=== PATIENT | female | born 1990 | race Caucasian/White ===

== ENCOUNTER 2016-10-11 09:25 | Emergency (ER) | payer OTHER ==
[2016-10-11 10:33] LABS: BASO % 0.6 % (0.0-1.0); EOS # 0.4 K/mm3 (0.0-0.50); EOS % 5.6 % (0.0-3.0); LARGE UNSTAINED CELL # 0.1 K/mm3 (0.0-0.4); LARGE UNSTAINED CELL % 1.5 % (0.0-4.0); LYMPH # 2.1 K/mm3 (1.5-6.5); LYMPH % 27.2 % (24.0-44.0); MEAN CORPUSCULAR HEMOGLOBIN 30.7 pg (27.0-33.0); MEAN CORPUSCULAR HGB CONC 33.4 g/dl (32.0-36.5); MEAN CORPUSCULAR VOLUME 91.8 fl (80.0-96.0); MONO # 0.3 K/mm3 (0.0-0.8); MONO % 4.3 % (0.0-5.0); NEUTROPHILS # 4.8 K/mm3 (1.8-7.7); NEUTROPHILS % 60.8 % (36.0-66.0); PLATELET COUNT, AUTOMATED 325 k/mm3 (150-450); RED CELL DISTRIBUTION WIDTH 12.5 % (11.5-14.5); WHITE BLOOD COUNT 7.9 K/mm3 (4.0-10.0)
[2016-10-11 10:52] LABS: ALBUMIN 3.9 GM/DL (3.2-5.2); ALBUMIN/GLOBULIN RATIO 1.15 (1.00-1.93); ALKALINE PHOSPHATASE 68 U/L (45-117); ALT/SGPT 22 U/L (12-78); ANION GAP 5 MEQ/L (8-16); AST/SGOT 10 U/L (15-37); BILIRUBIN,DIRECT 0.1 MG/DL (0.0-0.2); BILIRUBIN,TOTAL 0.5 MG/DL (0.2-1.0); BLOOD UREA NITROGEN 8 MG/DL (7-18); CALCIUM LEVEL 9.1 MG/DL (8.5-10.1); CARBON DIOXIDE LEVEL 28 MEQ/L (21-32); CHLORIDE LEVEL 106 MEQ/L (98-107); CREATININE FOR GFR 0.91 MG/DL (0.55-1.02); GLOMERULAR FILTRATION RATE > 60.0 (>60); GLUCOSE, FASTING 104 MG/DL (70-105); POTASSIUM SERUM 4.1 MEQ/L (3.5-5.1); SODIUM LEVEL 139 MEQ/L (136-145); TOTAL PROTEIN 7.3 GM/DL (6.4-8.2)
--- NOTE | 2016-10-11 11:40 | REP ---
Pelvic sonogram: History: Adnexal pain, question torsion. Findings: Transabdominal and transvaginal scanning are performed. Uterine dimensions are borderline at 9.1 x 4.4 x 5.6 cm. Endometrial echo is 0.7 cm thick. Uterine texture is somewhat heterogeneous. No focal uterine mass is seen. Trace of endometrial fluid is seen. Nabothian cyst is seen in the cervix. No free fluid is noted. Normal ovaries are seen bilaterally. Right ovary measures 3.3 x 1.8 x 3.7 cm. Left ovary measures 3.6 x 1.8 x 1.8 cm. Resistive indices is normal on the left ovary at 0.55 and on the right ovary at 0.50. Impression: Normal size ovaries with normal Doppler flow. Negative pelvic sonography. Signed by Phillip De La Rosa MD 10/11/2016 06:34 P
--- NOTE | 2016-10-11 12:23 | EDDOCDS ---
Nurse's Notes [facility] Name: Madhu Singh Age: 26 yrs Sex: Female : 1990 Arrival Date: 10/11/2016 Time: : Bed TR2 Private MD: Vipul Zayas Diagnosis: Pelvic and perineal pain Presentation: 10/11 09:40 Presenting complaint: Patient states: RLQ pain began this am denies N/V/D. Risk mlb1 factors: the patient reports no vaginal bleeding. Adult Sepsis Screening: The patient does not have new or worsening altered mentation. Patient's respiratory rate is less than 22. Systolic blood pressure is greater than 100. Patient has a qSOFA score of 0- Negative Sepsis Screen. Suicide/Homicide risk assessment- the patient denies having any suicidal and/or homicidal ideations and does not present with any other emotional, behavioral or mental health complaints. Status: Patient is not a director of maternity services or dependent. Transition of care: patient was not received from another setting of care. 09:40 Acuity: GABRIELLE Level 3 mlb1 09:40 Method Of Arrival: Walkin/Carried/Asstd mlb1 Triage Assessment: 09:43 General: Appears in no apparent distress, Behavior is anxious, cooperative. Pain: mlb1 Location: suprapubic area and right lower quadrant Pain currently is 8 out of 10 on a pain scale. HIV screening NA for this visit Offered previously. 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 Lamictal 325 mg Oral once daily 2. Adderall XR 30 mg Oral cp24 1 cap once daily 3. Adderall XR 10 mg Oral cp24 1 cap Q pm 4. [place] Carbonate 800 mg Oral nightly - PMHx: Bipolar disorder; Cancer, Cervix; - PSHx: Cesearean Section (January 09, 2011); Hemorrhoidectomy; - Social history: Smoking status: Patient uses tobacco products, light tobacco smoker. No barriers to communication noted, The patient speaks fluent Albanian, Speaks appropriately for age. - Family history: Not pertinent. - : The pt / caregiver states he / she is not on anticoagulants. Home medication list is obtained from the patient. - Exposure Risk Screening:: None identified. Screenin:19 Screening information is obtained from the patient. Fall risk: No risks identified. ttb Assistance ADL's: requires no assistance with activities of daily living. Abuse/DV Screen: The patient / caregiver reports he/she is: not in a situation that causes fear, pain or injury. Nutritional screening: No deficits noted. Advance Directives: Currently, there is no health care proxy. home support is adequate. Assessment: 12:19 General: Appears in no apparent distress, well nourished, well groomed, Behavior is ttb appropriate for age, cooperative, pleasant. Pain: Location: lower abd. Neurological: Level of Consciousness is awake, alert. Cardiovascular: Chest pain is denied. Respiratory: No deficits noted. Airway is patent Respiratory effort is even, unlabored, Denies cough, shortness of breath. GI: Abdomen is non- distended Bowel sounds present X 4 quads. Abd is soft Denies nausea, vomiting. Derm: Skin is normal. Vital Signs: 09:27 BP 161 / 86; Pulse 94; Resp 18; Temp 96.5; Pulse Ox 100% ; Weight 95.25 kg; Height 5 elp ft. 3 in. (160.02 cm); Pain 9/10; 12:13 BP 128 / 68; Pulse 77; Resp 16; Temp 97.9; Pulse Ox 99% ; Pain 5/10; cmb 09:27 Body Mass Index 37.20 (95.25 kg, 160.02 cm) [facility] Vitals: 09:27 Log In Time: October 11, 2016 at 09:14. [facility] ED Course: 09:26 Patient visited by Cass Jamison PCA. elp 09:26 Patient moved to Waiting elp 09:27 Vipul Zayas is Private Physician. elp 09:27 Patient visited by Cass Jamison PCA. elp 09:28 Patient moved to Pre RCE elp 09:40 Patient visited by Marino Washington, LUIS. mlb1 09:41 Triage Initiated mlb1 09:44 Patient visited by Marino Washington, LUIS. mlb1 09:55 Patient moved to Triage 2 mcp 10:06 [facility] Gl[facility]. btw 10:06 Felipa Metcalf MD is Attending Physician. btw 10:06 Patient visited by Doug Glover PA. btw 10:19 Patient moved to TR1 kc3 10:19 Basic Metabolic Profile Sent. kc3 10:19 CBC with Diff Sent. kc3 10:19 Liver Profile Sent. kc3 10:19 Urinalysis Sent. kc3 10:19 Urine Culture Sent. kc3 10:42 Patient moved to Ultrasound hgl 10:55 Patient name changed from Madhu\S\Amanda\S\Francisco\S\ to Madhu\S\A\S\Francisco. EDMS 10:55 [facility] Payment Agreement was scanned into [email or web address] and attached to record. lg 11:52 -US Pelvic Non-Ob Complete Returned. EDMS 11:59 Patient visited by Mariela Royal. cmb 11:59 Patient moved to PR / cmb 12:10 Vipul Zayas is Referral Physician. btw 12:14 Patient visited by Mariela Royal. cmb 12:19 Patient moved to TR2 ttb 12:19 The patient / caregiver is instructed regarding the plan of care and ED course. ttb Accompanied by Significant Other, Patient has correct armband on for positive identification. 12:19 No IV's were initiated during this patient's visit. No procedures done that require ttb assistance. Labs drawn. (by ED staff). Urine collected. Clean catch specimen. Point of Care Testing: Urine : 10:26 hCG Reading: Negative; Control Reading: Positive; kc3 Ranges: Order Results: Lab Order: Basic Metabolic Profile; SPEC'M 10/11/16 10:15 Test: GLUCOSE, FASTING; Value: 104; Range: 70-105; Units: MG/DL; Status: F Test: BLOOD UREA NITROGEN; Value: 8; Range: 7-18; Units: MG/DL; Status: F Test: CREATININE FOR GFR; Value: 0.91; Range: 0.55-1.02; Units: MG/DL; Status: F Test: GLOMERULAR FILTRATION RATE; Value: > 60.0; Range: >60; Status: F Test: SODIUM LEVEL; Value: 139; Range: 136-145; Units: MEQ/L; Status: F Test: POTASSIUM SERUM; Value: 4.1; Range: 3.5-5.1; Units: MEQ/L; Status: F Test: CHLORIDE LEVEL; Value: 106; Range: 98-107; Units: MEQ/L; Status: F Test: CARBON DIOXIDE LEVEL; Value: 28; Range: 21-32; Units: MEQ/L; Status: F Test: ANION GAP; Value: 5; Range: 8-16; Abnormal: Below low normal; Units: MEQ/L; Status: F Test: CALCIUM LEVEL; Value: 9.1; Range: 8.5-10.1; Units: MG/DL; Status: F Test Note: ; Units are mL/min/1.73 m2 Chronic Kidney Disease Staging per NKF: Stage I & II GFR >=60 Normal to Mildly Decreased Stage III GFR 30-59 Moderately Decreased Stage IV GFR 15-29 Severely Decreased Stage V GFR <15 Very Little GFR Left ESRD GFR <15 on FUR OPERATOR Lab Order: CBC with Diff; SPEC'M 10/11/16 10:15 Test: WHITE BLOOD COUNT; Value: 7.9; Range: 4.0-10.0; Units: K/mm3; Status: F Test: RED BLOOD COUNT; Value: 4.27; Range: 4.00-5.40; Units: M/mm3; Status: F Test: HEMOGLOBIN; Value: 13.1; Range: 12.0-16.0; Units: g/dl; Status: F Test: HEMATOCRIT; Value: 39.2; Range: 36.0-47.0; Units: %; Status: F Test: MEAN CORPUSCULAR VOLUME; Value: 91.8; Range: 80.0-96.0; Units: fl; Status: F Test: MEAN CORPUSCULAR HEMOGLOBIN; Value: 30.7; Range: 27.0-33.0; Units: pg; Status: F Test: MEAN CORPUSCULAR HGB CONC; Value: 33.4; Range: 32.0-36.5; Units: g/dl; Status: F Test: RED CELL DISTRIBUTION WIDTH; Value: 12.5; Range: 11.5-14.5; Units: %; Status: F Test: PLATELET COUNT, AUTOMATED; Value: 325; Range: 150-450; Units: k/mm3; Status: F Test: NEUTROPHILS %; Value: 60.8; Range: 36.0-66.0; Units: %; Status: F Test: LYMPH %; Value: 27.2; Range: 24.0-44.0; Units: %; Status: F Test: MONO %; Value: 4.3; Range: 0.0-5.0; Units: %; Status: F Test: EOS %; Value: 5.6; Range: 0.0-3.0; Abnormal: Above high normal; Units: %; Status: F Test: BASO %; Value: 0.6; Range: 0.0-1.0; Units: %; Status: F Test: LARGE UNSTAINED CELL %; Value: 1.5; Range: 0.0-4.0; Units: %; Status: F Test: NEUTROPHILS #; Value: 4.8; Range: 1.8-7.7; Units: K/mm3; Status: F Test: LYMPH #; Value: 2.1; Range: 1.5-6.5; Units: K/mm3; Status: F Test: MONO #; Value: 0.3; Range: 0.0-0.8; Units: K/mm3; Status: F Test: EOS #; Value: 0.4; Range: 0.0-0.50; Units: K/mm3; Status: F Test: BASO #; Value: 0.0; Range: 0.0-0.2; Units: K/mm3; Status: F Test: LARGE UNSTAINED CELL #; Value: 0.1; Range: 0.0-0.4; Units: K/mm3; Status: F Lab Order: Liver Profile; SPEC'M 10/11/16 10:15 Test: AST/SGOT; Value: 10; Range: 15-37; Abnormal: Below low normal; Units: U/L; Status: F Test: ALT/SGPT; Value: 22; Range: 12-78; Units: U/L; Status: F Test: ALKALINE PHOSPHATASE; Value: 68; Range: 45-117; Units: U/L; Status: F Test: BILIRUBIN,TOTAL; Value: 0.5; Range: 0.2-1.0; Units: MG/DL; Status: F Test: BILIRUBIN,DIRECT; Value: 0.1; Range: 0.0-0.2; Units: MG/DL; Status: F Test: TOTAL PROTEIN; Value: 7.3; Range: 6.4-8.2; Units: GM/DL; Status: F Test: ALBUMIN; Value: 3.9; Range: 3.2-5.2; Units: GM/DL; Status: F Test: ALBUMIN/GLOBULIN RATIO; Value: 1.15; Range: 1.00-1.93; Status: F Lab Order: Urinalysis; SPEC'M 10/11/16 10:16 Test: APPEARANCE, URINE; Value: CLEAR; Range: CLEAR; Status: F Test: COLOR, URINE; Value: YELLOW; Range: YELLOW; Status: F Test: PH,URINE; Value: 8.0; Range: 5.0-9.0; Units: UNITS; Status: F Test: SPECIFIC GRAVITY URINE AUTO; Value: 1.009; Range: 1.002-1.035; Status: F Test: PROTEIN, URINE AUTO; Value: NEGATIVE; Range: NEGATIVE; Units: mg/dL; Status: F Test: GLUCOSE, URINE (UA) AUTO; Value: NEGATIVE; Range: NEGATIVE; Units: mg/dL; Status: F Test: KETONE, URINE AUTO; Value: NEGATIVE; Range: NEGATIVE; Units: mg/dL; Status: F Test: UROBILINOGEN, URINE AUTO; Value: 0.2; Range: 0.0-2.0; Units: mg/dL; Status: F Test: BILIRUBIN, URINE AUTO; Value: NEGATIVE; Range: NEGATIVE; Status: F Test: NITRITE, URINE AUTO; Value: NEGATIVE; Range: NEGATIVE; Status: F Test: LEUKOCYTE ESTERASE, URINE AUTO; Value: NEGATIVE; Range: NEGATIVE; Status: F Test: BLOOD, URINE BLOOD; Value: NEGATIVE; Range: NEGATIVE; Status: F Test: WBC, URINE AUTO; Value: 1; Range: 0-3; Units: /HPF; Status: F Test: RBC, URINE AUTO; Value: 1; Range: 0-3; Units: /HPF; Status: F Test: BACTERIA, URINE AUTO; Value: NEGATIVE; Range: NEGATIVE; Status: F Test: SQUAMOUS EPITHELIAL CELL UR AU; Value: 1; Range: 0-6; Units: /HPF; Status: F Test: HYALINE CAST, URINE AUTO; Value: 0; Range: 0-1; Units: /LPF; Status: F Test: AMORPHOUS SEDIMENT; Value: SMALL; Range: NEGATIVE; Abnormal: Above high normal; Status: F Radiology Order: -US Pelvic Non-Ob Complete Test: -US Pelvic Non-Ob Complete REASON FOR EXAMINATION: Adnexal Pain r/o Torsion; Pelvic sonogram:; ; History: Adnexal pain, question torsion.; ; Findings: Transabdominal and transvaginal scanning are performed. Uterine; dimensions are borderline at 9.1 x 4.4 x 5.6 cm. Endometrial echo is 0.7 cm; thick. Uterine texture is somewhat heterogeneous. No focal uterine mass is; seen. Trace of endometrial fluid is seen. Nabothian cyst is seen in the cervix.; No free fluid is noted. Normal ovaries are seen bilaterally. Right ovary; measures 3.3 x 1.8 x 3.7 cm. Left ovary measures 3.6 x 1.8 x 1.8 cm. Resistive; indices is normal on the left ovary at 0.55 and on the right ovary at 0.50.; ; Impression:; ; Normal size ovaries with normal Doppler flow. Negative pelvic sonography.; ; ; ; ; Unreviewed; Outcome: 12:11 Discharge ordered by Provider. btw 12:19 Discharge Assessment: Patient awake, alert and oriented x 3. No cognitive and/or ttb functional deficits noted. Patient verbalized understanding of disposition instructions. Patient patient administered narcotics - no. The following High Risk Discharge criteria are identified: None. Discharged to home ambulatory, with significant other. Condition: good Condition: stable Condition: improved. Discharge instructions given to patient, significant other, Instructed on discharge instructions, follow up and referral plans. medication usage, Demonstrated understanding of instructions, medications, Pt was receptive of discharge instructions/ teaching. Ultrasound Study completed. Property :Personal belongings accompany Pt. 12:21 Patient left the ED. ttb Signatures: Dispatcher [employer] EDGA Prachi Thakur, RN RN Tina Hensley, Clark Reg Marino Li RN RN mlb1 Doug Glover PA PA btw Ly, Mariela Corona Teresa RN RN ttb Cass Jamison, TYREE BIOSTATIST[employer] PROFESSOR Josy Meade,RN RN kc3 MTDD
--- NOTE | 2016-10-11 12:23 | EDDOCDS ---
Physician Documentation [facility] Name: Madhu Singh Age: 26 yrs Sex: Female : 1990 Arrival Date: 10/11/2016 Time: : Bed TR2 Private MD: Vipul Zayas Disposition: 10/11/16 12:11 Discharged to Home/Self Care. Impression: Pelvic and perineal pain. - Condition is Stable. - Discharge Instructions: Pelvic Pain, Female. - Medication Reconciliation, Local Pharmacy Hours, Work Release Form - 1 day form. - Follow up: Vipul Zayas; When: Call to arrange an appointment; Reason: Further diagnostic work-up, Recheck today's complaints, Continuance of care. - Problem is new. - Symptoms have improved. - Notes: ALTHOUGH YOUR WORK UP IN THE ER TODAY WAS NEGATIVE, IT IS ESSENTIAL THAT YOU MONITOR YOUR PAIN AND FOR ANY SIGNIFICANT CHANGES. IF YOU BECOME WORSE, PLEASE RETURN TO THE ER IMMEDIATELY. OTHERWISE, PLEASE CONTACT YOUR DRAFTER TOPOGRAPHICAL OR PRIMARY MD FOR FOLLOW UP. Historical: - Allergies: no known allergies; - Home Meds: 1. Lamictal 325 mg Oral once daily 2. Adderall XR 30 mg Oral cp24 1 cap once daily 3. Adderall XR 10 mg Oral cp24 1 cap Q pm 4. [place] Carbonate 800 mg Oral nightly - PMHx: Bipolar disorder; Cancer, Cervix; - PSHx: Cesearean Section (January 09, 2011); Hemorrhoidectomy; - Social history: Smoking status: Patient uses tobacco products, light tobacco smoker. No barriers to communication noted, The patient speaks fluent Portuguese, Speaks appropriately for age. - Family history: Not pertinent. - : The pt / caregiver states he / she is not on anticoagulants. Home medication list is obtained from the patient. - Exposure Risk Screening:: None identified. 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 3 in. (160.02 cm); Pain 9/10; 12:13 BP 128 / 68; Pulse 77; Resp 16; Temp 97.9; Pulse Ox 99% ; Pain 5/10; cmb 09:27 Body Mass Index 37.20 (95.25 kg, 160.02 cm) elp MDM: 10:13 Basic Metabolic Profile Ordered. EDMS 10:13 CBC with Diff Ordered. EDMS 10:13 Liver Profile Ordered. EDMS 10:13 Urinalysis Ordered. EDMS 10:13 Urine Culture Ordered. EDMS 10:13 -US Pelvic Non-Ob Complete Ordered. EDMS 10:13 DUPLEX SCAN LIMITED (DOPPLER)+US Ordered. EDMS 10:13 NOTHING BY MOUTH+DIET ordered. EDMS 10:17 UCG by Nursing ordered. btw 10:21 Financial registration complete. lg 10:46 Transvaginal NON- US Ordered. EDMS 10:55 [facility] Payment Agreement was scanned into [employer] and attached to record. lg 10:56 Basic Metabolic Profile Reviewed. btw 10:56 CBC with Diff Reviewed. btw 10:56 Liver Profile Reviewed. btw 10:56 Urinalysis Reviewed. btw Point of Care Testing: Urine : 10:26 hCG Reading: Negative; Control Reading: Positive; kc3 Ranges: Signatures: Dispatcher [employer] EDMS Tina Schilling, Clark Reg lg Marino Washington, RN RN mlb1 Doug Glover PA PA btw Ashley Adame, RN RN ttb The chart was reviewed and I authenticate all verbal orders and agree with the evaluation and treatment provided.Attachments: 10:55 [facility] Payment Agreement lg MTDD
--- NOTE | 2016-10-13 13:22 | EDDOCDS ---
Nurse's Notes [facility] Name: Madhu Singh Age: 26 yrs Sex: Female : 1990 Arrival Date: 10/11/2016 Time: : Bed TR2 Private MD: Vipul Zayas Diagnosis: Pelvic and perineal pain Presentation: 10/11 09:40 Presenting complaint: Patient states: RLQ pain began this am denies N/V/D. Risk mlb1 factors: the patient reports no vaginal bleeding. Adult Sepsis Screening: The patient does not have new or worsening altered mentation. Patient's respiratory rate is less than 22. Systolic blood pressure is greater than 100. Patient has a qSOFA score of 0- Negative Sepsis Screen. Suicide/Homicide risk assessment- the patient denies having any suicidal and/or homicidal ideations and does not present with any other emotional, behavioral or mental health complaints. Status: Patient is not a foreign exchange services manager or dependent. Transition of care: patient was not received from another setting of care. 09:40 Acuity: GABRIELLE Level 3 mlb1 09:40 Method Of Arrival: Walkin/Carried/Asstd mlb1 Triage Assessment: 09:43 General: Appears in no apparent distress, Behavior is anxious, cooperative. Pain: mlb1 Location: suprapubic area and right lower quadrant Pain currently is 8 out of 10 on a pain scale. HIV screening NA for this visit Offered previously. 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 Lamictal 325 mg Oral once daily 2. Adderall XR 30 mg Oral cp24 1 cap once daily 3. Adderall XR 10 mg Oral cp24 1 cap Q pm 4. [place] Carbonate 800 mg Oral nightly - PMHx: Bipolar disorder; Cancer, Cervix; - PSHx: Cesearean Section (January 09, 2011); Hemorrhoidectomy; - Social history: Smoking status: Patient uses tobacco products, light tobacco smoker. No barriers to communication noted, The patient speaks fluent Slovenian, Speaks appropriately for age. - Family history: Not pertinent. - : The pt / caregiver states he / she is not on anticoagulants. Home medication list is obtained from the patient. - Exposure Risk Screening:: None identified. Screenin:19 Screening information is obtained from the patient. Fall risk: No risks identified. ttb Assistance ADL's: requires no assistance with activities of daily living. Abuse/DV Screen: The patient / caregiver reports he/she is: not in a situation that causes fear, pain or injury. Nutritional screening: No deficits noted. Advance Directives: Currently, there is no health care proxy. home support is adequate. Assessment: 12:19 General: Appears in no apparent distress, well nourished, well groomed, Behavior is ttb appropriate for age, cooperative, pleasant. Pain: Location: lower abd. Neurological: Level of Consciousness is awake, alert. Cardiovascular: Chest pain is denied. Respiratory: No deficits noted. Airway is patent Respiratory effort is even, unlabored, Denies cough, shortness of breath. GI: Abdomen is non- distended Bowel sounds present X 4 quads. Abd is soft Denies nausea, vomiting. Derm: Skin is normal. Vital Signs: 09:27 BP 161 / 86; Pulse 94; Resp 18; Temp 96.5; Pulse Ox 100% ; Weight 95.25 kg; Height 5 elp ft. 3 in. (160.02 cm); Pain 9/10; 12:13 BP 128 / 68; Pulse 77; Resp 16; Temp 97.9; Pulse Ox 99% ; Pain 5/10; cmb 09:27 Body Mass Index 37.20 (95.25 kg, 160.02 cm) [facility] Vitals: 09:27 Log In Time: October 11, 2016 at 09:14. [facility] ED Course: 09:26 Patient visited by Cass Jamison PCA. elp 09:26 Patient moved to Waiting elp 09:27 Vipul Zayas is Private Physician. elp 09:27 Patient visited by Cass Jamison PCA. elp 09:28 Patient moved to Pre RCE elp 09:40 Patient visited by Marino Washington, LUIS. mlb1 09:41 Triage Initiated mlb1 09:44 Patient visited by Marino Washington, LUIS. mlb1 09:55 Patient moved to Triage 2 mcp 10:06 [facility] btw 10:06 Felipa Metcalf MD is Attending Physician. btw 10:06 Patient visited by Doug Glover PA. btw 10:19 Patient moved to TR1 kc3 10:19 Basic Metabolic Profile Sent. kc3 10:19 CBC with Diff Sent. kc3 10:19 Liver Profile Sent. kc3 10:19 Urinalysis Sent. kc3 10:19 Urine Culture Sent. kc3 10:42 Patient moved to Ultrasound hgl 10:55 Patient name changed from Madhu\S\Amanda\S\Francisco\S\ to Madhu\S\A\S\Francisco. EDMS 10:55 PA-EM Payment Agreement was scanned into [facility] and attached to record. lg 11:52 -US Pelvic Non-Ob Complete Returned. EDMS 11:59 Patient visited by Mariela Royal. cmb 11:59 Patient moved to PR / 25 cmb 12:10 Vipul Zayas is Referral Physician. btw 12:14 Patient visited by Mariela Royal. cmb 12:19 Patient moved to TR2 ttb 12:19 The patient / caregiver is instructed regarding the plan of care and ED course. ttb Accompanied by Significant Other, Patient has correct armband on for positive identification. 12:19 No IV's were initiated during this patient's visit. No procedures done that require ttb assistance. Labs drawn. (by ED staff). Urine collected. Clean catch specimen. 14:00 T-Sheet-- Draft Copy was scanned into [facility] and attached to record. gb Point of Care Testing: Urine : 10:26 hCG Reading: Negative; Control Reading: Positive; kc3 Ranges: Order Results: Lab Order: Basic Metabolic Profile; SPEC'M 10/11/16 10:15 Test: GLUCOSE, FASTING; Value: 104; Range: 70-105; Units: MG/DL; Status: F Test: BLOOD UREA NITROGEN; Value: 8; Range: 7-18; Units: MG/DL; Status: F Test: CREATININE FOR GFR; Value: 0.91; Range: 0.55-1.02; Units: MG/DL; Status: F Test: GLOMERULAR FILTRATION RATE; Value: > 60.0; Range: >60; Status: F Test: SODIUM LEVEL; Value: 139; Range: 136-145; Units: MEQ/L; Status: F Test: POTASSIUM SERUM; Value: 4.1; Range: 3.5-5.1; Units: MEQ/L; Status: F Test: CHLORIDE LEVEL; Value: 106; Range: 98-107; Units: MEQ/L; Status: F Test: CARBON DIOXIDE LEVEL; Value: 28; Range: 21-32; Units: MEQ/L; Status: F Test: ANION GAP; Value: 5; Range: 8-16; Abnormal: Below low normal; Units: MEQ/L; Status: F Test: CALCIUM LEVEL; Value: 9.1; Range: 8.5-10.1; Units: MG/DL; Status: F Test Note: ; Units are mL/min/1.73 m2 Chronic Kidney Disease Staging per NKF: Stage I & II GFR >=60 Normal to Mildly Decreased Stage III GFR 30-59 Moderately Decreased Stage IV GFR 15-29 Severely Decreased Stage V GFR <15 Very Little GFR Left ESRD GFR <15 on TRANSFER CAR OPERATOR DRIER Lab Order: CBC with Diff; SPEC'M 10/11/16 10:15 Test: WHITE BLOOD COUNT; Value: 7.9; Range: 4.0-10.0; Units: K/mm3; Status: F Test: RED BLOOD COUNT; Value: 4.27; Range: 4.00-5.40; Units: M/mm3; Status: F Test: HEMOGLOBIN; Value: 13.1; Range: 12.0-16.0; Units: g/dl; Status: F Test: HEMATOCRIT; Value: 39.2; Range: 36.0-47.0; Units: %; Status: F Test: MEAN CORPUSCULAR VOLUME; Value: 91.8; Range: 80.0-96.0; Units: fl; Status: F Test: MEAN CORPUSCULAR HEMOGLOBIN; Value: 30.7; Range: 27.0-33.0; Units: pg; Status: F Test: MEAN CORPUSCULAR HGB CONC; Value: 33.4; Range: 32.0-36.5; Units: g/dl; Status: F Test: RED CELL DISTRIBUTION WIDTH; Value: 12.5; Range: 11.5-14.5; Units: %; Status: F Test: PLATELET COUNT, AUTOMATED; Value: 325; Range: 150-450; Units: k/mm3; Status: F Test: NEUTROPHILS %; Value: 60.8; Range: 36.0-66.0; Units: %; Status: F Test: LYMPH %; Value: 27.2; Range: 24.0-44.0; Units: %; Status: F Test: MONO %; Value: 4.3; Range: 0.0-5.0; Units: %; Status: F Test: EOS %; Value: 5.6; Range: 0.0-3.0; Abnormal: Above high normal; Units: %; Status: F Test: BASO %; Value: 0.6; Range: 0.0-1.0; Units: %; Status: F Test: LARGE UNSTAINED CELL %; Value: 1.5; Range: 0.0-4.0; Units: %; Status: F Test: NEUTROPHILS #; Value: 4.8; Range: 1.8-7.7; Units: K/mm3; Status: F Test: LYMPH #; Value: 2.1; Range: 1.5-6.5; Units: K/mm3; Status: F Test: MONO #; Value: 0.3; Range: 0.0-0.8; Units: K/mm3; Status: F Test: EOS #; Value: 0.4; Range: 0.0-0.50; Units: K/mm3; Status: F Test: BASO #; Value: 0.0; Range: 0.0-0.2; Units: K/mm3; Status: F Test: LARGE UNSTAINED CELL #; Value: 0.1; Range: 0.0-0.4; Units: K/mm3; Status: F Lab Order: Liver Profile; SPEC'M 10/11/16 10:15 Test: AST/SGOT; Value: 10; Range: 15-37; Abnormal: Below low normal; Units: U/L; Status: F Test: ALT/SGPT; Value: 22; Range: 12-78; Units: U/L; Status: F Test: ALKALINE PHOSPHATASE; Value: 68; Range: 45-117; Units: U/L; Status: F Test: BILIRUBIN,TOTAL; Value: 0.5; Range: 0.2-1.0; Units: MG/DL; Status: F Test: BILIRUBIN,DIRECT; Value: 0.1; Range: 0.0-0.2; Units: MG/DL; Status: F Test: TOTAL PROTEIN; Value: 7.3; Range: 6.4-8.2; Units: GM/DL; Status: F Test: ALBUMIN; Value: 3.9; Range: 3.2-5.2; Units: GM/DL; Status: F Test: ALBUMIN/GLOBULIN RATIO; Value: 1.15; Range: 1.00-1.93; Status: F Lab Order: Urinalysis; SPEC'M 10/11/16 10:16 Test: APPEARANCE, URINE; Value: CLEAR; Range: CLEAR; Status: F Test: COLOR, URINE; Value: YELLOW; Range: YELLOW; Status: F Test: PH,URINE; Value: 8.0; Range: 5.0-9.0; Units: UNITS; Status: F Test: SPECIFIC GRAVITY URINE AUTO; Value: 1.009; Range: 1.002-1.035; Status: F Test: PROTEIN, URINE AUTO; Value: NEGATIVE; Range: NEGATIVE; Units: mg/dL; Status: F Test: GLUCOSE, URINE (UA) AUTO; Value: NEGATIVE; Range: NEGATIVE; Units: mg/dL; Status: F Test: KETONE, URINE AUTO; Value: NEGATIVE; Range: NEGATIVE; Units: mg/dL; Status: F Test: UROBILINOGEN, URINE AUTO; Value: 0.2; Range: 0.0-2.0; Units: mg/dL; Status: F Test: BILIRUBIN, URINE AUTO; Value: NEGATIVE; Range: NEGATIVE; Status: F Test: NITRITE, URINE AUTO; Value: NEGATIVE; Range: NEGATIVE; Status: F Test: LEUKOCYTE ESTERASE, URINE AUTO; Value: NEGATIVE; Range: NEGATIVE; Status: F Test: BLOOD, URINE BLOOD; Value: NEGATIVE; Range: NEGATIVE; Status: F Test: WBC, URINE AUTO; Value: 1; Range: 0-3; Units: /HPF; Status: F Test: RBC, URINE AUTO; Value: 1; Range: 0-3; Units: /HPF; Status: F Test: BACTERIA, URINE AUTO; Value: NEGATIVE; Range: NEGATIVE; Status: F Test: SQUAMOUS EPITHELIAL CELL UR AU; Value: 1; Range: 0-6; Units: /HPF; Status: F Test: HYALINE CAST, URINE AUTO; Value: 0; Range: 0-1; Units: /LPF; Status: F Test: AMORPHOUS SEDIMENT; Value: SMALL; Range: NEGATIVE; Abnormal: Above high normal; Status: F Lab Order: Urine Culture; SPEC'M 10/11/16 10:16 Test: URINE CULTURE; Value: <EXTERNAL COMMENT eCWMed> FULL REPORT IN LAB NOTES (eCW and Medent).; Status: F Test: URINE CULTURE; Value: URINE CULTURE RESULT; Status: F Test: URINE CULTURE; Value: NO GROWTH CLINICAL SIGNIFICANCE 2 OR MORE ORGANISMS; Status: F Radiology Order: -US Pelvic Non-Ob Complete Test: -US Pelvic Non-Ob Complete REASON FOR EXAMINATION: Adnexal Pain r/o Torsion; Pelvic sonogram:; ; History: Adnexal pain, question torsion.; ; Findings: Transabdominal and transvaginal scanning are performed. Uterine; dimensions are borderline at 9.1 x 4.4 x 5.6 cm. Endometrial echo is 0.7 cm; thick. Uterine texture is somewhat heterogeneous. No focal uterine mass is; seen. Trace of endometrial fluid is seen. Nabothian cyst is seen in the cervix.; No free fluid is noted. Normal ovaries are seen bilaterally. Right ovary; measures 3.3 x 1.8 x 3.7 cm. Left ovary measures 3.6 x 1.8 x 1.8 cm. Resistive; indices is normal on the left ovary at 0.55 and on the right ovary at 0.50.; ; Impression:; ; Normal size ovaries with normal Doppler flow. Negative pelvic sonography.; ; ; Signed by; Phillip De La Rosa MD 10/11/2016 06:34 P; Outcome: 12:11 Discharge ordered by Provider. btw 12:19 Discharge Assessment: Patient awake, alert and oriented x 3. No cognitive and/or ttb functional deficits noted. Patient verbalized understanding of disposition instructions. Patient patient administered narcotics - no. The following High Risk Discharge criteria are identified: None. Discharged to home ambulatory, with significant other. Condition: good Condition: stable Condition: improved. Discharge instructions given to patient, significant other, Instructed on discharge instructions, follow up and referral plans. medication usage, Demonstrated understanding of instructions, medications, Pt was receptive of discharge instructions/ teaching. Ultrasound Study completed. Property :Personal belongings accompany Pt. 12:21 Patient left the ED. ttb Signatures: Dispatcher [facility] Prachi Jorge RN RN Florence Caldwell, Reg Reg Tina Waldron, Reg Reg lg Marino Washington, RN RN mlb1 Doug Glover PA PA btw Ly, Link hgl Mariela Royal Teresa, RN RN ttb Cass Jamison, T[employer]REE PUBLIC ADMINISTRATION PROFESSOR elp Josy Parikh,RN RN kc3 Chart Complete MTDD
--- NOTE | 2016-10-13 13:22 | EDDOCDS ---
Physician Documentation [facility] Name: Madhu Singh Age: 26 yrs Sex: Female : 1990 Arrival Date: 10/11/2016 Time: : Bed TR2 Private MD: Vipul Zayas Disposition: 10/11/16 12:11 Discharged to Home/Self Care. Impression: Pelvic and perineal pain. - Condition is Stable. - Discharge Instructions: Pelvic Pain, Female. - Medication Reconciliation, Local Pharmacy Hours, Work Release Form - 1 day form. - Follow up: Vipul Zayas; When: Call to arrange an appointment; Reason: Further diagnostic work-up, Recheck today's complaints, Continuance of care. - Problem is new. - Symptoms have improved. - Notes: ALTHOUGH YOUR WORK UP IN THE ER TODAY WAS NEGATIVE, IT IS ESSENTIAL THAT YOU MONITOR YOUR PAIN AND FOR ANY SIGNIFICANT CHANGES. IF YOU BECOME WORSE, PLEASE RETURN TO THE ER IMMEDIATELY. OTHERWISE, PLEASE CONTACT YOUR TOY ASSEMBLER WOOD OR PRIMARY MD FOR FOLLOW UP. Historical: - Allergies: no known allergies; - Home Meds: 1. Lamictal 325 mg Oral once daily 2. Adderall XR 30 mg Oral cp24 1 cap once daily 3. Adderall XR 10 mg Oral cp24 1 cap Q pm 4. [place] Carbonate 800 mg Oral nightly - PMHx: Bipolar disorder; Cancer, Cervix; - PSHx: Cesearean Section (January 09, 2011); Hemorrhoidectomy; - Social history: Smoking status: Patient uses tobacco products, light tobacco smoker. No barriers to communication noted, The patient speaks fluent Kyrgyz, Speaks appropriately for age. - Family history: Not pertinent. - : The pt / caregiver states he / she is not on anticoagulants. Home medication list is obtained from the patient. - Exposure Risk Screening:: None identified. TOY ASSEMBLER WOOD: 10/11 09:43 LMP 10/04/2016 mlb1 Vital Signs: 09:27 BP 161 / 86; Pulse 94; Resp 18; Temp 96.5; Pulse Ox 100% ; Weight 95.25 kg / 209.99 elp lbs; Height 5 ft. 3 in. (160.02 cm); Pain 9/10; 12:13 BP 128 / 68; Pulse 77; Resp 16; Temp 97.9; Pulse Ox 99% ; Pain 5/10; cmb 09:27 Body Mass Index 37.20 (95.25 kg, 160.02 cm) elp MDM: 10:13 Basic Metabolic Profile Ordered. EDMS 10:13 CBC with Diff Ordered. EDMS 10:13 Liver Profile Ordered. EDMS 10:13 Urinalysis Ordered. EDMS 10:13 Urine Culture Ordered. EDMS 10:13 -US Pelvic Non-Ob Complete Ordered. EDMS 10:13 DUPLEX SCAN LIMITED (DOPPLER)+US Ordered. EDMS 10:13 NOTHING BY MOUTH+DIET ordered. EDMS 10:17 UCG by Nursing ordered. btw 10:21 Financial registration complete. lg 10:46 Transvaginal NON- US Ordered. EDMS 10:55 [facility] [place] Payment Agreement was scanned into [employer] and attached to record. lg 10:56 Basic Metabolic Profile Reviewed. btw 10:56 CBC with Diff Reviewed. btw 10:56 Liver Profile Reviewed. btw 10:56 Urinalysis Reviewed. btw 14:00 T-Sheet-- Draft Copy was scanned into [employer] and attached to record. gb Point of Care Testing: Urine : 10:26 hCG Reading: Negative; Control Reading: Positive; kc3 Ranges: Signatures: Dispatcher [employer] EDMS Florence Schreiber, Reg Reg gb Tina Schilling, Reg Reg lg Marino Washington, RN RN mlb1 Doug Glover PA PA btw Ashley Adame, RN RN ttb The chart was reviewed and I authenticate all verbal orders and agree with the evaluation and treatment provided.Attachments: 10:55 [facility] Payment Agreement lg 14:00 T-Sheet-- Draft Copy gb Chart Complete MTDD
--- NOTE | 2016-10-13 13:22 | EDDOCDS ---
Physician Documentation [facility] Name: Madhu Singh Age: 26 yrs Sex: Female : 1990 Arrival Date: 10/11/2016 Time: : Bed TR2 Private MD: Vipul Zayas Disposition: 10/11/16 12:11 Discharged to Home/Self Care. Impression: Pelvic and perineal pain. - Condition is Stable. - Discharge Instructions: Pelvic Pain, Female. - Medication Reconciliation, Local Pharmacy Hours, Work Release Form - 1 day form. - Follow up: Vipul Zayas; When: Call to arrange an appointment; Reason: Further diagnostic work-up, Recheck today's complaints, Continuance of care. - Problem is new. - Symptoms have improved. - Notes: ALTHOUGH YOUR WORK UP IN THE ER TODAY WAS NEGATIVE, IT IS ESSENTIAL THAT YOU MONITOR YOUR PAIN AND FOR ANY SIGNIFICANT CHANGES. IF YOU BECOME WORSE, PLEASE RETURN TO THE ER IMMEDIATELY. OTHERWISE, PLEASE CONTACT YOUR INTERNATIONAL ACCOUNT MANAGER OR PRIMARY MD FOR FOLLOW UP. Historical: - Allergies: no known allergies; - Home Meds: 1. Lamictal 325 mg Oral once daily 2. Adderall XR 30 mg Oral cp24 1 cap once daily 3. Adderall XR 10 mg Oral cp24 1 cap Q pm 4. [place] Carbonate 800 mg Oral nightly - PMHx: Bipolar disorder; Cancer, Cervix; - PSHx: Cesearean Section (January 09, 2011); Hemorrhoidectomy; - Social history: Smoking status: Patient uses tobacco products, light tobacco smoker. No barriers to communication noted, The patient speaks fluent Kiswahili, Speaks appropriately for age. - Family history: Not pertinent. - : The pt / caregiver states he / she is not on anticoagulants. Home medication list is obtained from the patient. - Exposure Risk Screening:: None identified. INTERNATIONAL ACCOUNT MANAGER: 10/11 09:43 LMP 10/04/2016 mlb1 Vital Signs: 09:27 BP 161 / 86; Pulse 94; Resp 18; Temp 96.5; Pulse Ox 100% ; Weight 95.25 kg / 209.99 elp lbs; Height 5 ft. 3 in. (160.02 cm); Pain 9/10; 12:13 BP 128 / 68; Pulse 77; Resp 16; Temp 97.9; Pulse Ox 99% ; Pain 5/10; cmb 09:27 Body Mass Index 37.20 (95.25 kg, 160.02 cm) elp MDM: 10:13 Basic Metabolic Profile Ordered. EDMS 10:13 CBC with Diff Ordered. EDMS 10:13 Liver Profile Ordered. EDMS 10:13 Urinalysis Ordered. EDMS 10:13 Urine Culture Ordered. EDMS 10:13 -US Pelvic Non-Ob Complete Ordered. EDMS 10:13 DUPLEX SCAN LIMITED (DOPPLER)+US Ordered. EDMS 10:13 NOTHING BY MOUTH+DIET ordered. EDMS 10:17 UCG by Nursing ordered. btw 10:21 Financial registration complete. lg 10:46 Transvaginal NON- US Ordered. EDMS 10:55 [facility] [place] Payment Agreement was scanned into [employer] and attached to record. lg 10:56 Basic Metabolic Profile Reviewed. btw 10:56 CBC with Diff Reviewed. btw 10:56 Liver Profile Reviewed. btw 10:56 Urinalysis Reviewed. btw 14:00 T-Sheet-- Draft Copy was scanned into [employer] and attached to record. gb Point of Care Testing: Urine : 10:26 hCG Reading: Negative; Control Reading: Positive; kc3 Ranges: Signatures: Dispatcher [employer] EDMS Florence Schreiber, Reg Reg gb Tina Schilling, Reg Reg lg Marino Washington, RN RN mlb1 Doug Glover PA PA btw Ashley Adame, RN RN ttb The chart was reviewed and I authenticate all verbal orders and agree with the evaluation and treatment provided.Attachments: 10:55 [facility] [place] Payment Agreement lg 14:00 T-Sheet-- Draft Copy gb Chart Complete MTDD
== END 2016-10-11 12:21 | disposition home or self-care (01) ==
LOC: M ED 09:25
DX: R10.31 Right lower quadrant pain (principal); F31.9 Bipolar disorder, unspecified; Z85.41 Personal history of malignant neoplasm of cervix uteri; Z79.899 Other long term (current) drug therapy; F17.210 Nicotine dependence, cigarettes, uncomplicated

== ENCOUNTER 2016-10-12 08:41 | Emergency (ER) | payer OTHER ==
[2016-10-12] MEDS ORDERED: diphenhydrAMINE INJ 50MG/ML VIAL (J1200) As Ordered ONE (09:06)
[2016-10-12] MEDS ORDERED: METOCLOPRAMIDE INJ 10MG/2ML VIAL (J2765) As Ordered ONE (09:06)
[2016-10-12 09:16] LABS: BASO % 0.4 % (0.0-1.0); EOS # 0.2 K/mm3 (0.0-0.50); EOS % 2.3 % (0.0-3.0); LARGE UNSTAINED CELL # 0.1 K/mm3 (0.0-0.4); LARGE UNSTAINED CELL % 0.5 % (0.0-4.0); LYMPH # 0.8 K/mm3 (1.5-6.5); LYMPH % 7.6 % (24.0-44.0); MEAN CORPUSCULAR HEMOGLOBIN 29.7 pg (27.0-33.0); MEAN CORPUSCULAR HGB CONC 32.2 g/dl (32.0-36.5); MEAN CORPUSCULAR VOLUME 92.2 fl (80.0-96.0); MONO # 0.4 K/mm3 (0.0-0.8); MONO % 3.8 % (0.0-5.0); NEUTROPHILS # 9.3 K/mm3 (1.8-7.7); NEUTROPHILS % 85.5 % (36.0-66.0); PLATELET COUNT, AUTOMATED 340 k/mm3 (150-450); RED CELL DISTRIBUTION WIDTH 12.6 % (11.5-14.5); WHITE BLOOD COUNT 10.8 K/mm3 (4.0-10.0)
[2016-10-12] MEDS ORDERED: ISOVUE-370 76% 100ML VIAL (Q9967) As Ordered ONE (09:17)
[2016-10-12 09:40] LABS: ALBUMIN 3.8 GM/DL (3.2-5.2); ALBUMIN/GLOBULIN RATIO 1.06 (1.00-1.93); ALKALINE PHOSPHATASE 72 U/L (45-117); ALT/SGPT 21 U/L (12-78); AMYLASE 48 U/L (25-115); ANION GAP 8 MEQ/L (8-16); AST/SGOT 9 U/L (15-37); BILIRUBIN,DIRECT 0.1 MG/DL (0.0-0.2); BILIRUBIN,TOTAL 0.6 MG/DL (0.2-1.0); BLOOD UREA NITROGEN 9 MG/DL (7-18); CALCIUM LEVEL 9.1 MG/DL (8.5-10.1); CARBON DIOXIDE LEVEL 25 MEQ/L (21-32); CHLORIDE LEVEL 107 MEQ/L (98-107); CREATININE FOR GFR 0.82 MG/DL (0.55-1.02); GLOMERULAR FILTRATION RATE > 60.0 (>60); GLUCOSE, FASTING 106 MG/DL (70-105); POTASSIUM SERUM 4.1 MEQ/L (3.5-5.1); SODIUM LEVEL 140 MEQ/L (136-145); TOTAL PROTEIN 7.4 GM/DL (6.4-8.2)
--- NOTE | 2016-10-12 09:55 | REP ---
CT ABDOMEN PELVIS WITH IV BUT WITHOUT ORAL CONTRAST: HISTORY: Appendicitis. Right-sided pain. Comparison CT study August 07, 2012. CT contrast dose: 100 mL of Isovue [address] FINDINGS: Digital preliminary mule spinner radiograph shows an unremarkable bowel gas pattern. The lung bases are clear. There is no evidence of pleural effusion. The liver and the spleen are normal in size and homogeneous in texture. The gallbladder and the pancreas are unremarkable. No adrenal lesion is seen on either side. The kidneys enhance symmetrically are morphologically intact bilaterally. No retroperitoneal mass or adenopathy is seen. Normal caliber aorta is noted. Small and large intestinal bowel loops are normal in the upper abdomen. A normal retrocecal appendix is seen ascending from the cecal tip in the right flank and terminating just adjacent to the inferior tip of the liver. There is no CT evidence of diverticulitis. Uterus is tipped somewhat to the right and is unremarkable. No ovarian mass or pelvic mass or adenopathy is seen. Urinary bladder is unremarkable. Small and large intestinal bowel loops are unremarkable. No abdominal wall defect is seen. Bone window settings show no bony destructive lesion. There are bilateral L5 spondylosis defects with a subtle 2 mm grade 1, L5-S1 spondylolisthesis. No other significant bony abnormality is seen. IMPRESSION: No acute intra-abdominal abnormality. Normal appendix seen. L5 spondylolysis noted bilaterally with 2 mm grade 1, L5-S1 spondylolisthesis. This is an interval finding when compared with the [address] study. Signed by Phillip De La Rosa MD 10/12/2016 10:38 A
--- NOTE | 2016-10-12 10:39 | EDDOCDS ---
Physician Documentation [facility] Name: Madhu Singh Age: 26 yrs Sex: Female : 1990 Arrival Date: 10/12/2016 Time: 08:41 Bed I3 / M3 Private MD: Vipul Zayas MD Disposition: 10/12/16 10:33 Discharged to Home/Self Care. Impression: Right lower quadrant abdominal tenderness, Nausea and vomiting. - Condition is Stable. - Discharge Instructions: Nausea and Vomiting, [id number], Abdominal Pain, Adult, [id number]. - Prescriptions for Bentyl 20 mg Oral Tablet - take 1 tablet by ORAL route every 6 hours As needed; 20 tablet. ZOFRAN ODT 4 mg - dissolve 1 tablet by ORAL route 4 times per day As needed do not chew, do not swallow whole; 10 tablet. - Medication Reconciliation, Local Pharmacy Hours form. - Follow up: Vipul Zayas; When: Call to arrange an appointment; Reason: Further diagnostic work-up, Recheck today's complaints, Continuance of care. - Problem is new. - Symptoms are unchanged. Historical: - Allergies: no known allergies; - Home Meds: 1. Adderall XR 30 mg Oral cp24 1 cap once daily 2. Adderall XR 10 mg Oral cp24 1 cap q pm 3. Lamictal 325 mg Oral once daily 4. [place] Carbonate 800 mg Oral nightly - PMHx: Bipolar disorder; Cancer, Cervix; - PSHx: Cesearean Section (January 09, 2011); Hemorrhoidectomy; - Social history: Smoking status: Patient uses tobacco products, current every day smoker. No barriers to communication noted, The patient speaks fluent Japanese, Speaks appropriately for age. - Family history: Not pertinent. - : The pt / caregiver states he / she is not on anticoagulants. Home medication list is obtained from the patient. - Exposure Risk Screening:: None identified. 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 3 in. (160.02 cm); Pain 8/10; 10:05 BP 132 / 71; Pulse 70; Resp 18; Temp 99.3(TE); Pulse Ox 100% on R/A; srm 08:49 Body Mass Index 37.20 (95.25 kg, 160.02 cm) dem1 MDM: 08:47 NS 0.9% 1000 ml IV at bolus once ordered. btw 08:47 IV Saline Lock ordered. btw 08:47 Undress patient appropriately for examination ordered. btw 08:47 Metoclopramide 20 mg IV at 80 mg/hr once over 15 mins ordered. btw 08:47 diphenhydrAMINE 50 mg IVP once ordered. btw 08:47 Amylase Ordered. EDMS 08:47 Basic Metabolic Profile Ordered. EDMS 08:47 CBC with Diff Ordered. EDMS 08:47 Lipase Ordered. EDMS 08:47 Liver Profile Ordered. EDMS 08:48 NOTHING BY MOUTH+DIET ordered. EDMS 08:53 CT ABD & PELVIS: IV Contrast Only Ordered. EDMS 09:19 Financial registration complete. lg 09:20 [facility] Payment Agreement was scanned into [employer] and attached to record. lg 09:41 Basic Metabolic Profile Reviewed. btw 09:41 CBC with Diff Reviewed. btw 09:41 Liver Profile Reviewed. btw 09:41 Amylase Reviewed. btw 09:41 Lipase Reviewed. btw Administered Medications: 09:11 Drug: NS 0.9% 1000 ml [sodium chloride 0.9 % intravenous solution] Route: IV; Rate: srm bolus; Site: right antecubital; 10:38 Follow up: IV Status: Completed infusion; IV Intake: 1000ml srm 09:11 Drug: diphenhydrAMINE 50 mg [diphenhydramine 50 mg/mL injection solution (1 mL)] Route: srm IVP; Site: right antecubital; 09:13 Drug: Metoclopramide 20 mg [metoclopramide 5 mg/mL injection solution] Route: IV; Rate: srm 80 mg/hr; Infused Over: 15 mins; Site: right antecubital; 09:46 Follow up: IV Status: Completed infusion srm Signatures: Dispatcher [employer] EDMS Katia Stephen, LUIS RN srm Tina Schilling, Clark Rodas lg Doug Glover PA PA btw The chart was reviewed and I authenticate all verbal orders and agree with the evaluation and treatment provided.Corrections: (The following items were deleted from the chart) 08:57 08:48 CT ABD & PELVIS WITH CONTRAST+CT ordered. EDMS EDMS Attachments: 09:20 [facility] Payment Agreement lg MTDD
--- NOTE | 2016-10-12 10:40 | EDDOCDS ---
Nurse's Notes [facility] Name: Madhu Singh Age: 26 yrs Sex: Female : 1990 Arrival Date: 10/12/2016 Time: 08:41 Bed I3 / M3 Private MD: Vipul Zayas MD Diagnosis: Right lower quadrant abdominal tenderness;Nausea and vomiting Presentation: 10/12 08:49 Presenting complaint: Patient states: RLQ pain since yesterday am. seen here had labs srm and U/S. worse throughout the night with vomiting "looks like cow manuere". has had vag bleeding for 8 days. Risk factors: the patient reports moderate vaginal bleeding. Adult Sepsis Screening: The patient does not have new or worsening altered mentation. Patient's respiratory rate is less than 22. Systolic blood pressure is greater than 100. Patient has a qSOFA score of 0- Negative Sepsis Screen. Suicide/Homicide risk assessment- the patient denies having any suicidal and/or homicidal ideations and does not present with any other emotional, behavioral or mental health complaints. Transition of care: patient was not received from another setting of care. 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 srm Triage Assessment: 08:49 General: Appears uncomfortable, Behavior is appropriate for age, cooperative, crying. srm Pain: Pain currently is 8 out of 10 on a pain scale. HIV screening NA for this visit Offered previously. GI: Reports lower abdominal pain, vomiting. 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 Adderall XR 30 mg Oral cp24 1 cap once daily 2. Adderall XR 10 mg Oral cp24 1 cap q pm 3. Lamictal 325 mg Oral once daily 4. Cesar Chavez Carbonate 800 mg Oral nightly - PMHx: Bipolar disorder; Cancer, Cervix; - PSHx: Cesearean Section (January 09, 2011); Hemorrhoidectomy; - Social history: Smoking status: Patient uses tobacco products, current every day smoker. No barriers to communication noted, The patient speaks fluent Croatian, Speaks appropriately for age. - Family history: Not pertinent. - : The pt / caregiver states he / she is not on anticoagulants. Home medication list is obtained from the patient. - Exposure Risk Screening:: None identified. Screenin:15 Screening information is obtained from the patient. Fall risk: No risks identified. srm Assistance ADL's: requires no assistance with activities of daily living. Abuse/DV Screen: The patient / caregiver reports he/she is: not in a situation that causes fear, pain or injury. Nutritional screening: No deficits noted. Advance Directives: There is no active DNR order. home support is adequate. Assessment: 09:15 General: Appears in no apparent distress, Behavior is appropriate for age, cooperative. srm Neurological: No deficits noted. Cardiovascular: Capillary refill < 3 seconds in bilateral fingers. Respiratory: Airway is patent Respiratory effort is even, unlabored, Breath sounds are clear bilaterally. GI: Abdomen is non- distended Bowel sounds present X 4 quads. Abd is soft and non tender X 4 quads. Derm: No deficits noted. 10:05 General: Appears in no apparent distress, Behavior is appropriate for age, cooperative, srm drowsy. Pain: Denies pain. GI: Abdomen is non- distended Bowel sounds present X 4 quads. 10:38 Reassessment: Patient appears in no apparent distress at this time. Patient states srm feeling better. Patient states symptoms have improved. Vital Signs: 08:49 BP 144 / 79; Pulse 88; Resp 18; Temp 97.4(TE); Pulse Ox 100% on R/A; Weight 95.25 kg; dem1 Height 5 ft. 3 in. (160.02 cm); Pain 8/10; 10:05 BP 132 / 71; Pulse 70; Resp 18; Temp 99.3(TE); Pulse Ox 100% on R/A; srm 08:49 Body Mass Index 37.20 (95.25 kg, 160.02 cm) dem1 Vitals: 08:49 Log In Time: October 12, 2016 at 08:40. [facility] ED Course: 08:43 Patient visited by Tina Schilling Reg. lg 08:43 Vipul Zayas is Private Physician. lg 08:43 Patient moved to Waiting lg 08:45 Doug Glover PA is PHCP. btw 08:45 Nhung Lee MD is Attending Physician. btw 08:45 Patient visited by Doug Glover PA. btw 08:45 Patient moved to I3 / M3 srm 08:50 Patient visited by Sandy Cowart. dem1 08:50 Triage Initiated srm 09:00 Missed attempts: 20 gauge in left antecubital area. srm 09:02 Inserted saline lock: 20 gauge in right antecubital area and blood collected. srm 09:04 Amylase Sent. srm 09:04 Basic Metabolic Profile Sent. srm 09:04 CBC with Diff Sent. srm 09:04 Liver Profile Sent. srm 09:04 Lipase Sent. srm 09:15 The patient / caregiver is instructed regarding the plan of care and ED course. Patient srm has correct armband on for positive identification. Placed in gown. Bed in low position. Call light in reach. Side rails up X 1. 09:16 Patient visited by Katia Stephen RN. srm 09:20 [facility] Payment Agreement was scanned into [employer] and attached to record. lg 09:[address] dem1 09:28 Patient moved to I3 / M3 dem1 10:06 Patient visited by Katia Stephen RN. srm 10:30 Vipul Zayas is Referral Physician. btw 10:34 CT ABD & PELVIS: IV Contrast Only Returned. EDMS 10:38 Discontinued lock intact, bleeding controlled, pressure dressing applied, No srm redness/swelling at site. No procedures done that require assistance. Administered Medications: 09:11 Drug: NS 0.9% 1000 ml [sodium chloride 0.9 % intravenous solution] Route: IV; Rate: srm bolus; Site: right antecubital; 10:38 Follow up: IV Status: Completed infusion; IV Intake: 1000ml srm 09:11 Drug: diphenhydrAMINE 50 mg [diphenhydramine 50 mg/mL injection solution (1 mL)] Route: srm IVP; Site: right antecubital; 09:13 Drug: Metoclopramide 20 mg [metoclopramide 5 mg/mL injection solution] Route: IV; Rate: srm 80 mg/hr; Infused Over: 15 mins; Site: right antecubital; 09:46 Follow up: IV Status: Completed infusion srm Intake: 10:38 IV: 1000.00ml (NS); Total: 1000.00ml. srm 10:38 IV: 1000.00ml; Total: 2000.00ml. srm Order Results: Lab Order: Amylase; SPEC'M 10/12/16 09:03 Test: AMYLASE; Value: 48; Range: 25-115; Units: U/L; Status: F Lab Order: Basic Metabolic Profile; SPEC'M 10/12/16 09:03 Test: GLUCOSE, FASTING; Value: 106; Range: 70-105; Abnormal: Above high normal; Units: MG/DL; Status: F Test: BLOOD UREA NITROGEN; Value: 9; Range: 7-18; Units: MG/DL; Status: F Test: CREATININE FOR GFR; Value: 0.82; Range: 0.55-1.02; Units: MG/DL; Status: F Test: GLOMERULAR FILTRATION RATE; Value: > 60.0; Range: >60; Status: F Test: SODIUM LEVEL; Value: 140; Range: 136-145; Units: MEQ/L; Status: F Test: POTASSIUM SERUM; Value: 4.1; Range: 3.5-5.1; Units: MEQ/L; Status: F Test: CHLORIDE LEVEL; Value: 107; Range: 98-107; Units: MEQ/L; Status: F Test: CARBON DIOXIDE LEVEL; Value: 25; Range: 21-32; Units: MEQ/L; Status: F Test: ANION GAP; Value: 8; Range: 8-16; Units: MEQ/L; Status: F Test: CALCIUM LEVEL; Value: 9.1; Range: 8.5-10.1; Units: MG/DL; Status: F Test Note: ; Units are mL/min/1.73 m2 Chronic Kidney Disease Staging per NKF: Stage I & II GFR >=60 Normal to Mildly Decreased Stage III GFR 30-59 Moderately Decreased Stage IV GFR 15-29 Severely Decreased Stage V GFR <15 Very Little GFR Left ESRD GFR <15 on COURTROOM DEPUTY OR CALENDAR CLERK Lab Order: CBC with Diff; SPEC'M 10/12/16 09:03 Test: WHITE BLOOD COUNT; Value: 10.8; Range: 4.0-10.0; Abnormal: Above high normal; Units: K/mm3; Status: F Test: RED BLOOD COUNT; Value: 4.46; Range: 4.00-5.40; Units: M/mm3; Status: F Test: HEMOGLOBIN; Value: 13.2; Range: 12.0-16.0; Units: g/dl; Status: F Test: HEMATOCRIT; Value: 41.1; Range: 36.0-47.0; Units: %; Status: F Test: MEAN CORPUSCULAR VOLUME; Value: 92.2; Range: 80.0-96.0; Units: fl; Status: F Test: MEAN CORPUSCULAR HEMOGLOBIN; Value: 29.7; Range: 27.0-33.0; Units: pg; Status: F Test: MEAN CORPUSCULAR HGB CONC; Value: 32.2; Range: 32.0-36.5; Units: g/dl; Status: F Test: RED CELL DISTRIBUTION WIDTH; Value: 12.6; Range: 11.5-14.5; Units: %; Status: F Test: PLATELET COUNT, AUTOMATED; Value: 340; Range: 150-450; Units: k/mm3; Status: F Test: NEUTROPHILS %; Value: 85.5; Range: 36.0-66.0; Abnormal: Above high normal; Units: %; Status: F Test: LYMPH %; Value: 7.6; Range: 24.0-44.0; Abnormal: Below low normal; Units: %; Status: F Test: MONO %; Value: 3.8; Range: 0.0-5.0; Units: %; Status: F Test: EOS %; Value: 2.3; Range: 0.0-3.0; Units: %; Status: F Test: BASO %; Value: 0.4; Range: 0.0-1.0; Units: %; Status: F Test: LARGE UNSTAINED CELL %; Value: 0.5; Range: 0.0-4.0; Units: %; Status: F Test: NEUTROPHILS #; Value: 9.3; Range: 1.8-7.7; Abnormal: Above high normal; Units: K/mm3; Status: F Test: LYMPH #; Value: 0.8; Range: 1.5-6.5; Abnormal: Below low normal; Units: K/mm3; Status: F Test: MONO #; Value: 0.4; Range: 0.0-0.8; Units: K/mm3; Status: F Test: EOS #; Value: 0.2; Range: 0.0-0.50; Units: K/mm3; Status: F Test: BASO #; Value: 0.0; Range: 0.0-0.2; Units: K/mm3; Status: F Test: LARGE UNSTAINED CELL #; Value: 0.1; Range: 0.0-0.4; Units: K/mm3; Status: F Lab Order: Lipase; SPEC'M 10/12/16 09:03 Test: LIPASE; Value: 138; Range: 73-393; Units: U/L; Status: F Lab Order: Liver Profile; SPEC'M 10/12/16 09:03 Test: AST/SGOT; Value: 9; Range: 15-37; Abnormal: Below low normal; Units: U/L; Status: F Test: ALT/SGPT; Value: 21; Range: 12-78; Units: U/L; Status: F Test: ALKALINE PHOSPHATASE; Value: 72; Range: 45-117; Units: U/L; Status: F Test: BILIRUBIN,TOTAL; Value: 0.6; Range: 0.2-1.0; Units: MG/DL; Status: F Test: BILIRUBIN,DIRECT; Value: 0.1; Range: 0.0-0.2; Units: MG/DL; Status: F Test: TOTAL PROTEIN; Value: 7.4; Range: 6.4-8.2; Units: GM/DL; Status: F Test: ALBUMIN; Value: 3.8; Range: 3.2-5.2; Units: GM/DL; Status: F Test: ALBUMIN/GLOBULIN RATIO; Value: 1.06; Range: 1.00-1.93; Status: F Radiology Order: CT ABD & PELVIS: IV Contrast Only Test: CT ABD & PELVIS: IV Contrast Only REASON FOR EXAMINATION: Appendicitis; CT ABDOMEN PELVIS WITH IV BUT WITHOUT ORAL CONTRAST:; ; HISTORY: Appendicitis. Right-sided pain.; ; Comparison CT study August 07, 2012.; ; CT contrast dose: 100 mL of Isovue 370 is administered.; ; CT FINDINGS: Digital preliminary invoice control clerk radiograph shows an unremarkable bowel; gas pattern. The lung bases are clear. There is no evidence of pleural; effusion. The liver and the spleen are normal in size and homogeneous in; texture. The gallbladder and the pancreas are unremarkable. No adrenal lesion; is seen on either side. The kidneys enhance symmetrically are morphologically; intact bilaterally. No retroperitoneal mass or adenopathy is seen. Normal; caliber aorta is noted. Small and large intestinal bowel loops are normal in the; upper abdomen. A normal retrocecal appendix is seen ascending from the cecal tip; in the right flank and terminating just adjacent to the inferior tip of the; liver. There is no CT evidence of diverticulitis. Uterus is tipped somewhat to; the right and is unremarkable. No ovarian mass or pelvic mass or adenopathy is; seen. Urinary bladder is unremarkable. Small and large intestinal bowel loops; are unremarkable. No abdominal wall defect is seen. Bone window settings show; no bony destructive lesion. There are bilateral L5 spondylosis defects with a; subtle 2 mm grade 1, L5-S1 spondylolisthesis. No other significant bony; abnormality is seen.; ; IMPRESSION:; No acute intra-abdominal abnormality. Normal appendix seen. L5 spondylolysis; noted bilaterally with 2 mm grade 1, L5-S1 spondylolisthesis. This is an; interval finding when compared with the [address] study.; ; ; ; Unreviewed; Outcome: 10:33 Discharge ordered by Provider. btw 10:38 Discharge Assessment: Patient awake, alert and oriented x 3. No cognitive and/or srm functional deficits noted. Patient verbalized understanding of disposition instructions. patient administered narcotics - no. The following High Risk Discharge criteria are identified: None. Discharged to home ambulatory, with family. Condition: stable Condition: improved. Discharge instructions given to patient, Instructed on discharge instructions, follow up and referral plans. medication usage, Demonstrated understanding of instructions, medications, Pt was receptive of discharge instructions/ teaching. Prescriptions given X 2. CT Study completed. Property sent home with patient. 10:39 Work note provided to patient. srm 10:39 Patient left the ED. srm Signatures: Dispatcher [employer] EDMS Katia Stephen RN RN srm Tina Schilling, Doug Francis lg, PA PA btw Sandy Cowart1 Corrections: (The following items were deleted from the chart) 08:50 08:49 BP 144 / 79; Pulse 88bpm; Resp 18bpm; Pulse Ox 100% RA; Temp 97.4F Temporal; Pain dem1 04/26; dem1 MTDD
--- NOTE | 2016-10-14 11:40 | EDDOCDS ---
Physician Documentation [facility] Name: Madhu Singh Age: 26 yrs Sex: Female : 1990 Arrival Date: 10/12/2016 Time: 08:41 Bed I3 / M3 Private MD: Vipul Zayas MD Disposition: 10/12/16 10:33 Discharged to Home/Self Care. Impression: Right lower quadrant abdominal tenderness, Nausea and vomiting. - Condition is Stable. - Discharge Instructions: Nausea and Vomiting, [id number], Abdominal Pain, Adult, [id number]. - Prescriptions for Bentyl 20 mg Oral Tablet - take 1 tablet by ORAL route every 6 hours As needed; 20 tablet. ZOFRAN ODT 4 mg - dissolve 1 tablet by ORAL route 4 times per day As needed do not chew, do not swallow whole; 10 tablet. - Medication Reconciliation, Local Pharmacy Hours form. - Follow up: Vipul Zayas; When: Call to arrange an appointment; Reason: Further diagnostic work-up, Recheck today's complaints, Continuance of care. - Problem is new. - Symptoms are unchanged. Historical: - Allergies: no known allergies; - Home Meds: 1. Adderall XR 30 mg Oral cp24 1 cap once daily 2. Adderall XR 10 mg Oral cp24 1 cap q pm 3. Lamictal 325 mg Oral once daily 4. [place] Carbonate 800 mg Oral nightly - PMHx: Bipolar disorder; Cancer, Cervix; - PSHx: Cesearean Section (January 09, 2011); Hemorrhoidectomy; - Social history: Smoking status: Patient uses tobacco products, current every day smoker. No barriers to communication noted, The patient speaks fluent Macedonian, Speaks appropriately for age. - Family history: Not pertinent. - : The pt / caregiver states he / she is not on anticoagulants. Home medication list is obtained from the patient. - Exposure Risk Screening:: None identified. NEWS PRODUCTION ASSISTANT: 10/12 08:49 LMP 10/04/2016 srm Vital Signs: 08:49 BP 144 / 79; Pulse 88; Resp 18; Temp 97.4(TE); Pulse Ox 100% on R/A; Weight 95.25 kg / dem1 209.99 lbs; Height 5 ft. 3 in. (160.02 cm); Pain 8/10; 10:05 BP 132 / 71; Pulse 70; Resp 18; Temp 99.3(TE); Pulse Ox 100% on R/A; srm 08:49 Body Mass Index 37.20 (95.25 kg, 160.02 cm) dem1 MDM: 08:47 NS 0.9% 1000 ml IV at bolus once ordered. btw 08:47 IV Saline Lock ordered. btw 08:47 Undress patient appropriately for examination ordered. btw 08:47 Metoclopramide 20 mg IV at 80 mg/hr once over 15 mins ordered. btw 08:47 diphenhydrAMINE 50 mg IVP once ordered. btw 08:47 Amylase Ordered. EDMS 08:47 Basic Metabolic Profile Ordered. EDMS 08:47 CBC with Diff Ordered. EDMS 08:47 Lipase Ordered. EDMS 08:47 Liver Profile Ordered. EDMS 08:48 NOTHING BY MOUTH+DIET ordered. EDMS 08:53 CT ABD & PELVIS: IV Contrast Only Ordered. EDMS 09:19 Financial registration complete. lg 09:20 [place] [place] was scanned into [employer] and attached to record. lg 09:41 Basic Metabolic Profile Reviewed. btw 09:41 CBC with Diff Reviewed. btw 09:41 Liver Profile Reviewed. btw 09:41 Amylase Reviewed. btw 09:41 Lipase Reviewed. btw 14:35 T-Sheet-- Draft Copy was scanned into [employer] and attached to record. gb Administered Medications: 09:11 Drug: NS 0.9% 1000 ml [sodium chloride 0.9 % intravenous solution] Route: IV; Rate: srm bolus; Site: right antecubital; 10:38 Follow up: IV Status: Completed infusion; IV Intake: 1000ml srm 09:11 Drug: diphenhydrAMINE 50 mg [diphenhydramine 50 mg/mL injection solution (1 mL)] Route: srm IVP; Site: right antecubital; 09:13 Drug: Metoclopramide 20 mg [metoclopramide 5 mg/mL injection solution] Route: IV; Rate: srm 80 mg/hr; Infused Over: 15 mins; Site: right antecubital; 09:46 Follow up: IV Status: Completed infusion srm Signatures: Dispatcher [employer] EDMS Katia Stephen, RN RN srm Florence Schreiber, Reg Reg Tina Waldron, Reg Reg lg Doug Glover PA PA btw The chart was reviewed and I authenticate all verbal orders and agree with the evaluation and treatment provided.Corrections: (The following items were deleted from the chart) 08:57 08:48 CT ABD & PELVIS WITH CONTRAST+CT ordered. EDMS EDMS Attachments: 09:20 [facility] Payment Agreement lg 14:35 T-Sheet-- Draft Copy gb Chart Complete MTDD
--- NOTE | 2016-10-14 11:40 | EDDOCDS ---
[facility] Name: Madhu Singh Age: 26 yrs Sex: Female : 1990 Arrival Date: 10/12/2016 Time: 08:41 Bed I3 / M3 Private MD: Vipul Zayas MD Diagnosis: Right lower quadrant abdominal tenderness;Nausea and vomiting Presentation: 10/12 08:49 Presenting complaint: Patient states: RLQ pain since yesterday am. seen here had labs srm and U/S. worse throughout the night with vomiting "looks like cow manuere". has had vag bleeding for 8 days. Risk factors: the patient reports moderate vaginal bleeding. Adult Sepsis Screening: The patient does not have new or worsening altered mentation. Patient's respiratory rate is less than 22. Systolic blood pressure is greater than 100. Patient has a qSOFA score of 0- Negative Sepsis Screen. Suicide/Homicide risk assessment- the patient denies having any suicidal and/or homicidal ideations and does not present with any other emotional, behavioral or mental health complaints. Transition of care: patient was not received from another setting of care. 08:49 Acuity: GABRIELLE Level 3 srm 08:49 Method Of Arrival: Walkin/Carried/Asstd srm 08:55 Status: Patient is not a chief optometry service or dependent. srm Triage Assessment: 08:49 General: Appears uncomfortable, Behavior is appropriate for age, cooperative, crying. srm Pain: Pain currently is 8 out of 10 on a pain scale. HIV screening NA for this visit Offered previously. GI: Reports lower abdominal pain, vomiting. 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 Adderall XR 30 mg Oral cp24 1 cap once daily 2. Adderall XR 10 mg Oral cp24 1 cap q pm 3. Lamictal 325 mg Oral once daily 4. [place] Carbonate 800 mg Oral nightly - PMHx: Bipolar disorder; Cancer, Cervix; - PSHx: Cesearean Section (January 09, 2011); Hemorrhoidectomy; - Social history: Smoking status: Patient uses tobacco products, current every day smoker. No barriers to communication noted, The patient speaks fluent Upper Sorbian, Speaks appropriately for age. - Family history: Not pertinent. - : The pt / caregiver states he / she is not on anticoagulants. Home medication list is obtained from the patient. - Exposure Risk Screening:: None identified. Screenin:15 Screening information is obtained from the patient. Fall risk: No risks identified. srm Assistance ADL's: requires no assistance with activities of daily living. Abuse/DV Screen: The patient / caregiver reports he/she is: not in a situation that causes fear, pain or injury. Nutritional screening: No deficits noted. Advance Directives: There is no active DNR order. home support is adequate. Assessment: 09:15 General: Appears in no apparent distress, Behavior is appropriate for age, cooperative. srm Neurological: No deficits noted. Cardiovascular: Capillary refill < 3 seconds in bilateral fingers. Respiratory: Airway is patent Respiratory effort is even, unlabored, Breath sounds are clear bilaterally. GI: Abdomen is non- distended Bowel sounds present X 4 quads. Abd is soft and non tender X 4 quads. Derm: No deficits noted. 10:05 General: Appears in no apparent distress, Behavior is appropriate for age, cooperative, srm drowsy. Pain: Denies pain. GI: Abdomen is non- distended Bowel sounds present X 4 quads. 10:38 Reassessment: Patient appears in no apparent distress at this time. Patient states srm feeling better. Patient states symptoms have improved. Vital Signs: 08:49 BP 144 / 79; Pulse 88; Resp 18; Temp 97.4(TE); Pulse Ox 100% on R/A; Weight 95.25 kg; dem1 Height 5 ft. 3 in. (160.02 cm); Pain 8/10; 10:05 BP 132 / 71; Pulse 70; Resp 18; Temp 99.3(TE); Pulse Ox 100% on R/A; srm 08:49 Body Mass Index 37.20 (95.25 kg, 160.02 cm) dem1 Vitals: 08:49 Log In Time: October 12, 2016 at 08:40. [facility] ED Course: 08:43 Patient visited by Tina Schilling Reg. lg 08:43 Vipul Zayas is Private Physician. lg 08:43 Patient moved to Waiting lg 08:45 Doug Glover PA is PHCP. btw 08:45 Nhung Lee MD is Attending Physician. btw 08:45 Patient visited by Doug Glover PA. btw 08:45 Patient moved to I3 / M3 srm 08:50 Patient visited by Sandy Cowart. dem1 08:50 Triage Initiated srm 09:00 Missed attempts: 20 gauge in left antecubital area. srm 09:02 Inserted saline lock: 20 gauge in right antecubital area and blood collected. srm 09:04 Amylase Sent. srm 09:04 Basic Metabolic Profile Sent. srm 09:04 CBC with Diff Sent. srm 09:04 Liver Profile Sent. srm 09:04 Lipase Sent. srm 09:15 The patient / caregiver is instructed regarding the plan of care and ED course. Patient srm has correct armband on for positive identification. Placed in gown. Bed in low position. Call light in reach. Side rails up X 1. 09:16 Patient visited by Katia Stephen RN. srm 09:20 [facility] Payment Agreement was scanned into [employer] and attached to record. lg 09:[address] dem1 09:28 Patient moved to I3 / M3 dem1 10:06 Patient visited by Katia Stephen RN. srm 10:30 Vipul Zayas is Referral Physician. btw 10:34 CT ABD & PELVIS: IV Contrast Only Returned. EDMS 10:38 Discontinued lock intact, bleeding controlled, pressure dressing applied, No srm redness/swelling at site. No procedures done that require assistance. 14:35 T-Sheet-- Draft Copy was scanned into [employer] and attached to record. gb Administered Medications: 09:11 Drug: NS 0.9% 1000 ml [sodium chloride 0.9 % intravenous solution] Route: IV; Rate: srm bolus; Site: right antecubital; 10:38 Follow up: IV Status: Completed infusion; IV Intake: 1000ml srm 09:11 Drug: diphenhydrAMINE 50 mg [diphenhydramine 50 mg/mL injection solution (1 mL)] Route: srm IVP; Site: right antecubital; 09:13 Drug: Metoclopramide 20 mg [metoclopramide 5 mg/mL injection solution] Route: IV; Rate: srm 80 mg/hr; Infused Over: 15 mins; Site: right antecubital; 09:46 Follow up: IV Status: Completed infusion srm Intake: 10:38 IV: 1000.00ml (NS); Total: 1000.00ml. srm 10:38 IV: 1000.00ml; Total: 2000.00ml. srm Order Results: Lab Order: Amylase; SPEC'M 10/12/16 09:03 Test: AMYLASE; Value: 48; Range: 25-115; Units: U/L; Status: F Lab Order: Basic Metabolic Profile; SPEC'M 10/12/16 09:03 Test: GLUCOSE, FASTING; Value: 106; Range: 70-105; Abnormal: Above high normal; Units: MG/DL; Status: F Test: BLOOD UREA NITROGEN; Value: 9; Range: 7-18; Units: MG/DL; Status: F Test: CREATININE FOR GFR; Value: 0.82; Range: 0.55-1.02; Units: MG/DL; Status: F Test: GLOMERULAR FILTRATION RATE; Value: > 60.0; Range: >60; Status: F Test: SODIUM LEVEL; Value: 140; Range: 136-145; Units: MEQ/L; Status: F Test: POTASSIUM SERUM; Value: 4.1; Range: 3.5-5.1; Units: MEQ/L; Status: F Test: CHLORIDE LEVEL; Value: 107; Range: 98-107; Units: MEQ/L; Status: F Test: CARBON DIOXIDE LEVEL; Value: 25; Range: 21-32; Units: MEQ/L; Status: F Test: ANION GAP; Value: 8; Range: 8-16; Units: MEQ/L; Status: F Test: CALCIUM LEVEL; Value: 9.1; Range: 8.5-10.1; Units: MG/DL; Status: F Test Note: ; Units are mL/min/1.73 m2 Chronic Kidney Disease Staging per NKF: Stage I & II GFR >=60 Normal to Mildly Decreased Stage III GFR 30-59 Moderately Decreased Stage IV GFR 15-29 Severely Decreased Stage V GFR <15 Very Little GFR Left ESRD GFR <15 on INTERACTIVE MULTIMEDIA DESIGNER Lab Order: CBC with Diff; SPEC'M 10/12/16 09:03 Test: WHITE BLOOD COUNT; Value: 10.8; Range: 4.0-10.0; Abnormal: Above high normal; Units: K/mm3; Status: F Test: RED BLOOD COUNT; Value: 4.46; Range: 4.00-5.40; Units: M/mm3; Status: F Test: HEMOGLOBIN; Value: 13.2; Range: 12.0-16.0; Units: g/dl; Status: F Test: HEMATOCRIT; Value: 41.1; Range: 36.0-47.0; Units: %; Status: F Test: MEAN CORPUSCULAR VOLUME; Value: 92.2; Range: 80.0-96.0; Units: fl; Status: F Test: MEAN CORPUSCULAR HEMOGLOBIN; Value: 29.7; Range: 27.0-33.0; Units: pg; Status: F Test: MEAN CORPUSCULAR HGB CONC; Value: 32.2; Range: 32.0-36.5; Units: g/dl; Status: F Test: RED CELL DISTRIBUTION WIDTH; Value: 12.6; Range: 11.5-14.5; Units: %; Status: F Test: PLATELET COUNT, AUTOMATED; Value: 340; Range: 150-450; Units: k/mm3; Status: F Test: NEUTROPHILS %; Value: 85.5; Range: 36.0-66.0; Abnormal: Above high normal; Units: %; Status: F Test: LYMPH %; Value: 7.6; Range: 24.0-44.0; Abnormal: Below low normal; Units: %; Status: F Test: MONO %; Value: 3.8; Range: 0.0-5.0; Units: %; Status: F Test: EOS %; Value: 2.3; Range: 0.0-3.0; Units: %; Status: F Test: BASO %; Value: 0.4; Range: 0.0-1.0; Units: %; Status: F Test: LARGE UNSTAINED CELL %; Value: 0.5; Range: 0.0-4.0; Units: %; Status: F Test: NEUTROPHILS #; Value: 9.3; Range: 1.8-7.7; Abnormal: Above high normal; Units: K/mm3; Status: F Test: LYMPH #; Value: 0.8; Range: 1.5-6.5; Abnormal: Below low normal; Units: K/mm3; Status: F Test: MONO #; Value: 0.4; Range: 0.0-0.8; Units: K/mm3; Status: F Test: EOS #; Value: 0.2; Range: 0.0-0.50; Units: K/mm3; Status: F Test: BASO #; Value: 0.0; Range: 0.0-0.2; Units: K/mm3; Status: F Test: LARGE UNSTAINED CELL #; Value: 0.1; Range: 0.0-0.4; Units: K/mm3; Status: F Lab Order: Lipase; SPEC'M 10/12/16 09:03 Test: LIPASE; Value: 138; Range: 73-393; Units: U/L; Status: F Lab Order: Liver Profile; SPEC'M 10/12/16 09:03 Test: AST/SGOT; Value: 9; Range: 15-37; Abnormal: Below low normal; Units: U/L; Status: F Test: ALT/SGPT; Value: 21; Range: 12-78; Units: U/L; Status: F Test: ALKALINE PHOSPHATASE; Value: 72; Range: 45-117; Units: U/L; Status: F Test: BILIRUBIN,TOTAL; Value: 0.6; Range: 0.2-1.0; Units: MG/DL; Status: F Test: BILIRUBIN,DIRECT; Value: 0.1; Range: 0.0-0.2; Units: MG/DL; Status: F Test: TOTAL PROTEIN; Value: 7.4; Range: 6.4-8.2; Units: GM/DL; Status: F Test: ALBUMIN; Value: 3.8; Range: 3.2-5.2; Units: GM/DL; Status: F Test: ALBUMIN/GLOBULIN RATIO; Value: 1.06; Range: 1.00-1.93; Status: F Radiology Order: CT ABD & PELVIS: IV Contrast Only Test: CT ABD & PELVIS: IV Contrast Only REASON FOR EXAMINATION: Appendicitis; CT ABDOMEN PELVIS WITH IV BUT WITHOUT ORAL CONTRAST:; ; HISTORY: Appendicitis. Right-sided pain.; ; Comparison CT study August 07, 2012.; ; CT contrast dose: 100 mL of Isovue 370 is administered.; ; CT FINDINGS: Digital preliminary sack sewer radiograph shows an unremarkable bowel; gas pattern. The lung bases are clear. There is no evidence of pleural; effusion. The liver and the spleen are normal in size and homogeneous in; texture. The gallbladder and the pancreas are unremarkable. No adrenal lesion; is seen on either side. The kidneys enhance symmetrically are morphologically; intact bilaterally. No retroperitoneal mass or adenopathy is seen. Normal; caliber aorta is noted. Small and large intestinal bowel loops are normal in the; upper abdomen. A normal retrocecal appendix is seen ascending from the cecal tip; in the right flank and terminating just adjacent to the inferior tip of the; liver. There is no CT evidence of diverticulitis. Uterus is tipped somewhat to; the right and is unremarkable. No ovarian mass or pelvic mass or adenopathy is; seen. Urinary bladder is unremarkable. Small and large intestinal bowel loops; are unremarkable. No abdominal wall defect is seen. Bone window settings show; no bony destructive lesion. There are bilateral L5 spondylosis defects with a; subtle 2 mm grade 1, L5-S1 spondylolisthesis. No other significant bony; abnormality is seen.; ; IMPRESSION: No acute intra-abdominal abnormality. Normal appendix seen. L5; spondylolysis noted bilaterally with 2 mm grade 1, L5-S1 spondylolisthesis. This; is an interval finding when compared with the [address] study.; ; ; Signed by; Phillip De La Rosa MD 10/12/2016 10:38 A; Outcome: 10:33 Discharge ordered by Provider. btw 10:38 Discharge Assessment: Patient awake, alert and oriented x 3. No cognitive and/or srm functional deficits noted. Patient verbalized understanding of disposition instructions. patient administered narcotics - no. The following High Risk Discharge criteria are identified: None. Discharged to home ambulatory, with family. Condition: stable Condition: improved. Discharge instructions given to patient, Instructed on discharge instructions, follow up and referral plans. medication usage, Demonstrated understanding of instructions, medications, Pt was receptive of discharge instructions/ teaching. Prescriptions given X 2. CT Study completed. Property sent home with patient. 10:39 Work note provided to patient. srm 10:39 Patient left the ED. srm Signatures: Dispatcher [employer] EDMS Katia Stephen, RN RN srm Florence Schreiber, Reg Reg gb Tina Schilling, Reg Reg lg Doug Glover PA PA btw Sandy Cowart Corrections: (The following items were deleted from the chart) 08:50 08:49 BP 144 / 79; Pulse 88bpm; Resp 18bpm; Pulse Ox 100% RA; Temp 97.4F Temporal; Pain dem1 04/26; dem1 Chart Complete MTDD
--- NOTE | 2016-10-14 11:40 | EDDOCDS ---
Physician Documentation [facility] Name: Madhu Singh Age: 26 yrs Sex: Female : 1990 Arrival Date: 10/12/2016 Time: 08:41 Bed I3 / M3 Private MD: Vipul Zayas MD Disposition: 10/12/16 10:33 Discharged to Home/Self Care. Impression: Right lower quadrant abdominal tenderness, Nausea and vomiting. - Condition is Stable. - Discharge Instructions: Nausea and Vomiting, [id number], Abdominal Pain, Adult, [id number]. - Prescriptions for Bentyl 20 mg Oral Tablet - take 1 tablet by ORAL route every 6 hours As needed; 20 tablet. ZOFRAN ODT 4 mg - dissolve 1 tablet by ORAL route 4 times per day As needed do not chew, do not swallow whole; 10 tablet. - Medication Reconciliation, Local Pharmacy Hours form. - Follow up: Vipul Zayas; When: Call to arrange an appointment; Reason: Further diagnostic work-up, Recheck today's complaints, Continuance of care. - Problem is new. - Symptoms are unchanged. Historical: - Allergies: no known allergies; - Home Meds: 1. Adderall XR 30 mg Oral cp24 1 cap once daily 2. Adderall XR 10 mg Oral cp24 1 cap q pm 3. Lamictal 325 mg Oral once daily 4. [facility] Carbonate 800 mg Oral nightly - PMHx: Bipolar disorder; Cancer, Cervix; - PSHx: Cesearean Section (January 09, 2011); Hemorrhoidectomy; - Social history: Smoking status: Patient uses tobacco products, current every day smoker. No barriers to communication noted, The patient speaks fluent Romansh, Speaks appropriately for age. - Family history: Not pertinent. - : The pt / caregiver states he / she is not on anticoagulants. Home medication list is obtained from the patient. - Exposure Risk Screening:: None identified. 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 3 in. (160.02 cm); Pain 8/10; 10:05 BP 132 / 71; Pulse 70; Resp 18; Temp 99.3(TE); Pulse Ox 100% on R/A; srm 08:49 Body Mass Index 37.20 (95.25 kg, 160.02 cm) dem1 MDM: 08:47 NS 0.9% 1000 ml IV at bolus once ordered. btw 08:47 IV Saline Lock ordered. btw 08:47 Undress patient appropriately for examination ordered. btw 08:47 Metoclopramide 20 mg IV at 80 mg/hr once over 15 mins ordered. btw 08:47 diphenhydrAMINE 50 mg IVP once ordered. btw 08:47 Amylase Ordered. EDMS 08:47 Basic Metabolic Profile Ordered. EDMS 08:47 CBC with Diff Ordered. EDMS 08:47 Lipase Ordered. EDMS 08:47 Liver Profile Ordered. EDMS 08:48 NOTHING BY MOUTH+DIET ordered. EDMS 08:53 CT ABD & PELVIS: IV Contrast Only Ordered. EDMS 09:19 Financial registration complete. lg 09:20 [facility] Payment Agreement was scanned into [employer] and attached to record. lg 09:41 Basic Metabolic Profile Reviewed. btw 09:41 CBC with Diff Reviewed. btw 09:41 Liver Profile Reviewed. btw 09:41 Amylase Reviewed. btw 09:41 Lipase Reviewed. btw 14:35 T-Sheet-- Draft Copy was scanned into [employer] and attached to record. gb Administered Medications: 09:11 Drug: NS 0.9% 1000 ml [sodium chloride 0.9 % intravenous solution] Route: IV; Rate: srm bolus; Site: right antecubital; 10:38 Follow up: IV Status: Completed infusion; IV Intake: 1000ml srm 09:11 Drug: diphenhydrAMINE 50 mg [diphenhydramine 50 mg/mL injection solution (1 mL)] Route: srm IVP; Site: right antecubital; 09:13 Drug: Metoclopramide 20 mg [metoclopramide 5 mg/mL injection solution] Route: IV; Rate: srm 80 mg/hr; Infused Over: 15 mins; Site: right antecubital; 09:46 Follow up: IV Status: Completed infusion srm Signatures: Dispatcher [employer] EDMS Katia Stephen, RN RN srm Florence Schreiber, Reg Reg Tina Waldron, Reg Reg lg Doug Glover PA PA btw The chart was reviewed and I authenticate all verbal orders and agree with the evaluation and treatment provided.Corrections: (The following items were deleted from the chart) 08:57 08:48 CT ABD & PELVIS WITH CONTRAST+CT ordered. EDMS EDMS Attachments: 09:20 [facility] Payment Agreement lg 14:35 T-Sheet-- Draft Copy gb Chart Complete MTDD
== END 2016-10-12 10:39 | disposition home or self-care (01) ==
LOC: M ED 08:41
DX: R10.31 Right lower quadrant pain (principal); R11.2 Nausea with vomiting, unspecified; F31.9 Bipolar disorder, unspecified; Z85.41 Personal history of malignant neoplasm of cervix uteri; Z79.899 Other long term (current) drug therapy; F17.210 Nicotine dependence, cigarettes, uncomplicated
CPT/HCPCS: 36415; 74177; 80048; 80076; 82150; 83690; 85025; 96361; 96365; 96375; 99284; J1200; J2765; Q9967

== ENCOUNTER → 2018-01-08 | Outpatient (CLI) | payer OTHER ==
[2018-01-08 12:24] LABS: ALBUMIN 3.4 GM/DL (3.2-5.2); ALBUMIN/GLOBULIN RATIO 1.06 (1.00-1.93); ALKALINE PHOSPHATASE 71 U/L (45-117); ALT/SGPT 16 U/L (12-78); ANION GAP 6 MEQ/L (8-16); AST/SGOT 8 U/L (7-37); BILIRUBIN,TOTAL 0.2 MG/DL (0.2-1.0); BLOOD UREA NITROGEN 8 MG/DL (7-18); CALCIUM LEVEL 8.7 MG/DL (8.5-10.1); CARBON DIOXIDE LEVEL 24 MEQ/L (21-32); CHLORIDE LEVEL 113 MEQ/L (98-107); CHOLESTEROL LEVEL 151 MG/DL (<200); CHOLESTEROL RISK RATIO 2.903 (<5); CREATININE FOR GFR 0.81 MG/DL (0.55-1.30); GLOMERULAR FILTRATION RATE > 60.0 (>60); GLUCOSE, FASTING 96 MG/DL (70-100); HDL CHOLESTEROL 52 MG/DL (>40); LDL CHOLESTEROL 82.6 MG/DL (<100); NON-HDL-C 99 MG/DL; POTASSIUM SERUM 4.4 MEQ/L (3.5-5.1); SODIUM LEVEL 143 MEQ/L (136-145); TOTAL PROTEIN 6.6 GM/DL (6.4-8.2); TRIGLYCERIDES LEVEL 82 MG/DL (<150)
[2018-01-08 12:32] LABS: LITHIUM LEVEL < 0.20 MEQ/L (0.60-1.20)
[2018-01-08 13:45] LABS: ESTIMATED AVERAGE GLUCOSE 111 MG/DL (60-110); HEMOGLOBIN A1c 5.5 %
[2018-01-10 10:16] LABS: LAMOTRIGINE (LAMICTAL) 3.6 ug/mL (2.0-20.0)
== END ==
LOC: M LAB 10:41
DX: Z79.899 Other long term (current) drug therapy (principal)
CPT/HCPCS: 80178

== ENCOUNTER 2018-02-05 14:43 | Emergency (ER) | payer OTHER ==
[2018-02-05 15:36] LABS: CONTROL LINE UCG INT CTR LINE PRESENT; URINE PREG TEST POSITIVE (NEGATIVE)
[2018-02-05 15:40] LABS: KETONE, URINE AUTO RFX 1+ mg/dL (NEGATIVE); LEUKOCYTE ESTERASE UR AUTO RFX TRACE (NEGATIVE); MUCUS, URINE RFX SMALL (NEGATIVE); NITRITE, URINE AUTO RFX NEGATIVE (NEGATIVE); RBC, URINE AUTO RFX 2 /HPF (0-3); SPECIFIC GRAVITY UR AUTO RFX 1.015 (1.002-1.035); SQUAM EPITHELIAL CELL UR AURFX 2 /HPF (0-6); WBC, URINE AUTO RFX 7 /HPF (0-3)
== END 2018-02-05 17:47 | disposition left against medical advice (07) ==
LOC: M ED 14:43
DX: R42 Dizziness and giddiness (principal); Z53.21 Procedure and treatment not carried out due to patient leaving prior to being seen by health care provider

== ENCOUNTER 2018-02-22 14:34 | Emergency (ER) | payer OTHER ==
[2018-02-22 15:48] LABS: CONTROL LINE UCG INT CTR LINE PRESENT; URINE PREG TEST POSITIVE (NEGATIVE)
[2018-02-22 15:57] LABS: AMORPHOUS SEDIMENT RFX SMALL (NEGATIVE); KETONE, URINE AUTO RFX TRACE mg/dL (NEGATIVE); MUCUS, URINE RFX LARGE (NEGATIVE); NITRITE, URINE AUTO RFX NEGATIVE (NEGATIVE); RBC, URINE AUTO RFX 56 /HPF (0-3); SPECIFIC GRAVITY UR AUTO RFX 1.036 (1.002-1.035); SQUAM EPITHELIAL CELL UR AURFX 89 /HPF (0-6)
[2018-02-22 16:00] LABS: LEUKOCYTE ESTERASE UR AUTO RFX 3+ (NEGATIVE); WBC, URINE AUTO RFX TNTC /HPF (0-3)
== END 2018-02-22 16:21 | disposition home or self-care (01) ==
LOC: M ED 14:34
DX: N39.0 Urinary tract infection, site not specified (principal); Z72.0 Tobacco use; Z79.899 Other long term (current) drug therapy
CPT/HCPCS: 84703

== ENCOUNTER → 2018-05-09 | Outpatient (REF) | payer OTHER ==
[2018-05-09 16:03] LABS: CHLAMYDIA DNA AMPLIFICATION NEGATIVE (NEGATIVE); GC DNA AMPLIFICATION NEGATIVE (NEGATIVE)
== END ==
LOC: M LAB REF 13:40
DX: Z34.80 Encounter for supervision of other normal pregnancy, unspecified trimester (principal)

== ENCOUNTER → 2018-06-06 | Outpatient (CLI) | payer OTHER ==
[2018-06-06 13:41] LABS: HEMATOCRIT 33.9 % (36.0-47.0); MEAN CORPUSCULAR HEMOGLOBIN 28.4 pg (27.0-33.0); MEAN CORPUSCULAR HGB CONC 32.4 g/dl (32.0-36.5); MEAN CORPUSCULAR VOLUME 87.6 fl (80.0-96.0); PLATELET COUNT, AUTOMATED 264 10^3/uL (150-450); RED BLOOD COUNT 3.87 10^6/uL (4.00-5.40); RED CELL DISTRIBUTION WIDTH 15.4 % (11.5-14.5); WHITE BLOOD COUNT 9.2 10^3/uL (4.0-10.0)
== END ==
LOC: M LAB 12:56
DX: O28.5 Abnormal chromosomal and genetic finding on antenatal screening of mother (principal); O99.332 Smoking (tobacco) complicating pregnancy, second trimester; Z3A.21 21 weeks gestation of pregnancy
CPT/HCPCS: 85027

== ENCOUNTER → 2018-06-07 | Outpatient (CLI) | payer OTHER | LOC: M RAD 11:08 | DX: Z34.82 Encounter for supervision of other normal pregnancy, second trimester (principal) | CPT/HCPCS: 76816 ==

== ENCOUNTER 2018-08-17 21:17 | Emergency (ER) | payer OTHER ==
[2018-08-17 21:45] LABS: KETONE, URINE AUTO RFX NEGATIVE (NEGATIVE); LEUKOCYTE ESTERASE UR AUTO RFX 3+ (NEGATIVE); MUCUS, URINE RFX SMALL (NEGATIVE); NITRITE, URINE AUTO RFX NEGATIVE (NEGATIVE); RBC, URINE AUTO RFX 14 /HPF (0-3); SPECIFIC GRAVITY UR AUTO RFX 1.005 (1.002-1.035); SQUAM EPITHELIAL CELL UR AURFX 2 /HPF (0-6); WBC, URINE AUTO RFX 24 /HPF (0-3)
[2018-08-17] MEDS: CEPHALEXIN 500 MG CAP PO (22:10)
[2018-08-17] MEDS: PHENAZOPYRIDINE 100 MG TAB PO (22:11)
== END 2018-08-17 22:13 | disposition home or self-care (01) ==
LOC: M ED 21:17
DX: O23.10 Infections of bladder in pregnancy, unspecified trimester (principal); O99.343 Other mental disorders complicating pregnancy, third trimester; F31.9 Bipolar disorder, unspecified; F90.9 Attention-deficit hyperactivity disorder, unspecified type; Z79.899 Other long term (current) drug therapy; Z3A.32 32 weeks gestation of pregnancy
CPT/HCPCS: 81001

== ENCOUNTER → 2018-08-21 | Outpatient (CLI) | payer OTHER | LOC: M RAD 11:04 | DX: Z34.82 Encounter for supervision of other normal pregnancy, second trimester (principal); Z36.89 Encounter for other specified antenatal screening; Z3A.31 31 weeks gestation of pregnancy | CPT/HCPCS: 76816 ==

== ENCOUNTER → 2018-09-20 | Outpatient (CLI) | payer OTHER ==
[~2018-09-20] MED LIST: ABIL1TAB11 PO; KEFL500C17 PO; LAMO10TA PO; LATU1TAB PO; MACR100C43 PO; PYRI1TAB5 PO; VYVA70CA3 PO; ZOFR4TAB14 PO; prenatal PO
[2018-09-20 18:25] LABS: HEMOGLOBIN 11.3 g/dl (12.0-15.5); MEAN CORPUSCULAR HGB CONC 32.3 g/dl (32.0-36.5); MEAN CORPUSCULAR VOLUME 89.7 fl (80.0-96.0); PLATELET COUNT, AUTOMATED 350 10^3/uL (150-450); WHITE BLOOD COUNT 13.8 10^3/uL (4.0-10.0)
[2018-09-20 19:13] LABS: ALT/SGPT 18 U/L (12-78); BILIRUBIN,TOTAL 0.5 MG/DL (0.2-1.0); CREATININE FOR GFR 0.66 MG/DL (0.55-1.30); GLOMERULAR FILTRATION RATE > 60.0 (>60); LDH LACTATE DEHYDROGENASE 169 U/L (84-246); URIC ACID 3.5 MG/DL (2.6-6.0)
[2018-09-23 14:08] LABS: CREATININE,RANDOM URINE 97.7 MG/DL; TOTAL PROTEIN,RANDOM URINE 13.4 MG/DL (0.0-12.0)
== END ==
LOC: M SMT 15:01
PROVIDERS: ATTEND Advanced Practice Midwife
DX: Z34.83 Encounter for supervision of other normal pregnancy, third trimester (principal); R03.0 Elevated blood-pressure reading, without diagnosis of hypertension

== ENCOUNTER 2018-10-04 05:24 | Inpatient (IN) | payer OTHER ==
[~2018-10-04] VITALS: Ht 160 cm; Wt 100.7 kg
[2018-10-04] VITALS (8 sets, daily range): BP systolic 105–123; BP diastolic 59–72
[2018-10-04] MEDS ORDERED: LR 1,000 ML IV SCH (06:00)
[2018-10-04] MEDS ORDERED: BICITRA 30ML SOLN UDC PO ONE (06:00)
[2018-10-04] MEDS ORDERED: LR 1,000 ML IV ONE (06:00)
[2018-10-04 06:25] LABS: HEMATOCRIT 32.8 % (36.0-47.0); HEMOGLOBIN 10.8 g/dl (12.0-15.5); MEAN CORPUSCULAR HGB CONC 32.9 g/dl (32.0-36.5); MEAN CORPUSCULAR VOLUME 88.2 fl (80.0-96.0); PLATELET COUNT, AUTOMATED 346 10^3/uL (150-450); RED BLOOD COUNT 3.72 10^6/uL (4.00-5.40); WHITE BLOOD COUNT 12.6 10^3/uL (4.0-10.0)
[2018-10-04] MEDS ORDERED: MORPHINE PRES-FREE INJ 10 MG/10 ML VIAL (J2274) As Ordered ONE (07:06)
[2018-10-04] MEDS ORDERED: ONDANSETRON 4MG/2ML VIAL (J2405) As Ordered ONE (07:06)
[2018-10-04] MEDS ORDERED: KETOROLAC 60 MG/2 ML VIAL (J1885) As Ordered ONE (07:06)
[2018-10-04] MEDS ORDERED: dexameTHASONE 4 MG/ML 1ML VIAL (J1100) As Ordered ONE (07:06)
[2018-10-04] MEDS ORDERED: OXYTOCIN INJ 10 UNITS/ML VIAL (J2590) As Ordered ONE (07:07)
[2018-10-04] MEDS ORDERED: ONDANSETRON 4MG/2ML VIAL (J2405) IV PRN ×3 (07:48→10:15)
[2018-10-04] MEDS ORDERED: NALOXONE INJ 0.4 MG/1 ML VIAL (J2310) IV PRN ×2 (07:48)
[2018-10-04] MEDS ORDERED: diphenhydrAMINE INJ 50MG/ML VIAL (J1200) IV PRN (07:48)
[2018-10-04] MEDS ORDERED: NALBUPHINE HCL 10 MG/ML AMP (J2300) IV PRN ×2 (07:48→10:15)
[2018-10-04] MEDS ORDERED: METOCLOPRAMIDE INJ 10MG/2ML VIAL (J2765) IV PRN (07:48)
[2018-10-04] MEDS ORDERED: ePHEDrine SULFATE 25 MG/5 ML(5MG/ML) SYRINGE As Ordered ONE (07:59)
[2018-10-04] MEDS: PRENATAL VITAMINS CHEWABLE TABLET PO SCH (09:00)
[2018-10-04] MEDS: LR 1,000 ML IV SCH ×2 (09:09→19:00)
[2018-10-04] MEDS ORDERED: OXYTOCIN DRIP 30 UNITS in APPROPRIATE DILUENT 1 EA IV SCH (09:09)
[2018-10-04] MEDS ORDERED: MOM 30ML SUSPENSION UDC PO PRN (09:15)
[2018-10-04] MEDS ORDERED: MEASLES,MUMPS,RUBELLA VACCINE INJ (MMR-II) (90707) SC SCH (09:15)
[2018-10-04] MEDS ORDERED: RHOGAM 300 MCG (1500 IU) INJ (J2790) IM SCH (09:15)
[2018-10-04] MEDS ORDERED: ANUSOL HC CREAM 30GM TOP PRN (09:15)
[2018-10-04] MEDS ORDERED: PERCOCET 5MG/325MG TAB PO PRN (09:15)
[2018-10-04] MEDS ORDERED: IBUP1TAB7 PO (09:17)
[2018-10-04] MEDS ORDERED: PERCOCET PO (09:21)
--- NOTE | 2018-10-04 09:43 | RO ---
DATE OF PROCEDURE: 10/04/2018 PREOPERATIVE DIAGNOSES: 1. Intrauterine at 39 weeks. 2. History of two prior sections for repeat section. POSTOPERATIVE DIAGNOSES: 1. Intrauterine at 39 weeks. 2. History of two prior sections for repeat section. PROCEDURE PERFORMED: Repeat section. SURGEON: Nanette Sarah MD GEOMORPHOLOGIST: Tima Guerrero MD ANESTHESIA: Spinal. ESTIMATED BLOOD LOSS: 500 mL. INTRAVENOUS FLUIDS: 1700 mL of Lactated Ringer's solution. URINE OUTPUT: 400 mL. OPERATIVE FINDINGS: Liveborn female with scores of 9 and 9. Weight was 5 pounds 10 ounces, or 2560 grams. SPECIMENS: None. PREOPERATIVE ANTIBIOTICS: 2 grams of Ancef. DESCRIPTION OF OPERATION: After informed consent was obtained and written consent was reviewed, the patient as brought to the operating room where spinal anesthesia was placed. She was then placed in a supine position with a left lateral tilt. A Shaikh catheter was placed and set to gravity. She was then prepped and draped in a normal sterile fashion. A time out in the operating room was then performed identifying the patient, procedure to be performed, as well as drug allergies. Anesthesia was tested and deemed to be adequate. A Pfannenstiel skin incision was then made along the previous skin incision and this was carried down to the underlying rectus fascia. The fascia was scored and this incision was extended bilaterally. The fascia was then dissected off the underlying rectus muscles both superiorly and inferiorly. The rectus muscles were then in the midline. The peritoneum was then entered sharply. The vesicouterine peritoneum was then identified, it was tented and excised to create a bladder flap. The bladder blade was then placed to retract back the bladder. A curvilinear incision was then made in the lower uterine segment. Amniotomy was then performed productive of clear fluid. The head was brought to the level of the incision along with shoulders and corpus, atraumatically. The cord was clamped times two and was cut and the infant was taken over to the warmer with a good cry. Placenta was then drained and delivered grossly intact. The uterus was then exteriorized and cleared of all clots and debris. The uterine incision was then closed in two layers using #0 Vicryl, first layer in a running locking fashion followed by a second layer for imbrication in a running, nonlocking fashion. Several figure-of-8 sutures were placed for hemostasis. The abdomen was then suctioned. The uterus was returned to the patient's abdomen, was reinspected and noted to be hemostatic. The anterior peritoneum was reapproximated with #3-0 Vicryl. The fascia was then closed with #0 Vicryl in a running nonlocking fashion. The subcutaneous tissue was then irrigated and suctioned. The subcutaneous tissue was then closed with #3-0 Vicryl. Several subdermal stitches were placed with #3-0 Vicryl and the skin was closed with #4-0 Monocryl in a subcuticular fashion. The incision was then cleaned, dried and dressed. The patient was then taken to recovery in stable condition. Counts were correct. Dr. Guerrero, my assembler surgical garment, played and essential role during the operation. He assisted with tissue identification and retraction, delivery of as well as wound closure.
[2018-10-04] MEDS ORDERED: fentaNYL 100 MCG/2 ML INJECTION (J3010) IV PRN (10:15)
[2018-10-04] MEDS: KETOROLAC 30 MG/ML VIAL (J1885) IV SCH ×2 (13:36→18:47)
[2018-10-04] MEDS: DOCUSATE SODIUM 100 MG CAP PO SCH (20:48)
[2018-10-05] MEDS: KETOROLAC 30 MG/ML VIAL (J1885) IV SCH (00:39)
[2018-10-05 02:08] VITALS: BP 107/55
[2018-10-05 06:33] VITALS: BP 123/56
[2018-10-05] MEDS: PERCOCET 5MG/325MG TAB PO PRN ×3 (06:33→21:29)
--- NOTE | 2018-10-05 07:17 | IPNPDOC ---
Text Note Date of Service The patient was seen on 10/05/18. NOTE PO #1 Reports appropriate pain management. Rec around the clock ibuprofen supplement with percocet. Bottle feeding. Voiding. VSS, afebrile, normotensive CBC pending Fundus firm Dressing intact with old drainage Lochia rubra scant without odor Legs negative. Enc OOB activity. Expect D/C in am VS,Fishbone, I+O VS, Fishbone, I+O Vital Signs Date Time Temp Pulse Resp B/P (MAP) Pulse Ox O2 Delivery O2 Flow Rate FiO2 10/05/18 06:33 98.2 75 18 123/56 (78) 10/04/18 22:37 100 Room Air I&O- Last 24 Hours up to 6 AM 10/05/18 06:00 Intake Total 800 ml Output Total 2000 ml Balance -1200 ml Lucie Angeles CNM Oct 05, 2018 07:17
[2018-10-05 07:18] LABS: HEMATOCRIT 26.2 % (36.0-47.0); MEAN CORPUSCULAR HEMOGLOBIN 28.9 pg (27.0-33.0); MEAN CORPUSCULAR HGB CONC 32.4 g/dl (32.0-36.5); MEAN CORPUSCULAR VOLUME 89.1 fl (80.0-96.0); PLATELET COUNT, AUTOMATED 302 10^3/uL (150-450); RED BLOOD COUNT 2.94 10^6/uL (4.00-5.40); WHITE BLOOD COUNT 14.7 10^3/uL (4.0-10.0)
[2018-10-05 07:29] LABS: HEMOGLOBIN 8.5 g/dl (12.0-15.5)
[2018-10-05] MEDS: DOCUSATE SODIUM 100 MG CAP PO SCH ×2 (07:52→21:29)
[2018-10-05] MEDS: PRENATAL VITAMINS CHEWABLE TABLET PO SCH (07:52)
[2018-10-05] MEDS: IBUPROFEN 800 MG TAB PO SCH ×2 (07:52→17:37)
[2018-10-05 10:19] VITALS: BP 110/59
[2018-10-05 14:30] VITALS: BP 125/58
[2018-10-05] MEDS: NICOTINE 14 MG/24 HR TRANSDERMAL TD SCH (14:45)
[2018-10-05 18:00] VITALS: BP 127/59
[2018-10-05] MEDS ORDERED: LURASIDONE 20 MG TAB (LATUDA) PO SCH (18:00)
[2018-10-05] MEDS ORDERED: LURASIDONE HCL 40 MG TAB (LATUDA) PO SCH (18:00)
[2018-10-05 21:31] VITALS: BP 124/68
[2018-10-06] MEDS: IBUPROFEN 800 MG TAB PO SCH ×2 (01:13→08:04)
[2018-10-06 01:33] VITALS: BP 113/64
[2018-10-06] MEDS: PERCOCET 5MG/325MG TAB PO PRN ×2 (04:46→10:04)
[2018-10-06 05:52] VITALS: BP 119/66
[2018-10-06] MEDS: DOCUSATE SODIUM 100 MG CAP PO SCH (08:04)
[2018-10-06] MEDS: PRENATAL VITAMINS CHEWABLE TABLET PO SCH (08:04)
[2018-10-06] MEDS: NICOTINE 14 MG/24 HR TRANSDERMAL TD SCH (08:05)
--- NOTE | 2018-10-07 18:02 | DSES ---
DATE OF ADMISSION: 10/04/2018 DATE OF DISCHARGE: 10/06/2018 A 28-year-old G6, P2 female at 39 weeks gestation presents for elective repeat section. She has a history of two prior sections. HOSPITAL COURSE: On 10/04/2018 the patient underwent repeat low transverse section without complication. She had a viable who did well. Her postoperative course was unremarkable. She had adequate return of bladder and bowel function. Her postoperative hemoglobin was 8.5 grams per deciliter. She was deemed stable for discharge on postoperative day #2. ADMISSION DIAGNOSES: 1. at 39 weeks. 2. Prior section times two. DISCHARGE DIAGNOSIS: Delivered. PROCEDURE: Repeat low transverse section. DISPOSITION: Patient will followup with Dr. Sarah in 2 weeks. Instructions were reviewed.
== END 2018-10-06 11:30 | disposition home or self-care (01) | DRG 540 ==
LOC: M LDI 05:24 → M OBS 10:46
PROVIDERS: ADMIT Obstetrics & Gynecology; ATTEND Obstetrics & Gynecology
PROC: 10D00Z1 Extraction of Products of Conception, Low, Open Approach (ICD-10-PCS; principal; 2018-10-04 07:30)
DX: O34.211 Maternal care for low transverse scar from previous cesarean delivery (principal); Z3A.39 39 weeks gestation of pregnancy; Z37.0 Single live birth; O99.334 Smoking (tobacco) complicating childbirth; F17.210 Nicotine dependence, cigarettes, uncomplicated

== ENCOUNTER 2018-11-06 19:41 | Emergency (ER) | payer OTHER ==
[~2018-11-06] VITALS: Ht 160 cm; Wt 100.0 kg
[2018-11-06 19:41] VITALS: BP 124/71
[~2018-11-06 19:41] MED LIST changes: +IBUP1TAB7 PO; +PERCOCET PO
[2018-11-06] MEDS ORDERED: NYST1POW9 TOP (22:27)
[2018-11-06] MEDS ORDERED: NYSTATIN 100,000 UNITS/GM TOPICAL PWD 15 GM TOP ONE (22:30)
== END 2018-11-06 22:38 | disposition home or self-care (01) ==
LOC: M ED 19:41
DX: B35.4 Tinea corporis (principal); I10 Essential (primary) hypertension; F33.9 Major depressive disorder, recurrent, unspecified; F41.9 Anxiety disorder, unspecified; F17.210 Nicotine dependence, cigarettes, uncomplicated

== ENCOUNTER 2019-11-27 18:33 | Emergency (ER) | payer OTHER, SELFPAY ==
[~2019-11-27] VITALS: Ht 160 cm; Wt 110.2 kg
[~2019-11-27 18:33] MED LIST changes: +LAMO100T80 PO; -LAMO10TA PO; +NYST1POW9 TOP
[2019-11-27] MEDS ORDERED: ABIL1TAB11 PO (18:53)
[2019-11-27] MEDS ORDERED: LAMI1TAB8 PO (18:53)
[2019-11-27] MEDS ORDERED: ADDE1TAB14 PO (18:53)
[2019-11-27 20:26] LABS: INFLUENZA A AMPLIFICATION NEGATIVE (NEGATIVE); INFLUENZA B AMPLIFICATION NEGATIVE (NEGATIVE)
[2019-11-27] MEDS ORDERED: KETOROLAC TROMETHAMINE 10 MG TAB PO ONE (20:45)
[2019-11-27] MEDS ORDERED: diphenhydrAMINE 50 MG CAP PO ONE (20:45)
[2019-11-27] MEDS ORDERED: METOCLOPRAMIDE 10 MG TAB PO ONE (20:45)
[2019-11-27] MEDS ORDERED: ALBUTEROL SULFATE 2.5 MG/0.5 ML INH NEB SOLN NEB ONE (20:45)
[2019-11-27 21:54] LABS: HEMATOCRIT 42.3 % (36.0-47.0); HEMOGLOBIN 13.8 g/dl (12.0-15.5); MEAN CORPUSCULAR HEMOGLOBIN 30.8 pg (27.0-33.0); MEAN CORPUSCULAR HGB CONC 32.6 g/dl (32.0-36.5); MEAN CORPUSCULAR VOLUME 94.4 fl (80.0-96.0); PLATELET COUNT, AUTOMATED 336 10^3/uL (150-450); RED BLOOD COUNT 4.48 10^6/uL (4.00-5.40)
[2019-11-27 22:15] LABS: BLOOD UREA NITROGEN 7 MG/DL (7-18); CARBON DIOXIDE LEVEL 28 MEQ/L (21-32); CHLORIDE LEVEL 105 MEQ/L (98-107); CREATININE FOR GFR 0.89 MG/DL (0.55-1.30); GLOMERULAR FILTRATION RATE > 60.0 (>60); GLUCOSE, FASTING 93 MG/DL (70-100); POTASSIUM SERUM 4.4 MEQ/L (3.5-5.1); SODIUM LEVEL 138 MEQ/L (136-145)
[2019-11-27] MEDS ORDERED: AZIT-12 PO (23:58)
[2019-11-27] MEDS ORDERED: TESS100C PO (23:58)
[2019-11-27] MEDS ORDERED: PROAAER10 INH (23:58)
[2019-11-28] MEDS ORDERED: AZITHROMYCIN 250 MG TAB PO ONE
[2019-11-28 00:02] VITALS: BP 131/69
--- NOTE | 2019-11-28 03:06 | REP ---
Clinical: Coughing and wheezing . Comparison: 08/07/2012 . Technique: PA and lateral. Findings: The mediastinum and cardiac silhouette are normal. No discrete focal consolidation, effusion, or pneumothorax. Subtle early atelectasis involving the medial right base cannot be excluded and should be correlated with auscultation. Skeletal structures intact. Impression: 1. Cannot exclude very subtle medial right basilar atelectasis. Electronically Signed by Rip Kearns MD 11/28/2019 02:58 A
== END 2019-11-28 00:07 | disposition home or self-care (01) ==
LOC: M ED 18:33
DX: J18.9 Pneumonia, unspecified organism (principal); R05 Cough; R19.7 Diarrhea, unspecified; R51 Headache; F17.200 Nicotine dependence, unspecified, uncomplicated; Z79.899 Other long term (current) drug therapy

== ENCOUNTER 2019-12-01 13:56 | Emergency (ER) | payer SELFPAY ==
[~2019-12-01] VITALS: Ht 165.1 cm; Wt 110.3 kg
[~2019-12-01 13:56] MED LIST changes: +ADDE1TAB14 PO; +AZIT-12 PO; +LAMI1TAB8 PO; +PROAAER10 INH; +TESS100C PO
--- NOTE | 2019-12-01 15:57 | REP ---
CHEST, TWO VIEWS: There is no evidence of acute infiltrate. No pleural effusion is seen. The heart is normal in size. The mediastinal silhouette is unremarkable. The visualized osseous structures are intact. IMPRESSION: No acute pulmonary disease. Electronically Signed by Raimundo Reyes MD 12/01/2019 06:24 P
[2019-12-01 16:56] VITALS: BP 147/75
== END 2019-12-01 17:00 | disposition home or self-care (01) ==
LOC: M ED 13:56
DX: R05 Cough (principal); R06.02 Shortness of breath; Z79.899 Other long term (current) drug therapy; F17.210 Nicotine dependence, cigarettes, uncomplicated

== ENCOUNTER → 2020-09-22 | Outpatient (REF) | payer SELFPAY | LOC: M LABSMTC 08:57 → EDSTATUS 13:35 → M LABSMTC 13:49 | PROVIDERS: ATTEND Pediatrics | DX: Z20.822 Contact with and (suspected) exposure to COVID-19 (principal) ==

== ENCOUNTER → 2020-10-13 | Outpatient (REF) | payer OTHER ==
[2020-10-13 18:28] LABS: TOTAL PROTEIN,RANDOM URINE 7.3 MG/DL (0.0-12.0)
[2020-10-13 20:53] LABS: CHLAMYDIA DNA AMPLIFICATION NEGATIVE (NEGATIVE); GC DNA AMPLIFICATION NEGATIVE (NEGATIVE)
== END ==
LOC: M SFHCWAGY 17:00
PROVIDERS: ATTEND Advanced Practice Midwife
DX: O34.211 Maternal care for low transverse scar from previous cesarean delivery (principal)

== ENCOUNTER 2020-11-05 18:10 | Emergency (ER) | payer OTHER ==
[~2020-11-05] VITALS: Ht 160 cm; Wt 109.1 kg
--- OUTSIDE RECORDS SUMMARY | 2020-11-05 18:14 | CCD ---
Author Author Juan Madhu Lisa Organization Unknown Address [address] [address] Phone Care Team Providers Care Force Dispatcher Name Role Phone [place] hinojos[place] PCP Allergies, Adverse Reactions, Alerts No Data in Section Problem List Concept Problem Description Status Start Date Created Date Resolv ed Date Snomed Code F25.1 Schizoaffective Disorder, Depressive type Active 04/26/20 18 04/26/2018 F90.9 Unspecified Attention-Deficit/Hyperactivity Disorder A ctive 04/10/2016 04/10/2016 F43.9 Unspecified Trauma- and Stressor-Related Disorder Active 10/06/2020 Medications Rx Norm Medication Route Route Concept Start Date Stop Date Dosage Bradford quency Duration Formula Strength Dosage Form Dosage Form Code Dosage Description Medication Id Account Npid Author First Name Author Last Name Taxonomy Code Taxonomy Desc Phone Number [phone] lamotrigine 04/13/2020 150 mg tablet 13004 [phone] [phone] Lisa Juan [id number] Psychiatric/Mental Health [phone] 563738 buspirone by mouth B21684 06/02/2020 three times a day 15 mg tablet 17033 137336 [phone] Lisadenisa Martinez [id number] Psychiatr ic/Mental Health [phone] 212443 lithium carbonate by mouth F86667 07/21/2020 every night 300 mg capsule 89145 711049 [phone] Lisadenisa Martinez [id number] Psychiatric/Mental Health [phone] Social History Social History Element Description Concept Effective Date Smoking Status Unknown if ever smoked [id number] Immunizations No Data in Section Vital Signs Encounter Date Height Ins Weight Lbs Bmi Bp Systolic Bp Diastoli c Oxygen Saturation Respiration Rate Pulse Rate Body Temp Head Circumference Heigh t Lying 10/06/2020 0.00 0.00 0.00 0 0 0.00 0 0 0.00 0.0 0.0 0 Procedures Date Concept Id Description Targeted Site Concept Targeted Site Concept Type 10/06/2020 84064-81 MHC Telemed E/M Lvl 3--Est pt CPT 10/06/2020 48707-49 Telemed A/O 30" CPT Patient has no history of implantable de vices Encounters Encounter Start Date End Date Encounter Type Description Diagnosis Di agnosis Desc Location Author First Name Author Last Name Npid Taxonomy Cod e Taxonomy Desc Phone Number Location Addr1 Location Addr2 Location [facility] Location Sta te Location [facility] [id number] 10/06/2020 10/06/2020 39749-26 MHC Telemed E/M Lvl 3--Est p t F25.1 Schizoaffective disorder, depressive type [facility] [id number] Psychiatric/Mental Health [id number] [address] [address] Plan of Treatment No Data in Section Lab Results No Data in Section Instructions No Data in Section Functional Cognitive Status No Data in Section Insurance Providers Insurance Id Policy Effective Date Policy Thru Date [employer] N meagan [id number] 2020 [employer] Managed Ene benedict
--- OUTSIDE RECORDS SUMMARY | 2020-11-05 18:14 | CCD ---
Author Author Madhu Rhodes Organization Unknown Address [address] [address] Phone Care Team Providers Care Computer Terminal Operator Name Role Phone Dasha Rhodes PCP Allergies, Adverse Reactions, Alerts No Data in Section Problem List Concept Problem Description Status Start Date Created Date Resolv ed Date Snomed Code F25.1 Schizoaffective Disorder, Depressive type Active 04/26/20 18 04/26/2018 F90.9 Unspecified Attention-Deficit/Hyperactivity Disorder A ctive 04/10/2016 04/10/2016 F43.9 Unspecified Trauma- and Stressor-Related Disorder Active 10/20/2020 Medications Rx Norm Medication Route Route Concept Start Date Stop Date Dosage Bradford quency Duration Formula Strength Dosage Form Dosage Form Code Dosage Description Medication Id Account Npid Author First Name Author Last Name Taxonomy Code Taxonomy Desc Phone Number [id number] lithium carbonate by mouth [id number] 07/21/2020 every night 300 mg capsule 32254 878625 [id number] Lisa Subiaco [id number] Psychiatric/Mental Health [phone] 155221 lamotrigine 04/13/2020 150 mg tablet 54944 [phone] Lisa Juan [id number] Psychiatric/Mental Health [phone] 131019 buspirone by mouth Y12796 06/02/2020 three times a day 15 mg tablet 00478 531501 [phone] Lisa [place] [id number] Psychiatr ic/Mental Health [phone] Social History Social History Element Description Concept Effective Date Smoking Status Unknown if ever smoked [id number] Immunizations No Data in Section Vital Signs No Data in Section Procedures Date Concept Id Description Targeted Site Concept Targeted Site Concept Type 10/18/2020 20587-04 [id number]"Psychotherapy CPT Patient has no history of implantable de vices Encounters Encounter Start Date End Date Encounter Type Description Diagnosis Di agnosis Desc Location Author First Name Author Last Name Npid Taxonomy Cod e Taxonomy Desc Phone Number Location Addr1 Location Addr2 Location City Location [facility] Location Zip [id number] 10/18/2020 10/18/2020 21427-68 [id number]"Psychothera py F25.1 Schizoaffective disorder, depressive type [facility] Meagan Lou [id number] Electrical Intern [id number] [address] [address] Plan of Treatment No Data in Section Lab Results No Data in Section Instructions No Data in Section Insurance Providers Insurance Id Policy Effective Date Policy Thru Date Company N meagan [id number] 2020 [employer] Eric benedict
--- OUTSIDE RECORDS SUMMARY | 2020-11-05 18:14 | CCD ---
Author Author JuanMadhu Lisa Organization Unknown Address [address] [address] Phone Care Team Providers Care Ecommerce Marketing Manager Name Role Phone Lisa Martinez PCP Allergies, Adverse Reactions, Alerts No Data in Section Problem List Concept Problem Description Status Start Date Created Date Resolv ed Date Snomed Code F25.1 Schizoaffective Disorder, Depressive type Active 04/26/20 18 04/26/2018 F90.9 Unspecified Attention-Deficit/Hyperactivity Disorder A ctive 04/10/2016 04/10/2016 F43.9 Unspecified Trauma- and Stressor-Related Disorder Active 08/26/2020 Medications Rx Norm Medication Route Route Concept Start Date Stop Date Dosage Bradford quency Duration Formula Strength Dosage Form Dosage Form Code Dosage Description Medication Id Account Npid Author First Name Author Last Name Taxonomy Code Taxonomy Desc Phone Number [phone] lithium carbonate by mouth E32191 07/21/2020 every night 300 mg capsule 41234 187427 [phone] Lisa Martinez [id number] Psychiatric/Mental Health [phone] 275304 dextroamphetamine-amphetamine by mouth C23888 08/05/2020 09/04/2020 twice a day 30 20 mg tablet 76044 040466 [phone] Lisa Martinez [id number] Psychiatric/Mental Health [phone] 098744 buspirone by mouth R52486 06/02/2020 three times a day 15 mg tablet 36965 870661 [phone] Lisa Martinez [id number] Psychiatr ic/Mental Health [phone] 436361 lamotrigine 04/13/2020 150 mg tablet 48843 498076 [phone] Lisa Martinez [id number] Psychiatric/Mental Health 31 [phone] Social History Social History Element Description Concept Effective Date Smoking Status Unknown if ever smoked [id number] Immunizations No Data in Section Vital Signs Encounter Date Height Ins Weight Lbs Bmi Bp Systolic Bp Diastoli c Oxygen Saturation Respiration Rate Pulse Rate Body Temp Head Circumference Heigh t Lying 08/26/2020 0.00 0.00 0.00 0 0 0.00 0 0 0.00 0.0 0.0 0 Procedures Date Concept Id Description Targeted Site Concept Targeted Site Concept Type 08/26/2020 30664 E/M Level 3 - Established Patient CPT 08/26/2020 61864 Psychotherapy ADD ON - 30 Minutes CPT Patient has no history of implantable de vices Encounters Encounter Start Date End Date Encounter Type Description Diagnosis Di agnosis Desc Location Author First Name Author Last Name Npid Taxonomy Cod e Taxonomy Desc Phone Number Location Addr1 Location Addr2 Location [facility] Location Sta te Location Zip [id number] 08/26/2020 08/26/2020 90411 E/M Level 3 - Established Pa davis F25.1 Schizoaffective disorder, depressive type [facility] [id number] Psychiatric/Mental Health [id number] [address] [address] Plan of Treatment No Data in Section Lab Results No Data in Section Instructions No Data in Section Functional Cognitive Status No Data in Section Insurance Providers Insurance Id Policy Effective Date Policy Thru Date [employer] N meagan [id number] 2020 [employer] Managed Ene benedict
--- OUTSIDE RECORDS SUMMARY | 2020-11-05 18:14 | CCD ---
Author Author Juan Madhu Lisa Organization Unknown Address [address] [address] Phone Care Team Providers Care Receivable Clerk Name Role Phone [place] hinojosaney PCP Allergies, Adverse Reactions, Alerts No Data in Section Problem List Concept Problem Description Status Start Date Created Date Resolv ed Date Snomed Code F25.1 Schizoaffective Disorder, Depressive type Active 04/26/20 18 04/26/2018 F90.9 Unspecified Attention-Deficit/Hyperactivity Disorder A ctive 04/10/2016 04/10/2016 F43.9 Unspecified Trauma- and Stressor-Related Disorder Active 10/19/2020 Medications Rx Norm Medication Route Route Concept Start Date Stop Date Dosage Bradford quency Duration Formula Strength Dosage Form Dosage Form Code Dosage Description Medication Id Account Npid Author First Name Author Last Name Taxonomy Code Taxonomy Desc Phone Number [id number] lamotrigine 04/13/2020 150 mg tablet 39004 [phone] Lisa Juan [id number] Psychiatric/Mental Health [phone] 613797 buspirone by mouth A06581 06/02/2020 three times a day 15 mg tablet 15960 118782 [phone] Lisadenisa Martinez [id number] Psychiatr ic/Mental Health [phone] 323981 lithium carbonate by mouth M48007 07/21/2020 every night 300 mg capsule 86288 903420 [phone] Lisa Juan [id number] Psychiatric/Mental Health [phone] Social History Social History Element Description Concept Effective Date Smoking Status Unknown if ever smoked [id number] Immunizations No Data in Section Vital Signs Encounter Date Height Ins Weight Lbs Bmi Bp Systolic Bp Diastoli c Oxygen Saturation Respiration Rate Pulse Rate Body Temp Head Circumference Heigh t Lying 10/19/2020 0.00 0.00 0.00 0 0 0.00 0 0 0.00 0.0 0.0 0 Procedures Date Concept Id Description Targeted Site Concept Targeted Site Concept Type 10/19/2020 49168-61 MHC Telemed E/M Lvl 3--Est pt CPT 10/19/2020 26967-42 Telemed A/O 30" CPT Patient has no history of implantable de vices Encounters Encounter Start Date End Date Encounter Type Description Diagnosis Di agnosis Desc Location Author First Name Author Last Name Npid Taxonomy Cod e Taxonomy Desc Phone Number Location Addr1 Location Addr2 Location [facility] Location [facility] te Location [facility] [id number] 10/19/2020 10/19/2020 93338-84 MHC Telemed E/M Lvl 3--Est p t F25.1 Schizoaffective disorder, depressive type [facility] [id number] Psychiatric/Mental Health [id number] [address] [address] Plan of Treatment No Data in Section Lab Results No Data in Section Instructions No Data in Section Functional Cognitive Status No Data in Section Insurance Providers Insurance Id Policy Effective Date Policy Thru Date [employer] N meagan [id number] 2020 [employer] Managed Ene benedict
--- OUTSIDE RECORDS SUMMARY | 2020-11-05 18:14 | CCD ---
Author Author Juan Madhu Lisa Organization Unknown Address [address] [address] Phone Care Team Providers Care Maintenance Department Technician Name Role Phone [place] hinojosaney PCP Allergies, Adverse Reactions, Alerts No Data in Section Problem List Concept Problem Description Status Start Date Created Date Resolv ed Date Snomed Code F25.1 Schizoaffective Disorder, Depressive type Active 04/26/20 18 04/26/2018 F90.9 Unspecified Attention-Deficit/Hyperactivity Disorder A ctive 04/10/2016 04/10/2016 F43.9 Unspecified Trauma- and Stressor-Related Disorder Active 10/28/2020 Medications Rx Norm Medication Route Route Concept Start Date Stop Date Dosage Bradford quency Duration Formula Strength Dosage Form Dosage Form Code Dosage Description Medication Id Account Npid Author First Name Author Last Name Taxonomy Code Taxonomy Desc Phone Number [phone] lamotrigine 04/13/2020 150 mg tablet 75653 [phone] Lisa Juan [id number] Psychiatric/Mental Health 31 [phone] 397136 buspirone by mouth P68642 06/02/2020 three times a day 15 mg tablet 72425 645599 [phone] Lisadenisa Martinez [id number] Psychiatr ic/Mental Health [phone] 053580 lithium carbonate by mouth D74878 07/21/2020 every night 300 mg capsule 02521 021609 [phone] Lisadenisa Martinez [id number] Psychiatric/Mental Health [phone] Social History Social History Element Description Concept Effective Date Smoking Status Unknown if ever smoked [id number] Immunizations No Data in Section Vital Signs Encounter Date Height Ins Weight Lbs Bmi Bp Systolic Bp Diastoli c Oxygen Saturation Respiration Rate Pulse Rate Body Temp Head Circumference Heigh t Lying 10/28/2020 0.00 0.00 0.00 0 0 0.00 0 0 0.00 0.0 0.0 0 Procedures Date Concept Id Description Targeted Site Concept Targeted Site Concept Type 10/28/2020 20235-02 MHC Telemed E/M Lvl 3--Est pt CPT 10/28/2020 18078-04 Telemed A/O 30" CPT Patient has no history of implantable de vices Encounters Encounter Start Date End Date Encounter Type Description Diagnosis Di agnosis Desc Location Author First Name Author Last Name Npid Taxonomy Cod e Taxonomy Desc Phone Number Location Addr1 Location Addr2 Location [facility] Location Sta te Location [facility] [id number] 10/28/2020 10/28/2020 66963-58 MHC Telemed E/M Lvl 3--Est p t F25.1 Schizoaffective disorder, depressive type [facility] [id number] Psychiatric/Mental Health [id number] [address] [address] Plan of Treatment No Data in Section Lab Results No Data in Section Instructions No Data in Section Functional Cognitive Status No Data in Section Insurance Providers Insurance Id Policy Effective Date Policy Thru Date [employer] N meagan [id number] 2020 [employer] Managed Ene benedict
--- OUTSIDE RECORDS SUMMARY | 2020-11-05 18:14 | CCD ---
Author Author Meagan Madhu Dasha Organization Unknown Address [address] [place] [address] Phone Care Team Providers Care Device Sales Consultant Name Role Phone MeaganDasha PCP Allergies, Adverse Reactions, Alerts No Data in Section Problem List Concept Problem Description Status Start Date Created Date Resolv ed Date Snomed Code F25.1 Schizoaffective Disorder, Depressive type Active 04/26/20 18 04/26/2018 F90.9 Unspecified Attention-Deficit/Hyperactivity Disorder A ctive 04/10/2016 04/10/2016 Medications Rx Norm Medication Route Route Concept Start Date Stop Date Dosage Bradford quency Duration Formula Strength Dosage Form Dosage Form Code Dosage Description Medication Id Account Npid Author First Name Author Last Name Taxonomy Code Taxonomy Desc Phone Number [phone] buspirone by mouth Q36336 06/02/2020 three times a day 15 mg tablet 56614 180388 [phone] Lisa [place] [id number] Psychiatr ic/Mental Health [phone] 936751 dextroamphetamine-amphetamine by mouth N46721 08/05/2020 09/04/2020 twice a day 30 20 mg tablet 84332 949462 [phone] Lisa Juan [id number] Psychiatric/Mental Health [phone] 794741 lithium carbonate by mouth V68296 07/21/2020 every night 300 mg capsule 99430 225704 [phone] Lisa Juan [id number] Psychiatric/Mental Health [phone] 079249 lamotrigine 04/13/2020 150 mg tablet 51204 786706 [id number] Lisa [place] [id number] Psychiatric/Mental Health 31 [phone] Social History Social History Element Description Concept Effective Date Smoking Status Unknown if ever smoked [id number] Immunizations No Data in Section Vital Signs No Data in Section Procedures Date Concept Id Description Targeted Site Concept Targeted Site Concept Type 08/16/2020 72349 Extended Individual Psychotherapy - 45 min CPT Patient has no history of implantable de vices Encounters Encounter Start Date End Date Encounter Type Description Diagnosis Di agnosis Desc Location Author First Name Author Last Name Npid Taxonomy Cod e Taxonomy Desc Phone Number Location Addr1 Location Addr2 Location [facility] Location Sta te Location [facility] [id number] 08/16/2020 08/16/2020 39638 Extended Individual Psych otherapy - 45 min F25.1 Schizoaffective disorder, depressive type [facility] Meagan Lou 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
--- OUTSIDE RECORDS SUMMARY | 2020-11-05 18:14 | CCD ---
Author Author Madhu Rhodes Organization Unknown Address [address] [address] Phone Care Team Providers Care Follow Up Manager Name Role Phone Dasha Rhodes PCP Allergies, Adverse Reactions, Alerts No Data in Section Problem List Concept Problem Description Status Start Date Created Date Resolv ed Date Snomed Code F25.1 Schizoaffective Disorder, Depressive type Active 04/26/20 18 04/26/2018 F90.9 Unspecified Attention-Deficit/Hyperactivity Disorder A ctive 04/10/2016 04/10/2016 F43.9 Unspecified Trauma- and Stressor-Related Disorder Active 09/03/2020 Medications Rx Norm Medication Route Route Concept Start Date Stop Date Dosage Bradford quency Duration Formula Strength Dosage Form Dosage Form Code Dosage Description Medication Id Account Npid Author First Name Author Last Name Taxonomy Code Taxonomy Desc Phone Number [phone] lamotrigine 04/13/2020 150 mg tablet 45462 [phone] Lisa Dryden [id number] Psychiatric/Mental Health 31 [phone] 130056 buspirone by mouth L22781 06/02/2020 three times a day 15 mg tablet 95857 101155 [phone] Lisa [place]den [id number] Psychiatr ic/Mental Health 1885375181 283153 lithium carbonate by mouth M73100 07/21/2020 every night 300 mg capsule 91357 630957 [phone] Lisa Juan [id number] Psychiatric/Mental Health [phone] 533188 dextroamphetamine-amphetamine by mouth Z43324 08/05/2020 10/04/2020 twice a day 30 20 mg tablet 59517 661928 [id number] Lisa Juan [id number] Psychiatric/Mental Health [phone] Social History Social History Element Description Concept Effective Date Smoking Status Unknown if ever smoked [id number] Immunizations No Data in Section Vital Signs No Data in Section Procedures Date Concept Id Description Targeted Site Concept Targeted Site Concept Type 09/02/2020 33954-62 TEMPMHCTelemed 30" Psychotherapy CPT Patient has no history of implantable de vices Encounters Encounter Start Date End Date Encounter Type Description Diagnosis Di agnosis Desc Location Author First Name Author Last Name Npid Taxonomy Cod e Taxonomy Desc Phone Number Location Addr1 Location Addr2 Location 

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
--- OUTSIDE RECORDS SUMMARY | 2020-11-05 18:14 | CCD ---
Author Author Madhu Rhodes Organization Unknown Address [address] [address] Phone Care Team Providers Care Psychologist Counseling Name Role Phone Dasha Rhodes PCP Allergies, Adverse Reactions, Alerts No Data in Section Problem List Concept Problem Description Status Start Date Created Date Resolv ed Date Snomed Code F25.1 Schizoaffective Disorder, Depressive type Active 04/26/20 18 04/26/2018 F90.9 Unspecified Attention-Deficit/Hyperactivity Disorder A ctive 04/10/2016 04/10/2016 F43.9 Unspecified Trauma- and Stressor-Related Disorder Active 09/20/2020 Medications Rx Norm Medication Route Route Concept Start Date Stop Date Dosage Bradford quency Duration Formula Strength Dosage Form Dosage Form Code Dosage Description Medication Id Account Npid Author First Name Author Last Name Taxonomy Code Taxonomy Desc Phone Number [id number] lamotrigine 04/13/2020 150 mg tablet 35273 [phone] Lisa Payson [id number] Psychiatric/Mental Health [phone] buspirone by mouth [id number] 06/02/2020 three times a day 15 mg tablet 86390 [id number] [phone] Lisa Payson [id number] Psychiatr ic/Mental Health [phone] [id number] lithium carbonate by mouth [id number] 07/21/2020 every night 300 mg capsule 98367 [id number] [phone] Lisa Juan [id number] Psychiatric/Mental Health [phone] [id number] dextroamphetamine-amphetamine by mouth [id number] 08/05/2020 10/04/2020 twice a day 30 20 mg tablet 25060 [id number] Lisa Juan [id number] Psychiatric/Mental Health [id number] Social History Social History Element Description Concept Effective Date Smoking Status Unknown if ever smoked [id number] Immunizations No Data in Section Vital Signs No Data in Section Procedures Date Concept Id Description Targeted Site Concept Targeted Site Concept Type 09/20/2020 [id number]"Psychotherapy CPT Patient has no history of implantable de vices Encounters Encounter Start Date End Date Encounter Type Description Diagnosis Di agnosis Desc Location Author First Name Author Last Name Npid Taxonomy Cod e Taxonomy Desc Phone Number Location Addr1 Location Addr2 Location [facility] Location [facility] te Location Zip [id number] 09/20/2020 09/20/2020 [id number]"Psychothera py F25.1 Schizoaffective disorder, depressive type [facility] Meagan Lou [id number] [id number] 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
--- OUTSIDE RECORDS SUMMARY | 2020-11-05 18:14 | CCD ---
Author Author Madhu Rhodes Organization Unknown Address [address] [address] Phone Care Team Providers Care Sales Support Specialist Name Role Phone Dasha Rhodes PCP Allergies, Adverse Reactions, Alerts No Data in Section Problem List Concept Problem Description Status Start Date Created Date Resolv ed Date Snomed Code F25.1 Schizoaffective Disorder, Depressive type Active 04/26/20 18 04/26/2018 F90.9 Unspecified Attention-Deficit/Hyperactivity Disorder A ctive 04/10/2016 04/10/2016 F43.9 Unspecified Trauma- and Stressor-Related Disorder Active 09/14/2020 Medications Rx Norm Medication Route Route Concept Start Date Stop Date Dosage Bradford quency Duration Formula Strength Dosage Form Dosage Form Code Dosage Description Medication Id Account Npid Author First Name Author Last Name Taxonomy Code Taxonomy Desc Phone Number [id number] lamotrigine 04/13/2020 150 mg tablet 62305 [phone] Lisa Aubrey [id number] Psychiatric/Mental Health [phone] buspirone by mouth [id number] 06/02/2020 three times a day 15 mg tablet 02329 [id number] [phone] Lisa Aubrey [id number] Psychiatr ic/Mental Health [phone] [id number] lithium carbonate by mouth [id number] 07/21/2020 every night 300 mg capsule 44435 [phone] Lisa Juan [id number] Psychiatric/Mental Health [phone] 315323 dextroamphetamine-amphetamine by mouth [id number] 08/05/2020 10/04/2020 twice a day 30 20 mg tablet 63529 [id number] [phone] Lisa Juan [id number] Psychiatric/Mental Health [phone] Social History Social History Element Description Concept Effective Date Smoking Status Unknown if ever smoked [id number] Immunizations No Data in Section Vital Signs No Data in Section Procedures Date Concept Id Description Targeted Site Concept Targeted Site Concept Type 09/13/2020 93223-73 TEMPMHCTelemed 30" Psychotherapy CPT Patient has no history of implantable de vices Encounters Encounter Start Date End Date Encounter Type Description Diagnosis Di agnosis Desc Location Author First Name Author Last Name Npid Taxonomy Cod e Taxonomy Desc Phone Number Location Addr1 Location Addr2 Location [facility] Location [place] [id number] 09/13/2020 09/13/2020 21015-33 TEMPMHCTelemed 30" Psychothe rapy F25.1 Schizoaffective disorder, depressive type [facility] Meagan Lou [phone] [id number] 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
--- OUTSIDE RECORDS SUMMARY | 2020-11-05 18:15 | CCD ---
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 Name Role Phone Dasha Mo Unavailable BRUNILDA, L JARED PA Unavailable Unavailable BRUNILDA, L JARED PA Unavailable Unavailable BRUNILDA, L JARED PA Unavailable Unavailable BRUNILDA, L JARED PA Unavailable Unavailable BRUNILDA, L JARED PA Unavailable Unavailable BRUNILDA, L JARED PA Unavailable Unavailable BRUNILDA, L JARED PA Unavailable Unavailable BRUNILDA, L JARED PA Unavailable Unavailable BRUNILDA, L JARED PA Unavailable Unavailable BRUNILDA, L JARED PA Unavailable Unavailable BRUNILDA, L JARED PA Unavailable Unavailable BRUNILDA, L JARED PA Unavailable Unavailable BRUNILDA, L JARED PA Unavailable Unavailable BRUNILDA, L JARED PA Unavailable Unavailable BRUNILDA, L JARED PA Unavailable Unavailable BRUNILDA, L JARED PA Unavailable Unavailable BRUNILDA, L JARED PA Unavailable Unavailable BRUNILDA, L JARED PA Unavailable Unavailable BRUNILDA, L JARED PA Unavailable Unavailable ANTECOL, Ashwin YOUNG MD Unavailable Unavailable ANTECOL, Ashwin YOUNG MD Unavailable Unavailable ANTECOL, Ashwin YOUNG MD Unavailable Unavailable ANTECOL, Ashwin YOUNG MD Unavailable Unavailable ANTECOL, Ashwin YOUNG MD Unavailable Unavailable ANTECOL, Ashwin YOUNG MD Unavailable Unavailable ANTECOL, Ashwin YOUNG MD Unavailable Unavailable ANTECOL, Ashwin YOUNG MD Unavailable Unavailable ANTECOL, Ashwin YOUNG MD Unavailable Unavailable ANTECOL, Ashwin YOUNG MD Unavailable Unavailable ANTECOL, Ashwin YOUNG MD Unavailable Unavailable ANTECOL, Ashwin YOUNG MD Unavailable Unavailable ANTECOL, Ashwin YOUNG MD Unavailable Unavailable ANTECOL, Ashwin YOUNG MD Unavailable Unavailable ANTECOL, Ashwin YOUNG MD Unavailable Unavailable ANTECOL, Ashwin YOUNG MD Unavailable Unavailable ANTECOL, Ashwin YOUNG MD Unavailable Unavailable ANTECOL, Ashwin YOUNG MD Unavailable Unavailable ANTECOL, Ashwin YOUNG MD Unavailable Unavailable ANTECOL, Ashwin YOUNG MD Unavailable Unavailable ANTECOL, Ashwin YOUNG MD Unavailable Unavailable ANTECOL, Ashwin YOUNG MD Unavailable Unavailable ANTECOL, Ashwin YOUNG MD Unavailable Unavailable ANTECOL, Ashwin YOUNG MD Unavailable Unavailable ANTECOL, Ashwin YOUNG MD Unavailable Unavailable ANTECOL, Ashwin YOUNG MD Unavailable Unavailable ANTECOL, Ashwin YOUNG MD Unavailable Unavailable ANTECOL, Ashwin YOUNG MD Unavailable Unavailable ANTECOL, Ashwin YOUNG MD Unavailable Unavailable ANTECOL, Ashwin YOUNG MD Unavailable Unavailable ANTECOL, Ashwin YOUNG MD Unavailable Unavailable ANTECOL, Ashwin YOUNG MD Unavailable Unavailable ANTECOL, Ashwin YOUNG MD Unavailable Unavailable ANTECOL, Ashwin YOUNG MD Unavailable Unavailable ANTECOL, Ashwin YOUNG MD Unavailable Unavailable ANTECOL, Ashwin YOUNG MD Unavailable Unavailable ANTECOL, Ashwin YOUNG MD Unavailable Unavailable ANTECOL, Ashwin YOUNG MD Unavailable Unavailable ANTECOL, Ashwin YOUNG MD Unavailable Unavailable ANTECOL, Ashwin YOUNG MD Unavailable Unavailable ANTECOL, Ashwin YOUNG MD Unavailable Unavailable ANTECOL, Ashwin YOUNG MD Unavailable Unavailable ANTECOL, Ashwin YOUNG MD Unavailable Unavailable ANTECOL, Ashwin YOUNG MD Unavailable Unavailable ANTECOLAshwin MD Unavailable Unavailable ANTECOL, Ashwin YOUNG MD Unavailable Unavailable ANTECOL, Ashwin YOUNG MD Unavailable Unavailable ANTECOL, Ashwin YOUNG MD Unavailable Unavailable ANTECOL, Ashwin YOUNG MD Unavailable Unavailable ANTECOL, Ashwin YOUNG MD Unavailable Unavailable ANTECOL, Ashwin YOUNG MD Unavailable Unavailable ANTECOLAshwin MD Unavailable Unavailable ANTECOL, Ashwin YOUNG MD Unavailable Unavailable ANTECOL, Ashwin YOUNG MD Unavailable Unavailable ANTECOL, Ashwin YOUNG MD Unavailable Unavailable JOSE, MAQBOOL TU MD Unavailable Unavailable JOSE, MAQBOOL TU MD Unavailable Unavailable JOSE, MAQBOOL TU MD Unavailable Unavailable JOSE, MAQBOOL TU MD Unavailable Unavailable JOSE, MAQBOOL TU MD Unavailable Unavailable JOSE, MAQBOOL TU MD Unavailable Unavailable JOSE, MAQBOOL TU MD Unavailable Unavailable JOSE, MAQBOOL TU MD Unavailable Unavailable JOSE, MAQBOOL TU MD Unavailable Unavailable JOSE, MAQBOOL TU MD Unavailable Unavailable JOSE, MAQBOOL TU MD Unavailable Unavailable JOSE, MAQBOOL TU MD Unavailable Unavailable JOSE, MAQBOOL TU MD Unavailable Unavailable JOSE, MAQBOOL TU MD Unavailable Unavailable JOSE, MAQBOOL TU MD Unavailable Unavailable JOSE, MAQBOOL TU MD Unavailable Unavailable JOSE, MAQBOOL TU MD Unavailable Unavailable JOSE, MAQBOOL TU MD Unavailable Unavailable JOSE, MAQBOOL TU MD Unavailable Unavailable JOSE, MAQBOOL TU MD Unavailable Unavailable JOSE, MAQBOOL TU MD Unavailable Unavailable JOSE, MAQBOOL TU MD Unavailable Unavailable JOSE, MAQBOOL TU MD Unavailable Unavailable JOSE, MAQBOOL TU MD Unavailable Unavailable JOSE, MAQBOOL TU MD Unavailable Unavailable JOSE, MAQBOOL TU MD Unavailable Unavailable JOSE, MAQBOOL TU MD Unavailable Unavailable JOSE, MAQBOOL TU MD Unavailable Unavailable JOSE, MAQBOOL TU MD Unavailable Unavailable JOSE, MAQBOOL TU MD Unavailable Unavailable JOSE, MAQBOOL TU MD Unavailable Unavailable JOSE, MAQBOOL TU MD Unavailable Unavailable JOSE, MAQBOOL TU MD Unavailable Unavailable JOSE, MAQBOOL TU MD Unavailable Unavailable JOSE, MAQBOOL TU MD Unavailable Unavailable JOSE, MAQBOOL TU MD Unavailable Unavailable JOSE, MAQBOOL TU MD Unavailable Unavailable JOSE, MAQBOOL TU MD Unavailable Unavailable JOSE, MAQBOOL TU MD Unavailable Unavailable JOSE, MAQBOOL TU MD Unavailable Unavailable JOSE, MAQBOOL TU MD Unavailable Unavailable JOSE, MAQBOOL TU MD Unavailable Unavailable JOSE, MAQBOOL TU MD Unavailable Unavailable JOSE, MAQBOOL TU MD Unavailable Unavailable JOSE, MAQBOOL TU MD Unavailable Unavailable JOSE, MAQBOOL TU MD Unavailable Unavailable JOSE, MAQBOOL TU MD Unavailable Unavailable JOSE, MAQBOOL TU MD Unavailable Unavailable JOSE, MAQBOOL TU MD Unavailable Unavailable JOSE, MAQBOOL TU MD Unavailable Unavailable JOSE, MAQBOOL UT MD Unavailable Unavailable JOSE, MAQBOOL TU MD Unavailable Unavailable JOSE, MAQBOOL TU MD Unavailable Unavailable JOSE, MAQBOOL TU MD Unavailable Unavailable JOSE, MAQBOOL TU MD Unavailable Unavailable JOSE, MAQBOOL TU MD Unavailable Unavailable JOSE, MAQBOOL TU MD Unavailable Unavailable JOSE, MAQBOOL TU MD Unavailable Unavailable JOSE, MAQBOOL TU MD Unavailable Unavailable JOSE, MAQBOOL TU MD Unavailable Unavailable JOSE, MAQBOOL TU MD Unavailable Unavailable JOSE, MAQBOOL TU MD Unavailable Unavailable JOSE, MAQBOOL TU MD Unavailable Unavailable JOSE, MAQBOOL TU MD Unavailable Unavailable JOSE, MAQBOOL TU MD Unavailable Unavailable JOSE, MAQBOOL TU MD Unavailable Unavailable JOSE, MAQBOOL TU MD Unavailable Unavailable JOSE, MAQBOOL TU MD Unavailable Unavailable OJSE, MAQBOOL TU MD Unavailable Unavailable JOSE, MAQBOOL TU MD Unavailable Unavailable JOSE, MAQBOOL TU MD Unavailable Unavailable JOSE, MAQBOOL TU MD Unavailable Unavailable JOSE, MAQBOOL TU MD Unavailable Unavailable JOSE, MAQBOOL TU MD Unavailable Unavailable [place], C Jose Martin Unavailable Unavailable [place], C Jose Martin Unavailable Unavailable Elliott, C Jose Martin Unavailable Unavailable Elliott, C Jose Martin Unavailable Unavailable Elliott, C Jose Martin Unavailable Unavailable Elliott, C Jose Martin Unavailable Unavailable Elliott, C Jose Martin Unavailable Unavailable Orlando, K Lisa PMH-BALANCE AND HAIRSPRING ASSEMBLER Unavailable Unavailable Juan, K Lisa PMH-BALANCE AND HAIRSPRING ASSEMBLER Unavailable Unavailable Orlando, K Lisa PMH-BALANCE AND HAIRSPRING ASSEMBLER Unavailable Unavailable Juan, K Lisa PMH-BALANCE AND HAIRSPRING ASSEMBLER Unavailable Unavailable Orlando, K Lisa PMH-BALANCE AND HAIRSPRING ASSEMBLER Unavailable Unavailable Orlando, K Lisa PMH-BALANCE AND HAIRSPRING ASSEMBLER Unavailable Unavailable BRUNILDA, L JARED PA Unavailable Unavailable BRUNILDA, L JARED PA Unavailable Unavailable BRUNILDA, L JARED PA Unavailable Unavailable BRUNILDA, L JARED PA Unavailable Unavailable BRUNILDA, L JARED PA Unavailable Unavailable BRUNILDA, L JARED PA Unavailable Unavailable BRUNILDA, L JARED PA Unavailable Unavailable BRUNILDA, L JARED PA Unavailable Unavailable BRUNILDA, L JARED PA Unavailable Unavailable BRUNILDA, L JARED PA Unavailable Unavailable BRUNILDA, L JARED PA Unavailable Unavailable BRUNILDA, L JARED PA Unavailable Unavailable BRUNILDA, L JARED PA Unavailable Unavailable BRUNILDA, L JARED PA Unavailable Unavailable BRUNILDA, L JARED PA Unavailable Unavailable BRUNILDA, L JARED PA Unavailable Unavailable BRUNILDA, L JARED PA Unavailable Unavailable BRUNILDA, L JARED PA Unavailable Unavailable BRUNILDA, L JARED PA Unavailable Unavailable Doremus, E Wilma PA Unavailable Unavailable Doremus, E Wilma PA Unavailable Unavailable Doremus, E Wilma PA Unavailable Unavailable Doremus, E Wilma PA Unavailable Unavailable Doremus, E Wilma PA Unavailable Unavailable Doremus, E Wilma PA Unavailable Unavailable Doremus, E Wilma PA Unavailable Unavailable Doremus, E Wilma PA Unavailable Unavailable Doremus, E Wilma PA Unavailable Unavailable Doremus, E Wilma PA Unavailable Unavailable Doremus, E Wilma PA Unavailable Unavailable Doremus, E Wilma PA Unavailable Unavailable Doremus, E Wilma PA Unavailable Unavailable Doremus, E Wilma PA Unavailable Unavailable Doremus, E Wilma PA Unavailable Unavailable Doremus, E Wilma PA Unavailable Unavailable Doremus, E Wilma PA Unavailable Unavailable Doremus, E Wilma PA Unavailable Unavailable Doremus, E Wilma PA Unavailable [facility]available [facility] Unavailable Unavailable Starks, Kathe BALANCE AND HAIRSPRING ASSEMBLER Unavailable Unavailable Starks, Kathe BALANCE AND HAIRSPRING ASSEMBLER Unavailable Unavailable Starks, Kathe BALANCE AND HAIRSPRING ASSEMBLER Unavailable Unavailable Starks, Kathe BALANCE AND HAIRSPRING ASSEMBLER Unavailable Unavailable Starks, Kathe BALANCE AND HAIRSPRING ASSEMBLER Unavailable Unavailable Starks, Kathe BALANCE AND HAIRSPRING ASSEMBLER Unavailable Unavailable Starks, Kathe BALANCE AND HAIRSPRING ASSEMBLER Unavailable Unavailable Starks, Kathe BALANCE AND HAIRSPRING ASSEMBLER Unavailable Unavailable Starks, Kathe BALANCE AND HAIRSPRING ASSEMBLER Unavailable Unavailable Starks, Kathe BALANCE AND HAIRSPRING ASSEMBLER Unavailable Unavailable Starks, Kathe BALANCE AND HAIRSPRING ASSEMBLER Unavailable Unavailable Re-disclosure Warning The records that you are about to access may contain information from federally-assisted alcohol or drug abuse programs. If such information is present, then the following federally mandated warning applies: This information has been disclosed to you from records protected by federal confidentiality rules (42 CFR part 2). The federal rules prohibit you from making any further disclosure of this information unless further disclosure is expressly permitted by the written consent of the person to whom it pertains or as otherwise permitted by 42 CFR part 2. A general authorization for the release of medical or other information is NOT sufficient for this purpose. The Federal rules restrict any use of the information to criminally investigate or prosecute any alcohol or drug abuse patient.The records that you are about to access may contain highly sensitive health information, the redisclosure of which is protected by Article 27-F of the [facility] Public Health law. If you continue you may have access to information: Regarding HIV / AIDS; Provided by facilities licensed or operated by the [facility] Office of Mental Health; or Provided by the [facility] Office for People With Developmental Disabilities. If such information is present, then the following [facility] mandated warning applies: This information has been disclosed to you from confidential records which are protected by state law. State law prohibits you from making any further disclosure of this information without the specific written consent of the person to whom it pertains, or as otherwise permitted by law. Any unauthorized further disclosure in violation of state law may result in a fine or group home sentence or both. A general authorization for the release of medical or other information is NOT sufficient authorization for further disc losure. Family History Family Member Name Family Member Gender Family Member Status Date o f Status Description Data Source(s) Unknown Male Problem [facility] ([facility]) Unknown Male Problem [facility] ([facility]) () Encounters Encounter Providers Location Date Indications Data Source(s ) Outpatient Attender: HECTOR HOWARD MD Main Office 11/05/2020 09:45:00 AM EST [facility] ([facility]) Outpatient Attender: Lisa SMITHETIENNE [facility] 10/28/2020 11:30:00 AM EST - 10/28/2020 11:30:00 AM EST [facility] ([facility]) Attender: Lisa SMITHETIENNE 10/28/2020 12: 00:00 AM EST [facility] ([facility]) Outpatient Attender: Lisa [facility] 10/19/2020 09:00:00 AM EST - 10/19/2020 09:00:00 AM EST [facility] ([facility]) Attender: Lisa ROYAL 10/19/2020 12: 00:00 AM EST [facility] ([facility]) [id number]"Psych[facility]18[facility] 09:30:00 AM EST - 10/18/2020 09:30:00 AM EST [facility] ([facility]) Attender: Dasha Mo 10/18/2020 12:00:00 A M EST [facility] ([facility]) ( ESTOB) [facility] Est OB [address] [place] [address] 10/13/2020 12:00:00 AM EST [email or web address] ([facility]) Outpatient Attender: Lisa SMITHETIENNE [facility] 10/06/2020 10:00:00 AM EST - 10/06/2020 10:00:00 AM EST [facility] ([facility]) Attender: Lisa ROYAL 10/06/2020 12: 00:00 AM EST [facility] ([facility]) [id number]"Psychotherapy Attender: Dasha Mo [facility] 09/20/2020 09:45:00 AM EST - 09/20/2020 09:45:00 AM EST [facility] ([facility]) Attender: Dasha Mo 09/20/2020 12:00:00 A M EST [facility] ([facility]) Attender: Dasha Mo 09/14/2020 12:00:00 A M EST [facility] ([facility]) TEMPMHCTelemed 30" Psychotherapy Attender: Dasha Mo [facility] 09/13/2020 03:30:00 AM EST - 09/13/2020 03:30:00 AM EST [facility] ([facility]) Attender: Dasha Mo 09/03/2020 12:00:00 A M EST [facility] ([facility]) TEMPMHCTelemed 30" Psychotherapy Attender: Dasha Mo [facility] 09/02/2020 04:15:00 AM EST - 09/02/2020 04:15:00 AM EST [facility] ([facility]) Outpatient Attender: Lisa ROYAL [facility] 08/26/2020 10:30:00 AM EST - 08/26/2020 10:30:00 AM EST [facility] ([facility]) Attender: Lisa ROYAL 08/26/2020 12: 00:00 AM EST [facility] ([facility]) Attender: Dasha Mo 08/17/2020 12:00:00 A M EST [facility] ([facility]) Extended Individual Psychotherapy - 45 min [facility]16/2020 10:45:00 AM EST - 08/16/2020 10:45:00 AM EST [facility] ([facility]) Extended Individual Psychotherapy - 45 min [facility] 07/26/2020 09:00:00 AM EST - 07/26/2020 09:00:00 AM EST [facility] ([facility]) Attender: Dasha Mo 07/26/2020 12:00:00 A M EST [facility] ([facility]) Outpatient Attender: Lisa SMITH-QUENTIN [facility] 07/21/2020 11:00:00 AM EST - 07/21/2020 11:00:00 AM EST [facility] ([facility]) Attender: Lisa SMITHETIENNE 07/21/2020 12: 00:00 AM EST [facility] ([facility]) Extended Individual Psychotherapy - 45 [facility] 08:00:00 AM EDT - 07/16/2020 08:00:00 AM EDT [facility] ([facility]) Attender: Dasha Mo 07/16/2020 12:00:00 A M EDT [facility] ([facility]) Extended Individual Psychotherapy - 45 min [facility] 07/01/2020 09:00:00 AM EDT - 07/01/2020 09:00:00 AM EDT [facility] ([facility]) Attender: Dasha Mo 07/01/2020 12:00:00 A M EDT [facility] ([facility]) Extended Individual Psychotherapy - 45 min [facility]17/2020 10:15:00 AM EDT - 06/17/2020 10:15:00 AM EDT [facility] ([facility]) Attender: Dasha Mo 06/17/2020 12:00:00 A M EDT [facility] ([facility]) [facility] 06/02/2020 11:30:00 AM EDT - 06/02/2020 11:30:00 AM EDT [facility] ([facility]) Attender: Lisa ROYAL 06/02/2020 12: 00:00 AM EDT [facility] ([facility]) [facility] [place] no med Attender: Dasha Mo [facility] 03/05/2020 01:30:00 AM EDT - 03/05/2020 01:30:00 AM EDT [facility] ([facility]) Attender: Dasha Brumfieldestephania 03/05/2020 12:00:00 A M EDT [facility] ([facility]) [facility] [place] no med Attender: Dasha [facility] 02/27/2020 03:15:00 AM EDT - 02/27/2020 03:15:00 AM EDT [facility] ([facility]) Attender: Dasha Brumfieldestephania 02/27/2020 12:00:00 A M EDT [facility] ([facility]) Outpatient Attender: [facility] 02/13/2020 04:00:00 AM EDT - 02/13/2020 04:00:00 AM EDT [facility] ([facility]) Attender: Lisa ROYAL 02/13/2020 12: 00:00 AM EDT [facility] ([facility]) Outpatient Attender: Kathe rivas 02/06/2020 10:00:00 AM EDT [facility] ([facility]) Outpatient Attender: [facility] 01/09/2020 03:45:00 AM EDT - 01/09/2020 03:45:00 AM EDT [facility] ([facility]) Attender: Lisa ROYAL 01/09/2020 12: 00:00 AM EDT [facility] ([facility]) Outpatient Attender: JARED WORLEY PAConsultant: Khanh lopes [id number] 12/29/2019 10:39:00 AM EDT [facility] Emergency Attender: JARED Vigilerrer: TU Julian MD 12/29/2019 10:20:00 AM EDT - 12/29/2019 10:55:00 AM EDT [facility] Patient discharged. Outpatient Referrer: Wilma MONTAÑO 12/18/2019 05:54:0 0 AM EDT [facility] Outpatient Attender: Jose Martin Gallagher [facility] 0 11/26/2019 10:30:00 AM EDT - 11/26/2019 10:30:00 AM EDT [facility] ([facility]) Attender: Jose Martin Elliott 11/26/2019 12:00:00 AM EDT [facility] ([facility]) Outpatient Attender: Jose Martin Gallagher [facility] 0 10/15/2019 10:30:00 AM EST - 10/15/2019 10:30:00 AM EST [facility] ([facility]) Attender: Jose Martin Gallagher 10/15/2019 12:00:00 AM EST [facility] ([facility]) Emergency Attender: JARED MONTAÑO EMERGENCY ROOM-ER 10:24:00 PM EDT - 05/31/2019 01:05:00 AM EDT [facility] Patient discharged. Functional Status Medications Medication Brand Name Start Date Product Form Dose Route Admi nistrative Instructions Pharmacy Instructions Status Indications Reaction Description Data Source(s) lamotrigine 150 MG Oral Tablet [Lamictal] Lamictal 11/04/2020 1 2:00:00 AM EST ORAL active [facility] ([facility]) Amphetamine aspartate 5 MG / Amphetamine Sulfate 5 MG / Dextroamphetamine saccharate 5 MG / Dextroamphetamine Sulfate 5 MG Oral Tablet dextroamphetamine-amphetamine 08/05/2020 12:00:00 AM EST 20 mg by mouth completed [id number] dextroamphetamine-amphetamine by mouth [id number] 08/05/2020 10/04/2020 twice a day 30 20 mg tablet 16433 [id number] Abdirahman denisa Martinez [id number] Psychiatric/Mental Health [facility] ([facility]) Amphetamine aspartate 5 MG / Amphetamine Sulfate 5 MG / Dextroamphetamine saccharate 5 MG / Dextroamphetamine Sulfate 5 MG Oral Tablet dextroamphetamine-amphetamine 08/05/2020 12:00:00 AM EST 20 mg by mouth completed [id number] dextroamphetamine-amphetamine by mouth [id number] 08/05/2020 09/04/2020 twice a day 30 20 mg tablet [id number] Abdirahman Calzadarow [id number] Psychiatric[facility]Mental Health [facility] ([facility]) [place] Carbonate 300 MG Oral Capsule lithium carbonate 12:00:00 AM EST 300 mg by mouth completed [id number] lithium car bonate by mouth [id number] 07/21/2020 every night 300 mg capsule 22114 [id number] Lisa Calzadarow [id number] Psych[facility]Mental Health [facility] ([facility]) [place] Carbonate 300 MG Oral Capsule lithium carbonate 12:00:00 AM EST 300 mg by mouth completed [id number] lithium car bonate by mouth [id number] 07/21/2020 every night 300 mg capsule 77424 [id number] [phone] [id number] Lisa Calzadarow [id number] Psychiatric[facility]Mental Health [facility] ([facility]) buspirone hydrochloride 15 MG Oral Tablet buspirone 2019 12:00:00 AM EDT 15 mg by mouth completed [id number] buspirone by mouth [id number] 88 06/02/2020 three times a day 15 mg tablet 80197 [id number] Pelon jessicaarlinayanna Juan [id number] Psychiatric/Mental Health [facility] ([facility]) buspirone hydrochloride 15 MG Oral Tablet buspirone 2019 12:00:00 AM EDT 15 mg by mouth completed [id number] buspirone by mouth C382 88 06/02/2020 three times a day 15 mg tablet 79407 284101 [id number] Pelon Calzadarow [id number] Psychiatric/Mental Health [facility] ([facility]) buspirone hydrochloride 15 MG Oral Tablet buspirone 2019 12:00:00 AM EDT 15 mg by mouth completed [id number] buspirone by mouth C382 88 06/02/2020 three times a day 15 mg tablet 71379 [id number] K scottayanna Martinez [id number] Psychiatric/Mental Health [facility] ([facility]) lamotrigine 150 MG Oral Tablet lamotrigine 04/13/2020 12:00:00 AM EDT 150 mg completed [id number] lamotrigine 04/13/2020 150 mg tablet 60175 [id number] Lisa Orlando [id number] Psychiatric/Mental Health [facility] ([facility]) lamotrigine 150 MG Oral Tablet lamotrigine 04/13/2020 12:00:00 AM EDT 150 mg completed [id number] lamotrigine 04/13/2020 150 mg tablet [id number] Lisa Calzadarow [id number] Psychiatric[facility]Mental Health [facility] ([facility]) lamotrigine 150 MG Oral Tablet lamotrigine 04/13/2020 12:00:00 AM EDT 150 mg completed [id number] lamotrigine 04/13/2020 150 mg tablet 14425 [id number] Lisa Juan [id number] Psychiatric/Mental Health [facility] ([facility]) 24 HR Amphetamine aspartate 5 MG / Amphe tamine Sulfate 5 MG / Dextroamphetamine saccharate 5 MG / Dextroamphetamine Sulfate 5 MG Extended Release Oral Capsule dextroamphetamine-amphetamine 03/08/2020 12:00:00 AM EDT 20 mg by mouth completed [id number] dextroamphetamine-amphetamine by mouth [id number] 03/08/2020 08/05/2020 twice a day 30 20 mg capsule,extended release 24hr 42705 [id number] Latricia Dominguez [id number] Nurse Practitioner [facility] ([facility]) lamotrigine 150 MG Oral Tablet lamotrigine 02/12/2020 12:00:00 AM EDT 150 mg completed [id number] lamotrigine 02/12/202004/13 30 150 mg tablet 28824 [id number] Lisa Martinez [id number] P sychiatric/Mental Health [facility] ([facility]) Amphetamine aspartate 5 MG / Amphetamine Sulfate 5 MG / Dextroamphetamine saccharate 5 MG / Dextroamphetamine Sulfate 5 MG Oral Tablet dextroamphetamine-amphetamine 01/06/2020 12:00:00 AM EDT 20 mg completed [id number] dextroamphetamine-amphetamine 01/06/2020 20 mg tablet 21205 [id number] Lisa Martinez [id number] [facility]) Amphetamine aspartate 5 MG / Amphetamine Sulfate 5 MG / Dextroamphetamine saccharate 5 MG / Dextroamphetamine Sulfate 5 MG Oral Tablet [Adderall] Adderall 10/15/2019 12:00:00 AM EST 20 mg completed [id number] Adderall 10/15/2019 11/12/2019 once a day 28 20 mg tablet as directed 14592 [id number] Jose Martin Gallagher [id number] [facility] ([facility]) lisdexamfetamine dimesylate 70 MG Oral Capsule [Vyvanse] Vyv anse 10/15/2019 12:00:00 AM EST 70 mg completed [id number] Vyvanse 10/15/2019 11/14/2019 every morning 30 70 mg capsule 74163 [id number] Jose Martin Gallagher [id number] [facility] ([facility]) lamotrigine 150 MG Oral Tablet [Lamictal] Lamictal 10/15/2019 1 2:00:00 AM EST 150 mg completed Lamictal 10/15/2019 0 01/13/2020 twice a day 30 150 mg tablet 63302 [id number] Jose Martin Gallagher [id number] [facility] ([facility]) lamotrigine 150 MG Oral Tablet [Lamictal] Lamictal 10/15/2019 1 2:00:00 AM EST 150 mg by mouth completed Lamictal by mouth [id number] twice a day 30 150 mg tablet 48523 [id number] Jose Martin steven [id number] [facility] ([facility]) lamotrigine 150 MG Oral Tablet [Lamictal] Lamictal 10/15/2019 1 2:00:00 AM EST 150 mg completed Lamictal 10/15/2019 0 01/13/2020 twice a day 30 150 mg tablet 08692 [id number] Jose Martin Gallagher [id number] [facility] ([facility]) aripiprazole 5 MG Oral Tablet [Abilify] Abilify 04/25/2019 12: 00:00 AM EDT 5 mg by mouth completed [id number] Abilify by mouth [id number] 04/25/2019 10/15/2019 every morning 30 5 mg tablet 47094 439164 [id number] Jose Martin Gallagher [id number] [facility] ([facility]) aripiprazole 5 MG Oral Tablet [Abilify] Abilify 04/25/2019 12: 00:00 AM EDT 5 mg by mouth completed [id number] Abilify by mouth [id number] 04/25/2019 12/02/2019 every morning 30 5 mg tablet 53949 [id number] Jose Martin Gallagher [id number] [facility] ([facility]) aripiprazole 5 MG Oral Tablet [Abilify] Abilify 04/25/2019 12: 00:00 AM EDT 5 mg by mouth completed [id number] Abilify by mouth [id number] 04/25/2019 12/02/2019 every morning 30 5 mg tablet 95677 530876 [id number] Jose Martin Gallagher [id number] [facility] ([facility]) lamotrigine 200 MG Oral Tablet [Lamictal] Lamictal 04/25/2019 1 2:00:00 AM EDT 200 mg completed [id number] Lamictal 04/25/2019 0 10/15/2019 once a day 200 mg tablet 20220 [id number] Jose Martin Gallagher [id number] [facility] ([facility]) Insurance Providers Payer name Policy type / Coverage type Policy ID Covered alliance party ID Covered alliance party's relationship to johnson Policy Johnson Plan Information [facility] [id number] SP [id number] SELF PAY ONLY [id number] SP [id number] SELF PAY [id number] S [id number] [facility] MEDICAID [id number] S [id number] [facility](MCAID) O [id number] S [id number] [employer] COMMUNITY PLAN MCDHMO [id number] SP [id number] [facility] I [id number] Self [id number] [employer] COMMUNITY PLAN MCDHMO [id number] SP [id number] MEDICAID M [id number] Self [id number] [employer] COMMUNITY PLAN MCDHMO [id number] SP [id number] [facility] Communty Plan Medicaid [id number] Self [id number] UNHC AMERICHOICE XIX -HMO [id number] 18 [id number] [facility] Communty Plan Medicaid [id number] Self [id number] [facility] COMMUNTY PLAN MC [id number] 18 [id number] [employer] COMMUNITY PLAN XIX MC [id number] 18 [id number] [facility] Community Plan Medigap Part B [id number] Self [id number] [facility] Plus Commercial [id number] Self [id number] EXCELLUS C [id number] Self [id number] Unhc Community Plan Medicaid [id number] Self [id number] [employer] COMMUNITY PLAN [id number] 18 [id number] MEMIC SSV W/C [id number] SP [id number] MEMIC SSV W/C UNAVAILABLE SP UNAV AILABLE OTHER WORKERS COMPENSATION DOI - 14 SP DOI - 14 HMO BLUE [id number] SP [id number] [employer]BS [place] PPO [id number] SP [id number] BLUE [employer] BLUE SHIELD-CLINIC [id number] 18 [id number] BLUE [employer]OSS BLUE SHIELD-PHYSICIAN [id number] 18 [id number] BLUE [employer]OSS BLUE SHIELD-O/P [id number] Problems, Conditions, and Diagnoses Code Display Name Description Problem Type Effective Dates Data Source(s) F43.9 Reaction to severe stress, unspecified 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 10/28/2020 12:00:00 AM EST [facility] ( [facility] F90.9 Attention-deficit hyperactivity disorder , unspecified type Unspecified Attention-Deficit/Hyperactivity Disorder Condition 10/28/2020 12:00:00 AM EST [facility] ([facility]) F25.1 Schizoaffective disorder, depressive typ e Schizoaffective Disorder, Depressive type Condition 10/28/2020 12:00:00 AM EST [facility] ([facility]) Z34.80 care Supervision of other normal P jemallem 10/13/2020 12:00:00 AM EST eCW1 ([facility]) O99.211 Obesity complicating , first tr imester Obesity complicating in first trimester Problem 10/13/2020 12:00:00 AM EST eCW1 ([facility]) F42.2 Mixed obsessional thoughts and acts Obsessive-Co mpulsive Disorder Condition 01/09/2020 12:00:00 AM EDT [facility] ([facility]) F31.9 Bipolar disorder, unspecified Unspecified Bipola r and Related Disorder Condition 01/09/2020 12:00:00 AM EDT [facility] ([facility]) L02.212 Cutaneous abscess of back [any part, exc ept buttock] CUTANEOUS ABSCESS OF BACK [ANY PART, EXCEPT BUTTOC Diagnosis 12/29/2019 10:20:00 AM [facility] L02.222 Furuncle of back [any part, except butto ck] FURUNCLE OF BACK [ANY PART, EXCEPT BUTTOCK] Diagnosis 12/29/2019 10:20:00 AM [facility] Surgeries/Procedures Procedure Description Date Indications Data Source(s) ECG ROUTINE ECG W/LEAST 12 LDS W/I&R 11/05/2020 12:00: 00 AM EST [facility] ([facility]) MHC Telemed E/M Lvl 3--Est pt 10/28/2020 12:00:00 AM EST - 10/28/2020 12:00:00 AM EST [facility] ([facility]) Telemed A/O 30" 10/28/2020 12:00:00 AM EST [facility] ([facility]) [facility] [place] E/M Lvl 3--Est pt 10/28/2020 12:00:[address] [facility] ([facility]) MHC Telemed E/M Lvl 3--Est pt 10/19/2020 12:00:00 AM EST - 10/19/2020 12:00:00 AM EST [facility] ([facility]) Telemed A/O 30" 10/19/2020 12:00:00 AM EST [facility] ([facility]) MHC Telemed E/M Lvl 3--Est pt 10/19/2020 12:00:[address] [facility] ([facility]) [id number]"Psychotherapy 12:00:00 AM EST - 10/18/2020 12:00:00 AM EST [facility] ([facility]) [id number]"Psychotherapy 10/18/2020 12:00:00 AM EST [facility] ([facility]) MHC Telemed E/M Lvl 3--Est pt 10/06/2020 12:00:00 AM EST - 10/06/2020 12:00:00 AM EST [facility] ([facility]) Telemed A/O 30" 10/06/2020 12:00:00 AM EST [facility] ([facility]) [facility] [place]med E/M Lvl 3--Est pt 10/06/2020 12:00:[address] [facility] ([facility]) [id number]"Psychotherapy 12:00:00 AM EST - 09/20/2020 12:00:00 AM EST [facility] ([facility]) [id number]"Psychotherapy 09/20/2020 12:00:00 AM EST [facility] ([facility]) TEMPMHCTelemed 30" Psychotherapy 020 12:00:00 AM EST - 09/14/2020 12:00:00 AM EST [facility] ([facility]) TEMPMHCTelemed 30" Psychotherapy 09/13/2020 12:00:00 A M EST [facility] ([facility]) TEMPMHCTelemed 30" Psychotherapy 020 12:00:00 AM EST - 09/03/2020 12:00:00 AM EST [facility] ([facility]) TEMPMHCTelemed 30" Psychotherapy 09/02/2020 12:00:00 A M EST [facility] ([facility]) OFFICE OUTPATIENT VISIT 15 MINUTES 08/26 12:00:00 AM EST - 08/26/2020 12:00:00 AM EST [facility] ([facility]) Psychotherapy ADD ON - 30 Minutes 08/26/2020 12:00:00 AM EST [facility] ([facility]) OFFICE OUTPATIENT VISIT 15 MINUTES 08/26/2020 12:00:00 AM EST [facility] ([facility]) Extended Individual Psychotherapy - 45 min 08/17/2020 12:00:00 AM EST - 08/17/2020 12:00:00 AM EST [facility] ([facility]) Extended Individual Psychotherapy - 45 min 0 12:00:00 AM EST [facility] ([facility]) Extended Individual Psychotherapy - 45 min 07/26/2020 12:00:00 AM EST - 07/26/2020 12:00:00 AM EST [facility] ([facility]) Extended Individual Psychotherapy - 45 min 0 12:00:00 AM EST [facility] ([facility]) MHC Telemed E/M Lvl 3--Est pt 07/21/2020 12:00:00 AM EST - 07/21/2020 12:00:00 AM EST [facility] ([facility]) Telemed A/O 30" 07/21/2020 12:00:00 AM EST [facility] ([facility]) MHC Telemed E/M Lvl 3--Est pt 07/21/2020 12:00:[address] [facility] ([facility]) Extended Individual Psychotherapy - 45 min 07/16/2020 12:00:00 AM EDT - 07/16/2020 12:00:00 AM EDT [facility] ([facility]) Extended Individual Psychotherapy - 45 min 0 12:00:00 AM EDT [facility] ([facility]) Extended Individual Psychotherapy - 45 min 07/01/2020 12:00:00 AM EDT - 07/01/2020 12:00:00 AM EDT [facility] ([facility]) Extended Individual Psychotherapy - 45 min 0 12:00:00 AM EDT [facility] ([facility]) Extended Individual Psychotherapy - 45 min 06/17/2020 12:00:00 AM EDT - 06/17/2020 12:00:00 AM EDT [facility] ([facility]) Extended Individual Psychotherapy - 45 min 0 12:00:00 AM EDT [facility] ([facility]) OFFICE OUTPATIENT VISIT 15 MINUTES 06/02 12:00:00 AM EDT - 06/02/2020 12:00:00 AM EDT [facility] ([facility]) Telemed A/O 30" 06/02/2020 12:00:00 AM EDT [facility] ([facility]) OFFICE OUTPATIENT VISIT 15 MINUTES 06/02/2020 12:00:00 AM EDT [facility] ([facility]) MHC Telemed Diag Eval no med 03/05/2020 12:00:00 AM EDT - 03/05/2020 12:00:00 AM EDT [facility] ([facility]) MHC Telemed Diag Eval no med 03/05/2020 12:00:00 AM ED T [facility] ([facility]) MHC Telemed Diag Eval no med 02/27/2020 12:00:00 AM EDT - 02/27/2020 12:00:00 AM EDT [facility] ([facility]) MHC Telemed Diag Eval no med 02/27/2020 12:00:00 AM ED T [facility] ([facility]) [facility] [place]med E/M Lvl 3--Est pt 02/13/2020 12:00:00 AM EDT - 02/13/2020 12:00:00 AM EDT [facility] ([facility]) Telemed A/O 30" 02/13/2020 12:00:00 AM EDT [facility] ([facility]) [facility] [place]med E/M Lvl 3--Est pt 02/13/2020 12:00:00 AM E DT [facility] ([facility]) MHC Telemed E/M Lvl 3--Est pt 01/09/2020 12:00:00 AM EDT - 01/09/2020 12:00:00 AM EDT [facility] ([facility]) Telemed A/O 45" 01/09/2020 12:00:00 AM EDT [facility] ([facility]) [facility] [place]med E/M Lvl 3--Est pt 01/09/2020 12:00:00 AM E DT [facility] ([facility]) OFFICE OUTPATIENT VISIT 10 MINUTES 11/25 12:00:00 AM EDT - 11/26/2019 12:00:00 AM EDT [facility] ([facility]) OFFICE OUTPATIENT VISIT 10 MINUTES 11/26/2019 12:00:00 AM EDT [facility] ([facility]) OFFICE OUTPATIENT VISIT 10 MINUTES 10/15 12:00:00 AM EST - 10/15/2019 12:00:00 AM EST [facility] ([facility]) OFFICE OUTPATIENT VISIT 10 MINUTES 10/15/2019 12:00:00 AM EST [facility] ([facility]) Results ID Date Data Source [id number] 10/25/2020 12:00:00 AM EST [facility] Name Value Range Interpretation Code Description Data Afua rce(s) Supporting Document(s) SARS coronavirus 2 Ag Not Detected [facility] This lab was ordered by [facility] and reported by [facility]. ID Date Data Source [id number] 10/18/2020 12:00:00 AM EST [facility] Name Value Range Interpretation Code Description Data Afua rce(s) Supporting Document(s) SARS coronavirus 2 Ag Not Detected [facility] This lab was ordered by [facility] and reported by [facility]. ID Date Data Source URINE CULTURE 10/13/2020 12:00:00 AM EST eCW1 ([facility]) Name Value Range Interpretation Code Description Data Afua rce(s) Supporting Document(s) eCW1 ([facility]) ID Date Data Source TOTAL PROTEIN,RANDOM URINE 10/13/2020 12:00:00 AM EST eCW1 ( [facility]) Name Value Range Interpretation Code Description Data Afua rce(s) Supporting Document(s) 7.3 0.0-12.0 eCW1 ([facility]) ID Date Data Source CREATININE,RANDOM URINE 10/13/2020 12:00:00 AM EST eCW1 ([facility]) Name Value Range Interpretation Code Description Data Afua rce(s) Supporting Document(s) 115.0 eCW1 ([facility]) ID Date Data Source CHLAMYDIA & GC DNA AMPLIFICAT 10/13/2020 12:00:00 AM EST eCW 1 ([facility]) Name Value Range Interpretation Code Description Data Afua rce(s) Supporting Document(s) Chlamydia trachomatis rRNA [Presence] in Unspecified specimen by Probe and target amplification method NEGATIVE NEGATIVE [facility] ([facility]) ID Date Data Source [id number] 09/22/2020 02:00:00 PM EST [facility] Name Value Range Interpretation Code Description Data Afua rce(s) Supporting Document(s) SARS coronavirus 2 RNA Not Detected [facility] This lab was ordered by [facility] and reported by [facility]. ID Date Data Source [id number] 08/23/2020 12:00:00 AM EST [facility] Name Value Range Interpretation Code Description Data Afua rce(s) Supporting Document(s) SARS coronavirus 2 Ag [facility] This lab was ordered by [facility] and reported by [facility]. ID Date Data Source [id number] 08/17/2020 12:00:00 AM EST [facility] Name Value Range Interpretation Code Description Data Afua rce(s) Supporting Document(s) SARS coronavirus 2 Ag [facility] This lab was ordered by [facility] and reported by [facility]. ID Date Data Source [id number] 08/09/2020 12:00:00 AM EST [facility] Name Value Range Interpretation Code Description Data Afua rce(s) Supporting Document(s) SARS coronavirus 2 Ag [facility] This lab was ordered by [facility] and reported by [facility]. ID Date Data Source [id number] 05/31/2020 12:00:00 AM EDT [facility] Name Value Range Interpretation Code Description Data Afua rce(s) Supporting Document(s) SARS coronavirus 2 RNA [Presence] in Res piratory specimen by BLAS with probe detection [facility] This lab was ordered by [facility] and reported by [facility]. ID Date Data Source [id number] 05/25/2020 12:00:00 AM EDT [facility] Name Value Range Interpretation Code Description Data Afua rce(s) Supporting Document(s) SARS coronavirus 2 RNA [Presence] in Res piratory specimen by BLAS with probe detection [facility] This lab was ordered by [facility] and reported by [facility]. ID Date Data Source [id number] 05/17/2020 12:00:00 AM EDT [facility] Name Value Range Interpretation Code Description Data Afua rce(s) Supporting Document(s) SARS coronavirus 2 RNA [Presence] in Res piratory specimen by BLAS with probe detection [facility] This lab was ordered by [facility] and reported by [facility]. ID Date Data Source [id number] 05/10/2020 12:00:00 AM EDT [facility] Name Value Range Interpretation Code Description Data Afua rce(s) Supporting Document(s) SARS coronavirus 2 RNA [Presence] in Res piratory specimen by BLAS with probe detection [facility] This lab was ordered by [facility] and reported by [facility]. ID Date Data Source [id number] 05/03/2020 12:00:00 AM EDT [facility] Name Value Range Interpretation Code Description Data Afua rce(s) Supporting Document(s) SARS coronavirus 2 RNA [Presence] in Res piratory specimen by BLAS with probe detection [facility] This lab was ordered by [facility] and reported by [employer]. ID Date Data Source [id number] 04/26/2020 12:00:00 AM EDT [facility] Name Value Range Interpretation Code Description Data Afua rce(s) Supporting Document(s) SARS coronavirus 2 RNA [Presence] in Res piratory specimen by BLAS with probe detection [facility] This lab was ordered by [facility] and reported by [employer]. ID Date Data Source [id number] 04/19/2020 12:00:00 AM EDT [facility] Name Value Range Interpretation Code Description Data Afua rce(s) Supporting Document(s) SARS coronavirus 2 RNA [Presence] in Res piratory specimen by BLAS with probe detection [facility] This lab was ordered by [facility] and reported by [employer]. ID Date Data Source [id number] 04/08/2020 12:00:00 AM EDT [facility] Name Value Range Interpretation Code Description Data Afua rce(s) Supporting Document(s) SARS coronavirus 2 RNA [facility] This lab was ordered by [facility] and reported by [facility]. ID Date Data Source [id number] 04/01/2020 12:00:00 AM EDT [facility] Name Value Range Interpretation Code Description Data Afua rce(s) Supporting Document(s) SARS coronavirus 2 RNA [facility] This lab was ordered by [facility] and reported by [facility]. ID Date Data Source [id number] 03/25/2020 12:00:00 AM EDT [facility] Name Value Range Interpretation Code Description Data Afua rce(s) Supporting Document(s) SARS coronavirus 2 RNA [facility] This lab was ordered by [facility] and reported by [facility]. ID Date Data Source [id number] 03/18/2020 02:40:00 PM EDT [facility] Name Value Range Interpretation Code Description Data Afua rce(s) Supporting Document(s) SARS coronavirus 2 RNA [facility] This lab was ordered by [facility] and reported by [facility]. ID Date Data Source [id number] 03/11/2020 02:50:00 PM EDT [facility] Name Value Range Interpretation Code Description Data Afua rce(s) Supporting Document(s) SARS CORONAVIRUS 2 RNA [facility] This lab was ordered by [facility] and reported by [facility]. ID Date Data Source [id number] 03/04/2020 02:35:00 PM EDT [facility] Name Value Range Interpretation Code Description Data Afua rce(s) Supporting Document(s) SARS CORONAVIRUS 2 RNA [facility] This lab was ordered by [facility] and reported by [facility]. ID Date Data Source [id number] 02/26/2020 02:50:00 PM EDT [facility] Name Value Range Interpretation Code Description Data Afua rce(s) Supporting Document(s) SARS CORONAVIRUS 2 RNA [facility] This lab was ordered by [facility] and reported by [facility]. ID Date Data Source [id number] 02/23/2020 03:00:00 PM EDT [facility] Name Value Range Interpretation Code Description Data Afua rce(s) Supporting Document(s) SARS CORONAVIRUS 2 RNA [facility] This lab was ordered by [facility] and reported by [facility]. ID Date Data Source [id number] 02/19/2020 02:35:00 PM EDT [facility] Name Value Range Interpretation Code Description Data Afua rce(s) Supporting Document(s) SARS CORONAVIRUS 2 RNA [facility] This lab was ordered by [facility] and reported by [facility]. ID Date Data Source [id number] 02/16/2020 02:40:00 PM EDT [facility] Name Value Range Interpretation Code Description Data Afua rce(s) Supporting Document(s) SARS CORONAVIRUS 2 RNA [facility] This lab was ordered by [facility] and reported by [facility]. ID Date Data Source [id number] 02/12/2020 02:30:00 PM EDT [facility] Name Value Range Interpretation Code Description Data Afua rce(s) Supporting Document(s) SARS CORONAVIRUS 2 RNA [facility] This lab was ordered by [facility] and reported by [facility]. ID Date Data Source [id number] 02/10/2020 01:15:00 PM EDT [facility] Name Value Range Interpretation Code Description Data Afua rce(s) Supporting Document(s) SARS CORONAVIRUS 2 RNA [facility] This lab was ordered by [facility] and reported by [facility]. ID Date Data Source [id number] 02/05/2020 12:00:00 AM EDT [facility] Name Value Range Interpretation Code Description Data [facility](s) Supporting Document(s) SARS CORONAVIRUS 2 RNA [facility] This lab was ordered by [facility] and reported by [facility]. ID Date Data Source [id number] 12/29/2019 12:07:00 PM EDT [facility] Patient: ALBINO SINGH [facility].VisitID: [id number] [place] [address] [phone], FRegistration Date/Time: 12/29/2019 09:55 Weight:113.3 kg (S). Height/Length:63 inches (S). BMI:44.3 PAST HISTORYProblems:Anxiety Reaction [Chronic].ADHD - Attention Deficit Hyperactivity Disorder [Chronic].Bipolar Disorder [Chronic]. Additional Surgeries:C- Section.Dilatation & Curettage.Hemorrhoidectomy. Medications:Abilify Oral (Tablet 5 mg) 1 tablet, daily every AM, last dose 12/28/2019.Adderall Oral (Tablet 30 mg), 2x a day, last dose 12/28/2019.LaMICtal Oral 200mg , daily, last dose 12/28/2019. Allergies:No Known Drug Allergy. FAMILY HISTORYNegative. No significant family medical history. (Electronically signed by Braulio Damon 12/29/2019 12:04) Name Value Range Interpretation Code Description [facility] Document(s) ID Date Data Source [id number] 01/01/2020 01:57:00 PM EDT [facility] LEFT SHOULDERMIXED SKIN JARAD GROWN.NO P ATHOGENS ISOLATED. Name Value Range Interpretation Code Description Data [facility] Supporting Document(s) Procedure Social History Code Duration Value Status Description Data Source(s ) Smoking 10/28/2020 12:00:00 AM EST Unknown if ever smoked comp leted Unknown if ever smoked [facility] ([facility]) Smoking 10/19/2020 12:00:00 AM EST Unknown if ever smoked comp leted Unknown if ever smoked [facility] ([facility]) Smoking 10/18/2020 12:00:00 AM EST Unknown if ever smoked comp leted Unknown if ever smoked [facility] ([facility]) Smoking 10/13/2020 12:00:00 AM EST Current Smoker completed Melinae nt Smoker eCW1 ([facility]) Smoking 10/06/2020 12:00:00 AM EST Unknown if ever smoked comp leted Unknown if ever smoked [facility] ([facility]) Smoking 09/20/2020 12:00:00 AM EST Unknown if ever smoked comp leted Unknown if ever smoked [facility] ([facility]) Smoking 09/14/2020 12:00:00 AM EST Unknown if ever smoked comp leted Unknown if ever smoked [facility] ([facility]) Smoking 09/03/2020 12:00:00 AM EST Unknown if ever smoked comp leted Unknown if ever smoked [facility] ([facility]) Smoking 08/26/2020 12:00:00 AM EST Unknown if ever smoked comp leted Unknown if ever smoked [facility] ([facility]) Smoking 08/17/2020 12:00:00 AM EST Unknown if ever smoked comp leted Unknown if ever smoked [facility] ([facility]) Smoking 07/26/2020 12:00:00 AM EST Unknown if ever smoked comp leted Unknown if ever smoked [facility] ([facility]) Smoking 07/21/2020 12:00:00 AM EST Unknown if ever smoked comp leted Unknown if ever smoked [facility] ([facility]) Smoking 07/16/2020 12:00:00 AM EDT Unknown if ever smoked comp leted Unknown if ever smoked [facility] ([facility]) Smoking 07/01/2020 12:00:00 AM EDT Unknown if ever smoked comp leted Unknown if ever smoked [facility] ([facility]) Smoking 06/17/2020 12:00:00 AM EDT Unknown if ever smoked comp leted Unknown if ever smoked [facility] ([facility] [place] [facility] [place] Smoking 06/02/2020 12:00:00 AM EDT Unknown if ever smoked comp leted Unknown if ever smoked [facility] ([facility]) Smoking 03/05/2020 12:00:00 AM EDT Unknown if ever smoked comp leted Unknown if ever smoked [facility] ([facility]) Smoking 02/27/2020 12:00:00 AM EDT Unknown if ever smoked comp leted Unknown if ever smoked [facility] ([facility]) Smoking 02/13/2020 12:00:00 AM EDT Unknown if ever smoked comp leted Unknown if ever smoked [facility] ([facility]) Smoking 01/09/2020 12:00:00 AM EDT Unknown if ever smoked comp leted Unknown if ever smoked [facility] ([facility]) Smoking 11/26/2019 12:00:00 AM EDT Unknown if ever smoked comp leted Unknown if ever smoked [facility] ([facility]) Smoking 10/15/2019 12:00:00 AM EST Unknown if ever smoked comp leted Unknown if ever smoked [facility] ([facility]) Vital Signs ID Date Data Source UNK Name Value Range Interpretation Code Description Data Source(s) Diastolic blood pressure--sitting 72 mm[Hg] 72 mm[Hg] MED[facility] ([facility]) [place], large cuff/LA Systolic blood pressure--sitting 117 mm[Hg] 117 mm[Hg] [facility] ([facility]) [place], large cuff/LA Heart rate 80 /min 80 /min [facility] ([facility]) Body mass index (BMI) [Ratio] 43.9 kg/m2 43.9 k g/m2 [facility] ([facility]) Body height 63 [in_i] 63 [in_i] [facility]ENT ([facility]) 5'3" Body weight 248.00 [lb_av] 248.00 [lb_av] MEDEN T ([facility]) Body height 0.00 in Normal (applies to non-numeric resu lts) 0.00 in [facility] ([facility]) Diastolic blood pressure 0 mm[Hg] Normal (applies to non-numeric results) 0 mm[Hg] [facility] ([facility]) Systolic blood pressure 0 mm[Hg] Normal (applies t o non-numeric results) 0 mm[Hg] [facility] ([facility]) Body mass index (BMI) [Ratio] 0.00 kg/m2 No rmal (applies to non-numeric results) 0.00 kg/m2 [facility] ([facility]) Body weight Measured 0.00 lbs Normal (applies to n on-numeric results) 0.00 lbs [facility] ([facility]) Diastolic blood pressure 0 mm[Hg] Normal (applies to non-numeric results) 0 mm[Hg] [facility] ([facility]) Systolic blood pressure 0 mm[Hg] Normal (applies t o non-numeric results) 0 mm[Hg] [facility] ([facility]) Body mass index (BMI) [Ratio] 0.00 kg/m2 No rmal (applies to non-numeric results) 0.00 kg/m2 [facility] ([facility]) Body weight Measured 0.00 lbs Normal (applies to n on-numeric results) 0.00 lbs [facility] ([facility]) Body height 0.00 in Normal (applies to non-numeric resu lts) 0.00 in [facility] ([facility]) Diastolic blood pressure 80 mm[Hg] 80 mm[Hg] eCW1 ([facility]) Systolic blood pressure 128 mm[Hg] 128 mm[Hg] e CW1 ([facility]) Body mass index (BMI) [Ratio] 44.817 kg/m2 44.8 17 kg/m2 W1 ([facility]) Body height 63 [in_i] 63 [in_i] eCW1 ([facility]) Body weight 253 [lb_av] 253 [lb_av] eCW1 ([facility]) Diastolic blood pressure 0 mm[Hg] Normal (applies to non-numeric results) 0 mm[Hg] [facility] ([facility]) Systolic blood pressure 0 mm[Hg] Normal (applies t o non-numeric results) 0 mm[Hg] [facility] ([facility]) Body mass index (BMI) [Ratio] 0.00 kg/m2 No rmal (applies to non-numeric results) 0.00 kg/m2 [facility] ([facility]) Body weight Measured 0.00 lbs Normal (applies to n on-numeric results) 0.00 lbs [facility] ([facility]) Body height 0.00 in Normal (applies to non-numeric resu lts) 0.00 in [facility] ([facility]) Diastolic blood pressure 0 mm[Hg] Normal (applies to non-numeric results) 0 mm[Hg] [facility] ([facility]) Systolic blood pressure 0 mm[Hg] Normal (applies t o non-numeric results) 0 mm[Hg] [facility] ([facility]) Body mass index (BMI) [Ratio] 0.00 kg/m2 No rmal (applies to non-numeric results) 0.00 kg/m2 [facility] ([facility]) Body weight Measured 0.00 lbs Normal (applies to n on-numeric results) 0.00 lbs [facility] ([facility]) Body height 0.00 in Normal (applies to non-numeric resu lts) 0.00 in [facility] ([facility]) Diastolic blood pressure 0 mm[Hg] Normal (applies to non-numeric results) 0 mm[Hg] [facility] ([facility]) Systolic blood pressure 0 mm[Hg] Normal (applies t o non-numeric results) 0 mm[Hg] [facility] ([facility]) Body mass index (BMI) [Ratio] 0.00 kg/m2 No rmal (applies to non-numeric results) 0.00 kg/m2 [facility] ([facility]) Body weight Measured 0.00 lbs Normal (applies to n on-numeric results) 0.00 lbs [facility] ([facility]) Body height 0.00 in Normal (applies to non-numeric resu lts) [facility].[address] [facility] ([facility]) Diastolic blood pressure 0 mm[Hg] Normal (applies to non-numeric results) 0 mm[Hg] [facility] ([facility]) Systolic blood pressure 0 mm[Hg] Normal (applies t o non-numeric results) 0 mm[Hg] [facility] ([facility]) Body mass index (BMI) [Ratio] 0.00 kg/m2 No rmal (applies to non-numeric results) 0.00 kg/m2 [facility] ([facility]) Body weight Measured 0.00 lbs Normal (applies to n on-numeric results) 0.00 lbs [facility] ([facility]) Body height 0.00 in Normal (applies to non-numeric resu lts) 0.00 in [facility] ([facility]) Diastolic blood pressure 0 mm[Hg] Normal (applies to non-numeric results) 0 mm[Hg] [facility] ([facility]) Systolic blood pressure 0 mm[Hg] Normal (applies t o non-numeric results) 0 mm[Hg] [facility] ([facility]) Body mass index (BMI) [Ratio] 0.00 kg/m2 No rmal (applies to non-numeric results) 0.00 kg/m2 [facility] ([facility]) Body weight Measured 0.00 lbs Normal (applies to n on-numeric results) 0.00 lbs [facility] ([facility]) Body height 0.00 in Normal (applies to non-numeric resu lts) 0.00 in [facility] ([facility]) Body mass index (BMI) [Ratio] 39.5 kg/m2 39.5 k g/m2 MEDENT ([facility]) Body height 64 [in_i] 64 [in_i] MEDENT ([facility]) 5'4" Body weight 230.00 [lb_av] 230.00 [lb_av] MEDEN T ([facility]) Body temperature 98.3 [degF] 98.3 [degF] MEDENT ([facility], [facility]) Oxygen saturation in Arterial blood by Pulse oximetry 98 % 98 % MED[facility] ([facility], [facility]) Respiratory rate 17 /min 17 /min MED[facility] ( [facility], [facility]) Heart rate 88 /min 88 /min MEDENT ([facility], [facility]) Diastolic blood pressure 76 mm[Hg] 76 mm[Hg] MEDENT ([facility], [facility]) Systolic blood pressure 118 mm[Hg] 118 mm[Hg] M EDENT ([facility], [facility]) Diastolic blood pressure 0 mm[Hg] Normal (applies to non-numeric results) 0 mm[Hg] [facility] ([facility]) Systolic blood pressure 0 mm[Hg] Normal (applies t o non-numeric results) 0 mm[Hg] [facility] ([facility]) Body mass index (BMI) [Ratio] 0.00 kg/m2 No rmal (applies to non-numeric results) 0.00 kg/m2 [facility] ([facility]) Body weight Measured 0.00 lbs Normal (applies to n on-numeric results) 0.00 lbs [facility] ([facility]) Body height 0.00 in Normal (applies to non-numeric resu lts) 0.00 in [facility] ([facility]) Diastolic blood pressure 0 mm[Hg] Normal (applies to non-numeric results) 0 mm[Hg] [facility] ([facility]) Systolic blood pressure 0 mm[Hg] Normal (applies t o non-numeric results) 0 mm[Hg] [facility] ([facility]) Body mass index (BMI) [Ratio] 0.00 kg/m2 No rmal (applies to non-numeric results) 0.00 kg/m2 [facility] ([facility]) Body weight Measured 0.00 lbs Normal (applies to n on-numeric results) 0.00 lbs [facility] ([facility]) Body height 0.00 in Normal (applies to non-numeric resu lts) 0.00 in [facility] ([facility]) Diastolic blood pressure 0 mm[Hg] Normal (applies to non-numeric results) 0 mm[Hg] [facility] ([facility]) Systolic blood pressure 0 mm[Hg] Normal (applies t o non-numeric results) 0 mm[Hg] [facility] ([facility]) Body mass index (BMI) [Ratio] 0.00 kg/m2 No rmal (applies to non-numeric results) 0.00 kg/m2 [facility] ([facility]) Body weight Measured 0.00 lbs Normal (applies to n on-numeric results) 0.00 lbs [facility] ([facility]) Body height 0.00 in Normal (applies to non-numeric resu lts) 0.00 in [facility] ([facility])
[2020-11-05 18:58] LABS: BASO % 0.2 % (0.0-1.0); EOS # 0.2 10^3/uL (0.0-0.5); EOS % 1.5 % (0.0-3.0); HEMATOCRIT 38.8 % (36.0-47.0); HEMOGLOBIN 12.4 g/dl (12.0-15.5); LYMPH # 2.8 10^3/uL (1.5-5.0); LYMPH % 25.1 % (24.0-44.0); MEAN CORPUSCULAR HEMOGLOBIN 29.2 pg (27.0-33.0); MEAN CORPUSCULAR VOLUME 91.3 fl (80.0-96.0); MONO # 0.6 10^3/uL (0.0-0.8); MONO % 5.2 % (2.0-8.0); NEUTROPHILS # 7.5 10^3/uL (1.5-8.5); NEUTROPHILS % 67.7 % (36.0-66.0); PLATELET COUNT, AUTOMATED 306 10^3/uL (150-450); RED BLOOD COUNT 4.25 10^6/uL (4.00-5.40); WHITE BLOOD COUNT 11.1 10^3/uL (4.0-10.0)
--- NOTE | 2020-11-05 19:15 | REPVR ---
PROCEDURE INFORMATION: Exam: US First Trimester, Transabdominal Exam date and time: 11/05/2020 6:51 PM Age: 30 years old Clinical indication: Lmp or gestational age (in weeks): 11wks; Other: Vag bleeding; ; Additional info: Vaginal bleeding, 12 weeks TECHNIQUE: Imaging protocol: Real-time transabdominal obstetrical ultrasound of the maternal pelvis and a first trimester , less than 14 weeks 0 days, with image documentation. COMPARISON: No relevant prior studies available. FINDINGS: Gestation: Single gestational sac demonstrated within the uterus. Embryonic/ heart rate: heart rate is 152 bpm. Placenta: Small subchorionic bleed demonstrated on the left measuring 1.9 x 1.4 x 2.5 cm. Amniotic fluid: Amniotic fluid is normal for gestational age. BIOMETRY: Gestational age (AUA): Gestational age based on crown-rump length is 11 weeks 4 days which corresponds to dates predicted by LMP of 08/20/2020 of 11 weeks 0 days. Estimated due date (AUA): [place] based on ultrasound is 05/24/2021. [place]-Rump length: Single fetus with a crown-rump length of 46.3 mm demonstrated. MATERNAL: Uterus: Unremarkable. Cervix: Unremarkable. Right adnexa: Incidental corpus luteal cyst in the right ovary 1.8 x 1.7 x 1.9 cm. Left adnexa: Unremarkable. Intraperitoneal space: No intraperitoneal free fluid. IMPRESSION: Small subchorionic hemorrhage. Otherwise unremarkable scan at 11 weeks 4 days. Detailed structural survey can be performed between 19-20 weeks if clinically desired. Electronically signed by: Cabrera Laureano On 11/05/2020 19:15:41 PM
[2020-11-05 19:33] LABS: BLOOD UREA NITROGEN 8 MG/DL (7-18); CARBON DIOXIDE LEVEL 26 MEQ/L (21-32); CHLORIDE LEVEL 106 MEQ/L (98-107); CREATININE FOR GFR 0.58 MG/DL (0.55-1.30); GLOMERULAR FILTRATION RATE > 60.0 (>60); GLUCOSE, FASTING 93 MG/DL (70-100); HCG, SERUM QUANTITATIVE 36442 MIU/ML; POTASSIUM SERUM 4.6 MEQ/L (3.5-5.1); SODIUM LEVEL 138 MEQ/L (136-145)
--- OUTSIDE RECORDS SUMMARY | 2020-11-05 19:57 | CCD ---
Author Author [facility] Organization [facility] Address Unknown Phone Unavailable Care Team Providers Care Adhesive Bandage Making Operator Name Role Phone Dasha Mo Unavailable BRUNILDA, [...] Unavailable JOSE, MAQBOOL TU MD Unavailable Unavailable Benwood, C Jose Martin Unavailable Unavailable Benwood, C Jose Martin Unavailable Unavailable Elliott, C Jose Martin Unavailable Unavailable Benwood, C Jose Martin Unavailable Unavailable Elliott, C Jose Martin Unavailable Unavailable Elliott, C Jose Martin Unavailable Unavailable [place]wood, C Jose Martin Unavailable Unavailable Juan, K Lisa PMH-NUTRITIONALIST Unavailable Unavailable Juan, K Lisa PMH-NUTRITIONALIST Unavailable Unavailable Juan, K Lisa PMH-NUTRITIONALIST Unavailable Unavailable [place], K Lisa PMH-NUTRITIONALIST Unavailable Unavailable Juan, K Lisa PMH-NUTRITIONALIST Unavailable Unavailable Juan, K Lisa PMH-NUTRITIONALIST Unavailable Unavailable BRUNILDA, L JARED PA Unavailable [...] E Wilma PA Unavailable Unavailable Doremus, E Iwlma PA Unavailable Unavailable Doremus, E Wilma PA [...] Unavailable [facility] Unavailable Unavailable Starks, Kathe NUTRITIONALIST Unavailable Unavailable Starks, Kathe NUTRITIONALIST Unavailable Unavailable Starks, Kathe NUTRITIONALIST Unavailable Unavailable Starks, Kathe NUTRITIONALIST Unavailable Unavailable Starks, Kathe NUTRITIONALIST Unavailable Unavailable Starks, Kathe NUTRITIONALIST Unavailable Unavailable Starks, Kathe NUTRITIONALIST Unavailable Unavailable Starks, Kathe NUTRITIONALIST Unavailable Unavailable Starks, Kathe NUTRITIONALIST Unavailable Unavailable Starks, Kathe NUTRITIONALIST Unavailable Unavailable Starks, Kathe NUTRITIONALIST Unavailable Unavailable Re-disclosure Warning The records that [...] is protected by Article 27-F of the [facility] Public Health law. If you continue you may have access to information: Regarding HIV / AIDS; Provided by facilities licensed or operated by the [facility] Office of Mental Health; or Provided by the [facility] Office for People With Developmental Disabilities. If such information is present, then the following [facility] mandated warning applies: This information has been [...] law may result in a fine or senior care sentence or both. A general authorization for the release of medical or other information is NOT sufficient authorization for further disc losure. Family History Family Member Name Family Member Gender Family Member Status Date o f Status Description Data Source(s) Unknown Male Problem MEDENT ([facility]) Unknown Male Problem MEDENT ([facility]) () Encounters Encounter Providers Location Date Indications Data Source(s ) Outpatient Attender: HECTOR HOWARD MD Main Office 11/05/2020 09:45:00 AM EST MEDENT ([facility]) [facility]: [facility] 10/28/2020 11:30:00 AM EST - 10/28/2020 11:30:00 AM EST [facility] ([facility]) Attender: Lisa SMITHETIENNE 10/28/2020 12: 00:00 AM EST [facility] ([facility]) Outpatient Attender: Lisa SMITHETIENNE [facility] 10/19/2020 09:00:00 AM EST - 10/19/2020 09:00:00 AM EST [facility] ([facility]) Attender: Lisa SMITHETIENNE 10/19/2020 12: 00:00 AM EST [facility] ([facility]) [id number]"Psychotherapy [facility]/18/2020 09:30:00 AM EST - 10/18/2020 09:30:00 AM EST [facility] ([facility]) Attender: Dasha Mo 10/18/2020 12:00:00 A M EST [facility] ([facility]) ( ESTOB) [facility] Est OB [address] [place] [address] 10/13/2020 12:00:00 AM EST eCW1 ([facility]) Outpatient Attender: Lisa SMITHETIENNE [facility] 10/06/2020 10:00:00 AM EST - 10/06/2020 10:00:00 AM EST [facility] ([facility]) Attender: Lisa SMITH-NUTRITIONALIST 10/06/2020 12: 00:00 AM EST [facility] ([facility]) [id number]"Psychotherapy Attender: [facility]asha [facility] 09/20/2020 09:45:00 AM EST - 09/20/2020 09:45:00 AM EST [facility] ([facility]) Attender: Dasha Mo 09/20/2020 12:00:00 A M EST [facility] ([facility]) Attender: Dasha Mo 09/14/2020 12:00:00 A M EST [facility] ([facility]) TEMPMHCTelemed 30" Psychotherapy Attender: Dasha Mo [facility] 09/13/2020 03:30:00 AM EST - 09/13/2020 03:30:00 AM EST [facility] ([facility]) Attender: Dasha Mo 09/03/2020 12:00:00 A M EST [facility] ([facility]) TEMPMHCTelemed 30" Psychotherapy Attender: Dasha Mo [facility] 09/02/2020 04:15:00 AM EST - 09/02/2020 04:15:00 AM EST [facility] ([facility]) Outpatient Attender: Lisa [facility] 08/26/2020 10:30:00 AM EST - 08/26/2020 10:30:00 AM EST [facility] ([facility]) Attender: Lisa SMITH-NUTRITIONALIST 08/26/2020 12: 00:00 AM EST [facility] ([facility]) Attender: Dasha Mo 08/17/2020 12:00:00 A M EST [facility] ([facility]) Extended Individual Psychotherapy - 45 min Attender: Lazaro Mo [facility] 08/16/2020 10:45:00 AM EST - 08/16/2020 10:45:00 AM EST [facility] ([facility]) Extended Individual Psychotherapy - 45 min Attender: [facility] 07/26/2020 09:00:00 AM EST - 07/26/2020 09:00:00 AM EST [facility] ([facility]) Attender: Dasha Mo 07/26/2020 12:00:00 A M EST [facility] ([facility]) Outpatient Attender: Lisa SMITHETIENNE [facility] 07/21/2020 11:00:00 AM EST - 07/21/2020 11:00:00 AM EST [facility] ([facility]) Attender: Lisa ROYAL 07/21/2020 12: 00:00 AM EST [facility] ([facility]) Extended Individual Psychotherapy - 45 min [facility] 07/16/2020 08:00:00 AM EDT - 07/16/2020 08:00:00 AM EDT [facility] ([facility]) Attender: Dasha Mo 07/16/2020 12:00:00 A M EDT [facility] ([facility]) Extended Individual Psychotherapy - 45 min [facility] 07/01/2020 09:00:00 AM EDT - 07/01/2020 09:00:00 AM EDT [facility] ([facility]) Attender: Dasha Mo 07/01/2020 12:00:00 A M EDT [facility] ([facility]) Extended Individual Psychotherapy - 45 min Att[facility]: [facility] 06/17/2020 10:15:00 AM EDT - 06/17/2020 10:15:00 AM EDT [facility] ([facility]) Attender: Dasha Mo 06/17/2020 12:00:00 A M EDT [facility] ([facility]) Outpatient Attender: Lisa SMITHETIENNE WisemanAnthony [facility] 06/02/2020 11:30:00 AM EDT - 06/02/2020 11:30:00 AM EDT [facility] ([facility]) Attender: Lisa ROYAL 06/02/2020 12: 00:00 AM EDT [facility] ([facility]) [place] Telemed Diag Eval no med [facility]: [facility] 03/05/2020 01:30:00 AM EDT - 03/05/2020 01:30:00 AM EDT [facility] ([facility]) Attender: Dasha Brumfieldbecca 03/05/2020 12:00:00 A M EDT [facility] ([facility]) [place] Telemed Diag Eval no med [facility] 03:15:00 AM EDT - 02/27/2020 03:15:00 AM EDT [facility] ([facility]) Attender: Dasha Octavianobecca 02/27/2020 12:00:00 A M EDT [facility] ([facility]) Outpatient Attender: Lisa ROYAL [facility] 02/13/2020 04:00:00 AM EDT - 02/13/2020 04:00:00 AM EDT [facility] ([facility]) Attender: Lisa ROYLA 02/13/2020 12: 00:00 AM EDT [facility] ([facility]) Outpatient Attender: Kathe rivas 02/06/2020 10:00:00 AM EDT [facility] ([facility]) Outpatient Attender: Lisa ROYAL [facility] 01/09/2020 03:45:00 AM EDT - 01/09/2020 03:45:00 AM EDT [facility] ([facility]) Attender: Lisa ROYAL 01/09/2020 12: 00:00 AM EDT [facility] ([facility]) Outpatient Attender: JARED WORLEY PAConsultant: Khanh Turner p [id number] 12/29/2019 10:39:00 AM EDT [facility] Emergency Attender: JARED WORLEY PARlisaerrer: TU Julian MD 12/29/2019 10:20:00 AM EDT - 12/29/2019 10:55:00 AM EDT [facility] Patient discharged. Outpatient Referrer: Wilma MONTAÑO 12/18/2019 05:54:0 0 AM EDT [facility] Outpatient Attender: Jose Martin Gallagher [facility] Shelter 0 11/26/2019 10:30:00 AM EDT - 11/26/2019 10:30:00 AM EDT [facility] ([facility]) Attender: Jose Martin Gallagher 11/26/2019 12:00:00 AM EDT [facility] ([facility]) Outpatient Attender: Jose Martin Elliott [facility] Shel[facility] 0 10/15/2019 10:30:00 AM EST - 10/15/2019 10:30:00 AM EST [facility] ([facility]) Attender: Jose Martin Gallagher 10/15/2019 12:00:00 AM EST [facility] ([facility]) Emergency Attender: JARED MONTAÑO EMERGENCY ROOM-ER 10:24:00 PM EDT - 05/31/2019 01:05:00 AM EDT [facility] Patient discharged. Functional Status Medications Medication Brand Name Start Date Product Form Dose Route Admi nistrative Instructions Pharmacy Instructions Status Indications Reaction Description Data Source(s) lamotrigine 150 MG Oral Tablet [Lamictal] Lamictal 11/04/2020 1 2:00:00 AM EST ORAL active [facility] ([facility]) Amphetamine aspartate 5 MG / Amphetamine Sulfate 5 MG / Dextroamphetamine saccharate 5 MG / Dextroamphetamine Sulfate 5 MG Oral Tablet dextroamphetamine-amphetamine 08/05/2020 12:00:00 AM EST 20 mg by mouth completed [id number] dextroamphetamine-amphetamine by mouth [id number] 08/05/2020 10/04/2020 twice a day 30 20 mg tablet [id number] Abdirahman Martinez [id number] Psychiatric/Mental Health [facility] ([facility]) Amphetamine aspartate 5 MG / Amphetamine Sulfate 5 MG / Dextroamphetamine saccharate 5 MG / Dextroamphetamine Sulfate 5 MG Oral Tablet dextroamphetamine-amphetamine 08/05/2020 12:00:00 AM EST 20 mg by mouth completed [id number] dextroamphetamine-amphetamine by mouth [id number] 08/05/2020 09/04/2020 twice a day 30 20 mg tablet 23781 [id number] Abdirahman muhammadsonia Martinez [id number] Psychiatric/Mental Health [facility] ([facility]) [place] Carbonate 300 MG Oral Capsule lithium carbonate 12:00:00 AM EST 300 mg by mouth completed [id number] lithium car bonate by mouth [id number] 07/21/2020 every night 300 mg capsule [id number] Lisa Juan [id number] Psychiatric/Mental Health [facility] ([facility]) [place] Carbonate 300 MG Oral Capsule lithium carbonate 12:00:00 AM EST 300 mg by mouth completed 452206 lithium car bonate by mouth [id number] 07/21/2020 every night 300 mg capsule 38118 [id number] Lisa Juan [id number] Psychiatric/Mental Health [facility] ([facility]) buspirone hydrochloride 15 MG Oral Tablet buspirone 2019 12:00:00 AM EDT 15 mg by mouth completed [id number] buspirone by mouth C382 88 06/02/2020 three times a day 15 mg tablet 34132 [id number] Pelon jessicasonia Martinez [id number] Psychiatric/Mental Health [facility] ([facility]) buspirone hydrochloride 15 MG Oral Tablet buspirone 2019 12:00:00 AM EDT 15 mg by mouth completed 410694 buspirone by mouth C382 88 06/02/2020 three times a day 15 mg tablet 71496 090710 [id number] Pelon jessicasonia Martinez [id number] Psychiatric/Mental Health [facility] ([facility]) buspirone hydrochloride 15 MG Oral Tablet buspirone 2019 12:00:00 AM EDT 15 mg by mouth completed 224668 buspirone by mouth C382 88 06/02/2020 three times a day 15 mg tablet 36068 190085 [id number] Pelon Martinez [id number] Psychiatric/Mental Health [facility] ([facility]) lamotrigine 150 MG Oral Tablet lamotrigine 04/13/2020 12:00:00 AM EDT 150 mg completed [id number] lamotrigine 04/13/2020 150 mg tablet [id number] [id number] Lisa Juan [id number] Psychiatric/Mental Health [facility] ([facility]) lamotrigine 150 MG Oral Tablet lamotrigine 04/13/2020 12:00:00 AM EDT 150 mg completed [id number] lamotrigine 04/13/2020 150 mg tablet 48432 [id number] Lisa Martinez [id number] Psychiatric/Mental Health [facility] ([facility]) lamotrigine 150 MG Oral Tablet lamotrigine 04/13/2020 12:00:00 AM EDT 150 mg completed [id number] lamotrigine 04/13/2020 150 mg tablet 50766 [id number] Lisadenisa Martinez [id number] Psychiatric/Mental Health [facility] ([facility]) 24 HR Amphetamine aspartate 5 MG / Amphe tamine Sulfate 5 MG / Dextroamphetamine saccharate 5 MG / Dextroamphetamine Sulfate 5 MG Extended Release Oral Capsule dextroamphetamine-amphetamine 03/08/2020 12:00:00 AM EDT 20 mg by mouth completed [id number] dextroamphetamine-amphetamine by mouth [id number] 03/08/2020 08/05/2020 twice a day 30 20 mg capsule,extended release 24hr 25005 [id number] Latricia Dominguez [id number] Nurse Practitioner [facility] ([facility]) lamotrigine 150 MG Oral Tablet lamotrigine 02/12/2020 12:00:00 AM EDT 150 mg completed [id number] lamotrigine 02/12/202004/13 30 150 mg tablet 55578 298031 [id number] Lisa Martinez [id number] P sychiatric/Mental Health [facility] ([facility]) Amphetamine aspartate 5 MG / Amphetamine Sulfate 5 MG / Dextroamphetamine saccharate 5 MG / Dextroamphetamine Sulfate 5 MG Oral Tablet dextroamphetamine-amphetamine 01/06/2020 12:00:00 AM EDT 20 mg completed [id number] dextroamphetamine-amphetamine 01/06/2020 20 mg tablet 73022 995206 [id number] Lisa Martinez [id number] Psychiatric/Menta l Health [facility] ([facility]) Amphetamine aspartate 5 MG / Amphetamine Sulfate 5 MG / Dextroamphetamine saccharate 5 MG / Dextroamphetamine Sulfate 5 MG Oral Tablet [Adderall] Adderall 10/15/2019 12:00:00 AM EST 20 mg completed [id number] Adderall 10/15/2019 11/12/2019 once a day 28 20 mg tablet as directed 98417 213614 [id number] Jose Martin Gallagher [id number] Psychiatric/Mental Health [facility] ([facility]) lisdexamfetamine dimesylate 70 MG Oral Capsule [Vyvanse] Vyv anse 10/15/2019 12:00:00 AM EST 70 mg completed [id number] Vyvanse 10/15/2019 11/14/2019 every morning 30 70 mg capsule 36238 466758 [id number] Jose Martin Gallagher [id number] Psychiatric/Mental Health [facility] ([facility]) lamotrigine 150 MG Oral Tablet [Lamictal] Lamictal 10/15/2019 1 2:00:00 AM EST 150 mg completed Lamictal 10/15/2019 0 01/13/2020 twice a day 30 150 mg tablet 06329 696215 [id number] Jose Martin Gallagher [id number] Psychiatric/Mental Health [facility] ([facility]) lamotrigine 150 MG Oral Tablet [Lamictal] Lamictal 10/15/2019 1 2:00:00 AM EST 150 mg by mouth completed Lamictal by mouth [id number] twice a day 30 150 mg tablet 00096 096908 [id number] Jose Martin steven [id number] Psychiatric/Mental Health [facility] ([facility]) lamotrigine 150 MG Oral Tablet [Lamictal] Lamictal 10/15/2019 1 2:00:00 AM EST 150 mg completed Lamictal 10/15/2019 0 01/13/2020 twice a day 30 150 mg tablet 51969 [id number] Jose Martin Gallagher [id number] Psychiatric/Mental Health [facility] ([facility]) aripiprazole 5 MG Oral Tablet [Abilify] Abilify 04/25/2019 12: 00:00 AM EDT 5 mg by mouth completed [id number] Abilify by mouth [id number] 04/25/2019 10/15/2019 every morning 30 5 mg tablet 94340 078227 [id number] Jose Martin Gallagher [id number] Psychiatric/Mental Health [facility] ([facility]) aripiprazole 5 MG Oral Tablet [Abilify] Abilify 04/25/2019 12: 00:00 AM EDT 5 mg by mouth completed [id number] Abilify by mouth [id number] 04/25/2019 12/02/2019 every morning 30 5 mg tablet 28329 450125 [id number] Jose Martin Gallagher [id number] Psychiatric/Mental Health [facility] ([facility]) aripiprazole 5 MG Oral Tablet [Abilify] Abilify 04/25/2019 12: 00:00 AM EDT 5 mg by mouth completed [id number] Abilify by mouth [id number] 04/25/2019 12/02/2019 every morning 30 5 mg tablet 51953 861035 [id number] Jose Martin Gallagher [id number] Psychiatric/Mental Health [facility] ([facility]) lamotrigine 200 MG Oral Tablet [Lamictal] Lamictal 04/25/2019 1 2:00:00 AM EDT 200 mg completed [id number] Lamictal 04/25/2019 0 10/15/2019 once a day 200 mg tablet 90923 890720 [id number] Jose Martin Gallagher [id number] Psychiatric/Mental Health [facility] ([facility]) Insurance Providers Payer name Policy type / Coverage type Policy ID Covered republican ID Covered republican's relationship to johnson Policy Johnson Plan Information [employer] COMMUNITY PLAN MCDHMO [id number] SP [id number] SELF PAY ONLY [id number] SP [id number] SELF PAY [id number] S [id number] [facility] MEDICAID [id number] S [id number] [facility](MCAID) O [id number] S [id number] [employer] COMMUNITY PLAN MCDHMO [id number] SP [id number] UH I [id number] Self [id number] [employer] COMMUNITY PLAN MCDHMO [id number] SP [id number] MEDICAID M [id number] Self [id number] [employer] COMMUNITY PLAN MCDHMO [id number] SP [id number] [facility] Communty Plan Medicaid [id number] Self [id number] UNHC AMERICHOICE XIX -HMO [id number] 18 [id number] [facility] Communty Plan Medicaid [id number] Self [id number] [facility] COMM[facility]TY PLAN MC [id number] 18 [id number] UNHC COMMUNITY PLAN XIX MC [id number] 18 [id number] [facility] Community Plan Medigap Part B [id number] Self [id number] BS Family Health Plus Commercial [id number] Self [id number] EXCELLUS C [id number] Self [id number] Un[employer] Community Plan Medicaid [id number] Self [id number] [employer] COMMUNITY PLAN MC [id number] 18 [id number] MEMIC SSV W/C [id number] SP [id number] MEMIC SSV W/C UNAVAILABLE SP UNAV AILABLE OTHER WORKERS COMPENSATION DOI - 14 SP DOI - 14 HMO BLUE [id number] SP [id number] BCBS [place]ATN PPO [id number] SP [id number] BLUE CROSS BLUE SHIELD-CLINIC [id number] 18 [id number] BLUE CROSS BLUE SHIELD-PHYSICIAN [id number] BLUE CROSS BLUE SHIELD-O/P [id number] Problems, Conditions, and Diagnoses Code Display Name Description Problem Type Effective Dates Data Source(s) F43.9 Reaction to severe stress, unspecified 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 10/28/2020 12:00:00 AM EST [facility] ([facility]) F90.9 Attention-deficit hyperactivity disorder , unspecified type Unspecified Attention-Deficit/Hyperactivity Disorder Condition 10/28/2020 12:00:00 AM EST [facility] ([facility]) F25.1 Schizoaffective disorder, depressive typ e Schizoaffective Disorder, Depressive type Condition 10/28/2020 12:00:00 AM EST [facility] ([facility]) Z34.80 care Supervision of other normal P roblem 10/13/2020 12:00:00 AM EST eCW1 ([facility]) O99.211 Obesity complicating , first tr imester Obesity complicating in first trimester Problem 10/13/2020 12:00:00 AM EST eCW1 ([facility]) F42.2 Mixed obsessional thoughts and acts Obsessive-Co mpulsive Disorder Condition 01/09/2020 12:00:00 AM EDT [facility] ([facility]) F31.9 Bipolar disorder, unspecified Unspecified [place] r and Related Disorder Condition 01/09/2020 12:00:00 AM EDT [facility] ([facility]) L02.212 Cutaneous abscess of back [any part, exc ept buttock] CUTANEOUS ABSCESS OF BACK [ANY PART, EXCEPT BUTTOC Diagnosis 12/29/2019 10:20:00 AM [facility] L02.222 Furuncle of back [any part, except butto ck] FURUNCLE OF BACK [ANY PART, EXCEPT BUTTOCK] Diagnosis 12/29/2019 10:20:00 AM [facility] Surgeries/Procedures Procedure Description Date Indications Data Source(s) ECG ROUTINE ECG W/LEAST 12 LDS W/I&R 11/05/2020 12:00: 00 AM EST EMILY ([facility]) [place] Telemed E/M Lvl 3--Est pt 10/28/2020 12:00:00 AM EST - 10/28/2020 12:00:00 AM EST [facility] ([facility]) Telemed A/O 30" 10/28/2020 12:00:00 AM EST [facility] ([facility]) [facility] Telemed E/M Lvl 3--Est pt 10/28/2020 12:00:[address] [facility] ([facility]) [facility] Telemed E/M Lvl 3--Est pt 10/19/2020 12:00:00 AM EST - 10/19/2020 12:00:00 AM EST [facility] ([facility]) Telemed A/O 30" 10/19/2020 12:00:00 AM EST [facility] ([facility]) [facility] Telemed E/M Lvl 3--Est pt 10/19/2020 12:00:[address] [facility] ([facility]) [id number]"Psychotherapy 12:00:00 AM EST - 10/18/2020 12:00:00 AM EST [facility] ([facility]) [id number]"Psychotherapy 10/18/2020 12:00:00 AM EST [facility] ([facility]) [facility] Telemed E/M Lvl 3--Est pt 10/06/2020 12:00:00 AM EST - 10/06/2020 12:00:00 AM EST [facility] ([facility]) Telemed A/O 30" 10/06/2020 12:00:00 AM EST [facility] ([facility]) [facility] Telemed E/M Lvl 3--Est pt 10/06/2020 12:00:[address] [facility] ([facility]) [id number]"Psychotherapy 12:00:00 AM EST - 09/20/2020 12:00:00 AM EST [facility] ([facility]) [id number]"Psychotherapy 09/20/2020 12:00:00 AM EST [facility] ([facility]) TEMPMHCTelemed 30" Psychotherapy 12:00:00 AM EST - 09/14/2020 12:00:00 AM EST [facility] ([facility]) TEMPMHCTelemed 30" Psychotherapy 09/13/2020 12:00:00 A M EST [facility] ([facility]) TEMPMHCTelemed 30" Psychotherapy 020 12:00:00 AM EST - 09/03/2020 12:00:00 AM EST [facility] ([facility]) TEMPMHCTelemed 30" Psychotherapy 09/02/2020 12:00:00 A M EST [facility] ([facility]) OFFICE OUTPATIENT VISIT 15 MINUTES 08/26 12:00:00 AM EST - 08/26/2020 12:00:00 AM EST [facility] ([facility]) Psychotherapy ADD ON - 30 Minutes 08/26/2020 12:00:00 AM EST [facility] ([facility]) OFFICE OUTPATIENT VISIT 15 MINUTES 08/26/2020 12:00:00 AM EST [facility] ([facility]) Extended Individual Psychotherapy - 45 min 08/17/2020 12:00:00 AM EST - 08/17/2020 12:00:00 AM EST [facility] ([facility]) Extended Individual Psychotherapy - 45 min 0 12:00:00 AM EST [facility] ([facility]) Extended Individual Psychotherapy - 45 min 07/26/2020 12:00:00 AM EST - 07/26/2020 12:00:00 AM EST [facility] ([facility]) Extended Individual Psychotherapy - 45 min 0 12:00:00 AM EST [facility] ([facility]) MHC Telemed E/M Lvl 3--Est pt 07/21/2020 12:00:00 AM EST - 07/21/2020 12:00:00 AM EST [facility] ([facility]) Telemed A/O 30" 07/21/2020 12:00:00 AM EST [facility] ([facility]) MHC Telemed E/M Lvl 3--Est pt 07/21/2020 12:00:[address] [facility] ([facility]) Extended Individual Psychotherapy - 45 min 07/16/2020 12:00:00 AM EDT - 07/16/2020 12:00:00 AM EDT [facility] ([facility]) Extended Individual Psychotherapy - 45 min 0 12:00:00 AM EDT [facility] ([facility]) Extended Individual Psychotherapy - 45 min 07/01/2020 12:00:00 AM EDT - 07/01/2020 12:00:00 AM EDT [facility] ([facility]) Extended Individual Psychotherapy - 45 min 0 12:00:00 AM EDT [facility] ([facility]) Extended Individual Psychotherapy - 45 min 06/17/2020 12:00:00 AM EDT - 06/17/2020 12:00:00 AM EDT [facility] ([facility]) Extended Individual Psychotherapy - 45 min 0 12:00:00 AM EDT [facility] ([facility]) OFFICE OUTPATIENT VISIT 15 MINUTES 06/02 12:00:00 AM EDT - 06/02/2020 12:00:00 AM EDT [facility] ([facility]) Telemed A/O 30" 06/02/2020 12:00:00 AM EDT [facility] ([facility]) OFFICE OUTPATIENT VISIT 15 MINUTES 06/02/2020 12:00:00 AM EDT [facility] ([facility]) MHC Telemed Diag Eval no med 03/05/2020 12:00:00 AM EDT - 03/05/2020 12:00:00 AM EDT [facility] ([facility]) MHC Telemed Diag Eval no med 03/05/2020 12:00:00 AM ED T [facility] ([facility]) MHC Telemed Diag Eval no med 02/27/2020 12:00:00 AM EDT - 02/27/2020 12:00:00 AM EDT [facility] ([facility]) MHC Telemed Diag Eval no med 02/27/2020 12:00:00 AM ED T [facility] ([facility] [place] Telemed E/M Lvl 3--Est pt 02/13/2020 12:00:00 AM EDT - 02/13/2020 12:00:00 AM EDT [facility] ([facility]) Telemed A/O 30" 02/13/2020 12:00:00 AM EDT [facility] ([facility]) [place] Telemed E/M Lvl 3--Est pt 02/13/2020 12:00:00 AM E DT [facility] ([facility]) [place] Telemed E/M Lvl 3--Est pt 01/09/2020 12:00:00 AM EDT - 01/09/2020 12:00:00 AM EDT [facility] ([facility]) Telemed A/O 45" 01/09/2020 12:00:00 AM EDT [facility] ([facility]) [place] Telemed E/M Lvl 3--Est pt 01/09/2020 12:00:00 AM E DT [facility] ([facility]) OFFICE OUTPATIENT VISIT 10 MINUTES 11/25 12:00:00 AM EDT - 11/26/2019 12:00:00 AM EDT [facility] ([facility]) OFFICE OUTPATIENT VISIT 10 MINUTES 11/26/2019 12:00:00 AM EDT [facility] ([facility]) OFFICE OUTPATIENT VISIT 10 MINUTES 10/15 12:00:00 AM EST - 10/15/2019 12:00:00 AM EST [facility] ([facility]) OFFICE OUTPATIENT VISIT 10 MINUTES 10/15/2019 12:00:00 AM EST [facility] ([facility]) Results ID Date Data Source [id number] 10/25/2020 12:00:00 AM EST [facility] Name Value Range Interpretation Code Description Data Afua rce(s) Supporting Document(s) SARS coronavirus 2 Ag Not Detected [facility] This lab was ordered by [facility] and reported by [facility]. ID Date Data Source [id number] 10/18/2020 12:00:00 AM EST [facility] Name Value Range Interpretation Code Description Data Afua rce(s) Supporting Document(s) SARS coronavirus 2 Ag Not Detected [facility] This lab was ordered by [facility] and reported by [facility]. ID Date Data Source URINE CULTURE 10/13/2020 12:00:00 AM EST eCW1 ([facility]) Name Value Range Interpretation Code Description Data Afua rce(s) Supporting Document(s) eCW1 ([facility]) ID Date Data Source TOTAL PROTEIN,RANDOM URINE 10/13/2020 12:00:00 AM EST eCW1 ( [facility]) Name Value Range Interpretation Code Description Data Afua rce(s) Supporting Document(s) 7.3 0.0-12.0 eCW1 ([facility]) ID Date Data Source CREATININE,RANDOM URINE 10/13/2020 12:00:00 AM EST eCW1 (Critical [facility] hospital) Name Value Range Interpretation Code Description Data Afua rce(s) Supporting Document(s) 115.0 eCW1 ([facility]) ID Date Data Source CHLAMYDIA & GC DNA AMPLIFICAT 10/13/2020 12:00:00 AM EST eCW 1 ([facility]) Name Value Range Interpretation Code Description Data Afua rce(s) Supporting Document(s) Chlamydia trachomatis rRNA [Presence] in Unspecified specimen by Probe and target amplification method NEGATIVE NEGATIVE eCW1 ([facility]) ID Date Data Source [id number] 09/22/2020 02:00:00 PM EST [facility] Name Value Range Interpretation Code Description Data Afua rce(s) Supporting Document(s) SARS coronavirus 2 RNA Not Detected [facility] This lab was ordered by [facility] and reported by [facility]. ID Date Data Source [id number] 08/23/2020 12:00:00 AM EST [facility] Name Value Range Interpretation Code Description Data Afua rce(s) Supporting Document(s) SARS coronavirus 2 Ag [facility] This lab was ordered by [facility] and reported by [facility]. ID Date Data Source [id number] 08/17/2020 12:00:00 AM EST [facility] Name Value Range Interpretation Code Description Data Afua rce(s) Supporting Document(s) SARS coronavirus 2 Ag [facility] This lab was ordered by [facility] and reported by [facility]. ID Date Data Source [id number] 08/09/2020 12:00:00 AM EST [facility] Name Value Range Interpretation Code Description Data Afua rce(s) Supporting Document(s) SARS coronavirus 2 Ag [facility] This lab was ordered by [facility] and reported by [facility]. ID Date Data Source [id number] 05/31/2020 12:00:00 AM EDT [facility] Name Value Range Interpretation Code Description Data Afua rce(s) Supporting Document(s) SARS coronavirus 2 RNA [Presence] in Res piratory specimen by BLAS with probe detection [facility] This lab was ordered by [facility] and reported by [facility]. ID Date Data Source [id number] 05/25/2020 12:00:00 AM EDT [facility] Name Value Range Interpretation Code Description Data Afua rce(s) Supporting Document(s) SARS coronavirus 2 RNA [Presence] in Res piratory specimen by BLAS with probe detection [facility] This lab was ordered by [facility] and reported by [facility]. ID Date Data Source [id number] 05/17/2020 12:00:00 AM EDT [facility] Name Value Range Interpretation Code Description Data Afua rce(s) Supporting Document(s) SARS coronavirus 2 RNA [Presence] in Res piratory specimen by BLAS with probe detection [facility] This lab was ordered by [facility] and reported by [facility]. ID Date Data Source [id number] 05/10/2020 12:00:00 AM EDT [facility] Name Value Range Interpretation Code Description Data Afua rce(s) Supporting Document(s) SARS coronavirus 2 RNA [Presence] in Res piratory specimen by BLAS with probe detection [facility] This lab was ordered by [facility] and reported by [facility]. ID Date Data Source [id number] 05/03/2020 12:00:00 AM EDT [facility] Name Value Range Interpretation Code Description Data Afua rce(s) Supporting Document(s) SARS coronavirus 2 RNA [Presence] in Res piratory specimen by BLAS with probe detection [facility] This lab was ordered by [facility] and reported by [employer] [facility]. ID Date Data Source [id number] 04/26/2020 12:00:00 AM EDT [facility] Name Value Range Interpretation Code Description Data Afua rce(s) Supporting Document(s) SARS coronavirus 2 RNA [Presence] in Res piratory specimen by BLAS with probe detection [facility] This lab was ordered by [facility] and reported by [employer] [facility]. ID Date Data Source [id number] 04/19/2020 12:00:00 AM EDT [facility] Name Value Range Interpretation Code Description Data Afua rce(s) Supporting Document(s) SARS coronavirus 2 RNA [Presence] in Res piratory specimen by BLAS with probe detection [facility] This lab was ordered by [facility] and reported by [employer]. ID Date Data Source [id number] 04/08/2020 12:00:00 AM EDT [facility] Name Value Range Interpretation Code Description Data Afua rce(s) Supporting Document(s) SARS coronavirus 2 RNA [facility] This lab was ordered by [facility] and reported by [facility]. ID Date Data Source [id number] 04/01/2020 12:00:00 AM EDT [facility] Name Value Range Interpretation Code Description Data Afua rce(s) Supporting Document(s) SARS coronavirus 2 RNA [facility] This lab was ordered by [facility] and reported by [facility]. ID Date Data Source [id number] 03/25/2020 12:00:00 AM EDT [facility] Name Value Range Interpretation Code Description Data Afua rce(s) Supporting Document(s) SARS coronavirus 2 RNA [facility] This lab was ordered by [facility] and reported by [facility]. ID Date Data Source [id number] 03/18/2020 02:40:00 PM EDT [facility] Name Value Range Interpretation Code Description Data Afua rce(s) Supporting Document(s) SARS coronavirus 2 RNA [facility] This lab was ordered by [facility] and reported by [facility]. ID Date Data Source [id number] 03/11/2020 02:50:00 PM EDT [facility] Name Value Range Interpretation Code Description Data Afua rce(s) Supporting Document(s) SARS CORONAVIRUS 2 RNA [facility] This lab was ordered by [facility] and reported by [facility]. ID Date Data Source [id number] 03/04/2020 02:35:00 PM EDT [facility] Name Value Range Interpretation Code Description Data Afua rce(s) Supporting Document(s) SARS CORONAVIRUS 2 RNA [facility] This lab was ordered by [facility] and reported by [facility]. ID Date Data Source [id number] 02/26/2020 02:50:00 PM EDT [facility] Name Value Range Interpretation Code Description Data Afua rce(s) Supporting Document(s) SARS CORONAVIRUS 2 RNA [facility] This lab was ordered by [facility] and reported by [facility]. ID Date Data Source [id number] 02/23/2020 03:00:00 PM EDT [facility] Name Value Range Interpretation Code Description Data Afua rce(s) Supporting Document(s) SARS CORONAVIRUS 2 RNA [facility] This lab was ordered by [facility] and reported by [facility]. ID Date Data Source [id number] 02/19/2020 02:35:00 PM EDT [facility] Name Value Range Interpretation Code Description Data Afua rce(s) Supporting Document(s) SARS CORONAVIRUS 2 RNA [facility] This lab was ordered by [facility] and reported by [facility]. ID Date Data Source [id number] 02/16/2020 02:40:00 PM EDT [facility] Name Value Range Interpretation Code Description Data Afua rce(s) Supporting Document(s) SARS CORONAVIRUS 2 RNA [facility] This lab was ordered by [facility] and reported by [facility]. ID Date Data Source [id number] 02/12/2020 02:30:00 PM EDT [facility] Name Value Range Interpretation Code Description Data Afua rce(s) Supporting Document(s) SARS CORONAVIRUS 2 RNA [facility] This lab was ordered by [facility] and reported by [facility]. ID Date Data Source [id number] 02/10/2020 01:15:00 PM EDT [facility] Name Value Range Interpretation Code Description Data Afua rce(s) Supporting Document(s) SARS CORONAVIRUS 2 RNA [facility] This lab was ordered by [facility] and reported by [facility]. ID Date Data Source [id number] 02/05/2020 12:00:00 AM EDT [facility] Name Value Range Interpretation Code Description Data Afua rce(s) Supporting Document(s) SARS CORONAVIRUS 2 RNA [facility] This lab was ordered by [facility] and reported by [facility]. ID Date Data Source [id number] 12/29/2019 12:07:00 PM EDT [facility] Patient: ALBINO SINGH [facility] [facility] Phys[facility].VisitID: [id number] [place] [address] [phone], FRegistration Date/Time: 12/29/2019 09:55 Weight:113.3 kg (S). [...] Code Description Data Afua rce(s) Supporting Document(s) ID Date Data Source [id number] 01/01/2020 01:57:00 PM EDT [facility] LEFT SHOULDERMIXED SKIN JARAD GROWN.NO P ATHOGENS ISOLATED. Name Value Range Interpretation Code Description Data Afua rce(s) Supporting Document(s) Procedure Social History Code Duration Value Status Description Data Source(s ) Smoking 10/28/2020 12:00:00 AM EST Unknown if ever smoked comp leted Unknown if ever smoked [facility] ([facility]) Smoking 10/19/2020 12:00:00 AM EST Unknown if ever smoked comp leted Unknown if ever smoked [facility] ([facility]) Smoking 10/18/2020 12:00:00 AM EST Unknown if ever smoked comp leted Unknown if ever smoked [facility] ([facility]) Smoking 10/13/2020 12:00:00 AM EST Current Smoker completed Ena nt Smoker eCW1 ([facility]) Smoking 10/06/2020 12:00:00 AM EST Unknown if ever smoked comp leted Unknown if ever smoked [facility] ([facility]) Smoking 09/20/2020 12:00:00 AM EST Unknown if ever smoked comp leted Unknown if ever smoked [facility] ([facility]) Smoking 09/14/2020 12:00:00 AM EST Unknown if ever smoked comp leted Unknown if ever smoked [facility] ([facility]) Smoking 09/03/2020 12:00:00 AM EST Unknown if ever smoked comp leted Unknown if ever smoked [facility] ([facility]) Smoking 08/26/2020 12:00:00 AM EST Unknown if ever smoked comp leted Unknown if ever smoked [facility] ([facility]) Smoking 08/17/2020 12:00:00 AM EST Unknown if ever smoked comp leted Unknown if ever smoked [facility] ([facility]) Smoking 07/26/2020 12:00:00 AM EST Unknown if ever smoked comp leted Unknown if ever smoked [facility] ([facility]) Smoking 07/21/2020 12:00:00 AM EST Unknown if ever smoked comp leted Unknown if ever smoked [facility] ([facility]) Smoking 07/16/2020 12:00:00 AM EDT Unknown if ever smoked comp leted Unknown if ever smoked [facility] ([facility]) Smoking 07/01/2020 12:00:00 AM EDT Unknown if ever smoked comp leted Unknown if ever smoked [facility] ([facility]) Smoking 06/17/2020 12:00:00 AM EDT Unknown if ever smoked comp leted Unknown if ever smoked [facility] ([facility]) Smoking 06/02/2020 12:00:00 AM EDT Unknown if ever smoked comp leted Unknown if ever smoked [facility] ([facility]) Smoking 03/05/2020 12:00:00 AM EDT Unknown if ever smoked comp leted Unknown if ever smoked [facility] ([facility]) Smoking 02/27/2020 12:00:00 AM EDT Unknown if ever smoked comp leted Unknown if ever smoked [facility] ([facility]) Smoking 02/13/2020 12:00:00 AM EDT Unknown if ever smoked comp leted Unknown if ever smoked [facility] ([facility]) Smoking 01/09/2020 12:00:00 AM EDT Unknown if ever smoked comp leted Unknown if ever smoked [facility] ([facility]) Smoking 11/26/2019 12:00:00 AM EDT Unknown if ever smoked comp leted Unknown if ever smoked [facility] ([facility]) Smoking 10/15/2019 12:00:00 AM EST Unknown if ever smoked comp leted Unknown if ever smoked [facility] ([facility]) Vital Signs ID Date Data Source UNK Name Value Range Interpretation Code Description Data Source(s) Diastolic blood pressure--sitting 72 mm[Hg] 72 mm[Hg] [facility] ([facility]) Omron, large cuff/LA Systolic blood pressure--sitting 117 mm[Hg] 117 mm[Hg] [facility] ([facility]) Omron, large cuff/LA Heart rate 80 /min 80 /min [facility]IL[facility]STRE ([facility]) Body mass index (BMI) [Ratio] 43.9 kg/m2 43.9 k g/m2 MEDSILVESTRE ([facility]) Body height 63 [in_i] 63 [in_i] EMILY ([facility]) 5'3" Body weight 248.00 [lb_av] 248.00 [lb_av] ARNALDOEN T ([facility]) Body height 0.00 in Normal (applies to non-numeric resu lts) 0.00 in [facility] ([facility]) Diastolic blood pressure 0 mm[Hg] Normal (applies to non-numeric results) 0 mm[Hg] [facility] ([facility]) Systolic blood pressure 0 mm[Hg] Normal (applies t o non-numeric results) 0 mm[Hg] [facility] ([facility]) Body mass index (BMI) [Ratio] 0.00 kg/m2 No rmal (applies to non-numeric results) 0.00 kg/m2 [facility] ([facility]) Body weight Measured 0.00 lbs Normal (applies to n on-numeric results) 0.[address] [facility]) Diastolic blood pressure 0 mm[Hg] Normal (applies to non-numeric results) 0 mm[Hg] [facility] ([facility]) Systolic blood pressure 0 mm[Hg] Normal (applies t o non-numeric results) 0 mm[Hg] [facility] ([facility]) Body mass index (BMI) [Ratio] 0.00 kg/m2 No rmal (applies to non-numeric results) 0.00 kg/m2 [facility] ([facility]) Body weight Measured 0.00 lbs Normal (applies to n on-numeric results) 0.00 lbs [facility] ([facility]) Body height 0.00 in Normal (applies to non-numeric resu lts) 0.00 in [facility] ([facility]) Diastolic blood pressure 80 mm[Hg] 80 mm[Hg] eCW1 ([facility]) Systolic blood pressure 128 mm[Hg] 128 mm[Hg] e CW1 ([facility]) Body mass index (BMI) [Ratio] 44.817 kg/m2 44.8 17 kg/m2 eCW1 ([facility]) Body height 63 [in_i] 63 [in_i] eCW1 ([facility] Body weight 253 [lb_av] 253 [lb_av] eCW1 ([facility]) Diastolic blood pressure 0 mm[Hg] Normal (applies to non-numeric results) 0 mm[Hg] [facility] ([facility]) Systolic blood pressure 0 mm[Hg] Normal (applies t o non-numeric results) 0 mm[Hg] [facility] ([facility]) Body mass index (BMI) [Ratio] 0.00 kg/m2 No rmal (applies to non-numeric results) 0.00 kg/m2 [facility] ([facility]) Body weight Measured 0.00 lbs Normal (applies to n on-numeric results) 0.00 lbs [facility] ([facility]) Body height 0.00 in Normal (applies to non-numeric resu lts) 0.00 in [facility] ([facility]) Diastolic blood pressure 0 mm[Hg] Normal (applies to non-numeric results) 0 mm[Hg] [facility] ([facility]) Systolic blood pressure 0 mm[Hg] Normal (applies t o non-numeric results) 0 mm[Hg] [facility] ([facility]) Body mass index (BMI) [Ratio] 0.00 kg/m2 No rmal (applies to non-numeric results) 0.00 kg/m2 [facility] ([facility]) Body weight Measured 0.00 lbs Normal (applies to n on-numeric results) 0.00 lbs [facility] ([facility]) Body height 0.00 in Normal (applies to non-numeric resu lts) 0.00 in [facility] ([facility]) Diastolic blood pressure 0 mm[Hg] Normal (applies to non-numeric results) 0 mm[Hg] [facility] ([facility]) Systolic blood pressure 0 mm[Hg] Normal (applies t o non-numeric results) 0 mm[Hg] [facility] ([facility]) Body mass index (BMI) [Ratio] 0.00 kg/m2 No rmal (applies to non-numeric results) 0.00 kg/m2 [facility] ([facility]) Body weight Measured 0.00 lbs Normal (applies to n on-numeric results) 0.00 lbs [facility] ([facility]) Body height 0.00 in Normal (applies to non-numeric resu lts) 0.00 in [facility] ([facility]) Diastolic blood pressure 0 mm[Hg] Normal (applies to non-numeric results) 0 mm[Hg] [facility] ([facility]) Systolic blood pressure 0 mm[Hg] Normal (applies t o non-numeric results) 0 mm[Hg] [facility] ([facility]) Body mass index (BMI) [Ratio] 0.00 kg/m2 No rmal (applies to non-numeric results) 0.00 kg/m2 [facility] ([facility]) Body weight Measured 0.00 lbs Normal (applies to n on-numeric results) 0.[address] [facility] ([facility]) Body height 0.00 in Normal (applies to non-numeric resu lts) 0.00 in [facility] ([facility]) Diastolic blood pressure 0 mm[Hg] Normal (applies to non-numeric results) 0 mm[Hg] [facility]) Systolic blood pressure 0 mm[Hg] Normal (applies t o non-numeric results) 0 mm[Hg] [facility] ([facility]) Body mass index (BMI) [Ratio] 0.00 kg/m2 No rmal (applies to non-numeric results) 0.00 kg/m2 [facility] ([facility]) Body weight Measured 0.00 lbs Normal (applies to n on-numeric results) 0.00 lbs [facility] ([facility]) Body height 0.00 in Normal (applies to non-numeric resu lts) 0.00 in [facility] ([facility]) Body mass index (BMI) [Ratio] 39.5 kg/m2 39.5 k g/m2 [facility] ([facility], [facility]) Body height 64 [in_i] 64 [in_i] [facility] ([facility]) 5'4" Body weight 230.00 [lb_av] 230.00 [lb_av] MEDEN T ([facility], [facility]) Body temperature 98.3 [degF] 98.3 [degF] [facility] ([facility]) Oxygen saturation in Arterial blood by Pulse oximetry 98 % 98 % [facility] ([facility], [facility]) Respiratory rate 17 /min 17 /min [facility] ( [facility], [facility]) Heart rate 88 /min 88 /min [facility] ([facility], [facility]) Diastolic blood pressure 76 mm[Hg] 76 mm[Hg] [facility] ([facility], [facility]) Systolic blood pressure 118 mm[Hg] 118 mm[Hg] M EDENT ([facility], [facility]) Diastolic blood pressure 0 mm[Hg] Normal (applies to non-numeric results) 0 mm[Hg] [facility] ([facility]) Systolic blood pressure 0 mm[Hg] Normal (applies t o non-numeric results) 0 mm[Hg] [facility] ([facility]) Body mass index (BMI) [Ratio] 0.00 kg/m2 No rmal (applies to non-numeric results) 0.00 kg/m2 [facility] ([facility]) Body weight Measured 0.00 lbs Normal (applies to n on-numeric results) 0.00 lbs [facility] ([facility]) Body height 0.00 in Normal (applies to non-numeric resu lts) 0.00 in [facility] ([facility]) Diastolic blood pressure 0 mm[Hg] Normal (applies to non-numeric results) 0 mm[Hg] [facility] ([facility]) Systolic blood pressure 0 mm[Hg] Normal (applies t o non-numeric results) 0 mm[Hg] [facility] ([facility]) Body mass index (BMI) [Ratio] 0.00 kg/m2 No rmal (applies to non-numeric results) 0.00 kg/m2 [facility] ([facility]) Body weight Measured 0.00 lbs Normal (applies to n on-numeric results) 0.00 lbs [facility] ([facility]) Body height 0.00 in Normal (applies to non-numeric resu lts) 0.00 in [facility] ([facility]) Diastolic blood pressure 0 mm[Hg] Normal (applies to non-numeric results) 0 mm[Hg] [facility] ([facility]) Systolic blood pressure 0 mm[Hg] Normal (applies t o non-numeric results) 0 mm[Hg] [facility] ([facility]) Body mass index (BMI) [Ratio] 0.00 kg/m2 No rmal (applies to non-numeric results) 0.00 kg/m2 [facility] ([facility]) Body weight Measured 0.00 lbs Normal (applies to n on-numeric results) 0.00 lbs [facility] ([facility]) Body height 0.00 in Normal (applies to non-numeric resu lts) 0.00 in [facility] ([facility])
[2020-11-05 20:10] VITALS: BP 137/75
== END 2020-11-05 20:16 | disposition home or self-care (01) ==
LOC: M ED 18:10
DX: O20.8 Other hemorrhage in early pregnancy (principal); Z3A.12 12 weeks gestation of pregnancy; O10.011 Pre-existing essential hypertension complicating pregnancy, first trimester; O99.341 Other mental disorders complicating pregnancy, first trimester; F31.9 Bipolar disorder, unspecified; F90.9 Attention-deficit hyperactivity disorder, unspecified type; O99.331 Smoking (tobacco) complicating pregnancy, first trimester; F17.210 Nicotine dependence, cigarettes, uncomplicated; Z3A.11 11 weeks gestation of pregnancy; Z79.899 Other long term (current) drug therapy

== ENCOUNTER → 2020-11-09 | Outpatient (REF) | payer OTHER ==
[2020-11-09 16:07] LABS: HEMOGLOBIN 13.2 g/dl (12.0-15.5); MEAN CORPUSCULAR HEMOGLOBIN 29.9 pg (27.0-33.0); MEAN CORPUSCULAR HGB CONC 32.2 g/dl (32.0-36.5); MEAN CORPUSCULAR VOLUME 92.8 fl (80.0-96.0); PLATELET COUNT, AUTOMATED 294 10^3/uL (150-450); RED BLOOD COUNT 4.42 10^6/uL (4.00-5.40); WHITE BLOOD COUNT 9.4 10^3/uL (4.0-10.0)
[2020-11-09 16:33] LABS: TOTAL PROTEIN,RANDOM URINE 9.6 MG/DL (0.0-12.0)
[2020-11-09 16:36] LABS: ALT/SGPT 19 U/L (12-78); BILIRUBIN,TOTAL 0.3 MG/DL (0.2-1.0); CREATININE FOR GFR 0.62 MG/DL (0.55-1.30); GLOMERULAR FILTRATION RATE > 60.0 (>60); GLUCOSE CHALLENGE TEST 1 HOUR 72 MG/DL (LESS THAN 140); LDH LACTATE DEHYDROGENASE 137 U/L (84-246); URIC ACID 3.3 MG/DL (2.6-6.0)
[2020-11-09 16:39] LABS: HEMOGLOBIN A1c 5.3 %
[2020-11-09 17:29] LABS: HEPATITIS C VIRUS ABY INDEX < 0.0 INDEX (<0.8)
[2020-11-09 17:30] LABS: HIV 1&2 SCREEN CENTAUR NEGATIVE (NEGATIVE)
[2020-11-09 17:30] LABS: CHLAMYDIA DNA AMPLIFICATION NEGATIVE (NEGATIVE); GC DNA AMPLIFICATION NEGATIVE (NEGATIVE)
== END ==
LOC: M PLALAB 10:16
PROVIDERS: ATTEND Advanced Practice Midwife
DX: O34.211 Maternal care for low transverse scar from previous cesarean delivery (principal)

== ENCOUNTER → 2020-11-09 | Outpatient (CLI) | payer OTHER | LOC: M PLALAB 10:25 | PROVIDERS: ATTEND Internal Medicine Cardiovascular Disease | DX: R06.02 Shortness of breath (principal) ==

== ENCOUNTER 2020-11-25 10:20 | Emergency (ER) | payer OTHER ==
[~2020-11-25] VITALS: Ht 160 cm; Wt 114.0 kg
[2020-11-25 11:58] LABS: HEMATOCRIT 38.9 % (36.0-47.0); HEMOGLOBIN 12.9 g/dl (12.0-15.5); MEAN CORPUSCULAR HEMOGLOBIN 29.8 pg (27.0-33.0); MEAN CORPUSCULAR HGB CONC 33.2 g/dl (32.0-36.5); MEAN CORPUSCULAR VOLUME 89.8 fl (80.0-96.0); PLATELET COUNT, AUTOMATED 292 10^3/uL (150-450); RED BLOOD COUNT 4.33 10^6/uL (4.00-5.40); WHITE BLOOD COUNT 9.4 10^3/uL (4.0-10.0)
--- NOTE | 2020-11-25 12:15 | REP ---
INDICATION: vaginal bleeding 13 weeks gestation COMPARISON: 11/05/2020 TECHNIQUE: Transabdominal obstetrical ultrasound with color Doppler evaluation. FINDINGS: Examination demonstrates single live intrauterine with CRL of 7.2 cm corresponding to 13 weeks 3 days gestational age. heart rate equals 147 beats per minute. Subchorionic hemorrhages again identified but increased from prior examination now measuring 38 x 22 x 36 mm. IMPRESSION: Single live early intrauterine at 13 weeks 3 days gestational age. Complete anatomical assessment should be performed and 19-20 weeks. Subchorionic hemorrhage appears increased from prior examination and currently measures 38 x 22 x 36 mm. <Electronically signed by Rip Kearns > 11/25/20 1211
[2020-11-25 12:23] VITALS: BP 123/64
== END 2020-11-25 12:55 | disposition home or self-care (01) ==
LOC: M ED 10:20
DX: O20.8 Other hemorrhage in early pregnancy (principal); O99.342 Other mental disorders complicating pregnancy, second trimester; F33.9 Major depressive disorder, recurrent, unspecified; F41.9 Anxiety disorder, unspecified; F90.9 Attention-deficit hyperactivity disorder, unspecified type; Z79.899 Other long term (current) drug therapy; O99.332 Smoking (tobacco) complicating pregnancy, second trimester; F17.210 Nicotine dependence, cigarettes, uncomplicated; Z3A.13 13 weeks gestation of pregnancy

== ENCOUNTER 2020-11-29 20:55 | Emergency (ER) | payer OTHER ==
[~2020-11-29] VITALS: Ht 160 cm; Wt 115.1 kg
[2020-11-29 21:56] LABS: BASO % 0.3 % (0.0-1.0); EOS # 0.2 10^3/uL (0.0-0.5); EOS % 1.3 % (0.0-3.0); HEMATOCRIT 36.1 % (36.0-47.0); HEMOGLOBIN 11.9 g/dl (12.0-15.5); LYMPH # 2.8 10^3/uL (1.5-5.0); LYMPH % 23.7 % (24.0-44.0); MEAN CORPUSCULAR HEMOGLOBIN 29.8 pg (27.0-33.0); MEAN CORPUSCULAR VOLUME 90.3 fl (80.0-96.0); MONO # 0.6 10^3/uL (0.0-0.8); MONO % 5.3 % (2.0-8.0); NEUTROPHILS # 8.2 10^3/uL (1.5-8.5); NEUTROPHILS % 69.1 % (36.0-66.0); PLATELET COUNT, AUTOMATED 294 10^3/uL (150-450); WHITE BLOOD COUNT 11.9 10^3/uL (4.0-10.0)
--- NOTE | 2020-11-29 22:00 | REPVR ---
PROCEDURE INFORMATION: Exam: US First Trimester, Transabdominal Exam date and time: 11/29/2020 9:42 PM Age: 30 years old Clinical indication: Lmp or gestational age (in weeks): 08/31/20; Antepartum complications; Bleeding; ; Additional info: Vaginal bleeding TECHNIQUE: Imaging protocol: Real-time transabdominal obstetrical ultrasound of the maternal pelvis and a first trimester , less than 14 weeks 0 days, with image documentation. COMPARISON: 1ST TRIMESTER US 11/05/2020 6:44 PM FINDINGS: Gestation: Single intrauterine gestation. Embryonic/ heart rate: heart rate 155 bpm. Placenta: Posterior fundal placenta. No placenta previa. Redemonstration of subchorionic hemorrhage measuring 6.5 x 1.5 x 6.2 cm. Amniotic fluid: Amniotic fluid is normal for gestational age. BIOMETRY: Gestational age (AUA): Gestational age based on LMP of 08/31/2020 is 12 weeks 6 days versus 14 weeks 3 days using the earliest sonogram which correlates with current sonographic measurements. Estimated weight: Estimated weight 109 g (98th percentile). Biparietal diameter: BPD 2.8 cm. Head circumference: Head circumference 10.4 cm. Abdominal circumference: Abdominal circumference 8.6 cm. Femur length: Femur length 1.7 cm. MATERNAL: Uterus: Unremarkable. Cervix: Cervix measures 4.6 cm. Right adnexa: Unremarkable. Left adnexa: Unremarkable. Intraperitoneal space: No intraperitoneal free fluid. IMPRESSION: 1. Subchorionic hemorrhage. 2. Gestational age is 12 weeks 6 days using LMP versus 14 weeks 3 days using early sonogram. 3. No placenta previa or abruption. 4. Estimated weight in the 98th percentile. Follow-up sonography recommended to assess interval growth. Electronically signed by: Cabrera Laureano On 11/29/2020 22:00:25 PM
[2020-11-29 22:20] LABS: BLOOD UREA NITROGEN 8 MG/DL (7-18); CALCIUM LEVEL 9.2 MG/DL (8.5-10.1); CARBON DIOXIDE LEVEL 28 MEQ/L (21-32); CHLORIDE LEVEL 103 MEQ/L (98-107); CREATININE FOR GFR 0.58 MG/DL (0.55-1.30); GLOMERULAR FILTRATION RATE > 60.0 (>60); GLUCOSE, FASTING 92 MG/DL (70-100); POTASSIUM SERUM 3.9 MEQ/L (3.5-5.1); SODIUM LEVEL 138 MEQ/L (136-145)
[2020-11-29 23:18] VITALS: BP 133/66
== END 2020-11-29 23:33 | disposition home or self-care (01) ==
LOC: M ED 20:55
DX: O20.8 Other hemorrhage in early pregnancy (principal); Z3A.14 14 weeks gestation of pregnancy; O99.342 Other mental disorders complicating pregnancy, second trimester; F33.9 Major depressive disorder, recurrent, unspecified; F41.9 Anxiety disorder, unspecified; F90.9 Attention-deficit hyperactivity disorder, unspecified type; O99.332 Smoking (tobacco) complicating pregnancy, second trimester; F17.210 Nicotine dependence, cigarettes, uncomplicated

== ENCOUNTER 2020-12-03 12:03 | Emergency (ER) | payer OTHER ==
[~2020-12-03] VITALS: Ht 160 cm; Wt 115.9 kg
[2020-12-03 12:49] LABS: BASO % 0.4 % (0.0-1.0); EOS # 0.2 10^3/uL (0.0-0.5); EOS % 1.5 % (0.0-3.0); HEMATOCRIT 35.1 % (36.0-47.0); HEMOGLOBIN 11.4 g/dl (12.0-15.5); LYMPH # 2.3 10^3/uL (1.5-5.0); LYMPH % 21.4 % (24.0-44.0); MEAN CORPUSCULAR HEMOGLOBIN 29.8 pg (27.0-33.0); MEAN CORPUSCULAR HGB CONC 32.5 g/dl (32.0-36.5); MEAN CORPUSCULAR VOLUME 91.6 fl (80.0-96.0); MONO # 0.6 10^3/uL (0.0-0.8); MONO % 5.2 % (2.0-8.0); NEUTROPHILS # 7.7 10^3/uL (1.5-8.5); NEUTROPHILS % 71.1 % (36.0-66.0); PLATELET COUNT, AUTOMATED 286 10^3/uL (150-450); RED BLOOD COUNT 3.83 10^6/uL (4.00-5.40); WHITE BLOOD COUNT 10.8 10^3/uL (4.0-10.0)
[2020-12-03 13:18] LABS: BLOOD UREA NITROGEN 6 MG/DL (7-18); CALCIUM LEVEL 8.4 MG/DL (8.5-10.1); CARBON DIOXIDE LEVEL 23 MEQ/L (21-32); CHLORIDE LEVEL 109 MEQ/L (98-107); GLOMERULAR FILTRATION RATE > 60.0 (>60); GLUCOSE, FASTING 94 MG/DL (70-100); POTASSIUM SERUM 3.9 MEQ/L (3.5-5.1); SODIUM LEVEL 138 MEQ/L (136-145)
--- NOTE | 2020-12-03 13:37 | REP ---
INDICATION: vaginal bleeding. COMPARISON: 11/29/2020 TECHNIQUE: Multiple sonographic images of the gravid uterus. FINDINGS: On the prior study dated 10/26/2020 there is a subchorionic hematoma to the left of the gestational sac measuring 2.5 x 1.9 x 1.4 cm. On the comparison study of 11/29/2020 the subchorionic hematoma measured 6.5 x 6.2 x1.5 cm. On the study today the subchorionic hematoma measures 7.9 x 5.2 x 2.8 cm. There again is a single intrauterine gestation in a cephalic presentation. The placenta is fundal and posterior with grade 0 maturity. There is no previa. Cervix measures 3.7 cm. heart rate is 149 beats per minute. Gestational age by LMP is 13 weeks 3 days with an GASTON of 06/07/2021. IMPRESSION: Persisting subchorionic hematoma as described. <Electronically signed by Raimundo Gregorio > 12/03/20 [id number]
[2020-12-03 14:14] LABS: APPEARANCE, URINE HAZY (CLEAR); BACTERIA, URINE AUTO 1+ (NEGATIVE); BILIRUBIN, URINE AUTO NEGATIVE (NEGATIVE); BLOOD, URINE BLOOD 3+ (NEGATIVE); COLOR, URINE YELLOW (YELLOW); GLUCOSE, URINE (UA) AUTO NEGATIVE (NEGATIVE); KETONE, URINE AUTO NEGATIVE (NEGATIVE); LEUKOCYTE ESTERASE, URINE AUTO 1+ (NEGATIVE); MUCUS, URINE SMALL (NEGATIVE); NITRITE, URINE AUTO NEGATIVE (NEGATIVE); PROTEIN, URINE AUTO NEGATIVE (NEGATIVE); RBC, URINE AUTO 2 /HPF (0-3); SPECIFIC GRAVITY URINE AUTO 1.016 (1.002-1.035); SQUAMOUS EPITHELIAL CELL UR AU 3 /HPF (0-6); UROBILINOGEN, URINE AUTO 0.2 mg/dL (0.0-2.0); WBC, URINE AUTO 11 /HPF (0-3)
[2020-12-03] MEDS ORDERED: CEPH500C PO (15:14)
[2020-12-03 15:21] VITALS: BP 122/67
== END 2020-12-03 15:23 | disposition home or self-care (01) ==
LOC: M ED 12:03
DX: O20.8 Other hemorrhage in early pregnancy (principal); O99.342 Other mental disorders complicating pregnancy, second trimester; F31.9 Bipolar disorder, unspecified; O99.332 Smoking (tobacco) complicating pregnancy, second trimester; F17.210 Nicotine dependence, cigarettes, uncomplicated; Z3A.13 13 weeks gestation of pregnancy

== ENCOUNTER → 2020-12-15 | Outpatient (CLI) | payer OTHER ==
[~2020-12-15] MED LIST changes: +CEPH500C PO
--- NOTE | 2020-12-15 08:06 | REP ---
INDICATION: GROWING HEMATOMA W/ COMPARISON: 12/03/2020 TECHNIQUE: Transabdominal obstetrical ultrasound with color Doppler evaluation. FINDINGS: Examination demonstrates a single live intrauterine in cephalic presentation. motion is identified by technologist. Placenta is noted posterior/fundal and grade 0 without evidence for placenta previa or abruption. Amniotic fluid volume is normal. Cervix measures 3.4 cm in length and appears closed. Known subchorionic hemorrhage again identified currently measuring 9.3 x 1.9 x 5.2 cm. (Most recent previous exam measured 7.9 x 2.8 x 5.2). Gestational age by LMP 15 weeks 1 day with GASTON 06/07/2021. FHR equals 143 beats per minute. IMPRESSION: Single live intrauterine in cephalic presentation. Subchorionic hemorrhage again identified and possibly slightly increased. <Electronically signed by Rip Kearns > 12/15/20 0802
== END ==
LOC: M WHC 06:39
PROVIDERS: ATTEND Advanced Practice Midwife
DX: O20.8 Other hemorrhage in early pregnancy (principal); Z3A.15 15 weeks gestation of pregnancy

== ENCOUNTER → 2020-12-27 | Outpatient (CLI) | payer OTHER ==
--- NOTE | 2020-12-28 07:31 | REP ---
INDICATION: GROWING HEMATOMA/PREG COMPARISON: 12/15/2020 TECHNIQUE: Transabdominal obstetrical ultrasound with color Doppler evaluation. FINDINGS: Examination demonstrates a single live intrauterine in transverse presentation. motion is identified by technologist. Placenta is noted posterior/fundal and grade 0 without evidence for placenta previa or abruption. Amniotic fluid volume is normal. Cervix measures 3.5 cm in length and appears closed. Subchorionic hemorrhage again identified along the anterior portion of the uterus measuring 5.6 x 5.3 x 0.8 cm (previously measuring 9.3 x 1.9 x 5.2 cm). FHR equals 142 beats per minute. IMPRESSION: Subchorionic hemorrhage has decreased in size from prior examination. Single live intrauterine in transverse presentation. <Electronically signed by Rip Kearns > 12/28/20 0751
== END ==
LOC: M WHC 14:57
PROVIDERS: ATTEND Obstetrics & Gynecology
DX: Z36.89 Encounter for other specified antenatal screening (principal); O41.8X20 Other specified disorders of amniotic fluid and membranes, second trimester, not applicable or unspecified; Z3A.00 Weeks of gestation of pregnancy not specified

== ENCOUNTER → 2020-12-29 | Outpatient (REF) | payer OTHER ==
[2020-12-29 14:21] LABS: HEMATOCRIT 33.8 % (36.0-47.0); HEMOGLOBIN 10.8 g/dl (12.0-15.5); MEAN CORPUSCULAR HEMOGLOBIN 29.2 pg (27.0-33.0); MEAN CORPUSCULAR VOLUME 91.4 fl (80.0-96.0); PLATELET COUNT, AUTOMATED 292 10^3/uL (150-450); WHITE BLOOD COUNT 9.6 10^3/uL (4.0-10.0)
== END ==
LOC: M PLALAB 10:31
PROVIDERS: ATTEND Obstetrics & Gynecology
DX: O46.8X2 Other antepartum hemorrhage, second trimester (principal)

== ENCOUNTER 2021-01-07 09:48 | Outpatient (CLI) | payer OTHER ==
[~2021-01-07] VITALS: Ht 160 cm; Wt 113.3 kg
[2021-01-07 10:05] VITALS: BP 130/58
--- NOTE | 2021-01-07 12:06 | REP ---
INDICATION: 20 weeks bleeding, hx of neema. History of subchorionic hemorrhage. COMPARISON: Comparison obstetric sonography December 27, 2020.. TECHNIQUE: Limited transabdominal and transvaginal obstetric sonography. FINDINGS: Scanning through the gravid uterus demonstrates a viable single intrauterine gestation in breech lie. motion is observed and heart rate is recorded at 150 beats per minute. A fundal placenta is seen, grade 1, without evidence of placenta previa. Closed cervical length is measured at 3.7 cm transvaginally.. No extrauterine abnormality is observed. Amniotic fluid is subjectively normal. There is a 5.4 x 1.5 x 7.8 cm slightly heterogeneous hypoechoic area along the anterior uterus at the margin of the placenta consistent with the previously noted subchorionic hemorrhage. This appears less cystic than on prior study. It does not appear to extend deep to the placental tissue. There is mobile echogenic debris in the amniotic fluid adjacent the internal cervical os and lower uterine segment. Multiple focal uterine contractions are observed during the exam. Biometry chart: Not performed with this exam. IMPRESSION: Viable single intrauterine gestation at 20 weeks 0 days by known GASTON.. Established GASTON May 27, 2021. There is mobile debris in the amniotic fluid. A hypoechoic area is seen where prior study showed subchorionic hemorrhage as above 5.4 x 1.5 x 7.8 cm. <Electronically signed by Terry De La Rosa > 01/07/21 [id number]
--- NOTE | 2021-01-07 12:25 | IPNPDOC ---
Text Note Date of Service The patient was seen on 01/07/21. NOTE Outpatient 30yo GASTON 05/27/2021. Currently 20w1d. Hx significant for 3 previous . This prenancy complicated by known large subchorionic hemorrhage with bleeding. Presents today with cramping and report of hand sized clot last night. Denies LOF. FH via doppler 150s No UC on monitor Spec exam moderate amount dark red blood from os, pooling in vault SVE LTC, firm Sono5.4x1.5x7.8cm complex structure, anterior tip of placenta, marginal abruption vs subchorionic hemorrhage. Mobile debris noted adjacent to os. reviewed pt status with Dr Guerrero. Will continue to observe patient through the day. Counseled patient on possible abruption and loss of nonviable . Lucie Angeles CNM Jan 07, 2021 12:25
--- NOTE | 2021-01-07 14:18 | IPNPDOC ---
Text Note Date of Service The patient was seen on 01/07/21. NOTE Outpatient Pt reports bleeding has decreased markedly. Feel reassured and desires discharge Instructed pt to avoid strenuous activity. Call with saturated pad of increased pain. RTO next week. Lucie Angeles CNM Jan 07, 2021 14:18
== END 2021-01-07 14:27 | disposition home or self-care (01) ==
LOC: M LDO 09:48
PROVIDERS: ATTEND Advanced Practice Midwife
DX: O46.8X2 Other antepartum hemorrhage, second trimester (principal); O34.219 Maternal care for unspecified type scar from previous cesarean delivery; Z3A.20 20 weeks gestation of pregnancy

== ENCOUNTER 2021-01-11 06:44 | Outpatient (CLI) | payer OTHER ==
[~2021-01-11] VITALS: Ht 160 cm; Wt 115.0 kg
[2021-01-11 07:48] LABS: HEMOGLOBIN 10.7 g/dl (12.0-15.5); MEAN CORPUSCULAR HEMOGLOBIN 29.2 pg (27.0-33.0); MEAN CORPUSCULAR HGB CONC 32.4 g/dl (32.0-36.5); MEAN CORPUSCULAR VOLUME 89.9 fl (80.0-96.0); PLATELET COUNT, AUTOMATED 304 10^3/uL (150-450); RED BLOOD COUNT 3.67 10^6/uL (4.00-5.40); WHITE BLOOD COUNT 13.8 10^3/uL (4.0-10.0)
[2021-01-11 08:11] VITALS: BP 125/58
--- NOTE | 2021-01-11 08:22 | IPNPDOC ---
Text Note Date of Service The patient was seen on 01/11/21. NOTE L&D triage note Madhu is a 30yo with SIUP at 20w4d presenting with recurrence of vaginal bleeding. She has known subchorionic hematoma/chronic abruption that was last i [facility] on 01/07 and seen to be 5.4x1.5x7.8cm with mobile debris in the amniotic fluid. She had vaginal exam at that visit which was LTC/firm/OOP done by DIMAS Angeles. Today she has had some bright red bleeding that saturated a pad, and she was directed to come in again. She has occasional cramping, but no abdominal pain. No LOF. Feels movement. Small (6x6cm) area of bleeding noted on chucks pad after patient had been in triage bed for an hour or so. Vitals wnl, afebrile Gen: WDWN, resting comfortably in bed, tearful from anxiety Abd: soft, obese, gravid, NTTP Extremities: no edema of BLE Doptones: 130's Peetz: no ctx pattern Assessment: Madhu is a 30yo with SIUP at 20w4d with recurrence of vaginal bleeding in the setting of known large subchorionic hematoma/chronic abruption. Reassuring assessment today with no e/o PTL. Stable H/H. Plan: -Provided reassurance, patient to discharge home -Modified bed rest -Work note provided for no work duties until further notice -Good hydration -Discussed return precautions Leda Bryson MD VS,Justin I+O VSJustin I+O Laboratory Tests 01/11/21 07:31 Vital Signs Date Time Temp Pulse Resp B/P (MAP) Pulse Ox O2 Delivery O2 Flow Rate FiO2 01/11/21 07:16 98.0 01/11/21 06:54 19 Leda Bryson MD Jan 11, 2021 08:22
== END 2021-01-11 08:20 | disposition home or self-care (01) ==
LOC: M LDO 06:44
PROVIDERS: ATTEND Advanced Practice Midwife
DX: O46.8X2 Other antepartum hemorrhage, second trimester (principal); Z3A.20 20 weeks gestation of pregnancy; O34.219 Maternal care for unspecified type scar from previous cesarean delivery

== ENCOUNTER → 2021-01-26 | Outpatient (REF) | payer OTHER ==
[~2021-01-26] MED LIST changes: +IBUP80TA PO
[2021-01-26 16:55] LABS: HEMATOCRIT 31.7 % (36.0-47.0); HEMOGLOBIN 10.3 g/dl (12.0-15.5); MEAN CORPUSCULAR HEMOGLOBIN 29.7 pg (27.0-33.0); MEAN CORPUSCULAR HGB CONC 32.5 g/dl (32.0-36.5); MEAN CORPUSCULAR VOLUME 91.4 fl (80.0-96.0); PLATELET COUNT, AUTOMATED 349 10^3/uL (150-450); RED BLOOD COUNT 3.47 10^6/uL (4.00-5.40); WHITE BLOOD COUNT 13.6 10^3/uL (4.0-10.0)
== END ==
LOC: M PLALAB 14:22
PROVIDERS: ATTEND Obstetrics & Gynecology
DX: O43.102 Malformation of placenta, unspecified, second trimester (principal)

== ENCOUNTER 2021-01-31 09:13 | Inpatient (IN) | payer OTHER ==
[~2021-01-31] VITALS: Ht 160 cm; Wt 115.3 kg
[2021-01-31] VITALS (8 sets, daily range): BP systolic 102–132; BP diastolic 53–64
[~2021-01-31 09:13] MED LIST changes: -IBUP80TA PO
[2021-01-31 10:58] LABS: HEMATOCRIT 33.5 % (36.0-47.0); HEMOGLOBIN 10.7 g/dl (12.0-15.5); MEAN CORPUSCULAR HGB CONC 31.9 g/dl (32.0-36.5); MEAN CORPUSCULAR VOLUME 90.8 fl (80.0-96.0); PLATELET COUNT, AUTOMATED 327 10^3/uL (150-450); RED BLOOD COUNT 3.69 10^6/uL (4.00-5.40)
[2021-01-31] MEDS ORDERED: LIDOCAINE 1% MDV 20ML VIAL INFIL PRN (11:20)
[2021-01-31] MEDS ORDERED: CARBOPROST TROMETHAMINE 250 MCG/ML AMP IM PRN (11:20)
[2021-01-31] MEDS ORDERED: METHYLERGONOVINE MALEATE 0.2 MG/ML VIAL (J2210) IM PRN (11:20)
[2021-01-31] MEDS ORDERED: TRANEXAMIC ACID INJection 1,000 MG in NS 100 ML IV PRN (11:20)
--- NOTE | 2021-01-31 11:26 | HPEPDOC ---
Obstetrical History & Physical General Date of Admission January 31, 2021 at 11:02 Primary Care Physician: ESTEBAN ARROYO CNM History of Present Illness Madhu is a 30-year-old female who is a at 23.3 weeks gestation with an GASTON of 05/27/21. Her has been ocmplicated by prior LTCS x3, smoking, a history of preeclampsia and GHTN, morbid obesity, psychiatric disorders, and a chronic abruption. She has been seen multiple times for vaginal bleeding related to a subchorionic hematoma vs. placental abruption. She presented to L&D with complaints of contractions/cramping that have gotten worse since this morning. She reports vaginal bleeding but states it isn't as bad as it has been in the past. She reports she had active movement last night. Chief Complaint: IUFD Information Provided By: Patient Age: 30 : 7 Term: 3 Pre-term: 0 Abortions: 3 Livin Care Care: Good Care Dating Final EDC: May 27, 2021 Final EDC by: 1st trimester (US) EGA at Admission: 23.3 Antepartum Course Diagnos(e)s morbid obesity Prior LTCS x3 Chronic abruption Hx of preeclampsia and GHTN Smoker Height (inches): 63 Pre- weight (lbs.): 253 Admission Weight (lbs.): 253 Change in Weight (lbs.): 0 Past Medical History Past Obstetrical History #1: Past Obstetrical History: Multigravida Date of Delivery: Sep 27, 2008 Gestation: 38 Type of Delivery: Ceserean section (8 lbs 10 oz) Sex of Infant: Female Complications: Yes (failure to progress, preeclampsia) Past Obstetrical History #2: Past Obstetrical History: Multigravida Date of Delivery: Jan 09, 2011 Gestation: 39 Type of Delivery: Ceserean section (8 lbs) Sex of Infant: Male Complications: Yes (GHTN) Past Obstetrical History #3: Past Obstetrical History: Multigravida Date of Delivery: Oct 04, 2018 Gestation: 37 Type of Delivery: Ceserean section Sex of Infant: Female (5 lbs 4 oz) Complications: Yes (GHTN) QUANTITATIVE MANAGER History: Spontaneous (2005, 2007), Ectopic (2006), Human papillomavirus(HPV) Past Medical History Medical History Multiple psychiatric disorders Surgical History: Appendectomy, section (2008, 2010, 2019), Dilatation and Curettage, Other (hemorrhoidectomy) Family History Significant Family History: Cancer (lizbeth), Heart disease, Hypertension, Seizures Social History Marital Status: Family situation: Spouse/partner home Psychosocial History: Att. deficit disorder (taking Vyvance), Bipolar (taking Latuda), Depression, Other (Schizo affective disorder) * Smoker: current smoker Alcohol: Denies Drugs: denies Allergies Coded Allergies: No Known Allergies (Unverified , 11/27/19) Medications Scheduled Lamotrigine (Lamictal) 150 Mg Tablet, 150 MG PO BID Physical Examination Physical Examination GENERAL: Alert and oriented times three. BREAST: . ABDOMEN: Gravid and non-tender to touch. FETUS: Is breech by bedside ultrasound and noted to not have cardiac activity. Dr. Bryson present and verified demise. EXTREMITIES: Generalized edema. No clonus. Deep tendon reflexes (DTRs) + 2. Vital Signs/I&O Vital Signs Date Time Temp Pulse Resp B/P (MAP) Pulse Ox O2 Delivery O2 Flow Rate FiO2 01/31/21 09:31 97.9 72 18 130/62 (84) 100 Laboratory Data 24H LABS Laboratory Tests 2 01/31/21 10:43: Nucleated Red Blood Cells % (auto) 0.0 CBC/BMP Laboratory Tests 01/31/21 10:43 Urine Culture: No Growth Pertinent Laboratoy Data Blood Type: A+ RBC Antibody Screen: Negative HIV: Negative Hepatitis B: Negative Hepatitis C: Negative Rapid Plasma Reagin: Nonreactive Rubella: Immune Chlamydia/Gonorrhea: Negative Other Ultrasounds [facility] NAME: MADHU SOLOMON DATE OF : 1990 AGE: 30 SEX: F REPORT #: [id number] ROOM: [facility] TECHNOLOGIST: TERESA DOCTOR: ESTEBAN ARROYO CNM Ordered for Date&Time: 01/31/21 0950 cc: [~ rep ct ivnm] Service Date&Time: 01/31/21 1105 This report is in Signed status. If this report is in a DRAFT status it has not yet been reviewed by the radiologist for accuracy. Thank you for having your radiology procedures performed at [facility] RADIOLOGY REPORT Date&Time printed: [~ rep prt dt last] [~ rep prt tm last] Page [address] of [address] [address] RADIOLOGY REPORT This report is in Signed status. If this report is in a DRAFT status it has not yet been reviewed by the radiologist for accuracy. Thank you for having your radiology procedures performed at [facility] RADIOLOGY REPORT Date&Time printed: [~ rep prt dt last] [~ rep prt tm last] Page 1 of 2 NAME: MADHU SOLOMON DATE OF : 1990 AGE: 30 SEX: F REPORT #: [id number] ROOM: [facility] TECHNOLOGIST: TERESA DOCTOR: ESTEBAN ARROYO CNM Ordered for Date&Time: 01/31/21 0950 cc: [~ rep ct ivnm] Service Date&Time: 01/31/21 1105 EXAMINATION REQUESTED: OBS FOLL UP OR REPEAT EACH GES REASON FOR PATIENT VISIT: IUFD REASON FOR EXAM/COMMENT: EVALUATE HEMATOMA & EFW, WELL BEING INDICATION: EVALUATE HEMATOMA . COMPARISON: 02/11/2021 TECHNIQUE: Transabdominal FINDINGS: Once again, there is a mixed echo structure seen along the anterior leading edge of the placenta today measuring 7.9 x 1.8 x 6.8 cm. This has decreased slightly in size compared to the prior exam. Multiple ultrasonographic images of the gravid uterus shows a single intrauterine gestation in the bilateral footling breech presentation. Secondary to this the technologist could not accurately measure the cervical length. The placenta is not low lying. Doppler interrogation of the heart shows no cardiac activity. BPD: 4.5 cm 19 weeks 5 days HC: 18.3 cm 20 weeks 5 days AC: 17.2 cm 22 weeks 1 day FL: 4.1 cm 23 weeks 1 day Estimated weight is 489 g which is at the 33 percentile for a 21 week 6 day gestational age. IMPRESSION: Findings, as described above, consistent with demise. The estimated gestational age of the fetus based on today's composite criteria is 21 weeks 2 days. The previously documented placental/retroplacental hemorrhage has decreased slightly in size. A stat report was generated at the time of this dictation. <Electronically signed by Benson Benites > 01/31/21 1134 DD: Benson Benites MD DO 01/31/21 1122 DT: MINE 01/31/21 1134 DS: SUZAN 01/31/21 11201/31/21 112 [~ rep ct labl] Vaginal Examination Position: Breech (sacrum) Assessment/Plan Assessment IUP at 23.3 weeks gestation with demise chronic abruption prior section x3 Plan Admit to L&D. Discussed results with patient and boyfriend Juanito. Dr. Crawford notified. Reviewed options with patient on delivery method including risks/benefits/alternatives of each. Recommended vaginal delivery but patient is very adamant about not having a vaginal delivery and wants a section with a tubal ligation. Diet: NPO-she hasn't had anything to eat since 1999 last night. Labs and intravenous (IV) per unit protocol. Abruption labs ordered. Lactated Ringers (LR): Bolus 1000 mL, then at 125 mL/hr. Anesthesia to be notified. Patient consents to blood products if needed. ESTEBAN ARROYO CNM January 31, 2021 11:26
--- NOTE | 2021-01-31 11:38 | REP ---
INDICATION: EVALUATE HEMATOMA . COMPARISON: 02/11/2021 TECHNIQUE: Transabdominal FINDINGS: Once again, there is a mixed echo structure seen along the anterior leading edge of the placenta today measuring 7.9 x 1.8 x 6.8 cm. This has decreased slightly in size compared to the prior exam. Multiple ultrasonographic images of the gravid uterus shows a single intrauterine gestation in the bilateral footling breech presentation. Secondary to this the technologist could not accurately measure the cervical length. The placenta is not low lying. Doppler interrogation of the heart shows no cardiac activity. BPD: 4.5 cm 19 weeks 5 days HC: 18.3 cm 20 weeks 5 days AC: 17.2 cm 22 weeks 1 day FL: 4.1 cm 23 weeks 1 day Estimated weight is 489 g which is at the 33 percentile for a 21 week 6 day gestational age. IMPRESSION: Findings, as described above, consistent with demise. The estimated gestational age of the fetus based on today's composite criteria is 21 weeks 2 days. The previously documented placental/retroplacental hemorrhage has decreased slightly in size. A stat report was generated at the time of this dictation. <Electronically signed by Benson Benites > 01/31/21 [id number]
[2021-01-31] MEDS: LR 1,000 ML IV SCH ×2 (11:52→21:03)
[2021-01-31] MEDS ORDERED: LACTATED RINGER'S 1000 ML IV STA (12:48)
[2021-01-31] MEDS ORDERED: LR 1,000 ML IV SCH (12:50)
[2021-01-31] MEDS ORDERED: OXYTOCIN DRIP 30 UNITS in IV 1 EA IV PRN (12:50)
[2021-01-31] MEDS ORDERED: BICITRA 30ML SOLN UDC PO ONE (13:00)
[2021-01-31] MEDS ORDERED: ceFAZolin SOD 2 GM in IV 1 EA IV ONE (13:00)
[2021-01-31] MEDS ORDERED: ACETAMINOPHEN 500 MG TAB PO ONE (13:00)
[2021-01-31 14:35] LABS: INR 0.92; PARTIAL THROMBOPLASTIN TIME 27.7 SECONDS (24.2-38.5); PROTHROMBIN TIME 12.6 SECONDS (12.5-14.3)
[2021-01-31] MEDS ORDERED: MORPHINE PRES-FREE INJ 10 MG/10 ML VIAL (J2274) As Ordered ONE (15:12)
[2021-01-31] MEDS ORDERED: PHENYLephrine 500MCG 5ML (100MCG/ML) SYRINGE As Ordered ONE (15:12)
[2021-01-31] MEDS ORDERED: ePHEDrine SULFATE 25 MG/5 ML(5MG/ML) SYRINGE As Ordered ONE (15:12)
[2021-01-31] MEDS ORDERED: METOCLOPRAMIDE INJ 10MG/2ML VIAL (J2765 PER 1) As Ordered ONE (15:12)
[2021-01-31] MEDS ORDERED: OXYTOCIN 30 UNITS IN 0.9% NaCl 500ML IV BAG (J2590) As Ordered ONE ×2 (15:13→16:39)
[2021-01-31] MEDS ORDERED: METOCLOPRAMIDE INJ 10MG/2ML VIAL (J2765 PER 1) IV PRN (15:27)
[2021-01-31] MEDS ORDERED: NALBUPHINE HCL 10 MG/ML AMP (J2300) IV PRN (15:27)
[2021-01-31] MEDS ORDERED: NALOXONE INJ 0.4MG/1ML VIAL (J2310 PER 1MG) IV PRN ×2 (15:27)
[2021-01-31] MEDS ORDERED: ONDANSETRON 4MG/2ML VIAL IV PRN ×2 (15:27→16:50)
[2021-01-31] MEDS ORDERED: ONDANSETRON 4MG/2ML VIAL As Ordered ONE (15:43)
[2021-01-31] MEDS ORDERED: KETOROLAC 60MG 2ML VIAL As Ordered ONE (15:44)
[2021-01-31] MEDS ORDERED: SIMETHICONE 80MG CHEW TAB PO PRN (16:35)
[2021-01-31] MEDS ORDERED: OXYTOCIN DRIP 30 UNITS in IV 1 EA IV SCH (16:35)
[2021-01-31] MEDS ORDERED: RHOGAM 300 MCG (1500 IU) INJ (J2790) IM SCH (16:35)
[2021-01-31] MEDS ORDERED: MEASLES,MUMPS,RUBELLA VACCINE INJ (MMR-II) (90707) SC SCH (16:35)
[2021-01-31] MEDS ORDERED: fentaNYL 100 MCG/2 ML INJECTION (J3010) IV PRN (16:50)
[2021-01-31] MEDS ORDERED: oxyCODONE 5MG TAB PO PRN (16:50)
[2021-01-31] MEDS: diphenhydrAMINE 50MG/ML VIAL (J1200) IV PRN (19:43)
[2021-01-31] MEDS: PERCOCET 5MG/325MG TAB PO PRN (19:43)
[2021-01-31] MEDS: KETOROLAC 30 MG/ML 1ML VIAL IV SCH (22:00)
[2021-01-31] MEDS ORDERED: PILL CUTTER 1 EACH XX PRN (23:20)
[2021-02-01] MEDS: lamoTRIgine 100MG TAB PO SCH ×2 (00:17→07:23)
[2021-02-01] MEDS: diphenhydrAMINE 50MG/ML VIAL (J1200) IV PRN (00:17)
[2021-02-01 02:00] VITALS: BP 116/59
[2021-02-01] MEDS: LR 1,000 ML IV SCH (03:00)
[2021-02-01] MEDS: KETOROLAC 30 MG/ML 1ML VIAL IV SCH (04:26)
[2021-02-01 06:00] VITALS: BP 122/59
[2021-02-01] MEDS: PERCOCET 5MG/325MG TAB PO PRN (07:25)
[2021-02-01 07:52] LABS: HEMATOCRIT 29.2 % (36.0-47.0); MEAN CORPUSCULAR HEMOGLOBIN 28.8 pg (27.0-33.0); MEAN CORPUSCULAR HGB CONC 30.8 g/dl (32.0-36.5); MEAN CORPUSCULAR VOLUME 93.3 fl (80.0-96.0); PLATELET COUNT, AUTOMATED 311 10^3/uL (150-450); RED BLOOD COUNT 3.13 10^6/uL (4.00-5.40); WHITE BLOOD COUNT 11.8 10^3/uL (4.0-10.0)
--- NOTE | 2021-02-01 08:05 | RO ---
OPERATIVE NOTE DATE OF OPERATION: 01/31/2021 INDICATION: Madhu is a 30-year-old female who has been seen by [facility]. She presented at 23-4/7 weeks gestation with bleeding, found to have a demise. She has history of section x3. She was counseled extensively and refused induction of labor and preferred to proceed with section. She was originally scheduled for tubal ligation and wanted to proceed with the tubal ligation. She was extensively counseled as well as her partner and they both agree to proceed with repeat section and tubal ligation. PREOPERATIVE DIAGNOSES: 1. Intrauterine at 23-4/7 weeks gestation with demise and uterine bleeding, cannot rule out abruption. 2. Prior section x3, refused induction. 3. Desires permanent tubal sterilization. POSTOPERATIVE DIAGNOSES: 1. Intrauterine at 23-4/7 weeks gestation with demise and uterine bleeding, cannot rule out abruption. 2. Prior section x3, refused induction. 3. Desires permanent tubal sterilization. 4. Placental abruption. PROCEDURES: 1. Repeat section. 2. Revision of old scar. 3. Removal of bilateral tubes. SURGEON: Jd Crawford DO MULTICULTURAL SERVICES LIBRARIAN: Danna Lindsay CNM ANESTHESIA: Spinal. COMPLICATIONS: None. ESTIMATED BLOOD LOSS: 400 mL. FINDINGS: Male intrauterine demise , complete placental abruption. Normal appearing tubes and ovaries. DESCRIPTION OF PROCEDURE: After obtaining informed consent, patient was taken to the operating room where spinal anesthetic was found to be adequate. She was prepped and draped in usual sterile fashion in the supine position. At this point elliptical incision was made over her old scar, this was carried down through fascia, fascia was incised in midline fashion and carried through lateral and superior aspect. The fascia was then grasped with two Akin clamps, tented up and dissected off the rectus muscles sharply with the help of Danna Lindsay, the assistant product manager. Superior and inferior dissection of the fascia was dissected in similar fashion. Peritoneum identified, peritoneal cavity entered bluntly. At this point low transverse uterine incision was made. The was delivered via breech extraction. Complete placental abruption was noted. Dark clotted blood also noted. The uterus was cleared of all clot and debris. The uterine incision was then repaired in two separate layers of #0 Vicryl sutures. Pelvis was copiously irrigated with normal saline. Given the thickness of the lower uterine segment there was some superficial oozing, a piece of Surgicel was placed there for good hemostasis. Attention was then turned to the fallopian tubes where both fallopian tubes were clamped with long Claudia and using the Bovie the entire tube was removed and the cauterized ends were then suture ligated using 3-0 chromic. The opposite side was done in similar fashion. Good hemostasis was noted. At this point all instruments were removed. The attention was turned to the peritoneum which was closed in running fashion using 2-0 Vicryl, fascia closed in two separate segments of #0 Vicryl and skin was reapproximated with subcuticular fashion using 3-0 Vicryl on Bassam. Steri-Strips were placed. The patient tolerated the procedure well and was transferred to recovery room in stable condition.
[2021-02-01] MEDS ORDERED: PERCOCET PO (08:44)
[2021-02-01] MEDS ORDERED: IBUP80TA PO (08:44)
[2021-02-01] MEDS ORDERED: PRENATAL VITAMINS CHEWABLE TABLET PO SCH (09:00)
[2021-02-01] MEDS ORDERED: IBUPROFEN 800 MG TAB PO SCH (18:00)
--- NOTE | 2021-02-09 19:54 | DS.PDOC ---
Discharge Summary General Date of Admission January 31, 2021 at 11:02 Date of Discharge 02/01/2021 Attending Physician: Jd Crawford DO Discharge Summary PROCEDURES PERFORMED DURING STAY: 1 spinal anesthesia 2. repeat section with tubal ligation. ADMITTING DIAGNOSES: 1. Intrauterine demise 2.History of 3 prior sections 3. undesired fertility. DISCHARGE DIAGNOSES: 1. Status post section and bilateral tubal ligation. COMPLICATIONS/CHIEF COMPLAINT: IUFD. HISTORY OF PRESENT ILLNESS:Madhu is a 30-year-old female who is a at 23.3 weeks gestation with an GASTON of 05/27/21. Her has been ocmplicated by prior LTCS x3, smoking, a history of preeclampsia and GHTN, morbid obesity, psychiatric disorders, and a chronic abruption. She has been seen multiple times for vaginal bleeding related to a subchorionic hematoma vs. placental abruption. She presented to L&D with complaints of contractions/cramping that have gotten worse since this morning. She reports vaginal bleeding but states it isn't as bad as it has been in the past. She reports she had active movement last night. Patient was diagnosed with intrauterine demise at 23 weeks and 4 days. She had history of 3 prior sections refusing induction labor. She desired to proceed with section and also expressed satisfied parity. Patient underwent uncomplicated section estimated blood loss is 400 amounts. Patient did well postoperatively and by post operative day #1 had met all discharge criteria and was discharged home in stable condition. DISCHARGE MEDICATIONS: Please see below. ALLERGIES: Please see below. PHYSICAL EXAMINATION ON DISCHARGE: VITAL SIGNS: Please see below. GENERAL: No distress HEENT: WNL NECK: Supple ABDOMINAL EXAMINATION: Fundus firm. Dressing intact EXTREMITIES: Equal strength and motion SKIN: Intact NEUROLOGICAL EXAMINATION: Grossly intact PSYCHIATRIC EXAMINATION: Appropriate LABORATORY DATA: Please see below. PROGNOSIS: Good ACTIVITY: As tolerated. Pelvic rest. DIET: As tolerated DISCHARGE PLAN: Discharge today. Follow-up in 1-2 weeks. Remove dressing day 5 DISPOSITION: Home DISCHARGE INSTRUCTIONS: 1. Pelvic rest. Continue vitamins. Medications as ordered. Call with fever, nausea, vomiting, chills, foul lochia, wound exudate or evidence infection. RTO early next week for blood pressure check. DISCHARGE CONDITION: Stable Microbiology Microbiology 01/31/21 Respiratory Virus Panel (PCR) (VIN) - Final, Complete Discharge Medications Scheduled Ibuprofen (Ibuprofen) 800 Mg Tablet, 800 MG PO Q8H Lamotrigine (Lamictal) 150 Mg Tablet, 150 MG PO BID, (Reported) Scheduled PRN Oxycodone/Acetaminophen (Oxycodone-Acetaminophen 5-325) 1 Each Tablet, 1-2 TAB PO Q6HP PRN for MILD/MODERATE PAIN (PS 1-7) Allergies Coded Allergies: No Known Allergies (Unverified , 11/27/19) DANIEL ARGUETA MD. February 09, 2021 19:54
== END 2021-02-01 09:35 | disposition home or self-care (01) | DRG 540 ==
LOC: M LDO 09:13 → M LDI 11:02 → M OBS 18:55
PROVIDERS: ADMIT Advanced Practice Midwife; ATTEND Advanced Practice Midwife
PROC: 0UB70ZZ Excision of Bilateral Fallopian Tubes, Open Approach (ICD-10-PCS; principal; 2021-01-31 13:00)
PROC: 10D00Z1 Extraction of Products of Conception, Low, Open Approach (ICD-10-PCS; principal; 2021-01-31 13:00)
DX: O45.92 Premature separation of placenta, unspecified, second trimester (principal); O34.211 Maternal care for low transverse scar from previous cesarean delivery; Z3A.23 23 weeks gestation of pregnancy; Z37.1 Single stillbirth; O99.214 Obesity complicating childbirth; E66.01 Morbid (severe) obesity due to excess calories; O99.334 Smoking (tobacco) complicating childbirth; F17.210 Nicotine dependence, cigarettes, uncomplicated; O36.4XX0 Maternal care for intrauterine death, not applicable or unspecified; Z30.2 Encounter for sterilization; O32.1XX0 Maternal care for breech presentation, not applicable or unspecified

== ENCOUNTER 2021-06-30 01:29 | Emergency (ER) | payer OTHER ==
[~2021-06-30] VITALS: Ht 160 cm; Wt 104.5 kg
[2021-06-30 01:29] VITALS: BP 132/77
[~2021-06-30 01:29] MED LIST changes: +IBUP80TA PO
--- OUTSIDE RECORDS SUMMARY | 2021-06-30 01:35 | CCD ---
Author Author Yuridia Madhu Kameron Organization Unknown Address [address] [address] Phone Care Team Providers Care Finish Remover Name Role Phone ShiLaureKameron PCP Allergies, Adverse Reactions, Alerts No Data in Section Problem List Concept Problem Description Status Start Date Created Date Resolv ed Date Snomed Code F25.1 Schizoaffective Disorder, Depressive type Active 04/26/20 18 04/26/2018 F90.9 Unspecified Attention-Deficit/Hyperactivity Disorder A ctive 04/10/2016 04/10/2016 F43.9 Unspecified Trauma- and Stressor-Related Disorder Active 04/28/2021 Medications Rx Norm Medication Route Route Concept Start Date Stop Date Dosage Bradford quency Duration Formula Strength Dosage Form Dosage Form Code Dosage Description Medication Id Account Npid Author First Name Author Last Name Taxonomy Code Taxonomy Desc Phone Number [id number] lithium carbonate by mouth [id number] 03/07/2021 at bedtime 300 mg capsule 99184 [id number] [id number] Lisa Martinez [id number] Psychiatric/Mental Health [phone] [id number] dextroamphetamine-amphetamine by mouth [id number] 03/24/2021 05/20/2021 once a day 30 20 mg tablet 69306 789527 [id number] Kameron Shi [id number] Nurse Practitioner [phone] [id number] lamotrigine by mouth [id number] 04/13/2020 06/19/2021 twice a day 30 150 mg tablet 52477 613512 [id number] Kameron Shi [id number] Nurse Pr actitioner [phone] Social History Social History Element Description Concept Effective Date Smoking Status Unknown if ever smoked [id number] Immunizations No Data in Section Vital Signs No Data in Section Procedures Date Concept Id Description Targeted Site Concept Targeted Site Concept Type 04/28/2021 11085-43 MHCTelemed E/M Lvl 4--Est pt CPT Patient has no history of implantable de vices Encounters Encounter Start Date End Date Encounter Type Description Diagnosis Di agnosis Desc Location Author First Name Author Last Name Npid Taxonomy Cod e Taxonomy Desc Phone Number Location Addr1 Location Addr2 Location [facility] Location Sta te Location [facility] [id number] 04/28/2021 04/28/2021 47019-53 MHCTelemed E/M Lvl 4--Est pt F25.1 Schizoaffective disorder, depressive type [facility] Kameron [phone] [id number] Nurse Practitioner [phone] [address] [address] Plan of Treatment No Data in Section Lab Results No Data in Section Instructions No Data in Section Functional Cognitive Status No Data in Section Insurance Providers Insurance Id Policy Effective Date Policy Thru Date [employer] Jhonny rhodes [id number] 2020 [employer] Man[employer] Ene benedict
--- OUTSIDE RECORDS SUMMARY | 2021-06-30 01:35 | CCD ---
Author Author Madhu Rhodes Organization Unknown Address [address] [address] Phone Care Team Providers Care Post Partum Nurse Name Role Phone Meagan Dasha PCP Allergies, Adverse Reactions, Alerts No Data in Section Problem List Concept Problem Description Status Start Date Created Date Resolv ed Date Snomed Code F25.1 Schizoaffective Disorder, Depressive type Active 04/26/20 18 04/26/2018 F90.9 Unspecified Attention-Deficit/Hyperactivity Disorder A ctive 04/10/2016 04/10/2016 F43.9 Unspecified Trauma- and Stressor-Related Disorder Active 06/03/2021 Medications Rx Norm Medication Route Route Concept Start Date Stop Date Dosage Bradford quency Duration Formula Strength Dosage Form Dosage Form Code Dosage Description Medication Id Account Npid Author First Name Author Last Name Taxonomy Code Taxonomy Desc Phone Number [phone] lithium carbonate by mouth [id number] 03/07/2021 at bedtime 300 mg capsule 15141 [id number] [id number] Kameron Shi [id number] Nurse P ractitioner [phone] 738013 lamotrigine by mouth [id number] 04/13/2020 06/19/2021 twice a day 30 150 mg tablet 95757 443200 [id number] Kaemron Shi [id number] Nurse Pr actitioner [phone] Social History Social History Element Description Concept Effective Date Smoking Status Unknown if ever smoked [id number] Immunizations No Data in Section Vital Signs No Data in Section Procedures Date Concept Id Description Targeted Site Concept Targeted Site Concept Type 06/03/2021 82771-40 TEMPMHCTelemed 30" Psychotherapy CPT Patient has no history of implantable de vices Encounters Encounter Start Date End Date Encounter Type Description Diagnosis Di agnosis Desc Location Author First Name Author Last Name Npid Taxonomy Cod e Taxonomy Desc Phone Number Location Addr1 Location Addr2 Location City Location Sta te Location Zip [id number] 06/03/2021 06/03/2021 51133-73 TEMPMHCTelemed 30" Psychoalissa messer F25.1 Schizoaffective disorder, depressive type [facility] Meagan Lou [phone] [id number] Animation Producer [phone] [address] [address] Plan of Treatment No Data in Section Lab Results No Data in Section Instructions No Data in Section Insurance Providers Insurance Id Policy Effective Date Policy Thru [facility] meagan [id number] 2020 [employer] Managed Ene benedict
--- OUTSIDE RECORDS SUMMARY | 2021-06-30 01:35 | CCD ---
Author Author ShiMadhu Kameron Organization Unknown Address [address] [address] Phone Care Team Providers Care Childcare Director Name Role Phone Kameron Shi PCP Allergies, Adverse Reactions, Alerts No Data in Section Problem List Concept Problem Description Status Start Date Created Date Resolv ed Date Snomed Code F25.1 Schizoaffective Disorder, Depressive type Active 04/26/20 18 04/26/2018 F90.9 Unspecified Attention-Deficit/Hyperactivity Disorder A ctive 04/10/2016 04/10/2016 F43.9 Unspecified Trauma- and Stressor-Related Disorder Active 06/08/2021 Medications Rx Norm Medication Route Route Concept Start Date Stop Date Dosage Bradford quency Duration Formula Strength Dosage Form Dosage Form Code Dosage Description Medication Id Account Npid Author First Name Author Last Name Taxonomy Code Taxonomy Desc Phone Number [phone] lithium carbonate by mouth [id number] 03/07/2021 at bedtime 300 mg capsule 98518 [phone] Kameron Shi [id number] Nurse P ractitioner [phone] lamotrigine by mouth [id number] 04/13/2020 06/19/2021 twice a day 30 150 mg tablet 82639 012155 [phone] Kameron Shi [id number] Nurse Pr actitioner [phone] 880076 dextroamphetamine-amphetamine by mouth X50666 06/06/2021 07/06/2021 twice a day 30 20 mg tablet 36277 448961 [id number] Latricia Dominguez [id number] Nurse Practitioner [phone] Social History Social History Element Description Concept Effective Date Smoking Status Unknown if ever smoked [id number] Immunizations No Data in Section Vital Signs No Data in Section Procedures Date Concept Id Description Targeted Site Concept Targeted Site Concept Type 06/08/2021 79319-43 [facility] Telemed E/M Lvl 3--Est pt CPT Patient has no history of implantable de vices Encounters Encounter Start Date End Date Encounter Type Description Diagnosis Di agnosis Desc Location Author First Name Author Last Name Npid Taxonomy Cod e Taxonomy Desc Phone Number Location Addr1 Location Addr2 Location [facility] Location Sta te Location [facility] [id number] 06/08/2021 06/08/2021 92856-24 [facility] Telemed E/M Lvl 3--Est p t F25.1 Schizoaffective disorder, depressive type [facility] Kameron [phone] [id number] Nurse Practitioner [phone] [address] [address] Plan of Treatment No Data in Section Lab Results No Data in Section Instructions No Data in Section Functional Cognitive Status No Data in Section Insurance Providers Insurance Id Policy Effective Date Policy Thru Date PAIEON Jhonny rhodes [id number] 2020 [employer] Managed Ene benedict
--- OUTSIDE RECORDS SUMMARY | 2021-06-30 01:35 | CCD ---
Author Author Madhu Rhodes Organization Unknown Address [address] [place] [address] Phone Care Team Providers Care Safety Physician Name Role Phone Dasha Rhodes PCP Allergies, Adverse Reactions, Alerts No Data in Section Problem List Concept Problem Description Status Start Date Created Date Resolv ed Date Snomed Code F25.1 Schizoaffective Disorder, Depressive type Active 04/26/20 18 04/26/2018 F90.9 Unspecified Attention-Deficit/Hyperactivity Disorder A ctive 04/10/2016 04/10/2016 F43.9 Unspecified Trauma- and Stressor-Related Disorder Active 05/20/2021 Medications Rx Norm Medication Route Route Concept Start Date Stop Date Dosage Bradford quency Duration Formula Strength Dosage Form Dosage Form Code Dosage Description Medication Id Account Npid Author First Name Author Last Name Taxonomy Code Taxonomy Desc Phone Number [phone] lithium carbonate by mouth A85010 03/07/2021 at bedtime 300 mg capsule 09987 [phone] Kameron Shi [id number] Nurse P ractitioner [phone] lamotrigine by mouth Q62284 04/13/2020 06/19/2021 twice a day 30 150 mg tablet 78884 755395 [id number] Kameron Shi [id number] Nurse Pr actitioner [phone] 837140 dextroamphetamine-amphetamine by mouth A30268 03/24/2021 05/29/2021 twice a day 30 20 mg tablet 10001 596469 [phone] Kameron Shi [id number] Nurse Practitioner [id number] Social History Social History Element Description Concept Effective Date Smoking Status Unknown if ever smoked [id number] Immunizations No Data in Section Vital Signs No Data in Section Procedures Date Concept Id Description Targeted Site Concept Targeted Site Concept Type 05/19/2021 84956-79 [id number]"Psychotherapy CPT Patient has no history of implantable de vices Encounters Encounter Start Date End Date Encounter Type Description Diagnosis Di agnosis Desc Location Author First Name Author Last Name Npid Taxonomy Cod e Taxonomy Desc Phone Number Location Addr1 Location Addr2 Location [facility] Location Sta te Location [facility] [address]101 05/19/2021 05/19/2021 40898-02 [id number]"Psychothera py F25.1 Schizoaffective disorder, depressive type [facility] Meagan Lou [phone] [id number] Physician Office Secretary [phone] [address] [address] Plan of Treatment No Data in Section Lab Results No Data in Section Instructions No Data in Section Insurance Providers Insurance Id Policy Effective Date Policy Thru Date Lillian Barry ame [id number] 2020 [employer] Man[facility] Ene benedict
--- OUTSIDE RECORDS SUMMARY | 2021-06-30 01:36 | CCD ---
Author Author [facility] Organization [facility] Address Unknown Phone Unavailable Support Name Relationship Address Phone MANNYI Next Of Kin [address] [place] [address] SAAD INFANTE Next Of Kin [address] [place] [address] [facility] Next Of Kin [address] [place] [address] SKH* Next Of Kin [address] [place] [address] [facility] Next Of Kin [address] [place] [address] NOAH INFANTE Next Of Kin [address] [place] [address] HYACINTH INFANTE Next Of Kin [address] [place] [address] [facility] Next Of Kin [address] [place] [address] [facility] Next Of Kin [address] [place] [address] TICO THOMAS Next Of Kin Unknown NCOG Next Of Kin [address] [place] [address] [facility] Next Of Kin [address] [address] SSV* Next Of Kin [address] [place] [address] UE Next Of Kin Unknown Unavailable JEAN RODRIGUEZ Next Of Kin [address] [place] [address] ALONZO SINGH Next Of Kin [address] [place] [address] Yovani Singh ECON [address] [place] [address] Unavailable Jered Infante ECON Unknown Unavailable Domingo Singh ECON [address] KATEL[address] KACI [facility] [place] [address] Unavailable Care Team Providers Care Clinical Education Specialist Name Role Phone Yovani Shi PSYCHIATRIC LPN Unavailable Unavailable Yovani Shi PSYCHIATRIC LPN Unavailable Unavailable Yovani Shi PSYCHIATRIC LPN Unavailable Unavailable MASTROGIANNEL, S FEDERICA Unavailable Unavailable Dasha Mo Unavailable ANTECOL, Ashwin YOUNG MD Unavailable Unavailable [...] Unavailable ANTECOL, Ashwin YOUNG MD Unavailable Unavailable RING, K FUAD PA Unavailable Unavailable RING, K FUAD PA Unavailable Unavailable RING, K FUAD PA Unavailable Unavailable RING, K FUAD PA Unavailable Unavailable RING, K FUAD PA Unavailable Unavailable RING, K FUAD PA Unavailable Unavailable RING, K FUAD PA Unavailable Unavailable RING, K FUAD PA Unavailable Unavailable RING, K FUAD PA Unavailable Unavailable RING, K FUAD PA Unavailable Unavailable RING, K UFAD PA Unavailable Unavailable RING, K FUAD PA Unavailable Unavailable RING, K FUAD PA Unavailable Unavailable RING, K FUAD PA Unavailable Unavailable RING, K FUAD PA Unavailable Unavailable RING, K FUAD PA Unavailable Unavailable RING, K FUAD PA Unavailable Unavailable RING, K FUAD PA Unavailable Unavailable RING, K FUAD PA Unavailable Unavailable RING, K FUAD PA Unavailable Unavailable RING, K FUAD PA Unavailable Unavailable Juan, K Lisa PMH-PSYCHIATRIC LPN Unavailable Unavailable Leslie, K Lisa PMH-PSYCHIATRIC LPN Unavailable Unavailable Leslie, K Lisa PMH-PSYCHIATRIC LPN Unavailable Unavailable Leslie, K Lisa PMH-PSYCHIATRIC LPN Unavailable Unavailable Leslie, K Lisa PMH-PSYCHIATRIC LPN Unavailable Unavailable Leslie, K Lisa PMH-PSYCHIATRIC LPN Unavailable Unavailable Leslie, K Lisa PMH-PSYCHIATRIC LPN Unavailable Unavailable Leslie, K Lisa PMH-PSYCHIATRIC LPN Unavailable Unavailable Sarah, K Nanette MD Unavailable Unavailable Sarah, K Nanette MD Unavailable Unavailable Sarah, K Nanette MD Unavailable Unavailable Sarah, K Nanette MD Unavailable Unavailable Sarah, K Nanette MD Unavailable Unavailable Sarah, K Nanette MD Unavailable Unavailable Sarah, K Nanette MD Unavailable Unavailable Sarah, K Nanette MD Unavailable Unavailable Sarah, K Nanette MD Unavailable Unavailable Sarah, K Nanette MD Unavailable Unavailable Sarah, K Nanette MD Unavailable Unavailable Sarah, K Nanette MD Unavailable Unavailable Sarah, K Nanette MD Unavailable Unavailable Sarah, K Nanette MD Unavailable Unavailable Sarah, K Nanette MD Unavailable Unavailable Sarah, K Nanette MD Unavailable Unavailable Sarah, K Nanette MD Unavailable Unavailable Sarah, K Nanette MD Unavailable Unavailable Sarah, K Nanette MD Unavailable Unavailable Sarah, K Nanette MD Unavailable Unavailable Sarah, K Nanette MD Unavailable Unavailable Sarah, K Nanette MD Unavailable Unavailable Sarah, K Nanette MD Unavailable Unavailable Sarah, K Nanette MD Unavailable Unavailable Sarah, K Nanette MD Unavailable Unavailable Sarah, K Nanette MD Unavailable Unavailable Sarah, K Nanette MD Unavailable Unavailable Sarah, K Nanette MD Unavailable Unavailable Sarah, K Nanette MD Unavailable Unavailable Sarah, K Nanette MD Unavailable Unavailable Sarah, K Nanette MD Unavailable Unavailable Sarah, K Nanette MD Unavailable Unavailable Sarah, K Nanette MD Unavailable Unavailable Sarah, K Nanette MD Unavailable Unavailable Sarah, K Nanette MD Unavailable Unavailable Sarah, K Nanette MD Unavailable Unavailable Re-disclosure Warning The records that [...] is protected by Article 27-F of the [facility] Public Health law. If you continue you may have access to information: Regarding HIV / AIDS; Provided by facilities licensed or operated by the [facility] Office of Mental Health; or Provided by the [facility] Office for People With Developmental Disabilities. If such information is present, then the following [facility] mandated warning applies: This information has [...] law may result in a fine or half-way sentence or both. A general authorization for the release of medical or other information is NOT sufficient authorization for further disc losure. Allergies and Adverse Reactions Type Description Substance Reaction Status Data Source(s ) Propensity to adverse reactions NO KNOWN ALLERGIES NO KNOWN ALLERGIES [facility] Family History Family Member Name Family Member Gender Family Member Status Date o f Status Description Data Source(s) Unknown Male Problem [facility] ([facility]) Encounters Encounter Providers Location Date Indications Data Source(s ) Outpatient Attender: Kameron Shi NP [facility] 06/08/2021 04:00:00 AM EDT - 06/08/2021 04:00:00 AM EDT [facility] ([facility]) Attender: Kameron Shi NP 06/08/2021 12:00:00 AM EDT [facility] ([facility]) TEMPMHCTelemed 30" Psychotherapy Attender: Dasha Mo [facility] 06/03/2021 10:15:00 AM EDT - 06/03/2021 10:15:00 AM EDT [facility] ([facility]) Attender: Dasha Mo 06/03/2021 12:00:00 A M EDT [facility] ([facility]) [id number]"Psychotherapy Attender: Dasha Mo [facility] 05/19/2021 09:15:00 AM EDT - 05/19/2021 09:15:00 AM EDT [facility] ([facility]) Attender: Dasha Mo 05/19/2021 12:00:00 A M EDT [facility] ([facility]) Outpatient Attender: Kameron Shi NP [facility] 04/28/2021 11:00:00 AM EDT - 04/28/2021 11:00:00 AM EDT [facility] ([facility]) Attender: Kameron Shi NP 04/28/2021 12:00:00 AM EDT [facility] ([facility]) Extended Individual Psychotherapy - 45 min Attender: Lazaro Brumfieldbecca [facility] 03/18/2021 09:00:00 AM EDT - 03/18/2021 09:00:00 AM EDT [facility] ([facility]) Attender: Dasha Mo 03/18/2021 12:00:00 A M EDT [facility] ([facility]) Outpatient Attender: Lisa ROYAL [facility] 02/22/2021 02:30:00 AM EDT - 02/22/2021 02:30:00 AM EDT [facility] ([facility]) Attender: Lisa ROYAL 02/22/2021 12: 00:00 AM EDT [facility] ([facility]) [facility] [address] [place] [address] 02/17/2021 12:00:00 AM EDT eCW1 ([facility]) Attender: Dasha Mo 02/10/2021 12:00:00 A M EDT [facility] ([facility]) [id number]"Psychotherapy Attender: Dasha Mo [facility] 02/09/2021 02:15:00 AM EDT - 02/09/2021 02:15:00 AM EDT [facility] ([facility]) Unknown [address] [facility] [address] 02/09/2021 12:00:00 AM EDT eCW1 ([facility]) Outpatient Attender: Lisa ROYAL [facility] 02/08/2021 10:00:00 AM EDT - 02/08/2021 10:00:00 AM EDT [facility] ([facility]) Attender: Lisa ROYAL 02/08/2021 12: 00:00 AM EDT [facility] ([facility]) Unknown [address] [facility] [address] 02/05/2021 12:00:00 AM EDT eCW1 ([facility]) Outpatient Referrer: Nanette Sarah MD 02/02/2021 12:00:00 AM [facility] Outpatient Attender: FEDERICA SINGHReferrer: Nanette Sarah MD 02/02/2021 12:00:00 AM EDT [facility] [id number]"Psychotherapy [facility] 01/27/2021 09:00:00 AM EDT - 01/27/2021 09:00:00 AM EDT [facility] ([facility]) Attender: Dasha Chepe 01/27/2021 12:00:00 A M EDT [facility] ([facility]) ( COB) enter Complicated OB [address] [place] [address] 01/26/2021 12:00:00 AM EDT eCW1 ([facility]) Unknown [address] [facility] [address] 01/18/2021 12:00:00 AM EDT eCW1 ([facility]) Unknown [address] [facility] [address] 01/14/2021 12:00:00 AM EDT eCW1 ([facility]) ( ESTOB) enter Est OB [address] [place] [address] 01/13/2021 12:00:00 AM EDT eCW1 ([facility]) Unknown [address] [facility] [address] 01/10/2021 12:00:00 AM EDT eCW1 ([facility]) ( ESTOB) enter Est OB [address] [place] [address] 12/29/2020 12:00:00 AM EDT eCW1 ([facility]) Extended Individual Psychotherapy - 45 min Attender: Lazaro michael Chepe [facility] 12/27/2020 02:15:00 AM EDT - 12/27/2020 02:15:00 AM EDT [facility] ([facility]) Unknown [address] [facility] [address] 12/27/2020 12:00:00 AM EDT eCW1 ([facility]) Attender: Dasha Mo 12/27/2020 12:00:00 A M EDT [facility] ([facility]) Outpatient Attender: FUAD Murray 12/15/2020 04:35:00 PM EDT [facility] ([facility] Extended Individual Psychotherapy - 45 min Attender: Lazaro michael [facility] 12/13/2020 09:00:00 AM EDT - 12/13/2020 09:00:00 AM EDT [facility] ([facility]) Attender: Dasha Mo 12/13/2020 12:00:00 A M EDT [facility] ([facility]) Extended Individual Psychotherapy - 45 min Attender: Lazaro michael [facility] 12/10/2020 11:45:00 AM EDT - 12/10/2020 11:45:00 AM EDT [facility] ([facility]) Attender: Dasha Mo 12/10/2020 12:00:00 A M EDT [facility] ([facility]) ( ESTOB) [facility] Est OB [address] [place] [address] 11/29/2020 12:00:00 AM EDT eCW1 ([facility]) [id number]"Psychotherapy [facility]: [facility] 11/12/2020 09:15:00 AM EST - 11/12/2020 09:15:00 AM EST [facility] ([facility]) Attender: Dasha Mo 11/12/2020 12:00:00 A M EST [facility] ([facility]) ( 1PN) [facility] 1st [address] [place] [address] 11/09/2020 12:00:00 AM EST eCW1 ([facility]) Outpatient Attender: HECTOR HOWARD MD Main Office 11/05/2020 09:45:00 AM EST [facility] ([facility]) Outpatient Attender: Lisa SMITHETIENNE [facility] 10/28/2020 11:30:00 AM EST - 10/28/2020 11:30:00 AM EST [facility] ([facility]) Attender: Lisa ROYAL 10/28/2020 12: 00:00 AM EST [facility] ([facility]) Outpatient Attender: Lisa SMITHETIENNE [facility] 10/19/2020 09:00:00 AM EST - 10/19/2020 09:00:00 AM EST [facility] ([facility]) Attender: Lisa SMITHETIENNE 10/19/2020 12: 00:00 AM EST [facility] ([facility]) [id number]"Psychotherapy Attender: Dasha Salguero [facility] 10/18/2020 09:30:00 AM EST - 10/18/2020 09:30:00 AM EST [facility] ([facility]) Attender: Dasha Mo 10/18/2020 12:00:00 A M EST [facility] ([facility]) ( ESTOB) [facility] Est OB [address] [place] [address] 10/13/2020 12:00:00 AM EST eCW1 ([facility]) Outpatient Attender: Lisa SMITHETIENNE [facility] 10/06/2020 10:00:00 AM EST - 10/06/2020 10:00:00 AM EST [facility] ([facility]) Attender: Lisa SMITHETIENNE 10/06/2020 12: 00:00 AM EST [facility] ([facility]) [id number]"Psychotherapy Attender: Dasha Salguero [facility] 09/20/2020 09:45:00 AM EST - 09/20/2020 09:45:00 AM EST [facility] ([facility]) Attender: Dasha Mo 09/20/2020 12:00:00 A M EST [facility] ([facility]) Attender: Dasha Mo 09/14/2020 12:00:00 A M EST [facility] ([facility]) TEMPMHCTelemed 30" Psychotherapy Attender: Dasha Mo [facility] 09/13/2020 03:30:00 AM EST - 09/13/2020 03:30:00 AM EST [facility] ([facility]) Attender: Dasha Mo 09/03/2020 12:00:00 A M EST [facility] ([facility]) TEMPMHCTelemed 30" Psychotherapy Attender: Dasha Mo [facility] 09/02/2020 04:15:00 AM EST - 09/02/2020 04:15:00 AM EST [facility] ([facility]) Outpatient Attender: Lisa Martinez [facility] 08/26/2020 10:30:00 AM EST - 08/26/2020 10:30:00 AM EST [facility] ([facility]) [facility]: [facility] 08/26/2020 12: 00:00 AM EST [facility] ([facility]) Attender: Dasha Mo 08/17/2020 12:00:00 A M EST [facility] ([facility]) Extended Individual Psychotherapy - 45 min [facility]16/[facility] 10:45:00 AM EST - 08/16/2020 10:45:00 AM EST [facility] ([facility]) Extended Individual Psychotherapy - 45 min [facility] 07/26/2020 09:00:00 AM EST - 07/26/2020 09:00:00 AM EST [facility] ([facility]) Attender: Dasha Mo 07/26/2020 12:00:00 A M EST [facility] ([facility]) Outpatient Attender: Lisa Martinez [facility] 07/21/2020 11:00:00 AM EST - 07/21/2020 11:00:00 AM EST [facility] ([facility]) Attender: Lisa SMITHETIENNE 07/21/2020 12: 00:00 AM EST [facility] ([facility]) Extended Individual Psychotherapy - 45 min [facility]/16/2020 08:00:00 AM EDT - 07/16/2020 08:00:00 AM EDT [facility] ([facility]) Attender: Dasha Mo 07/16/2020 12:00:00 A M EDT [facility] ([facility]) Extended Individual Psychotherapy - 45 min Attender: Lazaro rodriguez [facility] 07/01/2020 09:00:00 AM EDT - 07/01/2020 09:00:00 AM EDT [facility] ([facility]) Attender: Dasha Mo 07/01/2020 12:00:00 A M EDT [facility] ([facility]) Extended Individual Psychotherapy - 45 min Attender: Lazaro michael [facility] 06/17/2020 10:15:00 AM EDT - 06/17/2020 10:15:00 AM EDT [facility] ([facility]) Attender: Dasha Mo 06/17/2020 12:00:00 A M EDT [facility] ([facility]) [facility]patient [facility] 06/02/2020 11:30:00 AM EDT - 06/02/2020 11:30:00 AM EDT [facility] ([facility]) Attender: Lisa SMITHETIENNE 06/02/2020 12: 00:00 AM EDT [facility] ([facility]) Functional Status Immunizations Vaccine Date Status Description Data Source(s) COVID-19 VACCINE Pfizer 05/16/2021 12:00:00 AM EDT completed [place] Vaccine Series Complete: YESThis Data wa s Submitted to [facility] Via [employer]. TB Skin test is not vaccine. 12/15/2020 04:45:00 PM EDT completed [facility] ([facility]) COVID-19 VACCINE Pfizer 09/29/2020 12:00:00 AM EST completed [place] Vaccine Series Complete: NOThis Data was Submitted to [facility] Via [employer]. Medications Medication Brand Name Start Date Product Form Dose Route Admi nistrative Instructions Pharmacy Instructions Status Indications Reaction Description Data Source(s) Amphetamine aspartate 5 MG / Amphetamine Sulfate 5 MG / Dextroamphetamine saccharate 5 MG / Dextroamphetamine Sulfate 5 MG Oral Tablet dextroamphetamine-amphetamine 06/06/2021 12:00:00 AM EDT 20 mg by mouth completed <td ID="MedicationRx Norm_3">777542</td><td ID="MedicationMedication_3">dextroamphetamine-amphetamine</td><td ID="MedicationRoute_3">by mouth</td><td ID="MedicationRouteConcept_3"> N00495</td><td ID="MedicationStartDate_3">06/06/2021</td><td ID="MedicationStopDate_3">07/06/2021</td><td ID="MedicationDosageFrequency_3">twice a day</td><td ID="MedicationDuration_3">30</td><td ID="MedicationFormulaStrength_3">20 mg</td><td ID="MedicationDosageForm_3">tablet</td><td ID="MedicationDosageFormCode_3"></td><td ID="MedicationDosageDescription_3"></td><td ID="MedicationMedicationId_3">[id number]</td><td ID="MedicationAccount_3">[id number]</td><td ID="MedicationNpid_3">[id number]</td><td ID="MedicationAuthorFirstName_3">Latricia</td><td ID="MedicationAuthorLastName_3">Alberto</td><td ID="MedicationTaxonomyCode_3">[id number]</td><td ID="MedicationTaxonomyDesc_3"> Nurse Practitioner</td><td ID="MedicationPhoneNumber_3">[phone]</td> [facility] ([facility]) Amphetamine aspartate 5 MG / Amphetamine Sulfate 5 MG / Dextroamphetamine saccharate 5 MG / Dextroamphetamine Sulfate 5 MG Oral Tablet dextroamphetamine-amphetamine 03/24/2021 12:00:00 AM EDT 20 mg by mouth completed <td ID="MedicationRx Norm_2">424093</td><td ID="MedicationMedication_2">dextroamphetamine-amphetamine</td><td ID="MedicationRoute_2">by mouth</td><td ID="MedicationRouteConcept_2"> E54108</td><td ID="MedicationStartDate_2">03/24/2021</td><td ID="MedicationStopDate_2">05/20/2021</td><td ID="MedicationDosageFrequency_2">once a day</td><td ID="MedicationDuration_2">30</td><td ID="MedicationFormulaStrength_2">20 mg</td><td ID="MedicationDosageForm_2">tablet</td><td ID="MedicationDosageFormCode_2"></td><td ID="MedicationDosageDescription_2"></td><td ID="MedicationMedicationId_2">[id number]</td><td ID="MedicationAccount_2">[id number]</td><td ID="MedicationNpid_2">[id number]</td><td ID="MedicationAuthorFirstName_2">Kameron</td><td ID="MedicationAuthorLastName_2">Shi</td><td ID="MedicationTaxonomyCode_2">[id number]</td><td ID="MedicationTaxonomyDesc_2"> Nurse Practitioner</td><td ID="MedicationPhoneNumber_2">[phone]</td> [facility] ([facility] [place] Carbonate 300 MG Oral Capsule lithium carbonate 12:00:00 AM EDT 300 mg by mouth completed <td ID="MedicationRxNorm_1">927076</td><td ID="MedicationMedication_1">lithium carbonate</td><td ID="MedicationRoute_1">by mouth</td><td ID="MedicationRouteConcept_1">B51926</td><td ID="MedicationStartDate_1">03/07/2021</td><td ID="MedicationStopDate_1"></td><td ID="MedicationDosageFrequency_1">at bedtime</td><td ID="MedicationDuration_1"></td><td ID="MedicationFormulaStrength_1">300 mg</td><td ID="MedicationDosageForm_1">capsule</td><td ID="MedicationDosageFormCode_1"></td><td ID="MedicationDosageDescription_1"></td><td ID="MedicationMedicationId_1">[id number]</td><td ID="MedicationAccount_1">[id number]</td><td ID="MedicationNpid_1">[id number]</td><td ID="MedicationAuthorFirstName_1">Kameron</td><td ID="MedicationAuthorLastName_1">Shi</td><td ID="MedicationTaxonomyCode_1">[id number]</td><td ID="MedicationTaxonomyDesc_1">Nurse Practitioner</td><td ID="MedicationPhoneNumber_1">[phone]</td> [facility] ([facility]) Hydroxyzine Hydrochloride 10 MG Oral Tablet hydroxyzine HCl 02/22/2021 12:00:00 AM EDT 10 mg by mouth completed <td ID="MedicationRxNorm_3">978825</td><td ID="MedicationMedication_3">hydroxyzine HCl</td><td ID="MedicationRoute_3">by mouth</td><td ID="MedicationRouteConcept_3">U74652</td><td ID="MedicationStartDate_3">02/22/2021</td><td ID="MedicationStopDate_3">04/23/2021</td><td ID="MedicationDosageFrequency_3">three times a day</td><td ID="MedicationDuration_3">30</td><td ID="MedicationFormulaStrength_3">10 mg</td><td ID="MedicationDosageForm_3">tablet</td><td ID="MedicationDosageFormCode_3"></td><td ID="MedicationDosageDescription_3">as needed</td><td ID="MedicationMedicationId_3">[id number]</td><td ID="MedicationAccount_3">[id number]</td><td ID="MedicationNpid_3">[id number]</td><td ID="MedicationAuthorFirstName_3">Lisa</td><td ID="MedicationAuthorLastName_3">Juan</td><td ID="MedicationTaxonomyCode_3">[id number]</td><td ID="MedicationTaxonomyDesc_3">Psychiatric/Mental Health</td><td ID="MedicationPhoneNumber_3">[phone]</td> [facility] ([facility]) Acetaminophen 325 MG / Oxycodone Hydroch loride 5 MG Oral Tablet [Percocet] Percocet 5-325 MG Percocet 5-325 MG 02/09/2021 12:00:00 AM EDT 1 .0 {tablet_as_needed} active Percocet 5-32 5 MG eCW1 ([facility]) Acetaminophen 325 MG / Oxycodone Hydroch loride 5 MG Oral Tablet [Percocet] Percocet 5-325 MG Percocet 5-325 MG 02/09/2021 12:00:00 AM EDT 1 .0 {tablet_as_needed} active Percocet 5-32 5 MG eCW1 ([facility]) Acetaminophen 325 MG / Oxycodone Hydroch loride 5 MG Oral Tablet [Percocet] Percocet 5-325 MG Percocet 5-325 MG 02/09/2021 12:00:00 AM EDT 1 .0 {tablet_as_needed} active Percocet 5-32 5 MG eCW1 ([facility]) Hydroxyzine Hydrochloride 25 MG Oral Tablet hydroxyzine HCl 02/08/2021 12:00:00 AM EDT 25 mg by mouth completed <td ID="MedicationRxNorm_2">313699</td><td ID="MedicationMedication_2">hydroxyzine HCl</td><td ID="MedicationRoute_2">by mouth</td><td ID="MedicationRouteConcept_2">B60490</td><td ID="MedicationStartDate_2">02/08/2021</td><td ID="MedicationStopDate_2">04/09/2021</td><td ID="MedicationDosageFrequency_2">three times a day</td><td ID="MedicationDuration_2">30</td><td ID="MedicationFormulaStrength_2">25 mg</td><td ID="MedicationDosageForm_2">tablet</td><td ID="MedicationDosageFormCode_2"></td><td ID="MedicationDosageDescription_2">as needed</td><td ID="MedicationMedicationId_2">[id number]</td><td ID="MedicationAccount_2">[id number]</td><td ID="MedicationNpid_2">[id number]</td><td ID="MedicationAuthorFirstName_2">Lisa</td><td ID="MedicationAuthorLastName_2">Leslie</td><td ID="MedicationTaxonomyCode_2">[id number]</td><td ID="MedicationTaxonomyDesc_2">Psychiatric/Mental Health</td><td ID="MedicationPhoneNumber_2">[phone]</td> [facility] ([facility]) lamotrigine 150 MG Oral Tablet [Lamictal] Lamictal 11/04/2020 1 2:00:00 AM EST ORAL active [facility] ([facility]) Amphetamine aspartate 5 MG / Amphetamine Sulfate 5 MG / Dextroamphetamine saccharate 5 MG / Dextroamphetamine Sulfate 5 MG Oral Tablet dextroamphetamine-amphetamine 08/05/2020 12:00:00 AM EST 20 mg by mouth completed <td ID="MedicationRx Norm_4">080298</td><td ID="MedicationMedication_4">dextroamphetamine-amphetamine</td><td ID="MedicationRoute_4">by mouth</td><td ID="MedicationRouteConcept_4"> L67394</td><td ID="MedicationStartDate_4">08/05/2020</td><td ID="MedicationStopDate_4">10/04/2020</td><td ID="MedicationDosageFrequency_4">twice a day</td><td ID="MedicationDuration_4">30</td><td ID="MedicationFormulaStrength_4">20 mg</td><td ID="MedicationDosageForm_4">tablet</td><td ID="MedicationDosageFormCode_4"></td><td ID="MedicationDosageDescription_4"></td><td ID="MedicationMedicationId_4">[id number]</td><td ID="MedicationAccount_4">[id number]</td><td ID="MedicationNpid_4">[id number]</td><td ID="MedicationAuthorFirstName_4">Lisa</td><td ID="MedicationAuthorLastName_4">Juan</td><td ID="MedicationTaxonomyCode_4">[id number]</td><td ID="MedicationTaxonomyDesc_4"> Psychiatric/Mental Health</td><td ID="MedicationPhoneNumber_4">[phone]</td> [facility] ([facility]) [place] Carbonate 300 MG Oral Capsule lithium carbonate 12:00:00 AM EST 300 mg by mouth completed <td ID="MedicationRxNorm_2">981313</td><td ID="MedicationMedication_2">lithium carbonate</td><td ID="MedicationRoute_2">by mouth</td><td ID="MedicationRouteConcept_2">I13776</td><td ID="MedicationStartDate_2">07/21/2020</td><td ID="MedicationStopDate_2"></td><td ID="MedicationDosageFrequency_2">every night</td><td ID="MedicationDuration_2"></td><td ID="MedicationFormulaStrength_2">300 mg</td><td ID="MedicationDosageForm_2">capsule</td><td ID="MedicationDosageFormCode_2"></td><td ID="MedicationDosageDescription_2"></td><td ID="MedicationMedicationId_2">[id number]</td><td ID="MedicationAccount_2">[id number]</td><td ID="MedicationNpid_2">[id number]</td><td ID="MedicationAuthorFirstName_2">Lisa</td><td ID="MedicationAuthorLastName_2">Leslie</td><td ID="MedicationTaxonomyCode_2">[id number]</td><td ID="MedicationTaxonomyDesc_2">Psychiatric/Mental Health</td><td ID="MedicationPhoneNumber_2">[phone]</td> [facility] ([facility] [place] Carbonate 300 MG Oral Capsule lithium carbonate 12:00:00 AM EST 300 mg by mouth completed <td ID="MedicationRxNorm_3">280795</td><td ID="MedicationMedication_3">lithium carbonate</td><td ID="MedicationRoute_3">by mouth</td><td ID="MedicationRouteConcept_3">P47070</td><td ID="MedicationStartDate_3">07/21/2020</td><td ID="MedicationStopDate_3"></td><td ID="MedicationDosageFrequency_3">every night</td><td ID="MedicationDuration_3"></td><td ID="MedicationFormulaStrength_3">300 mg</td><td ID="MedicationDosageForm_3">capsule</td><td ID="MedicationDosageFormCode_3"></td><td ID="MedicationDosageDescription_3"></td><td ID="MedicationMedicationId_3">[id number]</td><td ID="MedicationAccount_3">[id number]</td><td ID="MedicationNpid_3">[id number]</td><td ID="MedicationAuthorFirstName_3">Lisa</td><td ID="MedicationAuthorLastName_3">Leslie</td><td ID="MedicationTaxonomyCode_3">[id number]</td><td ID="MedicationTaxonomyDesc_3">Psychiatric/Mental Health</td><td ID="MedicationPhoneNumber_3">[phone]</td> [facility] ([facility]) buspirone hydrochloride 15 MG Oral Tablet buspirone 2019 12:00:00 AM EDT 15 mg by mouth completed <td ID="Medic ationRxNorm_2">665429</td><td ID="MedicationMedication_2">buspirone</td><td ID="MedicationRoute_2">by mouth</td><td ID="MedicationRouteConcept_2">U01436</td><td ID="MedicationStartDate_2">06/02/2020</td><td ID="MedicationStopDate_2"></td><td ID="MedicationDosageFrequency_2">three times a day</td><td ID="MedicationDuration_2"></td><td ID="MedicationFormulaStrength_2">15 mg</td><td ID="MedicationDosageForm_2">tablet</td><td ID="MedicationDosageFormCode_2"></td><td ID="MedicationDosageDescription_2"></td><td ID="MedicationMedicationId_2">[id number]</td><td ID="MedicationAccount_2">[id number]</td><td ID="MedicationNpid_2">[id number]</td><td ID="MedicationAuthorFirstName_2">Lisa</td><td ID="MedicationAuthorLastName_2">Juan</td><td ID="MedicationTaxonomyCode_2">[id number]</td><td ID="MedicationTaxonomyDesc_2">Psychiatric/Mental Health</td><td ID="MedicationPhoneNumber_2">[phone]</td> [facility] ([facility]) buspirone hydrochloride 15 MG Oral Tablet buspirone 2019 12:00:00 AM EDT 15 mg by mouth completed <td ID="Medic ationRxNorm_1">520743</td><td ID="MedicationMedication_1">buspirone</td><td ID="MedicationRoute_1">by mouth</td><td ID="MedicationRouteConcept_1">R98891</td><td ID="MedicationStartDate_1">06/02/2020</td><td ID="MedicationStopDate_1"></td><td ID="MedicationDosageFrequency_1">three times a day</td><td ID="MedicationDuration_1"></td><td ID="MedicationFormulaStrength_1">15 mg</td><td ID="MedicationDosageForm_1">tablet</td><td ID="MedicationDosageFormCode_1"></td><td ID="MedicationDosageDescription_1"></td><td ID="MedicationMedicationId_1">[id number]</td><td ID="MedicationAccount_1">[id number]</td><td ID="MedicationNpid_1">[id number]</td><td ID="MedicationAuthorFirstName_1">Lisa</td><td ID="MedicationAuthorLastName_1">Leslie</td><td ID="MedicationTaxonomyCode_1">[id number]</td><td ID="MedicationTaxonomyDesc_1">Psychiatric/Mental Health</td><td ID="MedicationPhoneNumber_1">[phone]</td> [facility] ([facility]) buspirone hydrochloride 15 MG Oral Tablet buspirone 2019 12:00:00 AM EDT 15 mg by mouth completed <td ID="Medic ationRxNorm_3">521917</td><td ID="MedicationMedication_3">buspirone</td><td ID="MedicationRoute_3">by mouth</td><td ID="MedicationRouteConcept_3">M47239</td><td ID="MedicationStartDate_3">06/02/2020</td><td ID="MedicationStopDate_3"></td><td ID="MedicationDosageFrequency_3">three times a day</td><td ID="MedicationDuration_3"></td><td ID="MedicationFormulaStrength_3">15 mg</td><td ID="MedicationDosageForm_3">tablet</td><td ID="MedicationDosageFormCode_3"></td><td ID="MedicationDosageDescription_3"></td><td ID="MedicationMedicationId_3">[id number]</td><td ID="MedicationAccount_3">[id number]</td><td ID="MedicationNpid_3">[id number]</td><td ID="MedicationAuthorFirstName_3">Lisa</td><td ID="MedicationAuthorLastName_3">Juan</td><td ID="MedicationTaxonomyCode_3">[id number]</td><td ID="MedicationTaxonomyDesc_3">Psychiatric/Mental Health</td><td ID="MedicationPhoneNumber_3">[phone]</td> [facility]) lamotrigine 150 MG Oral Tablet lamotrigine 04/13/2020 12:00:00 AM EDT 150 mg by mouth completed <td ID="Medica tionRxNorm_3">074270</td><td ID="MedicationMedication_3">lamotrigine</td><td ID="MedicationRoute_3">by mouth</td><td ID="MedicationRouteConcept_3">W52114</td><td ID="MedicationStartDate_3">04/13/2020</td><td ID="MedicationStopDate_3">06/19/2021</td><td ID="MedicationDosageFrequency_3">twice a day</td><td ID="MedicationDuration_3">30</td><td ID="MedicationFormulaStrength_3">150 mg</td><td ID="MedicationDosageForm_3">tablet</td><td ID="MedicationDosageFormCode_3"></td><td ID="MedicationDosageDescription_3"></td><td ID="MedicationMedicationId_3">[id number]</td><td ID="MedicationAccount_3">[id number]</td><td ID="MedicationNpid_3">[id number]</td><td ID="MedicationAuthorFirstName_3">Kameron</td><td ID="MedicationAuthorLastName_3">Shi</td><td ID="MedicationTaxonomyCode_3">[id number]</td><td ID="MedicationTaxonomyDesc_3">Nurse Practitioner</td><td ID="MedicationPhoneNumber_3">[phone]</td> [facility] ([facility]) lamotrigine 150 MG Oral Tablet lamotrigine 04/13/2020 12:00:00 AM EDT 150 mg by mouth completed <td ID="Medica tionRxNorm_2">516318</td><td ID="MedicationMedication_2">lamotrigine</td><td ID="MedicationRoute_2">by mouth</td><td ID="MedicationRouteConcept_2">P62171</td><td ID="MedicationStartDate_2">04/13/2020</td><td ID="MedicationStopDate_2">06/19/2021</td><td ID="MedicationDosageFrequency_2">twice a day</td><td ID="MedicationDuration_2">30</td><td ID="MedicationFormulaStrength_2">150 mg</td><td ID="MedicationDosageForm_2">tablet</td><td ID="MedicationDosageFormCode_2"></td><td ID="MedicationDosageDescription_2"></td><td ID="MedicationMedicationId_2">[id number]</td><td ID="MedicationAccount_2">[id number]</td><td ID="MedicationNpid_2">[id number]</td><td ID="MedicationAuthorFirstName_2">Kameron</td><td ID="MedicationAuthorLastName_2">Shi</td><td ID="MedicationTaxonomyCode_2">[id number]</td><td ID="MedicationTaxonomyDesc_2">Nurse Practitioner</td><td ID="MedicationPhoneNumber_2">[phone]</td> [facility] ([facility]) lamotrigine 150 MG Oral Tablet lamotrigine 04/13/2020 12:00:00 AM EDT 150 mg by mouth completed <td ID="Medica tionRxNorm_1">322033</td><td ID="MedicationMedication_1">lamotrigine</td><td ID="MedicationRoute_1">by mouth</td><td ID="MedicationRouteConcept_1">C10878</td><td ID="MedicationStartDate_1">04/13/2020</td><td ID="MedicationStopDate_1">04/09/2021</td><td ID="MedicationDosageFrequency_1">twice a day</td><td ID="MedicationDuration_1">30</td><td ID="MedicationFormulaStrength_1">150 mg</td><td ID="MedicationDosageForm_1">tablet</td><td ID="MedicationDosageFormCode_1"></td><td ID="MedicationDosageDescription_1"></td><td ID="MedicationMedicationId_1">15839</td><td ID="MedicationAccount_1">[id number]</td><td ID="MedicationNpid_1">[id number]</td><td ID="MedicationAuthorFirstName_1">Lisa</td><td ID="MedicationAuthorLastName_1">Juan</td><td ID="MedicationTaxonomyCode_1">[id number]</td><td ID="MedicationTaxonomyDesc_1">Psychiatric/Mental Health</td><td ID="MedicationPhoneNumber_1">[phone]</td> [facility] ([facility]) Insurance Providers Payer name Policy type / Coverage type Policy ID Covered democrat ID Covered democrat's relationship to johnson Policy Johnson Plan Information MEDICAID M [id number] Self [id number] Family [employer] Plus Commercial [id number] Self [id number] EXCELLUS C [id number] Self [id number] [facility] I [id number] Self [id number] [facility] MEDICAID [id number] S [id number] [employer] COMMUNITY PLAN MCDHMO [id number] SP [id number] [employer] COMMUNITY PLAN MCDHMO [id number] SP [id number] [facility] Communty Plan Medicaid [id number] Self [id number] [facility] COMMUNTY PLAN [id number] 18 [id number] [employer] COMMUNITY PLAN XIX [id number] 18 [id number] [facility] Community Plan Medigap Part B [id number] Self [id number] [facility] Community Plan Medicaid [id number] Self [id number] [facility] COMMUNITY PLAN [id number] 18 [id number] MEMIC SSV W/C [id number] SP [id number] MEMIC SSV W/C UNAVAILABLE SP UNAV AILABLE OTHER WORKERS COMPENSATION DOI - 14 SP DOI - 14 HMO BLUE [id number] SP [id number] [place]BS [place] PPO 302/307 [id number] SP [id number] [facility]UE [facility]-CLINIC [id number] 18 [id number] BLUE [employer]OSS BLUE SHIELD-PHYSICIAN [id number] 18 [id number] BLUE CROSS BLUE SHIELD-O/P [id number] 18 [id number] [employer] COMMUNITY PLAN MCDHMO [id number] SP [id number] [employer] COMMUNITY PLAN MCDHMO [id number] SP [id number] SELF PAY ONLY [id number] SP [id number] SELF PAY [id number] S [id number] [facility](MCAID) O [id number] S [id number] [facility] Communty Plan Medicaid [id number] Self [id number] [facility] [id number] 18 [id number] Problems, Conditions, and Diagnoses Code Display Name Description Problem Type Effective Dates Data Source(s) F43.9 Reaction to severe stress, unspecified 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 06/08/2021 12:00:00 AM EDT [facility] ([facility]) F90.9 Attention-deficit hyperactivity disorder , unspecified type Unspecified Attention-Deficit/Hyperactivity Disorder Condition 06/08/2021 12:00:00 AM EDT [facility] ([facility]) F25.1 Schizoaffective disorder, depressive typ e Schizoaffective Disorder, Depressive type Condition 06/08/2021 12:00:00 AM EDT [facility] ([facility]) Z3A.11 Gestation period, 11 weeks 11 weeks gestation of pregn sofie Problem 11/09/2020 12:00:00 AM EST eCW1 ([facility]) O10.919 Benign essential hypertension in obstetr ic context Chronic hypertension affecting Problem 11/09/2020 12:00:00 AM EST eCW1 ([facility]) Z34.80 care Supervision of other normal P roblem 10/13/2020 12:00:00 AM EST eCW1 ([facility]) O99.211 Obesity complicating , first tr imester Obesity complicating in first trimester Problem 10/13/2020 12:00:00 AM EST eCW1 ([facility]) Surgeries/Procedures Procedure Description Date Indications Data Source(s) MHC Telemed E/M Lvl 3--Est pt 06/08/2021 12:00:00 AM EDT - 06/08/2021 12:00:00 AM EDT [facility] ([facility]) MHC Telemed E/M Lvl 3--Est pt 06/08/2021 12:00:00 AM E DT [facility] ([facility]) TEMPMHCTelemed 30" Psychotherapy 021 12:00:00 AM EDT - 06/03/2021 12:00:00 AM EDT [facility] ([facility]) TEMPMHCTelemed 30" Psychotherapy 06/03/2021 12:00:00 A M EDT [facility] ([facility]) [id number]"Psychotherapy 12:00:00 AM EDT - 05/19/2021 12:00:00 AM EDT [facility] ([facility]) [id number]"Psychotherapy 05/19/2021 12:00:00 AM EDT [facility] ([facility]) MHCTelemed E/M Lvl 4--Est pt 04/28/2021 12:00:00 AM EDT - 04/28/2021 12:00:00 AM EDT [facility] ([facility]) MHCTelemed E/M Lvl 4--Est pt 04/28/2021 12:00:00 AM ED T [facility] ([facility]) Extended Individual Psychotherapy - 45 min 03/18/2021 12:00:00 AM EDT - 03/18/2021 12:00:00 AM EDT [facility] ([facility]) Extended Individual Psychotherapy - 45 min 12:00:00 AM EDT [facility] ([facility]) MHCTelemed E/M Lvl 4--Est pt 02/22/2021 12:00:00 AM EDT - 02/22/2021 12:00:00 AM EDT [facility] ([facility]) MHCTelemed E/M Lvl 4--Est pt 02/22/2021 12:00:00 AM ED T [facility] ([facility]) [id number]"Psychotherapy 12:00:00 AM EDT - 02/10/2021 12:00:00 AM EDT [facility] ([facility]) [id number]"Psychotherapy 02/09/2021 12:00:00 AM EDT [facility] ([facility]) MHCTelemed E/M Lvl 4--Est pt 02/08/2021 12:00:00 AM EDT - 02/08/2021 12:00:00 AM EDT [facility] ([facility]) MHCTelemed E/M Lvl 4--Est pt 02/08/2021 12:00:00 AM ED T [facility] ([facility]) [id number]"Psychotherapy 12:00:00 AM EDT - 01/27/2021 12:00:00 AM EDT [facility] ([facility]) [id number]"Psychotherapy 01/27/2021 12:00:00 AM EDT [facility] ([facility]) Extended Individual Psychotherapy - 45 min 12/27/2020 12:00:00 AM EDT - 12/27/2020 12:00:00 AM EDT [facility] ([facility]) Extended Individual Psychotherapy - 45 min 12:00:00 AM EDT [facility] ([facility]) Extended Individual Psychotherapy - 45 min 12/13/2020 12:00:00 AM EDT - 12/13/2020 12:00:00 AM EDT [facility] ([facility]) Extended Individual Psychotherapy - 45 min 12:00:00 AM EDT [facility] ([facility]) Extended Individual Psychotherapy - 45 min 12/10/2020 12:00:00 AM EDT - 12/10/2020 12:00:00 AM EDT [facility] ([facility]) Extended Individual Psychotherapy - 45 min 12:00:00 AM EDT [facility] ([facility]) [id number]"Psychotherapy 12:00:00 AM EST - 11/12/2020 12:00:00 AM EST [facility] ([facility]) [id number]"Psychotherapy 11/12/2020 12:00:00 AM EST [facility] ([facility]) ECG ROUTINE ECG W/LEAST 12 LDS W/I&R 11/05/2020 12:00: 00 AM EST [facility] ([facility]) MHC Telemed E/M Lvl 3--Est pt 10/28/2020 12:00:00 AM EST - 10/28/2020 12:00:00 AM EST [facility] ([facility]) Telemed A/O 30" 10/28/2020 12:00:00 AM EST [facility] ([facility]) [facility] [place] E/M Lvl 3--Est pt 10/28/2020 12:00:[address] [facility] ([facility]) MHC Telemed E/M Lvl 3--Est pt 10/19/2020 12:00:00 AM EST - 10/19/2020 12:00:00 AM EST [facility] ([facility]) Telemed A/O 30" 10/19/2020 12:00:00 AM EST [facility] ([facility]) [facility] [place] E/M Lvl 3--Est pt 10/19/2020 12:00:[address] [facility] ([facility]) [id number]"Psychotherapy 12:00:00 AM EST - 10/18/2020 12:00:00 AM EST [facility] ([facility]) [id number]"Psychotherapy 10/18/2020 12:00:00 AM EST [facility] ([facility]) [facility] [place]med E/M Lvl 3--Est pt 10/06/2020 12:00:00 AM EST - 10/06/2020 12:00:00 AM EST [facility] ([facility]) Telemed A/O 30" 10/06/2020 12:00:00 AM EST [facility] ([facility]) MHC Telemed E/M Lvl 3--Est pt 10/06/2020 12:00:[address] [facility] ([facility]) [id number]"Psychotherapy 1 12:00:00 AM EST - 09/20/2020 12:00:00 AM EST [facility] ([facility]) [id number]"Psychotherapy 09/20/2020 12:00:00 AM EST [facility] ([facility]) TEMPMHCTelemed 30" Psychotherapy 12:00:00 AM EST - 09/14/2020 12:00:00 AM EST [facility] ([facility]) TEMPMHCTelemed 30" Psychotherapy 09/13/2020 12:00:00 A M EST [facility] ([facility]) TEMPMHCTelemed 30" Psychotherapy 12:00:00 AM EST - 09/03/2020 12:00:00 AM EST [facility] ([facility]) TEMPMHCTelemed 30" Psychotherapy 09/02/2020 12:00:00 A M EST [facility] ([facility]) OFFICE OUTPATIENT VISIT 15 MINUTES 08/26 12:00:00 AM EST - 08/26/2020 12:00:00 AM EST [facility] ([facility]) Psychotherapy ADD ON - 30 Minutes 08/26/2020 12:00:00 AM EST [facility] ([facility]) OFFICE OUTPATIENT VISIT 15 MINUTES 08/26/2020 12:00:00 AM EST [facility] ([facility]) Extended Individual Psychotherapy - 45 min 08/17/2020 12:00:00 AM EST - 08/17/2020 12:00:00 AM EST [facility] ([facility]) Extended Individual Psychotherapy - 45 min 0 12:00:00 AM EST [facility] ([facility]) Extended Individual Psychotherapy - 45 min 07/26/2020 12:00:00 AM EST - 07/26/2020 12:00:00 AM EST [facility] ([facility]) Extended Individual Psychotherapy - 45 min 0 12:00:00 AM EST [facility] ([facility]) MHC Telemed E/M Lvl 3--Est pt 07/21/2020 12:00:00 AM EST - 07/21/2020 12:00:00 AM EST [facility] ([facility]) Telemed A/O 30" 07/21/2020 12:00:00 AM EST [facility] ([facility]) [facility] [place]med E/M Lvl 3--Est pt 07/21/2020 12:00:[address] [facility] ([facility]) Extended Individual Psychotherapy - 45 min 07/16/2020 12:00:00 AM EDT - 07/16/2020 12:00:00 AM EDT [facility] ([facility]) Extended Individual Psychotherapy - 45 min 0 12:00:00 AM EDT [facility] ([facility]) Extended Individual Psychotherapy - 45 min 07/01/2020 12:00:00 AM EDT - 07/01/2020 12:00:00 AM EDT [facility] ([facility]) Extended Individual Psychotherapy - 45 min 0 12:00:00 AM EDT [facility] ([facility]) Extended Individual Psychotherapy - 45 min 06/17/2020 12:00:00 AM EDT - 06/17/2020 12:00:00 AM EDT [facility] ([facility]) Extended Individual Psychotherapy - 45 min 0 12:00:00 AM EDT [facility] ([facility]) OFFICE OUTPATIENT VISIT 15 MINUTES 06/02 12:00:00 AM EDT - 06/02/2020 12:00:00 AM EDT [facility] ([facility]) Telemed A/O 30" 06/02/2020 12:00:00 AM EDT [facility] ([facility]) OFFICE OUTPATIENT VISIT 15 MINUTES 06/02/2020 12:00:00 AM EDT [facility] ([facility]) Results ID Date Data Source [id number] 04/26/2021 12:00:00 AM EDT [facility] Name Value Range Interpretation Code Description Data Afua rce(s) Supporting Document(s) SARS coronavirus 2 Ag Not Detected [facility] This lab was ordered by [facility] and reported by [facility]. ID Date Data Source [id number] 01/31/2021 02:21:00 PM EDT [facility] Name Value Range Interpretation Code Description Data Afua rce(s) Supporting Document(s) SARS-CoV-2 (COVID 19) NEGATIVE - SARS-CoV-2 (COVID19) [facility] This lab was ordered by [facility] a nd reported by [facility]. ID Date Data Source [id number] 01/26/2021 12:00:00 AM EDT eCW1 ([facility]) Name Value Range Interpretation Code Description Data Afua rce(s) Supporting Document(s) [id number] FIBRINOGEN eCW1 ([facility]) ID Date Data Source CBC - Complete Blood Count 01/26/2021 12:00:00 AM EDT eCW1 ( [facility]) Name Value Range Interpretation Code Description Data Afua rce(s) Supporting Document(s) 3.47 4.00-5.40 RED BLOOD COUNT eCW1 ([facility]) 13.6 4.0-10.0 WHITE BLOOD COUNT eCW1 ([facility]) 10.3 12.0-15.5 HEMOGLOBIN eCW1 ([facility]) 31.7 36.0-47.0 HEMATOCRIT eCW1 ([facility]) 91.4 80.0-96.0 MEAN CORPUSCULAR VOLUME e CW1 ([facility]) 29.7 27.0-33.0 MEAN CORPUSCULAR HEMOGLOB IN eCW1 ([facility]) 32.5 32.0-36.5 MEAN CORPUSCULAR HGB CONC eCW1 ([facility]) 13.3 11.5-14.5 RED CELL DISTRIBUTION WID TH eCW1 ([facility]) 349 150-450 PLATELET COUNT, AUTOMATED eCW1 ([facility]) ID Date Data Source [id number] 01/03/2021 12:00:00 AM EDT [facility] Name Value Range Interpretation Code Description Data Afua rce(s) Supporting Document(s) SARS coronavirus 2 Ag Not Detected [facility] This lab was ordered by [facility] and reported by [facility]. ID Date Data Source [id number] 12/28/2020 12:00:00 AM EDT [facility] Name Value Range Interpretation Code Description Data Afua rce(s) Supporting Document(s) SARS coronavirus 2 Ag Not Detected [facility] This lab was ordered by [facility] and reported by [facility]. ID Date Data Source [id number] 12/20/2020 12:00:00 AM EDT [facility] Name Value Range Interpretation Code Description Data Afua rce(s) Supporting Document(s) SARS coronavirus 2 Ag Not Detected [facility] This lab was ordered by [facility] and reported by [facility]. ID Date Data Source [id number] 12/13/2020 12:00:00 AM EDT [facility] Name Value Range Interpretation Code Description Data Afua rce(s) Supporting Document(s) SARS coronavirus 2 Ag Not Detected [facility] This lab was ordered by [facility] and reported by [facility]. ID Date Data Source [id number] 12/06/2020 12:00:00 AM EDT [facility] Name Value Range Interpretation Code Description Data Afua rce(s) Supporting Document(s) SARS coronavirus 2 Ag Not Detected [facility] This lab was ordered by [facility] and reported by [facility]. ID Date Data Source [id number] 11/29/2020 12:00:00 AM EDT [facility] Name Value Range Interpretation Code Description Data Afua rce(s) Supporting Document(s) SARS coronavirus 2 Ag Not Detected [facility] This lab was ordered by [facility] and reported by [facility]. ID Date Data Source [id number] 11/22/2020 12:00:00 AM EST [facility] Name Value Range Interpretation Code Description Data Afua rce(s) Supporting Document(s) SARS coronavirus 2 Ag Not Detected [facility] This lab was ordered by [facility] and reported by [facility]. ID Date Data Source [id number] 11/16/2020 12:00:00 AM EST [facility] Name Value Range Interpretation Code Description Data Afua rce(s) Supporting Document(s) SARS coronavirus 2 Ag Not Detected [facility] This lab was ordered by [facility] and reported by [facility]. ID Date Data Source [id number] 11/09/2020 11:31:00 AM EST [facility] ([facility] Name Value Range Interpretation Code Description Data Afua rce(s) Supporting Document(s) Natriuretic peptide.B prohormone N-Terminal [Mass/volu me] in Serum or Plasma 75 pg/mL MEDENT ([employer]) ID Date Data Source URINE CULTURE 11/09/2020 12:00:00 AM EST eCW1 ([facility]) Name Value Range Interpretation Code Description Data Afua rce(s) Supporting Document(s) URINE CULTURE eCW1 ([facility]) ID Date Data Source [id number] 11/08/2020 12:00:00 AM EST [facility] Name Value Range Interpretation Code Description Data Afua rce(s) Supporting Document(s) SARS coronavirus 2 Ag Not Detected [facility] This lab was ordered by [facility] and reported by [facility]. ID Date Data Source [id number] 11/01/2020 12:00:00 AM EST [facility] Name Value Range Interpretation Code Description Data Afua rce(s) Supporting Document(s) SARS coronavirus 2 Ag Not Detected [facility] This lab was ordered by [facility] and reported by [facility]. ID Date Data Source [id number] 10/25/2020 12:00:00 AM EST [facility] Name Value Range Interpretation Code Description Data Afua rce(s) Supporting Document(s) SARS coronavirus 2 Ag Not Detected [facility] This lab was ordered by [facility] and reported by [facility]. ID Date Data Source [id number] 10/18/2020 12:00:00 AM EST [facility] Name Value Range Interpretation Code Description Data Afua rce(s) Supporting Document(s) SARS coronavirus 2 Ag Not Detected [facility] H This lab was ordered by [facility] and reported by [facility]. ID Date Data Source TOTAL PROTEIN,RANDOM URINE 10/13/2020 12:00:00 AM EST eCW1 ( [facility]) Name Value Range Interpretation Code Description Data Afua rce(s) Supporting Document(s) 7.3 0.0-12.0 eCW1 ([facility]) ID Date Data Source CREATININE,RANDOM URINE 10/13/2020 12:00:00 AM EST eCW1 ([facility]) Name Value Range Interpretation Code Description Data Afua rce(s) Supporting Document(s) 115.0 eCW1 ([facility]) ID Date Data Source CHLAMYDIA & GC DNA AMPLIFICAT 10/13/2020 12:00:00 AM EST eCW 1 ([facility]) Name Value Range Interpretation Code Description Data Afua rce(s) Supporting Document(s) Chlamydia trachomatis rRNA [Presence] in Unspecified specimen by Probe and target amplification method NEGATIVE NEGATIVE [facility] ([facility]) ID Date Data Source [id number] 09/22/2020 02:00:00 PM EST [facility] Name Value Range Interpretation Code Description Data Afua rce(s) Supporting Document(s) SARS coronavirus 2 RNA Not Detected [place] This lab was ordered by [facility] and reported by [facility]. ID Date Data Source [id number] 08/23/2020 12:00:00 AM EST [facility] Name Value Range Interpretation Code Description Data Afua rce(s) Supporting Document(s) SARS coronavirus 2 Ag [facility] This lab was ordered by [facility] and reported by [facility]. ID Date Data Source [id number] 08/17/2020 12:00:00 AM EST [facility] Name Value Range Interpretation Code Description Data Afua rce(s) Supporting Document(s) SARS coronavirus 2 Ag [facility] This lab was ordered by [facility] and reported by [facility]. ID Date Data Source [id number] 08/09/2020 12:00:00 AM EST [facility] Name Value Range Interpretation Code Description Data Afua rce(s) Supporting Document(s) SARS coronavirus 2 Ag [facility] This lab was ordered by [facility] and reported by [facility]. ID Date Data Source [id number] 05/31/2020 12:00:00 AM EDT [facility] Name Value Range Interpretation Code Description Data Afua rce(s) Supporting Document(s) SARS coronavirus 2 RNA [Presence] in Res piratory specimen by BLAS with probe detection [facility] This lab was ordered by [facility] and reported by [facility]. ID Date Data Source [id number] 05/25/2020 12:00:00 AM EDT [facility] Name Value Range Interpretation Code Description Data Afua rce(s) Supporting Document(s) SARS coronavirus 2 RNA [Presence] in Res piratory specimen by BLAS with probe detection [facility] This lab was ordered by [facility] and reported by [facility]. ID Date Data Source [id number] 05/17/2020 12:00:00 AM EDT [facility] Name Value Range Interpretation Code Description Data Afua rce(s) Supporting Document(s) SARS coronavirus 2 RNA [Presence] in Res piratory specimen by BLAS with probe detection [facility] This lab was ordered by [facility] and reported by [facility]. ID Date Data Source [id number] 05/10/2020 12:00:00 AM EDT [facility] Name Value Range Interpretation Code Description Data Afua rce(s) Supporting Document(s) SARS coronavirus 2 RNA [Presence] in Res piratory specimen by BLAS with probe detection [facility] This lab was ordered by [facility] and reported by [facility]. ID Date Data Source [id number] 05/03/2020 12:00:00 AM EDT [facility] Name Value Range Interpretation Code Description Data Afua rce(s) Supporting Document(s) SARS coronavirus 2 RNA [Presence] in Res piratory specimen by BLAS with probe detection [facility] This lab was ordered by [facility] and reported by [employer]. Procedure Social History Code Duration Value Status Description Data Source(s ) Smoking 06/08/2021 12:00:00 AM EDT Unknown if ever smoked comp leted Unknown if ever smoked [facility] ([facility]) Smoking 06/03/2021 12:00:00 AM EDT Unknown if ever smoked comp leted Unknown if ever smoked [facility] ([facility]) Smoking 05/19/2021 12:00:00 AM EDT Unknown if ever smoked comp leted Unknown if ever smoked [facility] ([facility]) Smoking 04/28/2021 12:00:00 AM EDT Unknown if ever smoked comp leted Unknown if ever smoked [facility] ([facility]) Smoking 03/18/2021 12:00:00 AM EDT Unknown if ever smoked comp leted Unknown if ever smoked [facility] ([facility]) Smoking 02/22/2021 12:00:00 AM EDT Unknown if ever smoked comp leted Unknown if ever smoked [facility] ([facility]) Smoking 02/17/2021 12:00:00 AM EDT Current Smoker completed Curre nt Smoker eCW1 ([facility]) Smoking 02/10/2021 12:00:00 AM EDT Unknown if ever smoked comp leted Unknown if ever smoked [facility] ([facility]) Smoking 02/08/2021 12:00:00 AM EDT Unknown if ever smoked comp leted Unknown if ever smoked [facility] ([facility]) Smoking 01/27/2021 12:00:00 AM EDT Unknown if ever smoked comp leted Unknown if ever smoked [facility] ([facility]) Smoking 01/26/2021 12:00:00 AM EDT Current Smoker completed Curre nt Smoker eCW1 ([facility]) Smoking 01/26/2021 12:00:00 AM EDT Current Smoker completed Curre nt Smoker eCW1 ([facility]) Smoking 01/26/2021 12:00:00 AM EDT Current Smoker completed Curre nt Smoker eCW1 ([facility]) Smoking 01/26/2021 12:00:00 AM EDT Current Smoker completed Curre nt Smoker eCW1 ([facility]) Smoking 01/18/2021 12:00:00 AM EDT Current Smoker completed Curre nt Smoker eCW1 ([facility]) Smoking 01/10/2021 12:00:00 AM EDT Current Smoker completed Curre nt Smoker eCW1 ([facility]) Smoking 01/10/2021 12:00:00 AM EDT Current Smoker completed Curre nt Smoker eCW1 ([facility]) Smoking 12/29/2020 12:00:00 AM EDT Current Smoker completed Curre nt Smoker eCW1 ([facility]) Smoking 12/27/2020 12:00:00 AM EDT Unknown if ever smoked comp leted Unknown if ever smoked [facility] ([facility]) Smoking 12/23/2020 12:00:00 AM EDT Current Smoker completed Curre nt Smoker eCW1 ([facility]) Smoking 12/13/2020 12:00:00 AM EDT Unknown if ever smoked comp leted Unknown if ever smoked [facility] ([facility]) Smoking 12/10/2020 12:00:00 AM EDT Unknown if ever smoked comp leted Unknown if ever smoked [facility] ([facility]) Smoking 11/29/2020 12:00:00 AM EDT Current Smoker completed Curre nt Smoker eCW1 ([facility]) Smoking 11/12/2020 12:00:00 AM EST Unknown if ever smoked comp leted Unknown if ever smoked [facility] ([facility]) Smoking 11/05/2020 12:00:00 AM EST Current Smoker completed Curre nt Smoker eCW1 ([facility]) Smoking 10/28/2020 12:00:00 AM EST Unknown if ever smoked comp leted Unknown if ever smoked [facility] ([facility]) Smoking 10/19/2020 12:00:00 AM EST Unknown if ever smoked comp leted Unknown if ever smoked [facility] ([facility]) Smoking 10/18/2020 12:00:00 AM EST Unknown if ever smoked comp leted Unknown if ever smoked [facility] ([facility]) Smoking 10/13/2020 12:00:00 AM EST Current Smoker completed Curre nt Smoker eCW1 ([facility]) Smoking 10/06/2020 12:00:00 AM EST Unknown if ever smoked comp leted Unknown if ever smoked [facility] ([facility]) Smoking 09/20/2020 12:00:00 AM EST Unknown if ever smoked comp leted Unknown if ever smoked [facility] ([facility]) Smoking 09/14/2020 12:00:00 AM EST Unknown if ever smoked comp leted Unknown if ever smoked [facility] ([facility]) Smoking 09/03/2020 12:00:00 AM EST Unknown if ever smoked comp leted Unknown if ever smoked [facility] ([facility]) Smoking 08/26/2020 12:00:00 AM EST Unknown if ever smoked comp leted Unknown if ever smoked [facility] ([facility]) Smoking 08/17/2020 12:00:00 AM EST Unknown if ever smoked comp leted Unknown if ever smoked [facility] ([facility]) Smoking 07/26/2020 12:00:00 AM EST Unknown if ever smoked comp leted Unknown if ever smoked [facility] ([facility]) Smoking 07/21/2020 12:00:00 AM EST Unknown if ever smoked comp leted Unknown if ever smoked [facility] ([facility]) Smoking 07/16/2020 12:00:00 AM EDT Unknown if ever smoked comp leted Unknown if ever smoked [facility] ([facility]) Smoking 07/01/2020 12:00:00 AM EDT Unknown if ever smoked comp leted Unknown if ever smoked [facility] ([facility]) Smoking 06/17/2020 12:00:00 AM EDT Unknown if ever smoked comp leted Unknown if ever smoked [facility] ([facility]) Smoking 06/02/2020 12:00:00 AM EDT Unknown if ever smoked comp leted Unknown if ever smoked [facility] ([facility]) Vital Signs ID Date Data Source UNK Name Value Range Interpretation Code Description Data Source(s) Body weight 248.7 [lb_av] 248.7 [lb_av] eCW1 ([facility]) Body height 63 [in_i] 63 [in_i] eCW1 ([facility]) Body mass index (BMI) [Ratio] 44.05 kg/m2 44.05 kg/m2 eCW1 ([facility]) Body height 0.00 in Normal (applies to non-numeric resu lts) 0.00 in [facility] ([facility]) Body weight Measured 0.00 lbs Normal (applies to n on-numeric results) 0.00 lbs [facility] Body mass index (BMI) [Ratio] 0.00 kg/m2 No rmal (applies to non-numeric results) 0.00 kg/m2 [facility] ([facility]) Systolic blood pressure 0 mm[Hg] Normal (applies t o non-numeric results) 0 mm[Hg] [facility] ([facility]) Diastolic blood pressure 0 mm[Hg] Normal (applies to non-numeric results) 0 mm[Hg] [facility] ([facility]) Body weight 253.2 [lb_av] 253.2 [lb_av] eCW1 ([facility]) Body height 63 [in_i] 63 [in_i] eCW1 ([facility]) Body mass index (BMI) [Ratio] 44.852 kg/m2 44.8 52 kg/m2 W1 ([facility]) Systolic blood pressure 120 mm[Hg] 120 mm[Hg] e CW1 ([facility]) Diastolic blood pressure 76 mm[Hg] 76 mm[Hg] eCW1 ([facility]) Body weight 250 [lb_av] 250 [lb_av] eCW1 ([facility] Body height 63 [in_i] 63 [in_i] eCW1 ([facility]) Body mass index (BMI) [Ratio] 44.286 kg/m2 44.2 86 kg/m2 eCW1 ([facility]) Systolic blood pressure 118 mm[Hg] 118 mm[Hg] e CW1 ([facility]) Diastolic blood pressure 70 mm[Hg] 70 mm[Hg] eCW1 ([facility]) Body weight 253 [lb_av] 253 [lb_av] eCW1 ([facility]) Body height 63 [in_i] 63 [in_i] eCW1 ([facility]) Body mass index (BMI) [Ratio] 44.817 kg/m2 44.8 17 kg/m2 eCW1 ([facility]) Systolic blood pressure 124 mm[Hg] 124 mm[Hg] e CW1 ([facility]) Diastolic blood pressure 80 mm[Hg] 80 mm[Hg] eCW1 ([facility]) Systolic blood pressure 103 mm[Hg] 103 mm[Hg] M EDENT ([facility], [facility]) Diastolic blood pressure 69 mm[Hg] 69 mm[Hg] MEDENT ([facility], [facility]) Heart rate 78 /min 78 /min MEDENT ([facility], [facility]) Respiratory rate 14 /min 14 /min MEDENT ( [facility], [facility]) Oxygen saturation in Arterial blood by Pulse oximetry 99 % 99 % MEDENT ([facility], [facility]) Body temperature 96.7 [degF] 96.7 [degF] MEDENT ([facility], [facility]) Body weight 250.00 [lb_av] 250.00 [lb_av] MEDEN T ([facility], [facility]) Body height 63 [in_i] 63 [in_i] MEDENT ([facility], [facility]) 5'3" Body mass index (BMI) [Ratio] 44.3 kg/m2 44.3 k g/m2 MEDENT ([facility], [facility]) Body weight 251.6 [lb_av] 251.6 [lb_av] eCW1 ([facility]) Body height 63 [in_i] 63 [in_i] eCW1 ([facility]) Body mass index (BMI) [Ratio] 44.569 kg/m2 44.5 69 kg/m2 [facility] ([facility]) Systolic blood pressure 118 mm[Hg] 118 mm[Hg] e CW1 ([facility]) Diastolic blood pressure 76 mm[Hg] 76 mm[Hg] eCW1 ([facility]) Body weight 252 [lb_av] 252 [lb_av] eCW1 ([facility]) Body height 63 [in_i] 63 [in_i] eCW1 ([facility]) Body mass index (BMI) [Ratio] 44.64 kg/m2 44.64 kg/m2 eCW1 ([facility]) Systolic blood pressure 112 mm[Hg] 112 mm[Hg] e CW1 ([facility]) Diastolic blood pressure 70 mm[Hg] 70 mm[Hg] eCW1 ([facility]) Body weight 114.31 kg 114.31 kg eCW1 ([facility]) Body weight 248.00 [lb_av] 248.00 [lb_av] BRITTANY T ([facility]) Body height 63 [in_i] 63 [in_i] MEDENT ([facility]) 5'3" Body mass index (BMI) [Ratio] 43.9 kg/m2 43.9 k g/m2 [facility] ([facility]) Heart rate 80 /min 80 /min [facility] ([facility]) Systolic blood pressure--sitting 117 mm[Hg] 117 mm[Hg] [facility] ([facility]) [employer], large cuff/LA Diastolic blood pressure--sitting 72 mm[Hg] 72 mm[Hg] [facility] ([facility]) [employer], large cuff/LA Body height 0.00 in Normal (applies to non-numeric resu lts) 0.00 in [facility] ([facility]) Diastolic blood pressure 0 mm[Hg] Normal (applies to non-numeric results) 0 mm[Hg] [facility] ([facility]) Body mass index (BMI) [Ratio] 0.00 kg/m2 No rmal (applies to non-numeric results) 0.00 kg/m2 [facility] ([facility]) Systolic blood pressure 0 mm[Hg] Normal (applies t o non-numeric results) 0 mm[Hg] [facility] ([facility]) Body weight Measured 0.00 lbs Normal (applies to n on-numeric results) 0.00 lbs [facility] ([facility]) Body weight Measured 0.00 lbs Normal (applies to n on-numeric results) 0.00 lbs [facility] ([facility]) Diastolic blood pressure 0 mm[Hg] Normal (applies to non-numeric results) 0 mm[Hg] [facility] ([facility]) Body mass index (BMI) [Ratio] 0.00 kg/m2 No rmal (applies to non-numeric results) 0.00 kg/m2 [facility] ([facility]) Systolic blood pressure 0 mm[Hg] Normal (applies t o non-numeric results) 0 mm[Hg] [facility] ([facility]) Body height 0.00 in Normal (applies to non-numeric resu lts) 0.00 in [facility] ([facility]) Body weight 253 [lb_av] 253 [lb_av] eCW1 ([facility]) Body height 63 [in_i] 63 [in_i] eCW1 ([facility]) Body mass index (BMI) [Ratio] 44.817 kg/m2 44.8 17 kg/m2 W1 ([facility]) Systolic blood pressure 128 mm[Hg] 128 mm[Hg] e CW1 ([facility]) Diastolic blood pressure 80 mm[Hg] 80 mm[Hg] W1 ([facility]) Body height 0.00 in Normal (applies to non-numeric resu lts) 0.00 in [facility] ([facility]) Body weight Measured 0.00 lbs Normal (applies to n on-numeric results) 0.00 lbs [facility]) Body mass index (BMI) [Ratio] 0.00 kg/m2 No rmal (applies to non-numeric results) 0.00 kg/m2 [facility] ([facility]) Systolic blood pressure 0 mm[Hg] Normal (applies t o non-numeric results) 0 mm[Hg] [facility] ([facility]) Diastolic blood pressure 0 mm[Hg] Normal (applies to non-numeric results) 0 mm[Hg] [facility] ([facility]) Body height 0.00 in Normal (applies to non-numeric resu lts) 0.00 in [facility] ([facility]) Body weight Measured 0.00 lbs Normal (applies to n on-numeric results) 0.00 lbs [facility] ([facility]) Body mass index (BMI) [Ratio] 0.00 kg/m2 No rmal (applies to non-numeric results) 0.00 kg/m2 [facility] ([facility]) Systolic blood pressure 0 mm[Hg] Normal (applies t o non-numeric results) 0 mm[Hg] [facility] ([facility]) Diastolic blood pressure 0 mm[Hg] Normal (applies to non-numeric results) 0 mm[Hg] [facility] ([facility]) Body height 0.00 in Normal (applies to non-numeric resu lts) 0.00 in [facility] ([facility]) Body weight Measured 0.00 lbs Normal (applies to n on-numeric results) 0.00 lbs [facility] ([facility]) Diastolic blood pressure 0 mm[Hg] Normal (applies to non-numeric results) 0 mm[Hg] [facility] ([facility]) Body mass index (BMI) [Ratio] 0.00 kg/m2 No rmal (applies to non-numeric results) 0.00 kg/m2 [facility] ([facility]) Systolic blood pressure 0 mm[Hg] Normal (applies t o non-numeric results) 0 mm[Hg] [facility] ([facility]) Body height 0.00 in Normal (applies to non-numeric resu lts) 0.00 in [facility] ([facility]) Body weight Measured 0.00 lbs Normal (applies to n on-numeric results) 0.00 lbs [facility] ([facility]) Body mass index (BMI) [Ratio] 0.00 kg/m2 No rmal (applies to non-numeric results) 0.00 kg/m2 [facility] ([facility]) Systolic blood pressure 0 mm[Hg] Normal (applies t o non-numeric results) 0 mm[Hg] [facility] ([facility]) Diastolic blood pressure 0 mm[Hg] Normal (applies to non-numeric results) 0 mm[Hg] [facility] ([facility]) Patient Treatment Plan of Care Planned Activity Planned Date Details Description Data Source (s) Acetaminophen 325 MG / Oxycodone Hydrochloride 5 MG Or al Tablet [Percocet] 02/09/2021 12:00:00 AM EDT eCW1 ([facility]) Acetaminophen 325 MG / Oxycodone Hydrochloride 5 MG Or al Tablet [Percocet] 02/09/2021 12:00:00 AM EDT eCW1 ([facility])
--- OUTSIDE RECORDS SUMMARY | 2021-08-24 07:36 | CCD ---
Author Author YuridiaMadhu Kameron Organization Unknown Address [address] [address] Phone Care Team Providers Care Pipeline Dispatch Operator Name Role Phone Laure Shichary PCP Allergies, Adverse Reactions, Alerts No Data in Section Problem List Concept Problem Description Status Start Date Created Date Resolv ed Date Snomed Code F25.1 Schizoaffective Disorder, Depressive type Active 04/26/20 18 04/26/2018 F90.9 Unspecified Attention-Deficit/Hyperactivity Disorder A ctive 04/10/2016 04/10/2016 F43.9 Unspecified Trauma- and Stressor-Related Disorder Active 07/20/2021 Medications Rx Norm Medication Route Route Concept Start Date Stop Date Dosage Bradford quency Duration Formula Strength Dosage Form Dosage Form Code Dosage Description Medication Id Account Npid Author First Name Author Last Name Taxonomy Code Taxonomy Desc Phone Number [id number] lithium carbonate by mouth [id number] 03/07/2021 at bedtime 300 mg capsule [id number] Kameron Shi [id number] Nurse P ractitioner [phone] [id number] dextroamphetamine-amphetamine by mouth [id number] 06/06/2021 08/03/2021 twice a day 30 20 mg tablet [id number] Latricia Dominguez [id number] Nurse Practitioner [phone] [id number] lamotrigine by mouth [id number] 06/24/2021 08/23/2021 twice a day 30 150 mg tablet [id number] Kameron Shi [id number] Nurse Pr actitioner [id number] Social History Social History Element Description Concept Effective Date Smoking Status Unknown if ever smoked [id number] Immunizations No Data in Section Vital Signs No Data in Section Procedures Date Concept Id Description Targeted Site Concept Targeted Site Concept Type 07/20/2021 [id number] [facility] Tele[facility] E/M Lvl 3--Est pt CPT Patient has no history of implantable de vices Encounters Encounter Start Date End Date Encounter Type Description Diagnosis Di agnosis Desc Location Author First Name Author Last Name Npid Taxonomy Cod e Taxonomy Desc Phone Number Location Addr1 Location Addr2 Location [facility] Location Sta te Location [facility] [id number] 07/20/2021 07/20/2021 [id number] [facility] Tele[facility] E/M Lvl 3--Est p t F25.1 Schizoaffective disorder, depressive type [facility] Kameron [id number] Nurse Practitioner [phone] [address] [address] Plan of Treatment No Data in Section Lab Results No Data in Section Instructions No Data in Section Functional Cognitive Status No Data in Section Insurance Providers Insurance Id Policy Effective Date Policy Thru Date [employer] Jhonny rhodes [id number] 2020 [employer] Managed Ene benedict
--- OUTSIDE RECORDS SUMMARY | 2021-08-24 07:36 | CCD ---
Author Author Madhu Rhodes Organization Unknown Address [address] [address] Phone Care Team Providers Care Supervisor Extrusion Name Role Phone Dasha Rhodes PCP Allergies, Adverse Reactions, Alerts No Data in Section Problem List Concept Problem Description Status Start Date Created Date Resolv ed Date Snomed Code F25.1 Schizoaffective Disorder, Depressive type Active 04/26/20 18 04/26/2018 F90.9 Unspecified Attention-Deficit/Hyperactivity Disorder A ctive 04/10/2016 04/10/2016 F43.9 Unspecified Trauma- and Stressor-Related Disorder Active 07/21/2021 Medications Rx Norm Medication Route Route Concept Start Date Stop Date Dosage Bradford quency Duration Formula Strength Dosage Form Dosage Form Code Dosage Description Medication Id Account Npid Author First Name Author Last Name Taxonomy Code Taxonomy Desc Phone Number [id number] lithium carbonate by mouth [id number] 03/07/2021 at bedtime 300 mg capsule [id number] Kameron Shi [id number] Nurse P ractitioner [phone] [id number] lamotrigine by mouth [id number] 06/24/2021 08/23/2021 twice a day 30 150 mg tablet 85486 [id number] Kameron Shi [id number] Nurse Pr actitioner [phone] [id number] dextroamphetamine-amphetamine by mouth [id number] 06/06/2021 08/03/2021 twice a day 30 20 mg tablet 91922 [id number] Latricia Dominguez [id number] Nurse Practitioner [id number] Social History Social History Element Description Concept Effective Date Smoking Status Unknown if ever smoked [id number] Immunizations No Data in Section Vital Signs No Data in Section Procedures Date Concept Id Description Targeted Site Concept Targeted Site Concept Type 07/20/2021 [id number]"Psychotherapy CPT Patient has no history of implantable de vices Encounters Encounter Start Date End Date Encounter Type Description Diagnosis Di agnosis Desc Location Author First Name Author Last Name Npid Taxonomy Cod e Taxonomy Desc Phone Number Location Addr1 Location Addr2 Location [facility] Location [facility] Location [facility] [id number] 07/20/2021 07/20/2021 [id number]"Psychothera py F25.1 Schizoaffective disorder, depressive type [facility] Meagan Lou [phone] [id number] [employer] [phone] [address] [address] Plan of Treatment No Data in Section Lab Results No Data in Section Instructions No Data in Section Insurance Providers Insurance Id Policy Effective Date Policy Thru Date Company Jhonny rhodes [id number] 2020 [employer] [facility]ict
--- OUTSIDE RECORDS SUMMARY | 2021-08-24 07:37 | CCD ---
Author Author [facility] Organization [facility] Address Unknown Phone Unavailable Support Name Relationship Address Phone [place] [address] IVESHI Next Of Kin [address] [place] [address] SAAD INFANTE Next Of Kin [address] [place] [address] [facility] KEEP NATCHITOCHES Next Of Kin [address] [place] [address] SKH* Next Of Kin [address] [place] [address] [facility] Next Of Kin [address] [place] [address] NOAH INFANTE Next Of Kin [address] [place] [address] HYACINTH INFANTE Next Of Kin [address] [place] [address] [facility] Next Of Kin [address] [place] [address] [facility] Next Of Kin [address] [place] [address] TICO THOMAS Next Of Kin Unknown NCOG Next Of Kin [address] [place] [address] [facility] Next Of Kin [address] [place] [address] SSV* Next Of Kin [address] [place] [address] UE Next Of Kin Unknown Unavailable JEAN RODRIGUEZ Next Of Kin [address] [place] [address] ALONZO SINGH Next Of Kin [address] [facility] [place], [place] [id number] Yovani Singh ECON [address] [place] [address] Unavailable Jered Infante ECON Unknown Unavailable Domingo Singh ECON [address] [place] [address] Unavailable Care Team Providers Care Hydraulic Miner Name Role Phone Sarah, K Nanette MD Unavailable Unavailable Sarah, [...] Unavailable Sarah, K Nanette MD Unavailable Unavailable Sraah, K Nanette MD Unavailable Unavailable Sarah, K [...] Unavailable Sarah, K Nanette MD Unavailable Unavailable Shi, R Kameron SOFTWARE VALIDATION TECHNICIAN Unavailable Unavailable Shi, R Kameron SOFTWARE VALIDATION TECHNICIAN Unavailable Unavailable Shi, R Kameron SOFTWARE VALIDATION TECHNICIAN Unavailable [facility] Unavailable Unavailable JOSE, MAQBOOL TU MD Unavailable [...] Unavailable JOSE, MAQBOOL TU MD Unavailable Unavailable PAUL G CHRISTOPHER PA Unavailable Unavailable PAUL G CHRISTGEER PA Unavailable Unavailable PAUL G CHRISTOPHER PA Unavailable Unavailable OLESYAENOBethel G CHRISTOPHER PA Unavailable Unavailable OLESYAENOBethel G CHRISTOPHER PA Unavailable Unavailable OLESYAENOBethel G CHRISTOPHER PA Unavailable Unavailable SYMENOW, G CHRISTOPHER PA Unavailable Unavailable SYMENOW, G CHRISTOPHER PA Unavailable Unavailable SYMENOW, G CHRISTOPHER PA Unavailable Unavailable SYMENOW, G CHRISTOPHER PA Unavailable Unavailable SYMENOW, G CHRISTOPHER PA Unavailable Unavailable SYMENOW, G CHRISTOPHER PA Unavailable Unavailable SYMENOW, G CHRISTOPHER PA Unavailable Unavailable SYMENOW, G CHRISTOPHER PA Unavailable Unavailable SYMENOW, G CHRISTOPHER PA Unavailable Unavailable SYMENOW, G CHRISTOPHER PA Unavailable Unavailable MASTROGIANNIS, S FEDERICA Unavailable Unavailable Dasha Mo Unavailable [...] ANTECOL, Ashwin YOUNG MD Unavailable Unavailable ANTECOL, Ashwni YOUNG MD Unavailable Unavailable ANTECOL, Ashwin YOUNG [...] Unavailable ANTECOL, Ashwin YOUNG MD Unavailable Unavailable BRUNILDA, L JARED PA Unavailable [...] Unavailable BRUNILDA, L JARED PA Unavailable Unavailable RING, K FUAD PA [...] Unavailable RING, K FUAD PA Unavailable Unavailable Pelon Martinez PMH-SOFTWARE VALIDATION TECHNICIAN Unavailable Unavailable Pelon Martinez PMH-SOFTWARE VALIDATION TECHNICIAN Unavailable Unavailable Pelon Martinez PMH-SOFTWARE VALIDATION TECHNICIAN Unavailable Unavailable Pelon Martinez PMH-SOFTWARE VALIDATION TECHNICIAN Unavailable Unavailable Pelon Martinez PMH-SOFTWARE VALIDATION TECHNICIAN Unavailable Unavailable Juan, Pelon Gonzalez PMH-SOFTWARE VALIDATION TECHNICIAN Unavailable Unavailable Juan, K Lisa PMH-SOFTWARE VALIDATION TECHNICIAN Unavailable Unavailable Juan, Pelon Gonzalez PMH-SOFTWARE VALIDATION TECHNICIAN Unavailable Unavailable Juan, K Lisa PMH-SOFTWARE VALIDATION TECHNICIAN Unavailable Unavailable Juan, K Lisa PMH-SOFTWARE VALIDATION TECHNICIAN Unavailable Unavailable Re-disclosure Warning The records that [...] is protected by Article 27-F of the [facility] Public Health law. If you continue you may have access to information: Regarding HIV / AIDS; Provided by facilities licensed or operated by the [facility] Office of Mental Health; or Provided by the [facility] Office for People With Developmental Disabilities. If such information is present, then the following [facility] mandated warning applies: This information has been [...] law may result in a fine or mcfp sentence or both. A general authorization for the release of medical or other information is NOT sufficient authorization for further disc losure. Allergies and Adverse Reactions Type Description Substance Reaction Status Data Source(s ) Propensity to adverse reactions NO KNOWN ALLERGIES NO KNOWN ALLERGIES [facility] Family History Family Member Name Family Member Gender Family Member Status Date o f Status Description Data Source(s) Unknown Male Problem [facility] ([facility]) Encounters Encounter Providers Location Date Indications Data Source(s ) Attender: Dasha Mo 07/21/2021 12:00:00 A M EDT [facility] ([facility]) Outpatient Attender: Kameron Shi NP [facility] 07/20/2021 03:30:00 AM EDT - 07/20/2021 03:30:00 AM EDT [facility] ([facility]) [id number]"Psychotherapy [facility]: [facility] 02:00:00 AM EDT - 07/20/2021 02:00:00 AM EDT [facility] ([facility]) Attender: Kameron Shi NP 07/20/2021 12:00:00 AM EDT [facility] ([facility]) Emergency Attender: TAM Wasserman: TU GARCIA MD 07/02/2021 09:14:00 AM EDT - 07/02/2021 09:25:00 AM EDT [facility] Patient discharged. Outpatient Attender: TAM MILLER PAConsultant: Cynthia jimenez [id number] 06/30/2021 06:22:00 AM EDT [facility] Emergency Attender: TAM Wasserman : TU GARCIA MD EMERGENCY ROOM-EMERGENCY ROOM 06/30/2021 03:07:00 AM EDT - 06/30/2021 03:07:[address] [facility] Patient discharged. Outpatient Attender: Kameron Shi NP [facility] 06/08/2021 04:00:00 AM EDT - 06/08/2021 04:00:00 AM EDT [facility] ([facility]) Attender: Kameron Shi NP 06/08/2021 12:00:00 AM EDT [facility] ([facility]) TEMPMHCTelemed 30" Psychotherapy Attender: Dasha Mo [facility] 06/03/2021 10:15:00 AM EDT - 06/03/2021 10:15:00 AM EDT [facility] ([facility]) Attender: Dasha Mo 06/03/2021 12:00:00 A M EDT [facility] ([facility]) [id number]"Psychotherapy [facility]: [facility]21 09:15:00 AM EDT - 05/19/2021 09:15:00 AM EDT [facility] ([facility]) Attender: Dasha Mo 05/19/2021 12:00:00 A M EDT [facility] ([facility]) Outpatient Attender: Kameron Shi NP [facility] 04/28/2021 11:00:00 AM EDT - 04/28/2021 11:00:00 AM EDT [facility] ([facility]) Attender: Kameron Shi NP 04/28/2021 12:00:00 AM EDT [facility] ([facility]) Extended Individual Psychotherapy - 45 min Attender: Lazaro Brumfieldbecca [facility] 03/18/2021 09:00:00 AM EDT - 03/18/2021 09:00:00 AM EDT [facility] ([facility]) Attender: Dasha Mo 03/18/2021 12:00:00 A M EDT [facility] ([facility]) Outpatient Attender: Lisa Martinez [facility]-SOFTWARE VALIDATION TECHNICIAN [facility] 02/22/2021 02:30:00 AM EDT - 02/22/2021 02:30:00 AM EDT [facility] ([facility]) Attender: Lisa SMITH-SOFTWARE VALIDATION TECHNICIAN 02/22/2021 12: 00:00 AM EDT [facility] ([facility]) ( PO) [facility] Post Op [address] [place] [address] 02/17/2021 12:00:00 AM EDT eCW1 ([facility]) Attender: Dasha Mo 02/10/2021 12:00:00 A M EDT [facility] ([facility]) [id number]"Psychotherapy Attender: Dasha Mo Jose M [facility] 02/09/2021 02:15:00 AM EDT - 02/09/2021 02:15:00 AM EDT [facility] ([facility]) Unknown [address], [facility] [address] 02/09/2021 12:00:00 AM EDT eCW1 ([facility]) Outpatient Attender: Lisa Martinez [facility]-SOFTWARE VALIDATION TECHNICIAN [facility] 02/08/2021 10:00:00 AM EDT - 02/08/2021 10:00:00 AM EDT [facility] ([facility]) Attender: Lisa SMITH-QUENTIN 02/08/2021 12: 00:00 AM EDT [facility] ([facility]) Unknown [address] [facility] [address] 02/05/2021 12:00:00 AM EDT eCW1 ([facility]) Outpatient Referrer: Nanette Sarah MD 02/02/2021 12:00:00 AM [facility] Outpatient Attender: FEDERICA SINGHReferrer: Nanette Sarah MD 02/02/2021 12:00:00 AM [facility] [id number]"Psychotherapy Attender: Dasha Wisemaners [facility] 01/27/2021 09:00:00 AM EDT - 01/27/2021 09:00:00 AM EDT [facility] ([facility]) Attender: Dasha Mo 01/27/2021 12:00:00 A M EDT [facility] ([facility]) (WC COB) [facility] [address] [place] [address] 01/26/2021 12:00:00 AM EDT eCW1 ([facility]) Unknown [address], [facility] [address] 01/18/2021 12:00:00 AM EDT eCW1 ([facility]) [place] [address] [address] 01/14/2021 12:00:00 AM EDT eCW1 ([facility]) ( ESTOB) [facility] Est OB [address] [place] [address] 01/13/2021 12:00:00 AM EDT eCW1 ([facility]) [place] [address] [address] 01/10/2021 12:00:00 AM EDT eCW1 ([facility]) ( ESTOB) [facility] Est OB [address] [place] [address] 12/29/2020 12:00:00 AM EDT eCW1 ([facility]) Extended Individual Psychotherapy - 45 min Attender: Lazaro Mo [facility] 12/27/2020 02:15:00 AM EDT - 12/27/2020 02:15:00 AM EDT [facility] ([facility]) Unknown [address] [address] 12/27/2020 12:00:00 AM EDT eCW1 ([facility]) Attender: Dasha Mo 12/27/2020 12:00:00 A M EDT [facility] ([facility]) Outpatient Attender: FUAD Murray 12/15/2020 04:35:00 PM EDT [facility] ([facility]) Extended Individual Psychotherapy - 45 min Attender: Lazaro Mo [facility] 12/13/2020 09:00:00 AM EDT - 12/13/2020 09:00:00 AM EDT [facility] ([facility]) Attender: Dasha Mo 12/13/2020 12:00:00 A M EDT [facility] ([facility]) Extended Individual Psychotherapy - 45 min Attender: Lazaro Mo [facility] 12/10/2020 11:45:00 AM EDT - 12/10/2020 11:45:00 AM EDT [facility] ([facility]) Attender: Dasha Mo 12/10/2020 12:00:00 A M EDT [facility] ([facility]) ( ESTOB) [facility] Est OB [address] [place] [address] 11/29/2020 12:00:00 AM EDT eCW1 ([facility]) [id number]"Psychotherapy Att[facility]: [facility] 11/12/2020 09:15:00 AM EST - 11/12/2020 09:15:00 AM EST [facility] ([facility]) Attender: Dasha Mo 11/12/2020 12:00:00 A M EST [facility] ([facility]) ( 1PN) [facility] 1st [address] [place] [address] 11/09/2020 12:00:00 AM EST eCW1 ([facility]) Outpatient Attender: HECTOR HOWARD MD Main Office 11/05/2020 09:45:00 AM EST [facility] ([facility]) Outpatient Attender: Lisa Martinez [facility]-QUENTIN WisemanAnthonykrys freeman [facility] 10/28/2020 11:30:00 AM EST - 10/28/2020 11:30:00 AM EST [facility] ([facility]) Attender: Lisa ROYAL 10/28/2020 12: 00:00 AM EST [facility] ([facility]) Outpatient Attender: Lisa SMITHETIENNE Blackburn y [facility] 10/19/2020 09:00:00 AM EST - 10/19/2020 09:00:00 AM EST [facility] ([facility]) Attender: Lisa ROYAL 10/19/2020 12: 00:00 AM EST [facility] ([facility]) [id number]"Psychotherapy Attender: Dasha Mo Jose M [facility] 10/18/2020 09:30:00 AM EST - 10/18/2020 09:30:00 AM EST [facility] ([facility]) Attender: Dasha Mo 10/18/2020 12:00:00 A M EST [facility] ([facility]) ( ESTOB) [facility] Est OB [address] [place] [address] 10/13/2020 12:00:00 AM EST eCW1 ([facility]) Outpatient Attender: Lisa Martinez [facility]-SOFTWARE VALIDATION TECHNICIAN [facility] 10/06/2020 10:00:00 AM EST - 10/06/2020 10:00:00 AM EST [facility] ([facility]) Attender: Lisa Martinez [facility]-SOFTWARE VALIDATION TECHNICIAN 10/06/2020 12: 00:00 AM EST [facility] ([facility]) [id number]"Psychotherapy [facility]: [facility]/2020 09:45:00 AM EST - 09/20/2020 09:45:00 AM EST [facility] ([facility]) Attender: Dasha Mo 09/20/2020 12:00:00 A M EST [facility] ([facility]) Attender: Dasha Mo 09/14/2020 12:00:00 A M EST [facility] ([facility]) TEMPMHCTelemed 30" Psychotherapy Attender: Dasha Mo [facility] 09/13/2020 03:30:00 AM EST - 09/13/2020 03:30:00 AM EST [facility] ([facility]) Attender: Dasha Mo 09/03/2020 12:00:00 A M EST [facility] ([facility]) TEMPMHCTelemed 30" Psychotherapy Attender: Dasha Fabian [facility] 09/02/2020 04:15:00 AM EST - 09/02/2020 04:15:00 AM EST [facility] ([facility]) Outpatient Attender: Lisa SMITHETIENNE Anthony freeman [facility] 08/26/2020 10:30:00 AM EST - 08/26/2020 10:30:00 AM EST [facility] ([facility]) Attender: Lisa ROYAL 08/26/2020 12: 00:00 AM EST [facility] ([facility]) Attender: Dasha Mo 08/17/2020 12:00:00 A M EST [facility] ([facility]) Extended Individual Psychotherapy - 45 min [facility] 08/16/2020 10:45:00 AM EST - 08/16/2020 10:45:00 AM EST [facility] ([facility]) Extended Individual Psychotherapy - 45 min [facility] 07/26/2020 09:00:00 AM EST - 07/26/2020 09:00:00 AM EST [facility] ([facility]) Attender: Dasha Mo 07/26/2020 12:00:00 A M EST [facility] ([facility]) Outpatient Attender: Lisa SMITHETIENNE Anthony freeman [facility] 07/21/2020 11:00:00 AM EST - 07/21/2020 11:00:00 AM EST [facility] ([facility]) Attender: Lisa ROYAL 07/21/2020 12: 00:00 AM EST [facility] ([facility]) Extended Individual Psychotherapy - 45 min [facility] 07/16/2020 08:00:00 AM EDT - 07/16/2020 08:00:00 AM EDT [facility] ([facility]) Attender: Dasha Mo 07/16/2020 12:00:00 A M EDT [facility] ([facility]) Extended Individual Psychotherapy - 45 min Attender: Lazaro Brumfieldbecca [facility] 07/01/2020 09:00:00 AM EDT - 07/01/2020 09:00:00 AM EDT [facility] ([facility]) Attender: Dasha Mo 07/01/2020 12:00:00 A M EDT [facility] ([facility]) Emergency Attender: JARED MONTAÑO EMERGENCY ROOM-ER 10:24:00 PM EDT - 05/31/2019 01:05:[address] [facility] Patient discharged. Functional Status Immunizations Vaccine Date Status Description Data Source(s) COVID-19 VACCINE Pfizer 05/16/2021 12:00:00 AM EDT completed [place] Vaccine Series Complete: YESThis Data wa s Submitted to [facility] Via [employer]. TB Skin test is not vaccine. 12/15/2020 04:45:00 PM EDT completed [facility] ([facility]) COVID-19 VACCINE Pfizer 09/29/2020 12:00:00 AM EST completed [place] Vaccine Series Complete: NOThis Data was Submitted to [facility] Via [employer]. Medications Medication Brand Name Start Date Product Form Dose Route Admi nistrative Instructions Pharmacy Instructions Status Indications Reaction Description Data Source(s) lamotrigine 150 MG Oral Tablet lamotrigine 06/24/2021 12:00:00 AM EDT 150 mg by mouth completed <td ID="Medica tionRxNorm_3">686316</td><td ID="MedicationMedication_3">lamotrigine</td><td ID="MedicationRoute_3">by mouth</td><td ID="MedicationRouteConcept_3">K85072</td><td ID="MedicationStartDate_3">06/24/2021</td><td ID="MedicationStopDate_3">08/23/2021</td><td ID="MedicationDosageFrequency_3">twice a day</td><td ID="MedicationDuration_3">30</td><td ID="MedicationFormulaStrength_3">150 mg</td><td ID="MedicationDosageForm_3">tablet</td><td ID="MedicationDosageFormCode_3"></td><td ID="MedicationDosageDescription_3"></td><td ID="MedicationMedicationId_3">[id number]</td><td ID="MedicationAccount_3">[id number]</td><td ID="MedicationNpid_3">[id number]</td><td ID="MedicationAuthorFirstName_3">Kameron</td><td ID="MedicationAuthorLastName_3">Shi</td><td ID="MedicationTaxonomyCode_3">[id number]</td><td ID="MedicationTaxonomyDesc_3">Nurse Practitioner</td><td ID="MedicationPhoneNumber_3">[phone]</td> [facility] ([facility]) lamotrigine 150 MG Oral Tablet lamotrigine 06/24/2021 12:00:00 AM EDT 150 mg by mouth completed <td ID="Medica tionRxNorm_2">782893</td><td ID="MedicationMedication_2">lamotrigine</td><td ID="MedicationRoute_2">by mouth</td><td ID="MedicationRouteConcept_2">R89725</td><td ID="MedicationStartDate_2">06/24/2021</td><td ID="MedicationStopDate_2">08/23/2021</td><td ID="MedicationDosageFrequency_2">twice a day</td><td ID="MedicationDuration_2">30</td><td ID="MedicationFormulaStrength_2">150 mg</td><td ID="MedicationDosageForm_2">tablet</td><td ID="MedicationDosageFormCode_2"></td><td ID="MedicationDosageDescription_2"></td><td ID="MedicationMedicationId_2">[id number]</td><td ID="MedicationAccount_2">[id number]</td><td ID="MedicationNpid_2">[id number]</td><td ID="MedicationAuthorFirstName_2">Kameron</td><td ID="MedicationAuthorLastName_2">Shi</td><td ID="MedicationTaxonomyCode_2">[id number]</td><td ID="MedicationTaxonomyDesc_2">Nurse Practitioner</td><td ID="MedicationPhoneNumber_2">[phone]</td> [facility] ([facility]) Amphetamine aspartate 5 MG / Amphetamine Sulfate 5 MG / Dextroamphetamine saccharate 5 MG / Dextroamphetamine Sulfate 5 MG Oral Tablet dextroamphetamine-amphetamine 06/06/2021 12:00:00 AM EDT 20 mg by mouth completed <td ID="MedicationRx Norm_2">679815</td><td ID="MedicationMedication_2">dextroamphetamine-amphetamine</td><td ID="MedicationRoute_2">by mouth</td><td ID="MedicationRouteConcept_2"> R70986</td><td ID="MedicationStartDate_2">06/06/2021</td><td ID="MedicationStopDate_2">08/03/2021</td><td ID="MedicationDosageFrequency_2">twice a day</td><td ID="MedicationDuration_2">30</td><td ID="MedicationFormulaStrength_2">20 mg</td><td ID="MedicationDosageForm_2">tablet</td><td ID="MedicationDosageFormCode_2"></td><td ID="MedicationDosageDescription_2"></td><td ID="MedicationMedicationId_2">[id number]</td><td ID="MedicationAccount_2">[id number]</td><td ID="MedicationNpid_2">[id number]</td><td ID="MedicationAuthorFirstName_2">Latricia</td><td ID="MedicationAuthorLastName_2">Alberto</td><td ID="MedicationTaxonomyCode_2">[id number]</td><td ID="MedicationTaxonomyDesc_2"> Nurse Practitioner</td><td ID="MedicationPhoneNumber_2">[phone]</td> [facility] ([facility]) Amphetamine aspartate 5 MG / Amphetamine Sulfate 5 MG / Dextroamphetamine saccharate 5 MG / Dextroamphetamine Sulfate 5 MG Oral Tablet dextroamphetamine-amphetamine 06/06/2021 12:00:00 AM EDT 20 mg by mouth completed <td ID="MedicationRx Norm_3">005139</td><td ID="MedicationMedication_3">dextroamphetamine-amphetamine</td><td ID="MedicationRoute_3">by mouth</td><td ID="MedicationRouteConcept_3"> W09510</td><td ID="MedicationStartDate_3">06/06/2021</td><td ID="MedicationStopDate_3">08/03/2021</td><td ID="MedicationDosageFrequency_3">twice a day</td><td ID="MedicationDuration_3">30</td><td ID="MedicationFormulaStrength_3">20 mg</td><td ID="MedicationDosageForm_3">tablet</td><td ID="MedicationDosageFormCode_3"></td><td ID="MedicationDosageDescription_3"></td><td ID="MedicationMedicationId_3">[id number]</td><td ID="MedicationAccount_3">[id number]</td><td ID="MedicationNpid_3">[id number]</td><td ID="MedicationAuthorFirstName_3">Latricia</td><td ID="MedicationAuthorLastName_3">Alberto</td><td ID="MedicationTaxonomyCode_3">[id number]</td><td ID="MedicationTaxonomyDesc_3"> Nurse Practitioner</td><td ID="MedicationPhoneNumber_3">[phone]</td> [facility] ([facility]) [place] Carbonate 300 MG Oral Capsule lithium carbonate 12:00:00 AM EDT 300 mg by mouth completed <td ID="MedicationRxNorm_1">433704</td><td ID="MedicationMedication_1">lithium carbonate</td><td ID="MedicationRoute_1">by mouth</td><td ID="MedicationRouteConcept_1">R98843</td><td ID="MedicationStartDate_1">03/07/2021</td><td ID="MedicationStopDate_1"></td><td ID="MedicationDosageFrequency_1">at bedtime</td><td ID="MedicationDuration_1"></td><td ID="MedicationFormulaStrength_1">300 mg</td><td ID="MedicationDosageForm_1">capsule</td><td ID="MedicationDosageFormCode_1"></td><td ID="MedicationDosageDescription_1"></td><td ID="MedicationMedicationId_1">[id number]</td><td ID="MedicationAccount_1">[id number]</td><td ID="MedicationNpid_1">[id number]</td><td ID="MedicationAuthorFirstName_1">Kameron</td><td ID="MedicationAuthorLastName_1">Shi</td><td ID="MedicationTaxonomyCode_1">[id number]</td><td ID="MedicationTaxonomyDesc_1">Nurse Practitioner</td><td ID="MedicationPhoneNumber_1">[phone]</td> [facility] ([facility]) Hydroxyzine Hydrochloride 10 MG Oral Tablet hydroxyzine HCl 02/22/2021 12:00:00 AM EDT 10 mg by mouth completed <td ID="MedicationRxNorm_3">086899</td><td ID="MedicationMedication_3">hydroxyzine HCl</td><td ID="MedicationRoute_3">by mouth</td><td ID="MedicationRouteConcept_3">A93269</td><td ID="MedicationStartDate_3">02/22/2021</td><td ID="MedicationStopDate_3">04/23/2021</td><td ID="MedicationDosageFrequency_3">three times a day</td><td ID="MedicationDuration_3">30</td><td ID="MedicationFormulaStrength_3">10 mg</td><td ID="MedicationDosageForm_3">tablet</td><td ID="MedicationDosageFormCode_3"></td><td ID="MedicationDosageDescription_3">as needed</td><td ID="MedicationMedicationId_3">[id number]</td><td ID="MedicationAccount_3">[id number]</td><td ID="MedicationNpid_3">[id number]</td><td ID="MedicationAuthorFirstName_3">Lisa</td><td ID="MedicationAuthorLastName_3">[place]</td><td ID="MedicationTaxonomyCode_3">[id number]</td><td ID="MedicationTaxonomyDesc_3">Psychiatric/Mental Health</td><td ID="MedicationPhoneNumber_3">[phone]</td> [facility] ([facility]) Acetaminophen 325 MG / Oxycodone Hydroch loride 5 MG Oral Tablet [Percocet] Percocet 5-325 MG Percocet 5-325 MG 02/09/2021 12:00:00 AM EDT 1 .0 {tablet_as_needed} active Percocet 5-32 5 MG eCW1 ([facility]) Acetaminophen 325 MG / Oxycodone Hydroch loride 5 MG Oral Tablet [Percocet] Percocet 5-325 MG Percocet 5-325 MG 02/09/2021 12:00:00 AM EDT 1 .0 {tablet_as_needed} active Percocet 5-32 5 MG [facility] [place]) Acetaminophen 325 MG / Oxycodone Hydroch loride 5 MG Oral Tablet [Percocet] Percocet 5-325 MG Percocet 5-325 MG 02/09/2021 12:00:00 AM EDT 1 .0 {tablet_as_needed} active Percocet 5-32 5 MG eCW1 ([facility]) Hydroxyzine Hydrochloride 25 MG Oral Tablet hydroxyzine HCl 02/08/2021 12:00:00 AM EDT 25 mg by mouth completed <td ID="MedicationRxNorm_2">772110</td><td ID="MedicationMedication_2">hydroxyzine HCl</td><td ID="MedicationRoute_2">by mouth</td><td ID="MedicationRouteConcept_2">O19748</td><td ID="MedicationStartDate_2">02/08/2021</td><td ID="MedicationStopDate_2">04/09/2021</td><td ID="MedicationDosageFrequency_2">three times a day</td><td ID="MedicationDuration_2">30</td><td ID="MedicationFormulaStrength_2">25 mg</td><td ID="MedicationDosageForm_2">tablet</td><td ID="MedicationDosageFormCode_2"></td><td ID="MedicationDosageDescription_2">as needed</td><td ID="MedicationMedicationId_2">[id number]</td><td ID="MedicationAccount_2">[id number]</td><td ID="MedicationNpid_2">[id number]</td><td ID="MedicationAuthorFirstName_2">Lisa</td><td ID="MedicationAuthorLastName_2">Juan</td><td ID="MedicationTaxonomyCode_2">[id number]</td><td ID="MedicationTaxonomyDesc_2">Psychiatric/Mental Health</td><td ID="MedicationPhoneNumber_2">[phone]</td> [facility] ([facility]) lamotrigine 150 MG Oral Tablet [Lamictal] Lamictal 11/04/2020 1 2:00:00 AM EST ORAL active [facility] ([facility]) Amphetamine aspartate 5 MG / Amphetamine Sulfate 5 MG / Dextroamphetamine saccharate 5 MG / Dextroamphetamine Sulfate 5 MG Oral Tablet dextroamphetamine-amphetamine 08/05/2020 12:00:00 AM EST 20 mg by mouth completed <td ID="MedicationRx Norm_4">459399</td><td ID="MedicationMedication_4">dextroamphetamine-amphetamine</td><td ID="MedicationRoute_4">by mouth</td><td ID="MedicationRouteConcept_4"> Z64321</td><td ID="MedicationStartDate_4">08/05/2020</td><td ID="MedicationStopDate_4">10/04/2020</td><td ID="MedicationDosageFrequency_4">twice a day</td><td ID="MedicationDuration_4">30</td><td ID="MedicationFormulaStrength_4">20 mg</td><td ID="MedicationDosageForm_4">tablet</td><td ID="MedicationDosageFormCode_4"></td><td ID="MedicationDosageDescription_4"></td><td ID="MedicationMedicationId_4">[id number]</td><td ID="MedicationAccount_4">[id number]</td><td ID="MedicationNpid_4">[id number]</td><td ID="MedicationAuthorFirstName_4">Lisa</td><td ID="MedicationAuthorLastName_4">Juan</td><td ID="MedicationTaxonomyCode_4">[id number]</td><td ID="MedicationTaxonomyDesc_4"> Psychiatric/Mental Health</td><td ID="MedicationPhoneNumber_4">[phone]</td> [facility] ([facility]) [place] Carbonate 300 MG Oral Capsule lithium carbonate 12:00:00 AM EST 300 mg by mouth completed <td ID="MedicationRxNorm_2">570187</td><td ID="MedicationMedication_2">lithium carbonate</td><td ID="MedicationRoute_2">by mouth</td><td ID="MedicationRouteConcept_2">D86106</td><td ID="MedicationStartDate_2">07/21/2020</td><td ID="MedicationStopDate_2"></td><td ID="MedicationDosageFrequency_2">every night</td><td ID="MedicationDuration_2"></td><td ID="MedicationFormulaStrength_2">300 mg</td><td ID="MedicationDosageForm_2">capsule</td><td ID="MedicationDosageFormCode_2"></td><td ID="MedicationDosageDescription_2"></td><td ID="MedicationMedicationId_2">[id number]</td><td ID="MedicationAccount_2">[id number]</td><td ID="MedicationNpid_2">[id number]</td><td ID="MedicationAuthorFirstName_2">Lisa</td><td ID="MedicationAuthorLastName_2">[place]</td><td ID="MedicationTaxonomyCode_2">[id number]</td><td ID="MedicationTaxonomyDesc_2">Psychiatric/Mental Health</td><td ID="MedicationPhoneNumber_2">[phone]</td> [facility] ([facility]) [place] Carbonate 300 MG Oral Capsule lithium carbonate 12:00:00 AM EST 300 mg by mouth completed <td ID="MedicationRxNorm_3">788539</td><td ID="MedicationMedication_3">lithium carbonate</td><td ID="MedicationRoute_3">by mouth</td><td ID="MedicationRouteConcept_3">R65264</td><td ID="MedicationStartDate_3">07/21/2020</td><td ID="MedicationStopDate_3"></td><td ID="MedicationDosageFrequency_3">every night</td><td ID="MedicationDuration_3"></td><td ID="MedicationFormulaStrength_3">300 mg</td><td ID="MedicationDosageForm_3">capsule</td><td ID="MedicationDosageFormCode_3"></td><td ID="MedicationDosageDescription_3"></td><td ID="MedicationMedicationId_3">[id number]</td><td ID="MedicationAccount_3">[id number]</td><td ID="MedicationNpid_3">[id number]</td><td ID="MedicationAuthorFirstName_3">Lisa</td><td ID="MedicationAuthorLastName_3">[place]</td><td ID="MedicationTaxonomyCode_3">[id number]</td><td ID="MedicationTaxonomyDesc_3">Psychiatric/Mental Health</td><td ID="MedicationPhoneNumber_3">[phone]</td> [facility] ([facility]) lamotrigine 150 MG Oral Tablet lamotrigine 04/13/2020 12:00:00 AM EDT 150 mg by mouth completed <td ID="Medica tionRxNorm_1">566337</td><td ID="MedicationMedication_1">lamotrigine</td><td ID="MedicationRoute_1">by mouth</td><td ID="MedicationRouteConcept_1">E81311</td><td ID="MedicationStartDate_1">04/13/2020</td><td ID="MedicationStopDate_1">04/09/2021</td><td ID="MedicationDosageFrequency_1">twice a day</td><td ID="MedicationDuration_1">30</td><td ID="MedicationFormulaStrength_1">150 mg</td><td ID="MedicationDosageForm_1">tablet</td><td ID="MedicationDosageFormCode_1"></td><td ID="MedicationDosageDescription_1"></td><td ID="MedicationMedicationId_1">[id number]</td><td ID="MedicationAccount_1">[id number]</td><td ID="MedicationNpid_1">[id number]</td><td ID="MedicationAuthorFirstName_1">Lisa</td><td ID="MedicationAuthorLastName_1">[place]</td><td ID="MedicationTaxonomyCode_1">[id number]</td><td ID="MedicationTaxonomyDesc_1">Psychiatric/Mental Health</td><td ID="MedicationPhoneNumber_1">[phone]</td> [facility] ([facility]) Insurance Providers Payer name Policy type / Coverage type Policy ID Covered republican ID Covered republican's relationship to johnson Policy Johnson Plan Information MEDICAID M [id number] Self [id number] Family [employer] Plus Commercial [id number] Self [id number] EXCELL C [id number] Self [id number] [facility] I [id number] Self [id number] [facility] MEDICAID [id number] S [id number] UNHC COMMUNITY PLAN MCDHMO [id number] SP [id number] UNHC COMMUNITY PLAN MCDHMO [id number] SP [id number] UNHC AMERICHOICE XIX -HMO [id number] 18 [id number] [facility] Communty Plan Medicaid [id number] Self [id number] [facility] COMMUNTY PLAN [id number] 18 [id number] UNHC COMMUNITY PLAN XIX [id number] 18 [id number] [facility] Community Plan Medigap Part B [id number] Self [id number] [facility] Community Plan Medicaid [id number] Self [id number] [facility] COMMUNITY PLAN [id number] 18 [id number] MEMIC SSV W/C [id number] SP [id number] MEMIC SSV W/C UNAVAILABLE SP UNAV AILABLE OTHER WORKERS COMPENSATION DOI - 06/13/14 SP DOI - 06/13/14 HMO BLUE [id number] SP [id number] [employer] [place] PPO [id number] SP [id number] BLUE CROSS BLUE SHIELD-CLINIC [id number] 18 [id number] BLUE CROSS BLUE SHIELD-PHYSICIAN [id number] 18 [id number] BLUE CROSS BLUE SHIELD-O/P [id number] 18 [id number] [facility] COMMUNITY PLAN [facility] [id number] SP [id number] [facility] MEDICAID [id number] S [id number] SELF PAY [id number] S [id number] [facility] PLAN [facility] [id number] SP [id number] SELF PAY ONLY [id number] SP [id number] [facility](MCAID) O [id number] S [id number] [facility] Communty Plan Medicaid [id number] Self [id number] Problems, Conditions, and Diagnoses Code Display Name Description Problem Type Effective Dates Data Source(s) Z90.89 Acquired absence of other organs ACQUIRED ABSENC E OF OTHER ORGANS Diagnosis 07/02/2021 09:14:00 AM [facility] Z79.899 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 ([place], [place]) ospital J39.2 Other diseases of pharynx OTHER DISEASES OF PHARYNX Di agnosis 07/02/2021 09:14:00 AM [facility] R07.0 Pain in throat PAIN IN THROAT Diagnosis 07/02/2021 09:14: 00 AM [facility] Z20.822 CONTACT WITH AND (SUSPECTED) EXPOSURE TO COVID-19 CONTACT WITH AND (SUSPECTED) EXPOSURE TO COVID-19 Diagnosis 06/30/2021 03:07:00 AM [facility] J38.7 Other diseases of larynx OTHER DISEASES OF LARYNX Diag nosis 06/30/2021 03:07:00 AM [facility] J38.4 Edema of larynx EDEMA OF LARYNX Diagnosis 06/30/2021 03:0 7:00 AM [facility] R22.0 Localized swelling, mass and lump, head LOCALIZED SWELLING, MASS AND LUMP, HEAD Diagnosis 06/30/2021 03[facility]07[facility] Z3A.11 Gestation period, 11 weeks 11 weeks gestation of pregn sofie Problem 11/09/2020 12:00:00 AM EST eCW1 ([facility]) O10.919 Benign essential hypertension in obstetr ic context Chronic hypertension affecting Problem 11/09/2020 12:00:00 AM EST eCW1 ([facility]) F43.9 Reaction to severe stress, unspecified 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 10/19/2020 12:00:00 AM EST [facility] ([facility]) F90.9 Attention-deficit hyperactivity disorder , unspecified type Unspecified Attention-Deficit/Hyperactivity Disorder Condition 10/19/2020 12:00:00 AM EST [facility] ([facility]) F25.1 Schizoaffective disorder, depressive typ e Schizoaffective Disorder, Depressive type Condition 10/19/2020 12:00:00 AM EST [facility] ([facility]) Z34.80 care Supervision of other normal P roblem 10/13/2020 12:00:00 AM EST eCW1 ([facility]) O99.211 Obesity complicating , first tr imester Obesity complicating in first trimester Problem 10/13/2020 12:00:00 AM EST eCW1 ([facility]) Surgeries/Procedures Procedure Description Date Indications Data Source(s) [id number]"Psychotherapy 12:00:00 AM EDT - 07/21/2021 12:00:00 AM EDT [facility] ([facility]) [id number]"Psychotherapy 07/20/2021 12:00:00 AM EDT [facility] ([facility]) MHC Telemed E/M Lvl 3--Est pt 07/20/2021 12:00:00 AM EDT - 07/20/2021 12:00:00 AM EDT [facility] ([facility]) MHC Telemed E/M Lvl 3--Est pt 07/20/2021 12:00:00 AM E DT [facility] ([facility]) MHC Telemed E/M Lvl 3--Est pt 06/08/2021 12:00:00 AM EDT - 06/08/2021 12:00:00 AM EDT [facility] ([facility]) MHC Telemed E/M Lvl 3--Est pt 06/08/2021 12:00:00 AM E DT [facility] ([facility]) TEMPMHCTelemed 30" Psychotherapy 021 12:00:00 AM EDT - 06/03/2021 12:00:00 AM EDT [facility] ([facility]) TEMPMHCTelemed 30" Psychotherapy 06/03/2021 12:00:00 A M EDT [facility] ([facility]) [id number]"Psychotherapy 12:00:00 AM EDT - 05/19/2021 12:00:00 AM EDT [facility] ([facility]) [id number]"Psychotherapy 05/19/2021 12:00:00 AM EDT [facility] ([facility]) MHCTelemed E/M Lvl 4--Est pt 04/28/2021 12:00:00 AM EDT - 04/28/2021 12:00:00 AM EDT [facility] ([facility]) MHCTelemed E/M Lvl 4--Est pt 04/28/2021 12:00:00 AM ED T [facility] ([facility]) Extended Individual Psychotherapy - 45 min 03/18/2021 12:00:00 AM EDT - 03/18/2021 12:00:00 AM EDT [facility] ([facility]) Extended Individual Psychotherapy - 45 min 12:00:00 AM EDT [facility] ([facility]) MHCTelemed E/M Lvl 4--Est pt 02/22/2021 12:00:00 AM EDT - 02/22/2021 12:00:00 AM EDT [facility] ([facility]) MHCTelemed E/M Lvl 4--Est pt 02/22/2021 12:00:00 AM ED T [facility] ([facility]) [id number]"Psychotherapy 12:00:00 AM EDT - 02/10/2021 12:00:00 AM EDT [facility] ([facility]) [id number]"Psychotherapy 02/09/2021 12:00:00 AM EDT [facility] ([facility]) MHCTelemed E/M Lvl 4--Est pt 02/08/2021 12:00:00 AM EDT - 02/08/2021 12:00:00 AM EDT [facility] ([facility]) MHCTelemed E/M Lvl 4--Est pt 02/08/2021 12:00:00 AM ED T [facility] ([facility]) [id number]"Psychotherapy 12:00:00 AM EDT - 01/27/2021 12:00:00 AM EDT [facility] ([facility]) [id number]"Psychotherapy 01/27/2021 12:00:00 AM EDT [facility] ([facility]) Extended Individual Psychotherapy - 45 min 12/27/2020 12:00:00 AM EDT - 12/27/2020 12:00:00 AM EDT [facility] ([facility]) Extended Individual Psychotherapy - 45 min 12:00:00 AM EDT [facility] ([facility]) Extended Individual Psychotherapy - 45 min 12/13/2020 12:00:00 AM EDT - 12/13/2020 12:00:00 AM EDT [facility] ([facility]) Extended Individual Psychotherapy - 45 min 12:00:00 AM EDT [facility] ([facility]) Extended Individual Psychotherapy - 45 min 12/10/2020 12:00:00 AM EDT - 12/10/2020 12:00:00 AM EDT [facility] ([facility]) Extended Individual Psychotherapy - 45 min 12:00:00 AM EDT [facility] ([facility]) [id number]"Psychotherapy 12:00:00 AM EST - 11/12/2020 12:00:00 AM EST [facility] ([facility]) [id number]"Psychotherapy 11/12/2020 12:00:00 AM EST [facility] ([facility]) ECG ROUTINE ECG W/LEAST 12 LDS W/I&R 11/05/2020 12:00: 00 AM EST [facility] ([facility]) MHC Telemed E/M Lvl 3--Est pt 10/28/2020 12:00:00 AM EST - 10/28/2020 12:00:00 AM EST [facility] ([facility]) Telemed A/O 30" 10/28/2020 12:00:00 AM EST [facility] ([facility]) MHC Telemed E/M Lvl 3--Est pt 10/28/2020 12:00:[address] [facility] ([facility]) MHC Telemed E/M Lvl 3--Est pt 10/19/2020 12:00:00 AM EST - 10/19/2020 12:00:00 AM EST [facility] ([facility]) Telemed A/O 30" 10/19/2020 12:00:00 AM EST [facility] ([facility]) MHC Telemed E/M Lvl 3--Est pt 10/19/2020 12:00:[address] [facility] ([facility]) [id number]"Psychotherapy 12:00:00 AM EST - 10/18/2020 12:00:00 AM EST [facility] ([facility]) [id number]"Psychotherapy 10/18/2020 12:00:00 AM EST [facility] ([facility]) MHC Telemed E/M Lvl 3--Est pt 10/06/2020 12:00:00 AM EST - 10/06/2020 12:00:00 AM EST [facility] ([facility]) Telemed A/O 30" 10/06/2020 12:00:00 AM EST [facility] ([facility]) MHC Telemed E/M Lvl 3--Est pt 10/06/2020 12:00:[address] [facility] ([facility]) [id number]"Psychotherapy 12:00:00 AM EST - 09/20/2020 12:00:00 AM EST [facility] ([facility]) [id number]"Psychotherapy 09/20/2020 12:00:00 AM EST [facility] ([facility]) TEMPMHCTelemed 30" Psychotherapy 12:00:00 AM EST - 09/14/2020 12:00:00 AM EST [facility] ([facility]) TEMPMHCTelemed 30" Psychotherapy 09/13/2020 12:00:00 A M EST [facility] ([facility]) TEMPMHCTelemed 30" Psychotherapy 12:00:00 AM EST - 09/03/2020 12:00:00 AM EST [facility] ([facility]) TEMPMHCTelemed 30" Psychotherapy 09/02/2020 12:00:00 A M EST [facility] ([facility]) OFFICE OUTPATIENT VISIT 15 MINUTES 08/26 12:00:00 AM EST - 08/26/2020 12:00:00 AM EST [facility] ([facility]) Psychotherapy ADD ON - 30 Minutes 08/26/2020 12:00:00 AM EST [facility] ([facility]) OFFICE OUTPATIENT VISIT 15 MINUTES 08/26/2020 12:00:00 AM EST [facility] ([facility]) Extended Individual Psychotherapy - 45 min 08/17/2020 12:00:00 AM EST - 08/17/2020 12:00:00 AM EST [facility] ([facility]) Extended Individual Psychotherapy - 45 min 0 12:00:00 AM EST [facility] ([facility]) Extended Individual Psychotherapy - 45 min 07/26/2020 12:00:00 AM EST - 07/26/2020 12:00:00 AM EST [facility] ([facility]) Extended Individual Psychotherapy - 45 min 0 12:00:00 AM EST [facility] ([facility]) MHC Telemed E/M Lvl 3--Est pt 07/21/2020 12:00:00 AM EST - 07/21/2020 12:00:00 AM EST [facility] ([facility]) Telemed A/O 30" 07/21/2020 12:00:00 AM EST [facility] ([facility]) MHC Telemed E/M Lvl 3--Est pt 07/21/2020 12:00:[address] [facility] ([facility]) Extended Individual Psychotherapy - 45 min 07/16/2020 12:00:00 AM EDT - 07/16/2020 12:00:00 AM EDT [facility] ([facility]) Extended Individual Psychotherapy - 45 min 0 12:00:00 AM EDT [facility] ([facility]) Extended Individual Psychotherapy - 45 min 07/01/2020 12:00:00 AM EDT - 07/01/2020 12:00:00 AM EDT [facility] ([facility]) Extended Individual Psychotherapy - 45 min 12:00:00 AM EDT [facility] ([facility]) Results ID Date Data Source [id number] 07/11/2021 03:47:00 AM EDT [facility] Patient: ALBINO SINGH [facility] HealthVisitID: [id number] [place] [address] [phone], FRegistration Date/Time: 06/30/2021 02:23 Weight:107 kg (S). Height/Length:63 inches (S). BMI:41.8 PAST HISTORYProblems:Bipolar Disorder [Chronic].ADHD - Attention Deficit Hyperactivity Disorder [Chronic].Anxiety Reaction [Chronic]. Additional Surgeries:Appendectomy.C- Section. (X4)Dilatation & Curettage.Hemorrhoidectomy.Salpingectomy. Medications:[place] Carbonate ER Oral unknown dose , daily, last dose 2 nights ago .Adderall Oral (Tablet 20 mg), 2x a day, last dose yesterday .LaMICtal Oral 200mg , daily, last dose yesterday . Allergies:No Known Drug Allergy. FAMILY HISTORYNegative - denies family medical history. (Electronically signed by Braulio Sepulveda 06/30/2021 07:10) Name Value Range Interpretation Code Description Data Afua rce(s) Supporting Document(s) ID Date Data Source [id number] 07/02/2021 09:42:00 AM [facility]INGH [facility], [facility].VisitID: [id number] [place] [address] [phone], FRegistration Date/Time: 07/02/2021 08:38 Weight:104.3 kg (S). Height/Length:63 inches (S). BMI:40.7 PAST HISTORYProblems:Anxiety Reaction [Chronic].ADHD - Attention Deficit Hyperactivity Disorder [Chronic].Bipolar Disorder [Chronic]. Additional Surgeries:Appendectomy.C- Section. (X4)Dilatation & Curettage.Hemorrhoidectomy.Salpingectomy. Medications:Adderall Oral (Tablet 20 mg), 2x a day, last dose yesterday .LaMICtal Oral 200mg , daily, last dose yesterday .[place] Carbonate ER Oral unknown dose , daily, last dose 2 nights ago . Allergies:No Known Drug Allergy. FAMILY HISTORYNegative - denies family medical history. INSTRUCTIONSYour Current Medications: Your current home medications have been reviewed. CONTINUE TAKING THE FOLLOWING MEDICATIONS:Adderall Oral : Tablet 20 mg, 2x a day, Last: yesterday. LaMICtal Oral : 200mg daily, Last: yesterday. [place] Carbonate ER Oral : unknown dose daily, Last: 2 nights ago. (Electronically signed by Braulio Sepulveda 07/02/2021 09:40) Name Value Range Interpretation Code Description Data Afua rce(s) Supporting Document(s) ID Date Data Source [id number] 06/30/2021 06:02:00 AM EDT [facility] DATE OF EXAMINATION: 06/30/2021 3:05 EDT NECK W/IV CONTRAST HISTORY: Right- sided swelling TECHNIQUE: This CT exam was performed using the following dose reduction techniques:automated exposure control, adjustment of mA and or kV according to thepatient's size, and use of iterative reconstruction technique. Standard contiguous axial spiral imaging was obtained from the skull basethrough the thoracic inlet with contrast administration and with coronal andsagittal reformatting. FINDINGS: Heterogeneous somewhat phlegmonous swelling in the right oropharynx and rightparapharyngeal space extending inferiorly with asymmetric swelling to the rightside of the epiglottis and aryepiglottic folds. Findings cause deviation to theoropharynx and proximal trachea. Early forming complex abscess cannot beexcluded and findings may be secondary to recent periodontal disease andsurgical intervention. Associated reactive adenopathy is identified along withsubtle inflammatory fat stranding. The airway itself remains patent and does not appear compromised. Remainder of the examination is essentially normal. The osseous structuresappear intact. The sinuses are clear and without fluid levels. Parotid,submandibular and submental glands are relatively symmetric and unremarkable.Vascular structures are intact and symmetric. IMPRESSION: Significant soft tissue swelling with complex phlegmonous changes and possibleearly abscess formation within the right side of the oropharynx extendinginferiorly with swelling and involvement including the epiglottis andaryepiglottic folds. Findings likely infectious/inflammatory and related torecent periodontal intervention as per the given history. Electronically signed in [facility] by: Rip Kearns M.D. 06/30/2021 5:56 EDT Name Value Range Interpretation Code Description Data Afua rce(s) Supporting Document(s) ID Date Data Source [id number] 06/30/2021 05:25:00 AM EDT [facility] Name Value Range Interpretation Code Description Data Afua rce(s) Supporting Document(s) [facility] and reported by [facility]. ID Date Data Source [id number] 06/30/2021 05:41:00 AM EDT [facility] TSYSORDER [id number] Name Value Range Interpretation Code Description Data Afua rce(s) Supporting Document(s) COVID-[address] [facility] Negative results should be treated as pr esumptive and, ifinconsistent with clinical signs and symptoms or necessaryfor patient management, should be tested with differentauthorized or cleared molecular tests.Negative results do not preclude SARS-CoV-2 infection andshould not be used as the sole basis for patient managementdecisions.This is a rapid molecular isothermal nucleic acidamplification technology (NAAT) in vitro diagnostic testutilizing a loop mediated isothermal amplification (LAMP)test with nicking endonuclease amplification reaction(NEAR) intended for the qualitative detection of nucleica jacque from the SARS-CoV-2 viral RNA in direct nasal,nasopharyngeal or throat swabs from individuals who aresuspected of COVID-19.Results are for the indentification of SARS-CoV-2 RNA. YngJLRW-BtG-1 RNA is generally detectable in respiratorysamples during the actue phase of infection. ID Date Data Source [id number] 07/06/2021 09:02:00 AM EDT [facility] Name Value Range Interpretation Code Description Data Afua rce(s) Supporting Document(s) [facility] Date Data Source [id number] 06/30/2021 04:08:00 AM EDT [facility] TSYSORDER [id number] Name Value Range Interpretation Code Description Data Afua rce(s) Supporting Document(s) PARTIAL THROMBOPLASTIN TIME 25.9 SECONDS 21.2-27.[address] [facility] ID Date Data Source [id number] 06/30/2021 04:08:00 AM EDT [facility] l TSYSORDER [id number] Name Value Range Interpretation Code Description Data Afua rce(s) Supporting Document(s) PROTHROMBIN TIME (PATIENT) 9.8 SECONDS 9.1-11.6 [facility] INR 0.94 0.87-1.[address] [facility] ID Date Data Source [id number] 06/30/2021 04:01:00 AM EDT [facility] l TSYSORDER [id number] Name Value Range Interpretation Code Description Data Afua rce(s) Supporting Document(s) GLUCOSE 109 mg/dL 74-[address] [facility] BLOOD UREA NITROGEN 6 mg/dL 7-18 L [facility] ital CREATININE 0.91 mg/dL 0.6-1.[address] [facility] SODIUM 142 mmol/L 136-[address] [facility] POTASSIUM 3.8 mmol/L 3.5-5.[address] [facility] CHLORIDE 104 mmol/L 98-[address] [facility] CO2 28 mmol/L 21-[address] [facility] CALCIUM 9.4 mg/dL 8.5-10.[address] [facility] ANION GAP 10.0 mmol/L 5-[address] [facility] GLOMERULAR FILTRATION RATE 72 mL/min [facility] GFR IS CALCULATED IN mL/min/1.73m2 THOR L FUNCTION: >90MILDLY DECREASED: 60-89MILDY TO MODERATELY DECREASED: 45-59 MODERATELY TO SEVERELY DECREASED: 30-44SEVERELY DECREASED: 15-29RENAL FAILURE: <15 AST 12 U/L 15-[address] [facility] ALT 32 U/L 12-[address] [facility] ALKALINE PHOSPHATASE 88 U/L 46-116 [facility] pital TOTAL BILIRUBIN 0.4 mg/dL 0.2-1.[address] [facility] TOTAL PROTEIN 8.0 g/dl 6.4-8.[address] [facility] ALBUMIN 3.7 gm/dL 3.4-5.[address] [facility] ID Date Data Source [id number] 06/30/2021 03:51:00 AM EDT [facility] [id number] Name Value Range Interpretation Code Description Data Afua rce(s) Supporting Document(s) HCG,SERUM NEGATIVE NEGATIVE [facility] False negative results may occur when th e levels of hCG arebelow the sensitivity level of the test. If isstill suspected, a first morning urine specimen should becollected 48hrs later.This test has a sensitivity of 10mIU/mL in serum kuu75pTF/mL in urine. ID Date Data Source [id number] 06/30/2021 03:50:00 AM EDT [facility] l TSYSORDER [id number] Name Value Range Interpretation Code Description Data Afua rce(s) Supporting Document(s) WHITE BLOOD COUNT 15.0 K/mm3 4.0-10.0 H [facility] gatito RED BLOOD COUNT 4.88 M/mm3 4.00-5.50 [facility] HEMOGLOBIN 12.3 gm/dL 12.0-16.[address] [facility] HEMATOCRIT 38.8 % 36.0-48.[address] [facility] MEAN CELL VOLUME 79.5 fl 80-96 L [facility] MEAN CORPUSCULAR HEMOGLOBIN 25.2 pg 27.0-31.0 L [facility] MEAN CORPUSCULAR HGB CONC 31.7 g/dl 32.0-36.0 L [facility] RED CELL DISTRIBUTION WIDTH 17.3 % 10.0-14.5 H [facility] PLATELET COUNT 374 K/mm3 172-[address] [facility] MEAN PLATELET VOLUME 10.4 fl 9.0-13.0 [facility] pital GRAN % 84.6 % 50-80.[address] [facility] IG% 0.1 % 0.0-0.[address] [facility] LYMPH % 8.0 % 25.0-50.[address] [facility] MONO % 6.9 % 2.0-10.[address] [facility] EOS % 0.3 % 0-5.[address] [facility] BASO % 0.1 % 0.0-2.[address] [facility] GRAN # 12.9 K/mm3 2.0-8.[address] [facility] IG# 0.0 K/mm3 0.0-0.[address] [facility] LYMPH # 1.2 K/mm3 1.0-5.[address] [facility] MONO # 1.1 K/mm3 0.10-1.[address] [facility] EOS # 0.1 K/mm3 0.0-0.[address] [facility] BASO # 0.0 K/mm3 0.0-0.[address] [facility] ID Date Data Source [id number] 07/06/2021 09:03:00 [facility] Name Value Range Interpretation Code Description Data Afua rce(s) Supporting Document(s) [facility] ID Date Data Source [id number] 04/26/2021 12:00:00 AM EDT [facility] Name Value Range Interpretation Code Description Data Afua rce(s) Supporting Document(s) SARS coronavirus 2 Ag Not Detected [facility] This lab was ordered by [facility] [place] [facility] and reported by [facility]. ID Date Data Source [id number] 01/31/2021 02:21:00 PM EDT [facility] Name Value Range Interpretation Code Description Data Afua rce(s) Supporting Document(s) SARS-CoV-2 (COVID 19) NEGATIVE - SARS-CoV-2 (COVID19) [facility] This lab was ordered by [facility] a nd reported by [facility]. ID Date Data Source [id number] 01/26/2021 12:00:00 AM EDT eCW1 ([facility]) Name Value Range Interpretation Code Description Data Afua rce(s) Supporting Document(s) [id number] FIBRINOGEN eCW1 ([facility]) ID Date Data Source CBC - Complete Blood Count 01/26/2021 12:00:00 AM EDT eCW1 ( [facility]) Name Value Range Interpretation Code Description Data Afua rce(s) Supporting Document(s) 3.47 4.00-5.40 RED BLOOD COUNT eCW1 ([facility]) 13.6 4.0-10.0 WHITE BLOOD COUNT eCW1 ([facility]) 10.3 12.0-15.5 HEMOGLOBIN eCW1 ([facility]) 31.7 36.0-47.0 HEMATOCRIT eCW1 ([facility]) 91.4 80.0-96.0 MEAN CORPUSCULAR VOLUME e CW1 ([facility]) 29.7 27.0-33.0 MEAN CORPUSCULAR HEMOGLOB IN eCW1 ([facility]) 32.5 32.0-36.5 MEAN CORPUSCULAR HGB CONC eCW1 ([facility]) 13.3 11.5-14.5 RED CELL DISTRIBUTION WID TH eCW1 ([facility]) 349 150-450 PLATELET COUNT, AUTOMATED eCW1 ([facility]) ID Date Data Source [id number] 01/03/2021 12:00:00 AM EDT [facility] Name Value Range Interpretation Code Description Data Afua rce(s) Supporting Document(s) SARS coronavirus 2 Ag Not Detected [facility] This lab was ordered by [facility] [place] [facility] and reported by [facility]. ID Date Data Source [id number] 12/28/2020 12:00:00 AM EDT [facility] Name Value Range Interpretation Code Description Data Afua rce(s) Supporting Document(s) SARS coronavirus 2 Ag Not Detected [facility] This lab was ordered by [facility] [place] [facility] and reported by [facility]. ID Date Data Source [id number] 12/20/2020 12:00:00 AM EDT [facility] Name Value Range Interpretation Code Description Data Afua rce(s) Supporting Document(s) SARS coronavirus 2 Ag Not Detected [facility] This lab was ordered by [facility] [place] [facility] and reported by [facility]. ID Date Data Source [id number] 12/13/2020 12:00:00 AM EDT [facility] Name Value Range Interpretation Code Description Data Afua rce(s) Supporting Document(s) SARS coronavirus 2 Ag Not Detected [facility] This lab was ordered by [facility] [place] [facility] and reported by [facility]. ID Date Data Source [id number] 12/06/2020 12:00:00 AM EDT [facility] Name Value Range Interpretation Code Description Data Afua rce(s) Supporting Document(s) SARS coronavirus 2 Ag Not Detected [facility] This lab was ordered by [facility] [place] [facility] and reported by [facility]. ID Date Data Source [id number] 11/29/2020 12:00:00 AM EDT [facility] Name Value Range Interpretation Code Description Data Afua rce(s) Supporting Document(s) SARS coronavirus 2 Ag Not Detected [facility] This lab was ordered by [facility] [place] [facility] and reported by [facility]. ID Date Data Source [id number] 11/22/2020 12:00:00 AM EST [facility] Name Value Range Interpretation Code Description Data Afua rce(s) Supporting Document(s) SARS coronavirus 2 Ag Not Detected [facility] This lab was ordered by [facility] [place] [facility] and reported by [facility]. ID Date Data Source [id number] 11/16/2020 12:00:00 AM EST [facility] Name Value Range Interpretation Code Description Data Afua rce(s) Supporting Document(s) SARS coronavirus 2 Ag Not Detected [facility] This lab was ordered by [facility] [place] [facility] and reported by [facility]. ID Date Data Source [id number] 11/09/2020 11:31:00 AM EST [facility] ([facility]) Name Value Range Interpretation Code Description Data Afua rce(s) Supporting Document(s) Natriuretic peptide.B prohormone N-Terminal [Mass/volu me] in Serum or Plasma 75 pg/mL [facility] ([facility]) ID Date Data Source URINE CULTURE 11/09/2020 12:00:00 AM EST eCW1 ([facility]) Name Value Range Interpretation Code Description Data Afua rce(s) Supporting Document(s) URINE CULTURE eCW1 ([facility]) ID Date Data Source [id number] 11/08/2020 12:00:00 AM EST [facility] Name Value Range Interpretation Code Description Data Afua rce(s) Supporting Document(s) SARS coronavirus 2 Ag Not Detected [facility] This lab was ordered by [facility] [place] [facility] and reported by [facility]. ID Date Data Source [id number] 11/01/2020 12:00:00 AM EST [facility] Name Value Range Interpretation Code Description Data Afua rce(s) Supporting Document(s) SARS coronavirus 2 Ag Not Detected [facility] This lab was ordered by [facility] [place] [facility] and reported by [facility]. ID Date Data Source [id number] 10/25/2020 12:00:00 AM EST [facility] Name Value Range Interpretation Code Description Data Afua rce(s) Supporting Document(s) SARS coronavirus 2 Ag Not Detected [facility] This lab was ordered by [facility] [place] [facility] and reported by [facility]. ID Date Data Source [id number] 10/18/2020 12:00:00 AM EST [facility] Name Value Range Interpretation Code Description Data Afua rce(s) Supporting Document(s) SARS coronavirus 2 Ag Not Detected [facility] This lab was ordered by [facility] [place] [facility] and reported by [facility]. ID Date Data Source TOTAL PROTEIN,RANDOM URINE 10/13/2020 12:00:00 AM EST eCW1 ( [facility]) Name Value Range Interpretation Code Description Data Afua rce(s) Supporting Document(s) 7.3 0.0-12.0 eCW1 ([facility]) ID Date Data Source CREATININE,RANDOM URINE 10/13/2020 12:00:00 AM EST eCW1 ([facility]) Name Value Range Interpretation Code Description Data Afua rce(s) Supporting Document(s) 115.0 eCW1 ([facility]) ID Date Data Source CHLAMYDIA & GC DNA AMPLIFICAT 10/13/2020 12:00:00 AM EST eCW 1 ([facility]) Name Value Range Interpretation Code Description Data Afua rce(s) Supporting Document(s) Chlamydia trachomatis rRNA [Presence] in Unspecified specimen by Probe and target amplification method NEGATIVE NEGATIVE eCW1 ([facility]) ID Date Data Source [id number] 09/22/2020 02:00:00 PM EST [facility] Name Value Range Interpretation Code Description Data Afua rce(s) Supporting Document(s) SARS coronavirus 2 RNA Not Detected [facility] This lab was ordered by [facility] and reported by [facility]. ID Date Data Source [id number] 08/23/2020 12:00:00 AM EST [facility] Name Value Range Interpretation Code Description Data Afua rce(s) Supporting Document(s) SARS coronavirus 2 Ag [facility] This lab was ordered by [facility] [place] [facility] and reported by [facility]. ID Date Data Source [id number] 08/17/2020 12:00:00 AM EST [facility] Name Value Range Interpretation Code Description Data Afua rce(s) Supporting Document(s) SARS coronavirus 2 Ag [facility] This lab was ordered by [facility] [place] [facility] and reported by [facility]. ID Date Data Source [id number] 08/09/2020 12:00:00 AM EST [facility] Name Value Range Interpretation Code Description Data Afua rce(s) Supporting Document(s) SARS coronavirus 2 Ag [facility] This lab was ordered by [facility] [place] [facility] and reported by [facility]. Procedure Social History Code Duration Value Status Description Data Source(s ) Smoking 07/21/2021 12:00:00 AM EDT Unknown if ever smoked comp leted Unknown if ever smoked [facility] ([facility]) Smoking 07/20/2021 12:00:00 AM EDT Unknown if ever smoked comp leted Unknown if ever smoked [facility] ([facility]) Smoking 06/08/2021 12:00:00 AM EDT Unknown if ever smoked comp leted Unknown if ever smoked [facility] ([facility]) Smoking 06/03/2021 12:00:00 AM EDT Unknown if ever smoked comp leted Unknown if ever smoked [facility] ([facility]) Smoking 05/19/2021 12:00:00 AM EDT Unknown if ever smoked comp leted Unknown if ever smoked [facility] ([facility]) Smoking 04/28/2021 12:00:00 AM EDT Unknown if ever smoked comp leted Unknown if ever smoked [facility] ([facility]) Smoking 03/18/2021 12:00:00 AM EDT Unknown if ever smoked comp leted Unknown if ever smoked [facility] ([facility]) Smoking 02/22/2021 12:00:00 AM EDT Unknown if ever smoked comp leted Unknown if ever smoked [facility] ([facility]) Smoking 02/17/2021 12:00:00 AM EDT Current Smoker completed Curre nt Smoker eCW1 ([facility]) Smoking 02/10/2021 12:00:00 AM EDT Unknown if ever smoked comp leted Unknown if ever smoked [facility] ([facility]) Smoking 02/08/2021 12:00:00 AM EDT Unknown if ever smoked comp leted Unknown if ever smoked [facility] ([facility]) Smoking 01/27/2021 12:00:00 AM EDT Unknown if ever smoked comp leted Unknown if ever smoked [facility] ([facility]) Smoking 01/26/2021 12:00:00 AM EDT Current Smoker completed Curre nt Smoker eCW1 ([facility]) Smoking 01/26/2021 12:00:00 AM EDT Current Smoker completed Curre nt Smoker eCW1 ([facility]) Smoking 01/26/2021 12:00:00 AM EDT Current Smoker completed Curre nt Smoker eCW1 ([facility]) Smoking 01/26/2021 12:00:00 AM EDT Current Smoker completed Curre nt Smoker eCW1 ([facility]) Smoking 01/18/2021 12:00:00 AM EDT Current Smoker completed Curre nt Smoker eCW1 ([facility]) Smoking 01/10/2021 12:00:00 AM EDT Current Smoker completed Curre nt Smoker eCW1 ([facility]) Smoking 01/10/2021 12:00:00 AM EDT Current Smoker completed Curre nt Smoker eCW1 ([facility]) Smoking 12/29/2020 12:00:00 AM EDT Current Smoker completed Curre nt Smoker eCW1 ([facility]) Smoking 12/27/2020 12:00:00 AM EDT Unknown if ever smoked comp leted Unknown if ever smoked [facility] ([facility]) Smoking 12/23/2020 12:00:00 AM EDT Current Smoker completed Curre nt Smoker eCW1 ([facility]) Smoking 12/13/2020 12:00:00 AM EDT Unknown if ever smoked comp leted Unknown if ever smoked [facility] ([facility]) Smoking 12/10/2020 12:00:00 AM EDT Unknown if ever smoked comp leted Unknown if ever smoked [facility] ([facility]) Smoking 11/29/2020 12:00:00 AM EDT Current Smoker completed Curre nt Smoker eCW1 ([facility]) Smoking 11/12/2020 12:00:00 AM EST Unknown if ever smoked comp leted Unknown if ever smoked [facility] ([facility]) Smoking 11/05/2020 12:00:00 AM EST Current Smoker completed Curre nt Smoker eCW1 ([facility]) Smoking 10/28/2020 12:00:00 AM EST Unknown if ever smoked comp leted Unknown if ever smoked [facility] ([facility]) Smoking 10/19/2020 12:00:00 AM EST Unknown if ever smoked comp leted Unknown if ever smoked [facility] ([facility]) Smoking 10/18/2020 12:00:00 AM EST Unknown if ever smoked comp leted Unknown if ever smoked [facility] ([facility]) Smoking 10/13/2020 12:00:00 AM EST Current Smoker completed Curre nt Smoker eCW1 ([facility]) Smoking 10/06/2020 12:00:00 AM EST Unknown if ever smoked comp leted Unknown if ever smoked [facility] ([facility]) Smoking 09/20/2020 12:00:00 AM EST Unknown if ever smoked comp leted Unknown if ever smoked [facility] ([facility]) Smoking 09/14/2020 12:00:00 AM EST Unknown if ever smoked comp leted Unknown if ever smoked [facility] ([facility]) Smoking 09/03/2020 12:00:00 AM EST Unknown if ever smoked comp leted Unknown if ever smoked [facility] ([facility]) Smoking 08/26/2020 12:00:00 AM EST Unknown if ever smoked comp leted Unknown if ever smoked [facility] ([facility]) Smoking 08/17/2020 12:00:00 AM EST Unknown if ever smoked comp leted Unknown if ever smoked [facility] ([facility]) Smoking 07/26/2020 12:00:00 AM EST Unknown if ever smoked comp leted Unknown if ever smoked [facility] ([facility]) Smoking 07/21/2020 12:00:00 AM EST Unknown if ever smoked comp leted Unknown if ever smoked [facility] ([facility]) Smoking 07/16/2020 12:00:00 AM EDT Unknown if ever smoked comp leted Unknown if ever smoked [facility] ([facility]) Smoking 07/01/2020 12:00:00 AM EDT Unknown if ever smoked comp leted Unknown if ever smoked [facility] ([facility]) Vital Signs ID Date Data Source UNK Name Value Range Interpretation Code Description Data Source(s) Body weight 248.7 [lb_av] 248.7 [lb_av] eCW1 ([facility]) Body height 63 [in_i] 63 [in_i] eCW1 ([facility]) Body mass index (BMI) [Ratio] 44.05 kg/m2 44.05 kg/m2 [facility] ([facility]) Body height 0.00 in Normal (applies to non-numeric resu lts) 0.00 in [facility] ([facility]) Body weight Measured 0.00 lbs Normal (applies to n on-numeric results) 0.00 lbs [facility] ([facility]) Body mass index (BMI) [Ratio] 0.00 kg/m2 No rmal (applies to non-numeric results) 0.00 kg/m2 [facility] ([facility]) Systolic blood pressure 0 mm[Hg] Normal (applies t o non-numeric results) 0 mm[Hg] [facility] ([facility]) Diastolic blood pressure 0 mm[Hg] Normal (applies to non-numeric results) 0 mm[Hg] [facility] ([facility]) Body weight 253.2 [lb_av] 253.2 [lb_av] eCW1 ([facility]) Body height 63 [in_i] 63 [in_i] eCW1 ([facility]) Body mass index (BMI) [Ratio] 44.852 kg/m2 44.8 52 kg/m2 eCW1 ([facility]) Systolic blood pressure 120 mm[Hg] 120 mm[Hg] e CW1 ([facility]) Diastolic blood pressure 76 mm[Hg] 76 mm[Hg] eCW1 ([facility]) Body weight 250 [lb_av] 250 [lb_av] eCW1 ([facility]) Body height 63 [in_i] 63 [in_i] eCW1 ([facility]) Body mass index (BMI) [Ratio] 44.286 kg/m2 44.2 86 kg/m2 eCW1 ([facility]) Systolic blood pressure 118 mm[Hg] 118 mm[Hg] e CW1 ([facility]) Diastolic blood pressure 70 mm[Hg] 70 mm[Hg] eCW1 ([facility]) Body weight 253 [lb_av] 253 [lb_av] eCW1 ([facility]) Body height 63 [in_i] 63 [in_i] eCW1 ([facility]) Body mass index (BMI) [Ratio] 44.817 kg/m2 44.8 17 kg/m2 W1 ([facility]) Systolic blood pressure 124 mm[Hg] 124 mm[Hg] e CW1 ([facility]) Diastolic blood pressure 80 mm[Hg] 80 mm[Hg] eCW1 ([facility]) Body weight 250.00 [lb_av] 250.00 [lb_av] MEDEN T ([facility]) Systolic blood pressure 103 mm[Hg] 103 mm[Hg] M EDENT ([facility], [facility]) Diastolic blood pressure 69 mm[Hg] 69 mm[Hg] [facility] ([facility], [facility]) Heart rate 78 /min 78 /min [facility] ([facility], [facility]) Respiratory rate 14 /min 14 /min [facility] ( [facility], [facility]) Oxygen saturation in Arterial blood by Pulse oximetry 99 % 99 % [facility] ([facility]) Body temperature 96.7 [degF] 96.7 [degF] [facility] ([facility]) Body height 63 [in_i] 63 [in_i] [facility] ([facility]) 5'3" Body mass index (BMI) [Ratio] 44.3 kg/m2 44.3 k g/m2 [facility] ([facility]) Body weight 251.6 [lb_av] 251.6 [lb_av] eCW1 ([facility]) Body height 63 [in_i] 63 [in_i] eCW1 ([facility]) Body mass index (BMI) [Ratio] 44.569 kg/m2 44.5 69 kg/m2 eCW1 ([facility]) Systolic blood pressure 118 mm[Hg] 118 mm[Hg] e CW1 ([facility]) Diastolic blood pressure 76 mm[Hg] 76 mm[Hg] eCW1 ([facility]) Body height 63 [in_i] 63 [in_i] eCW1 ([facility]) Body mass index (BMI) [Ratio] 44.64 kg/m2 44.64 kg/m2 W1 ([facility]) Body weight 252 [lb_av] 252 [lb_av] eCW1 ([facility]) Body weight 114.31 kg 114.31 kg eCW1 ([facility]) Systolic blood pressure 112 mm[Hg] 112 mm[Hg] e CW1 ([facility]) Diastolic blood pressure 70 mm[Hg] 70 mm[Hg] eCW1 ([facility]) Body weight 248.00 [lb_av] 248.00 [lb_av] BRITTANY T ([facility]) Body height 63 [in_i] 63 [in_i] [facility] ([facility]) 5'3" Body mass index (BMI) [Ratio] 43.9 kg/m2 43.9 k g/m2 [facility] ([facility]) Heart rate 80 /min 80 /min [facility] ([facility]) Systolic blood pressure--sitting 117 mm[Hg] 117 mm[Hg] [facility] ([facility]) [place]ron, large cuff/LA Diastolic blood pressure--sitting 72 mm[Hg] 72 mm[Hg] [facility] ([facility]) [place], large cuff/LA Body mass index (BMI) [Ratio] 0.00 kg/m2 No rmal (applies to non-numeric results) 0.00 kg/m2 [facility] ([facility]) Diastolic blood pressure 0 mm[Hg] Normal (applies to non-numeric results) 0 mm[Hg] [facility] ([facility]) Systolic blood pressure 0 mm[Hg] Normal (applies t o non-numeric results) 0 mm[Hg] [facility] ([facility]) Body height 0.00 in Normal (applies to non-numeric resu lts) 0.00 in [facility] ([facility]) Body weight Measured 0.00 lbs Normal (applies to n on-numeric results) 0.00 lbs [facility] ([facility]) Body height 0.00 in Normal (applies to non-numeric resu lts) 0.00 in [facility] ([facility]) Body weight Measured 0.00 lbs Normal (applies to n on-numeric results) 0.00 lbs [facility] ([facility]) Body mass index (BMI) [Ratio] 0.00 kg/m2 No rmal (applies to non-numeric results) 0.00 kg/m2 [facility] ([facility]) Systolic blood pressure 0 mm[Hg] Normal (applies t o non-numeric results) 0 mm[Hg] [facility] ([facility]) Diastolic blood pressure 0 mm[Hg] Normal (applies to non-numeric results) 0 mm[Hg] [facility] ([facility]) Body weight 253 [lb_av] 253 [lb_av] eCW1 ([facility]) Body height 63 [in_i] 63 [in_i] eCW1 ([facility]) Body mass index (BMI) [Ratio] 44.817 kg/m2 44.8 17 kg/m2 eCW1 ([facility]) Systolic blood pressure 128 mm[Hg] 128 mm[Hg] e CW1 ([facility]) Diastolic blood pressure 80 mm[Hg] 80 mm[Hg] eCW1 ([facility]) Body height 0.00 in Normal (applies to non-numeric resu lts) 0.00 in [facility] ([facility]) Body weight Measured 0.00 lbs Normal (applies to n on-numeric results) 0.00 lbs [facility] ([facility]) Body mass index (BMI) [Ratio] 0.00 kg/m2 No rmal (applies to non-numeric results) 0.00 kg/m2 [facility] ([facility]) Systolic blood pressure 0 mm[Hg] Normal (applies t o non-numeric results) 0 mm[Hg] [facility] ([facility]) Diastolic blood pressure 0 mm[Hg] Normal (applies to non-numeric results) 0 mm[Hg] [facility] ([facility]) Body height 0.00 in Normal (applies to non-numeric resu lts) 0.00 in [facility] ([facility]) Body weight Measured 0.00 lbs Normal (applies to n on-numeric results) 0.00 lbs [facility] ([facility]) Body mass index (BMI) [Ratio] 0.00 kg/m2 No rmal (applies to non-numeric results) 0.00 kg/m2 [facility] ([facility]) Systolic blood pressure 0 mm[Hg] Normal (applies t o non-numeric results) 0 mm[Hg] [facility] ([facility]) Diastolic blood pressure 0 mm[Hg] Normal (applies to non-numeric results) 0 mm[Hg] [facility] ([facility]) Diastolic blood pressure 0 mm[Hg] Normal (applies to non-numeric results) 0 mm[Hg] [facility] ([facility]) Body height 0.00 in Normal (applies to non-numeric resu lts) 0.00 in [facility] ([facility]) Body weight Measured 0.00 lbs Normal (applies to n on-numeric results) 0.00 lbs [facility] ([facility]) Body mass index (BMI) [Ratio] 0.00 kg/m2 No rmal (applies to non-numeric results) 0.00 kg/m2 [facility] ([facility]) Systolic blood pressure 0 mm[Hg] Normal (applies t o non-numeric results) 0 mm[Hg] [facility] ([facility]) Patient Treatment Plan of Care Planned Activity Planned Date Details Description Data Source (s) Acetaminophen 325 MG / Oxycodone Hydrochloride 5 MG Or al Tablet [Percocet] 02/09/2021 12:00:00 AM EDT [email or web address] ([facility]) Acetaminophen 325 MG / Oxycodone Hydrochloride 5 MG Or al Tablet [Percocet] 02/09/2021 12:00:00 AM EDT [email or web address] ([facility])
== END 2021-06-30 01:34 | disposition left against medical advice (07) ==
LOC: M ED 01:29
DX: Z53.21 Procedure and treatment not carried out due to patient leaving prior to being seen by health care provider (principal)

== ENCOUNTER → 2022-09-05 | Outpatient (CLI) | payer OTHER | LOC: M RAD 15:14 | PROVIDERS: ATTEND Obstetrics & Gynecology Obstetrics | DX: N93.9 Abnormal uterine and vaginal bleeding, unspecified (principal); N83.291 Other ovarian cyst, right side ==

== ENCOUNTER → 2023-01-08 | Outpatient (CLI) | payer OTHER ==
[2023-01-08 10:42] LABS: HEMATOCRIT 40.1 % (36.0-47.0); HEMOGLOBIN 12.6 g/dl (12.0-15.5); MEAN CORPUSCULAR HEMOGLOBIN 28.2 pg (27.0-33.0); MEAN CORPUSCULAR HGB CONC 31.4 g/dl (32.0-36.5); MEAN CORPUSCULAR VOLUME 89.7 fl (80.0-96.0); PLATELET COUNT, AUTOMATED 379 10^3/uL (150-450); RED BLOOD COUNT 4.47 10^6/uL (4.00-5.40); WHITE BLOOD COUNT 7.6 10^3/uL (4.0-10.0)
[2023-01-08 10:49] LABS: HEMOGLOBIN A1c 5.4 % (4.0-6.0)
[2023-01-08 11:03] LABS: URIC ACID 5.2 MG/DL (3.1-7.8)
[2023-01-08 11:06] LABS: ALBUMIN 3.7 G/DL (3.2-5.2); ALKALINE PHOSPHATASE 77 U/L (46-116); ALT/SGPT 14 U/L (7.0-40); AST/SGOT 11 U/L (<34); BILIRUBIN,TOTAL 0.2 MG/DL (0.3-1.2); BLOOD UREA NITROGEN 8 MG/DL (9-23); CALCIUM LEVEL 9.5 MG/DL (8.5-10.1); CARBON DIOXIDE LEVEL 29 MMOL/L (20-31); CHLORIDE LEVEL 106 MMOL/L (98-107); CHOLESTEROL LEVEL 183 MG/DL (<200); CHOLESTEROL RISK RATIO 3.22 (<5); CREATININE FOR GFR 0.77 MG/DL (0.55-1.30); GLOMERULAR FILTRATION RATE > 60.0 (>60); GLUCOSE, FASTING 91 MG/DL (60-100); HDL CHOLESTEROL 56.7 MG/DL (>40); LDL CHOLESTEROL 113.1 MG/DL (<100); NON-HDL-C 126.3 MG/DL; POTASSIUM SERUM 4.1 MMOL/L (3.5-5.1); RHEUMATOID FACTOR QUANT 5.3 IU/ML (<14); SODIUM LEVEL 136 MMOL/L (136-145); TOTAL PROTEIN 6.8 G/DL (5.7-8.2); TRIGLYCERIDES LEVEL 66 MG/DL (<150)
[2023-01-08 11:08] LABS: THYROID STIMULATING HORMONE 0.518 uIU/ML (0.55-4.78); TOTAL 25(OH) VITAMIN D 27.7 NG/ML (20.0-100.0)
== END ==
LOC: M RAD 09:32
PROVIDERS: ATTEND Family Medicine
DX: I10 Essential (primary) hypertension (principal); R53.83 Other fatigue

== ENCOUNTER → 2023-02-07 | Outpatient (CLI) | payer OTHER | LOC: M LAB 16:31 | PROVIDERS: ATTEND Student in an Organized Health Care Education/Training Program | DX: F31.9 Bipolar disorder, unspecified (principal) ==

== ENCOUNTER 2023-03-09 14:49 | Emergency (ER) | payer OTHER ==
[~2023-03-09] VITALS: Ht 160 cm; Wt 104.2 kg
[2023-03-09] MEDS ORDERED: ADDE20CA3 PO (15:00)
[2023-03-09] MEDS ORDERED: TRIA37.577 PO (15:00)
[2023-03-09 18:30] VITALS: BP 142/80; TEMP 98.8; O2SAT 99
== END 2023-03-09 18:32 | disposition home or self-care (01) ==
LOC: M ED 14:49
DX: M79.605 Pain in left leg (principal); R22.42 Localized swelling, mass and lump, left lower limb; I10 Essential (primary) hypertension; F17.200 Nicotine dependence, unspecified, uncomplicated; Z79.899 Other long term (current) drug therapy

== ENCOUNTER 2023-04-01 16:17 | Emergency (ER) | payer OTHER ==
[~2023-04-01] VITALS: Ht 160 cm; Wt 100.8 kg
[~2023-04-01 16:17] MED LIST changes: +ADDE20CA3 PO; +TRIA37.577 PO
[2023-04-01 16:19] VITALS: TEMP 97.6
[2023-04-01] MEDS ORDERED: KETOROLAC 30 MG/ML 1ML VIAL IV ONE (17:00)
[2023-04-01 17:10] LABS: BASO # 0.1 10^3/uL (0.0-0.2); BASO % 0.5 % (0.0-1.0); EOS # 0.2 10^3/uL (0.0-0.5); EOS % 1.8 % (0.0-3.0); HEMATOCRIT 40.5 % (36.0-47.0); LYMPH # 3.5 10^3/uL (1.5-5.0); LYMPH % 37.8 % (24.0-44.0); MEAN CORPUSCULAR HEMOGLOBIN 27.3 pg (27.0-33.0); MEAN CORPUSCULAR HGB CONC 32.1 g/dl (32.0-36.5); MEAN CORPUSCULAR VOLUME 84.9 fl (80.0-96.0); MONO # 0.5 10^3/uL (0.0-0.8); MONO % 5.1 % (2.0-8.0); NEUTROPHILS % 54.6 % (36.0-66.0); PLATELET COUNT, AUTOMATED 415 10^3/uL (150-450); RED BLOOD COUNT 4.77 10^6/uL (4.00-5.40); WHITE BLOOD COUNT 9.3 10^3/uL (4.0-10.0)
[2023-04-01 17:36] LABS: LIPASE 36 U/L (12-53)
[2023-04-01 17:38] LABS: ALBUMIN 4.2 G/DL (3.2-5.2); ALKALINE PHOSPHATASE 92 U/L (46-116); ALT/SGPT 18 U/L (7.0-40); AST/SGOT 9 U/L (<34); BILIRUBIN,DIRECT < 0.1 MG/DL (<0.4); BILIRUBIN,TOTAL 0.3 MG/DL (0.3-1.2); BLOOD UREA NITROGEN 6 MG/DL (9-23); CALCIUM LEVEL 9.7 MG/DL (8.5-10.1); CARBON DIOXIDE LEVEL 26 MMOL/L (20-31); CHLORIDE LEVEL 104 MMOL/L (98-107); GLOMERULAR FILTRATION RATE > 60.0 (>60); GLUCOSE, FASTING 90 MG/DL (60-100); POTASSIUM SERUM 3.2 MMOL/L (3.5-5.1); SODIUM LEVEL 140 MMOL/L (136-145); TOTAL PROTEIN 7.4 G/DL (5.7-8.2)
[2023-04-01 18:17] VITALS: O2SAT 100
[2023-04-01 18:30] VITALS: BP 122/69
[2023-04-01] MEDS ORDERED: ONDANSETRON 4MG 2ML VIAL IV ONE (18:35)
[2023-04-01] MEDS ORDERED: POTASSIUM CHLORIDE 10MEQ SR TABLET PO ONE (20:00)
== END 2023-04-01 19:50 | disposition home or self-care (01) ==
LOC: M ED 16:17
DX: R10.11 Right upper quadrant pain (principal); K80.51 Calculus of bile duct without cholangitis or cholecystitis with obstruction; F31.9 Bipolar disorder, unspecified; Z79.899 Other long term (current) drug therapy
CPT/HCPCS: 76705; 80048; 80076; 81001; 83605; 83690; 85025; 99284; J1885; J2405

== ENCOUNTER → 2024-02-14 | Outpatient (CLI) | payer OTHER ==
[2024-02-14 08:53] LABS: HEMOGLOBIN A1c 5.4 % (4.0-6.0)
[2024-02-14 09:00] LABS: TOTAL IRON BINDING CAPACITY 420 UG/DL (250-425)
[2024-02-14 09:01] LABS: ALBUMIN 3.6 G/DL (3.2-5.2); ALKALINE PHOSPHATASE 110 U/L (46-116); ALT/SGPT 26 U/L (7.0-40); AST/SGOT 14 U/L (<34); BILIRUBIN,TOTAL 0.3 MG/DL (0.3-1.2); BLOOD UREA NITROGEN 6 MG/DL (9-23); CALCIUM LEVEL 9.7 MG/DL (8.5-10.1); CARBON DIOXIDE LEVEL 28 MMOL/L (20-31); CHLORIDE LEVEL 105 MMOL/L (98-107); CHOLESTEROL LEVEL 191 MG/DL (<200); CHOLESTEROL RISK RATIO 2.88 (<5); CREATININE FOR GFR 0.92 MG/DL (0.55-1.30); GLOMERULAR FILTRATION RATE > 60.0 (>60); GLUCOSE, FASTING 101 MG/DL (60-100); HDL CHOLESTEROL 66.1 MG/DL (>40); IRON (FE) 20 UG/DL (50-170); LDL CHOLESTEROL 108.7 MG/DL (<100); NON-HDL-C 124.9 MG/DL; PERCENT SATURATION 4.8 % (13.2-45.0); POTASSIUM SERUM 3.9 MMOL/L (3.5-5.1); SODIUM LEVEL 139 MMOL/L (136-145); TOTAL PROTEIN 7.1 G/DL (5.7-8.2); TRIGLYCERIDES LEVEL 81 MG/DL (<150)
[2024-02-14 09:03] LABS: THYROID STIMULATING HORMONE 0.668 uIU/ML (0.55-4.78); TOTAL 25(OH) VITAMIN D 46.4 NG/ML (20.0-100.0)
[2024-02-14 10:48] LABS: HEMATOCRIT 39.7 % (36.0-47.0); HEMOGLOBIN 12.4 g/dl (12.0-15.5); MEAN CORPUSCULAR HEMOGLOBIN 24.3 pg (27.0-33.0); MEAN CORPUSCULAR HGB CONC 31.2 g/dl (32.0-36.5); MEAN CORPUSCULAR VOLUME 77.8 fl (80.0-96.0); PLATELET COUNT, AUTOMATED 408 10^3/uL (150-450); WHITE BLOOD COUNT 5.3 10^3/uL (4.0-10.0)
== END ==
LOC: M LAB 08:00
PROVIDERS: ATTEND Family Medicine
DX: D64.9 Anemia, unspecified (principal); I10 Essential (primary) hypertension; E03.9 Hypothyroidism, unspecified

== ENCOUNTER 2024-08-04 16:44 | Emergency (ER) | payer OTHER ==
[~2024-08-04] VITALS: Ht 160 cm; Wt 113.4 kg
[~2024-08-04 16:44] MED LIST changes: +NYST1POW3 TOP; -NYST1POW9 TOP
[2024-08-04 17:51] VITALS: BP 125/67; TEMP 97.7; O2SAT 100
[2024-08-04] MEDS ORDERED: LIDOCAINE VISCOUS 2% SOLN 15ML UDC PO ONE (18:50)
== END 2024-08-04 20:19 | disposition home or self-care (01) ==
LOC: M ED 16:44
DX: R10.9 Unspecified abdominal pain (principal); Z53.9 Procedure and treatment not carried out, unspecified reason; D64.9 Anemia, unspecified; F31.9 Bipolar disorder, unspecified; Z79.899 Other long term (current) drug therapy

== ENCOUNTER → 2024-12-22 | Outpatient (CLI) | payer OTHER ==
[2024-12-22 12:29] LABS: ALBUMIN 3.5 G/DL (3.2-5.2); ALKALINE PHOSPHATASE 98 U/L (35-104); ALT/SGPT 35 U/L (7.0-40); AST/SGOT 20 U/L (<34); BILIRUBIN,TOTAL 0.4 MG/DL (0.3-1.2); BLOOD UREA NITROGEN 6 MG/DL (9-23); CALCIUM LEVEL 9.5 MG/DL (8.5-10.1); CARBON DIOXIDE LEVEL 30 MMOL/L (20-31); CHLORIDE LEVEL 104 MMOL/L (98-107); CHOLESTEROL LEVEL 214 MG/DL (<200); CHOLESTEROL RISK RATIO 3.54 (<5); CREATININE FOR GFR 0.73 MG/DL (0.55-1.30); GLOMERULAR FILTRATION RATE > 60.0 (>60); GLUCOSE, FASTING 96 MG/DL (60-100); HDL CHOLESTEROL 60.4 MG/DL (>40); LDL CHOLESTEROL 136.4 MG/DL (<100); NON-HDL-C 153.6 MG/DL; POTASSIUM SERUM 4.7 MMOL/L (3.5-5.1); SODIUM LEVEL 141 MMOL/L (136-145); TRIGLYCERIDES LEVEL 86 MG/DL (<150)
[2024-12-22 12:30] LABS: HEMATOCRIT 45.4 % (36.0-47.0); HEMOGLOBIN 14.7 g/dl (12.0-15.5); MEAN CORPUSCULAR HEMOGLOBIN 30.6 pg (27.0-33.0); MEAN CORPUSCULAR HGB CONC 32.4 g/dl (32.0-36.5); MEAN CORPUSCULAR VOLUME 94.4 fl (80.0-96.0); PLATELET COUNT, AUTOMATED 402 10^3/uL (150-450); RED BLOOD COUNT 4.81 10^6/uL (4.00-5.40); THYROID STIMULATING HORMONE 1.175 uIU/ML (0.55-4.78); WHITE BLOOD COUNT 9.9 10^3/uL (4.0-10.0)
[2024-12-22 12:31] LABS: TOTAL 25(OH) VITAMIN D 72.5 NG/ML (20.0-100.0)
[2024-12-22 12:47] LABS: HEMOGLOBIN A1c 5.2 % (4.0-6.0)
== END ==
LOC: M WUC 09:02
PROVIDERS: ATTEND Family Medicine
DX: I10 Essential (primary) hypertension (principal); R53.83 Other fatigue; E03.9 Hypothyroidism, unspecified

== ENCOUNTER → 2025-08-25 | Outpatient (CLI) | payer OTHER ==
[2025-08-25 08:07] LABS: BASO # 0.1 10^3/uL (0.0-0.2); BASO % 0.7 % (0.0-1.0); EOS # 0.4 10^3/uL (0.0-0.5); EOS % 3.6 % (0.0-3.0); LYMPH # 2.3 10^3/uL (1.5-5.0); LYMPH % 23.3 % (24.0-44.0); MONO # 0.6 10^3/uL (0.0-0.8); MONO % 5.5 % (2.0-8.0); NEUTROPHILS # 6.7 10^3/uL (1.5-8.5); NEUTROPHILS % 66.7 % (36.0-66.0); PLATELET COUNT, AUTOMATED 404 10^3/uL (150-450)
[2025-08-25 08:30] LABS: ALT/SGPT 36 U/L (7.0-40); AST/SGOT 22 U/L (<34); CALCIUM LEVEL 9.5 MG/DL (8.5-10.1); CARBON DIOXIDE LEVEL 31 MMOL/L (20-31); CHLORIDE LEVEL 101 MMOL/L (98-107); CHOLESTEROL LEVEL 200 MG/DL (<200); CHOLESTEROL RISK RATIO 3.49 (<5); CREATININE FOR GFR 0.76 MG/DL (0.55-1.30); GLOMERULAR FILTRATION RATE > 90.0 (>60); IRON (FE) 80 UG/DL (50-170); LDL CHOLESTEROL 118.8 MG/DL (<100); NON-HDL-C 142.8 MG/DL; PERCENT SATURATION 27.4 % (13.2-45.0); POTASSIUM SERUM 4.0 MMOL/L (3.5-5.1); SODIUM LEVEL 139 MMOL/L (136-145); TRIGLYCERIDES LEVEL 120 MG/DL (<150)
== END ==
LOC: M LAB 06:53
PROVIDERS: ATTEND Student in an Organized Health Care Education/Training Program
DX: D50.9 Iron deficiency anemia, unspecified (principal); F32.A Depression, unspecified; I10 Essential (primary) hypertension